=== PATIENT | female | born 1945 | race Caucasian/White ===

== ENCOUNTER → 2018-12-22 13:59 | Outpatient (CLI) | payer MEDICARE, BC, SELFPAY ==
[2015-01-31 12:30] VITALS: BMI 33.5
--- NOTE | 2018-12-22 14:09 | RAD_ITS ---
STUDY: X-RAY - PELVIS AND LEFT HIP REASON FOR EXAM: Left hip pain, no specific injury. TECHNIQUE: 2 views of the pelvis and hip. COMPARISON: None. FINDINGS: There are injection granulomas in the left buttocks. There is arthrosis of the sacroiliac joints bilaterally with joint space narrowing and subchondral eburnation. Normal bilateral superior and inferior pubic rami. Normal pubic symphysis. Normal bilateral ischial tuberosities. Normal visualized femoral head. Normal acetabulum. There is mild left superomedial hip joint space narrowing. RAD/HIP, UNI W/ Pelvis 2-3 Views IMPRESSION: Mild left hip arthrosis. Bilateral sacroiliac arthrosis. Electronically Signed: Gen Todd MD at 15:48 EDT Tel , Service support ,
--- NOTE | 2018-12-22 14:10 | RAD_ITS ---
STUDY: X-RAY - LUMBAR SPINE REASON FOR EXAM: Female, 73 years old. Lower back pain. Left hip pain and morning. TECHNIQUE: 5 view(s) of the lumbar spine were obtained. COMPARISON: None FINDINGS: Normal lumbar lordosis. There is no substantial scoliosis. Minimal anterolisthesis L3 on L4. Normal vertebral bodies. Multilevel disc space narrowing from L2-3 through L5-S1 with marginal osteophytes at multiple levels. The soft tissue structures are unremarkable. Surgical clips right upper quadrant. RAD/L/S Spine Min 4 Views IMPRESSION: Multilevel degenerative changes of the lumbar spine, no fracture identified. Consider correlation with nonemergent cross-sectional imaging. Electronically Signed: Espinoza Isaac MD at 2:49 EDT , Service support ,
== END ==
PROVIDERS: Family Provider Nurse Practitioner; PCP Nurse Practitioner; Referring Provider Nurse Practitioner; Visit Provider Nurse Practitioner
DX: M25.552 Pain in left hip (principal); M54.5 Low back pain
CPT/HCPCS: 72110; 73502

== ENCOUNTER → 2018-12-30 12:52 | Outpatient (CLI) | payer MEDICARE, BC, SELFPAY ==
--- NOTE | 2018-12-30 12:56 | MRI_ITS ---
STUDY: MRI LUMBAR SPINE WITHOUT CONTRAST REASON FOR EXAM: Female, 73 years old. Low back and left hip pain TECHNIQUE: Standardized fat and water weighted pulse sequences were obtained in the sagittal and axial planes. COMPARISON: Radiographs 12/22/2018 FINDINGS: T12-L1: Normal endplates. Normal disc height, hydration and morphology. Normal bilateral facet joints. Normal central canal and bilateral lateral recesses. Normal bilateral intervertebral neural foramina. Normal lumbar lordosis. There is no substantial scoliosis. Normal conus medullaris that terminates at the L1-2 level. L1-2: Bulging annulus without compressive sequelae. L2-3: Bulging annulus and bilateral facet hypertrophy with mild central canal and moderate bilateral foraminal stenoses. L3-4: Bulging annulus and bilateral facet hypertrophy with severe left lateral recess stenosis and mass effect on the transiting left L4 nerve root. Moderate bilateral foraminal stenoses. L4-5: Bulging annulus and bilateral facet hypertrophy with moderate left lateral recess stenosis and moderate left and mild right foraminal stenoses. L5-S1: Bulging annulus and bilateral facet hypertrophy with moderate bilateral foraminal stenoses. Normal visualized sacral ala. Normal visualized paraspinous soft tissue structures. MRI/Spine Lumbar (Routine) IMPRESSION: Multilevel degenerative disease as described. At L3-4, there are severe left lateral recess stenosis with mass effect on the transiting left L4 nerve root. Moderate bilateral foraminal stenoses at L2-3, L3-4, L4-5 and L5-S1. Electronically Signed: Nnamdi Reddy MD at 14:51 EDT Tel , Service support ,
== END ==
PROVIDERS: Family Provider Nurse Practitioner; PCP Nurse Practitioner; Referring Provider Nurse Practitioner; Visit Provider Nurse Practitioner
DX: M54.5 Low back pain (principal)
CPT/HCPCS: 72148

== ENCOUNTER → 2019-02-23 | Outpatient (CLI) | payer MEDICARE, BC, SELFPAY ==
--- NOTE | 2019-02-23 14:42 | BD_ITS ---
STUDY: DUAL ENERGY X-RAY ABSORPTIOMETRY / DXA REASON FOR EXAM: Female, 73 years old. Early menopause. Loss of height. TECHNIQUE: Bone Mineral Density (BMD) measurements of lumbar spine and bilateral hips were obtained. COMPARISON: Comparison is made with prior study dated May 17, 2010. FINDINGS: Lumbar Spine (L1-L4): g/cm2 (1.244) / T-score (0.5) / Z-score (2.3) Findings are suggestive of normal bone density with a low fracture risk. Left Femur Total: g/cm2 (0.862) / T-score (-1.2) / Z-score (0.5) Left Femoral Neck: g/cm2 (0.866) / T-score (-1.2) / Z-score (0.6) Right Femur Total: g/cm2 (0.888) / T-score (-0.9) / Z-score (0.7) Right Femoral Neck: g/cm2 (0.945) / T-score (-0.7) / Z-score (1.2) The T-Scores on the most recent prior examination were: Lumbar Spine (L1-L4): There has been improvement of bone density since the previous examination. Left Femur Total: which represents a worsening of 3.8%. Right Femur Total: which represents a worsening of 0.7%. BD/Dexa Bone Density Study IMPRESSION: The patient is considered osteopenic as outlined below according to World Reyes Organization (WHO) criteria with a low fracture risk. There has been worsening of bone density since the previous examination. Reference Information: The T-score is the number of standard deviations above or below the standard which is normal for young adults at their peak bone mineral density. The World Health Organization (WHO) interprets the T-scores as follows: Above -1 Normal bone density Between -1 and -2.5 Osteopenia Equal to / or below -2.5 Osteoporosis As a practical clinical guideline, osteopenia may be graded as follows: Mild -1 through -1.5 Moderate -1.6 through -2.0 Severe -2.1 through -2.4 The Z-score is the number of standard deviations above or below age-matched controls. A Z-score of less than -1.5 would be considered abnormal. References: 1. NIH Osteoporosis and Related Bone Diseases http://www.osteo.org 2. International Society for Clinical Densitometry http://www.iscd.org 3. National Osteoporosis Foundation http://www.nof.org Electronically Signed: Allan Joshua, at 13:34 EDT , Service support ,
== END | disposition home or self-care (01) ==
LOC: OPBD 14:37
PROVIDERS: PCP Nurse Practitioner; Referring Provider Nurse Practitioner; Visit Provider Nurse Practitioner
DX: Z78.0 Asymptomatic menopausal state (principal)
CPT/HCPCS: 77080

== ENCOUNTER 2019-04-02 08:24 | Emergency (ER) | payer MEDICARE, BC, SELFPAY ==
[2019-04-02 08:26] VITALS: BP 123/65; PULSE 90; RESP 17; TEMP 36.6; O2SAT 97; BMI 33.3
--- NOTE | 2019-04-02 08:51 | ED.DCSUM_ITS ---
History of Present Illness Chief Complaint: Other, Pain/Inj Informant: Patient Narrative: 74-year-old female is been having neck pain for roughly a week, it is on both sides, it is toward her shoulders and it hurts when she moves. She saw a chiropractor and they did some type of treatment that did not seem to help long- term and she is seeing them again after the weekend, this morning her right arm was hurting from her shoulder down the outside of it to the elbow but not beyond. She had no numbness or weakness in the arm. At this time her neck was bothering her pretty bad. The discomfort was not exertional, she had no chest discomfort, shortness of breath, sweating, palpitations, lightheadedness, or other systemic symptoms, and she has no history of heart disease. She has had disc problems in her low back chronically with sciatica symptoms and sees pain management Dr. Zarate for that. She took a Percocet this morning, her arm discomfort has been gone since, and her neck is feeling better since. She does still have pain when she moves her head in different directions. Denies any new problems in her legs or sciatica symptoms at this time, and no bowel or bladder dysfunction. - Past Medical History (1) GERD (gastroesophageal reflux disease) Status: Chronic (2) Chronic low back pain with sciatica Status: Chronic Past Medical History - Allergies and Home Meds Allergies/Adverse Reactions: Allergies Sulfa (Sulfonamide Antibiotics) Allergy (Verified 04/02/19 08:26) Toya Primary Care Physician: Aishwarya Lopez NP-C [Primary Care Provider] - Doctors: Dr. Zarate Smoking Status: Former smoker Drugs: None Review of Systems General: Denies: Chills, Fever Cardiovascular: Denies: Chest pain, Palpitations Respiratory: Denies: Dyspnea, Cough, Dyspnea on exertion Gastrointestinal: Denies: Abdominal pain, Nausea, Vomiting, Diarrhea, Melena, Hematochezia Musculoskeletal: Reports: Neck pain, Back pain, Extremity Pain. Denies: Myalgias, Arthralgias, Swelling Skin: Denies: Rash, Wounds Neurological: Denies: Headache, Weakness, Parasthesia, Numbness Physical Exam Vital Signs/Narrative: Vital Signs Temp Pulse Resp BP Pulse Ox 04/02/19 08:26 97.9 F 90 17 123/65 H 97 Inital Vital Signs reviewed: Yes General: Well nourished, Well developed, No Acute Distress - well-appearing, nad Head: Normocephalic, Atraumatic Eyes: Perrl, EOMI ENT: Moist mucous membranes, No rhinorrhea Neck: Supple - tender right paraspinal lower c-spine musculature, and pt increases the pain w/ turning head to right. pain improves w/ mild c-spine distraction performed by physician. no bony tenderness. no meningismus., No lymphadenopathy, No JVD, - - tender right paraspinal lower c-spine musculature, and pt increases the pain w/ turning head to right. pain improves w/ mild c- spine distraction performed by physician. Cardiovascular: Regular rate, Regular rhythm, No murmurs Respiratory: No distress, CTA bilaterally, Chest nontender Back: Normal Inspection, - - mild paraspinal upper lumbar tenderness bilat. no midline tenderness/step-off. Extremities: Nontender, No edema, - - no lesions RUE. Skin: Normal color, No rash, No Trauma Neurological: Alert, Oriented x3, Cranial nerves II-XII grossly intact, Normal Strength, Normal Sensation, Normal DTR - symmetric and 2+/4 BUE, Normal Gait Psychological: Normal affect, Normal Mood Diagnostic/Tx/Re-eval - Medical Decision Making Patient likely was having cervical radiculopathy discomfort related to the musculoskeletal pain in her neck, she possibly has degenerative disc disease in both her lumbar and cervical spines. I recommend she follow-up with Dr. Zarate. She was reassured that this is not likely cardiac in etiology given all of her symptoms and history this morning. Supportive care advised and following up and she is comfortable with that plan, as well as return to the ER for any worsening or new symptoms. ED Disposition - Plan for ED Patient: Disposition: Home or Assisted Living Diagnosis: Musculoskeletal disorder and symptoms referable to neck Instructions: RADICULOPATHY, Cervical, NECK PAIN, No Trauma Referrals: Yosvany Zarate [NON-STAFF] - 3-5 Days if not improving
== END 2019-04-02 09:56 | disposition home or self-care (01) ==
LOC: ED 09:05
PROVIDERS: Emergency Provider Emergency Medicine; Family Provider Nurse Practitioner; PCP Nurse Practitioner
DX: M54.12 Radiculopathy, cervical region (principal); Z87.891 Personal history of nicotine dependence; Z88.2 Allergy status to sulfonamides; K21.9 Gastro-esophageal reflux disease without esophagitis; M54.40 Lumbago with sciatica, unspecified side
CPT/HCPCS: 99283

== ENCOUNTER → 2019-04-05 15:35 | Outpatient (CLI) | payer MEDICARE, BC, SELFPAY ==
[2019-04-02 08:26] VITALS: BMI 33.3
--- NOTE | 2019-04-05 15:40 | RAD_ITS ---
STUDY: X-RAY - CERVICAL SPINE REASON FOR EXAM: Female, 74 years old. There is a fenestrated injury yesterday TECHNIQUE: 5 view(s) of the cervical spine were obtained. COMPARISON: None FINDINGS: Normal anterior atlantoaxial articulation. Normal odontoid process. Mild straightening of the C-spine curve. Grade 1 degenerative anterolisthesis of C4 on C5. Mild degenerative retrolisthesis of C5 on C6. Mild degenerative anterolisthesis of C6 on C7 and C7 on T1. Moderately pronounced C5-C6 disc space height narrowing. Mild disc space height narrowing at C4-C5 and C6-C7 disc space levels. Normal remaining cervical disc space heights. Normal visualized intervertebral neural foramina. The soft tissue structures are unremarkable. RAD/Cerv Spine 4 or 5 Views IMPRESSION: 1. No acute fracture or acute osseous abnormality of the cervical spine. 2. Grade 1 degenerative anterolisthesis of C4 on C5 but no suspicious stenosis of the bilateral intervertebral neural foramina. 3. Mild degenerative retrolisthesis of C5 on C6 with moderately pronounced disc space height narrowing but no stenosis of the bilateral intervertebral neural foramina. 4. Mild degenerative anterolisthesis of C6 on C7 and C7 on T1 but no suspicious stenosis of the bilateral intervertebral neural foramina. Electronically Signed: Rickey Luis MD at 15:37 EDT , Service support ,
== END ==
PROVIDERS: Family Provider Nurse Practitioner; PCP Nurse Practitioner; Referring Provider Anesthesiology Pain Medicine; Visit Provider Anesthesiology Pain Medicine
DX: M54.12 Radiculopathy, cervical region (principal)
CPT/HCPCS: 72050

== ENCOUNTER 2019-11-08 11:30 | Outpatient (RCR) | payer MEDICARE, BC, SELFPAY ==
--- NOTE | 2019-10-11 16:43 | HP.PTEVAL ---
Patient's Visit Information ROSELINE SHERIFF is a 74 year old F referred to Physical Therapy by TRACE BURNETT with a diagnosis of Right Knee OA. Date of Evaluation: 10/11/19 Physical Therapist: Drea Pa DPT - Visit Plan Frequency: 2x /Week Duration: 4 Weeks Plan: Prehab for TKR 12/29/2019 - Subjective Findings: Patient reports that she is planning to have a TKR on the right- December 29, 2019. Bone on bone and they want her to do therapy prior to surgery. Lives in a single story home in [place], [place]- 3 stairs in and some little steps in from the front door. Has had surgery before on the left TKR and has all the AD's she needs. Dr. Goetz in [place] is performing surgeries. Lots of creaking and crunching. Worst: 06/17 Agg: getting up from a chair- pain goes away once she is up and moving- Pain is located in the knee itself no radiating pain- does got to Dr. Zarate for injections in her spine for pain management. Sleeps in her lift chair- so it goes flat. PMHx: 1993 broken leg, 2009 Left TKR, Meds: Montelukast sod, Pantoprazole, Meloxicam, Amitriptyline, Synthroid, Oxycodone. - Objective Posture: FH, RS, increased kyphosis. Gait: slight deviation- decreased stance on the right LE. SLS: weight shift but unable to SLS. HR/TR: able with UE A. Palpatoin: crepetis- along medial and lateral joint line. ROM: 0-115 degrees. Strength: Ankle: 5/5, Knee: 4/5, Hip: 4/5 Core: fair. Flex: HS: moderate, Gastroc: mild - Goals Goal 1:: Patient will be I with HEP and progression Goal Time Frame: 4-6 Weeks Goal 2:: Patient will asc/desc 8 stairs recip with 1 HR Goal Time Frame: 4-6 Weeks Goal 3:: Patient will demo 5/5 strength in LE Goal Time Frame: 4-6 Weeks Goal 4:: Patient will get out of a chair without UE A Goal Time Frame: 4-6 Weeks - Rehabilitation Potential Physical Therapy Diagnosis: Patient presents for prehab for the right TKR- she has decreased ROM, strength, flex and muscular endurance leading to increased pain with ADL's. Rehabilitation Potential: Good - Anticipated Interventions Patient/Client Instruction: Educate patient on: Benefits of Fitness Program Therapeutic Exercise to Include: Strength training, Endurance training, Balance training, Coordination, Body mechanics, Postural training, Flexibilty training, Gait and locomotor training, Passive ROM, Active ROM, Dynamic Lumbar Stabilization For the Purpose of:: To improve muscle performance and motor function TENS: Yes Cryotherapy (ice pack, ice massage): Yes Thermo therapy (hot pack): Yes Ultrasound (thermal/non thermal): Yes For the Purpose of:: To decrease pain Thank you for the opportunity to evaluate your patient. For Medicare and Medicare HMO plans, please review the plan of care and approve it. It will need to be FAXED BACK to us at [phone] for Medicare purposes. For Medicare only, by signing this I certify the plan of care. Please let me know if there are questions or concerns regarding this plan of care. Physician Signature: Date:
--- NOTE | 2019-11-08 11:48 | HP.PTDCSUM ---
HP - PT D/C Summary It has been my pleasure to treat ROSELINE SHERIFF under orders from TRACE BURNETT, for the diagnosis of Right Knee OA for a total of 9 visit(s). Discharge Date: Please see the following information for a summary of their discharge status. - Subjective Subjective: Patient reports that her knee is better and she is ready for a knee replacement. - Pain right knee Pain Intensity (Out of 10): 3 - Overall Improvement % Improvement: 100 - Objective Objective/Function: Posture: FH, RS, increased kyphosis. Gait: slight deviation- decreased stance on the right LE. SLS: 3 seconds. HR/TR: able with UE A. Palpatoin: crepetis- along medial and lateral joint line. ROM: 0-115 degrees. Strength: Ankle: 5/5, Knee: 4+/5, Hip: 4+/5 Core: fair. Flex: HS: moderate, Gastroc: mild - Goals Goal 1:: Patient will be I with HEP and progression Goal Progress: Goal Met Goal 2:: Patient will asc/desc 8 stairs recip with 1 HR Goal Progress: Progressing Goal 3:: Patient will demo 5/5 strength in LE Goal Progress: Progressing Goal 4:: Patient will get out of a chair without UE A Goal Progress: Progressing - Plan Plan: Discharge to HEP - D/C Information If there are questions or concerns regarding this patient's physical therapy, please feel free to call me at [phone]. Thank you for the referral of this patient. Sincerely, Drea Pa DPT
== END 2019-11-08 19:00 | disposition home or self-care (01) ==
LOC: PT 11:30
PROVIDERS: PCP Nurse Practitioner
DX: M17.11 Unilateral primary osteoarthritis, right knee (principal)
CPT/HCPCS: 97110; 97161; 97164

== ENCOUNTER 2020-04-27 11:30 | Outpatient (RCR) | payer MEDICARE, BC, SELFPAY ==
--- NOTE | 2020-03-28 16:00 | HP.PTEVAL_ITS ---
Patient's Visit Information ROSELINE SHERIFF is a 75 year old F referred to Physical Therapy by Dr. Kody Ervin MD with a diagnosis of Right TKR. Date of Evaluation: 03/28/20 Physical Therapist: Drea Pa DPT - Visit Plan Frequency: 2x /Week Duration: 4 Weeks Plan: Focus on LE strength and ROM- functional mobility - Subjective Right TKR March [address] Rodas- left TKR 2010. She had home health for 2 weeks- and is now ready for outpatient for 4 weeks. No AD at home but does use it outside- she leaves it places and doesn't remember to use it all the time. She has 3 stairs at home to get inside and then ranch home- steps have handrail on both sides. Agg: being it Worst: 10/10 then once she backs it to normal is a 2/10. She had a bad weekend. Sleep: is still hard and it wakes her up. Eases: pain meds, rest and ice. Best: 0/10. Describes the pain as sharp- no radiating pain. Does have mild sciatica but that is not new. Has had injections in her back before- mid September was her last one. No N/T in the foot/toes. Cleared to drive on Friday. Pmhx/Meds: see chart - Objective Posture: FH, RS- can correct but does not maintain. Gait: no AD in clinic- but does carry a straight cane- mildly antalgic- with decreased stance on right LE with decreased heel/toe pattern. HR/TR: able with UE a. Observation: incision healing well no s/s of infection. SLS: weight shift but unable to SLS without LOB. Palpation: tender in medial joint line. ROM: 0-100 degrees. Strength: Core: fair, Hip:4/5, Knee: 4+/5, Ankle: 5/5. Flex: HS: moderate, Gastroc: moderate - Goals Goal 1:: Patient will be I with HEP and progression Goal Time Frame: 4-6 Weeks Goal 2:: Patient will ambulate >300 feet with a normalized gait pattern Goal Time Frame: 4-6 Weeks Goal 3:: Patient will asc/desc 8 recip with 1 hr Goal Time Frame: 4-6 Weeks Goal 4:: Patient will demo 0-115 degrees of ROM in right knee Goal Time Frame: 4-6 Weeks - Rehabilitation Potential Physical Therapy Diagnosis: Patient presents with hypomobility- she has decreased ROM, strength, flex and muscular endurance s/p right TKR leading to abnormal gait and decreased ability to perform ADL's. Rehabilitation Potential: Fair - Anticipated Interventions Patient/Client Instruction: Educate patient on: Benefits of Fitness Program Therapeutic Exercise to Include: Strength training, Endurance training, Balance training, Coordination, Agility training, Body mechanics, Postural training, F lexibilty training, Gait and locomotor training, Neuromotor development, Passive ROM, Active ROM, Dynamic Lumbar Stabilization For the Purpose of:: To improve muscle performance and motor function TENS: Yes Cryotherapy (ice pack, ice massage): Yes Thermo therapy (hot pack): No - per protocol Ultrasound (thermal/non thermal): No - per protocol For the Purpose of:: To decrease pain Thank you for the opportunity to evaluate your patient. For Medicare and Medicare HMO plans, please review the plan of care and approve it. It will need to be FAXED BACK to us at [phone] for Medicare purposes. For Medicare only, by signing this I certify the plan of care. Please let me know if there are questions or concerns regarding this plan of care. Physician Signature: Date :
--- NOTE | 2020-04-27 12:51 | HP.PTDCSUM ---
It has been my pleasure to treat ROSELINE SMART BONE referred by Dr. Kody Ervin MD, with the diagnosis of Right TKR for a total of 7 visit(s). Discharge Date: Please see the following information for a summary of their discharge status. Subjective: Patient reports that she is stuck at 107 degrees. She feels 75% better- wants to increase her ambulation distance and do a wide staircase. She does have discomfort when she bends it to max- and it can be a little achy. R knee Pain Intensity (Out of 10): 4 % Improvement: 75 Objective/Function: Posture: FH, RS- can correct but does not maintain. Gait: no significant deviation HR/TR: able with UE a. Observation: incision healing well no s/s of infection. SLS: 10 sec. Palpation: not tender. ROM: 0-107 degrees. Strength: Core: fair, Hip:4+/5, Knee: 5/5, Ankle: 5/5. Flex: HS: moderate, Gastroc: moderate Goal 1:: Patient will be I with HEP and progression Goal Progress: Goal Met Goal 2:: Patient will ambulate >300 feet with a normalized gait pattern Goal Progress: Goal Met Goal 3:: Patient will asc/desc 8 recip with 1 hr Goal Progress: Progressing Goal 4:: Patient will demo 0-115 degrees of ROM in right knee Goal Progress: Progressing Plan: Discharge to I HEP If there are questions or concerns regarding this patient's physical therapy, please feel free to call me at [phone]. Thank you for the referral of this patient. Sincerely, Drea Pa DPT
== END 2020-04-27 13:26 | disposition home or self-care (01) ==
LOC: PT 11:30
PROVIDERS: PCP Nurse Practitioner; Referring Provider Orthopaedic Surgery; Visit Provider Orthopaedic Surgery
DX: Z96.651 Presence of right artificial knee joint (principal)
CPT/HCPCS: 97110; 97162; 97164

== ENCOUNTER → 2020-09-13 14:10 | Outpatient (CLI) | payer MEDICARE, BC, SELFPAY ==
--- NOTE | 2020-09-13 14:14 | US_ITS ---
STUDY: ULTRASOUND BREAST - LEFT REASON FOR EXAM: Female, 75 years old. Palpable lump left breast. TECHNIQUE: Axial and longitudinal images of the LEFT breast were performed with a high resolution ultrasound transducer. # OF IMAGES: 10 COMPARISON: Comparison is made with prior mammogram done earlier today. FINDINGS: LEFT Breast: The palpable abnormality corresponds to 1.8 cm x 2.1 cm x 1.1 cm heterogeneous irregular nodule with vascularity at the 1 0o''clock position of the breast at 3 cm from the nipple. US/Breast Limited Unilateral IMPRESSION: The pathologic amount to correspond to 1.8 cm x 2.1 cm x 1.1 cm heterogeneous irregular nodule with increased vascularity. A biopsy is recommended. ASSESSMENT CATEGORY: BIRADS Category 5: Highly Suggestive of Malignancy - Appropriate Action Should Be Taken. A letter regarding these results will be sent to the patient by the facility within 30 days. Electronically Signed: Allan Joshua, at 16:05 EST , Service support ,
--- NOTE | 2020-09-13 14:14 | BI_ITS ---
MAMMOGRAPHY - BILATERAL DIAGNOSTIC REASON FOR EXAM: Female, 75 years old. Palpable lump at the 11 o''clock position of the left breast. PERTINENT HISTORY: Non-contributory. Remote right stereotactic breast biopsy. TECHNIQUE: Digital bilateral breast kassie (3D mammographic acquisition) in the CC and MLO projections. 2-D mediolateral oblique (MLO) and craniocaudad (CC) views of both breasts were obtained. CAD: Full Field Digital Mammography with Computer Added Detection was performed. COMPARISON: Comparison is made with prior examination of 03/17/2015 and 02/11/2013. FINDINGS: Breast Composition: The breasts are heterogeneously dense, which may obscure small masses. The palpable abnormality corresponds to a 1.8 cm x 1.8 cm irregular nodule in the retroareolar region of the left breast. Correlation with ultrasound is recommended. No other significant abnormalities are identified. BI/DIAG MAMM W/CAD, BILAT IMPRESSION: The palpable abnormality corresponds to an irregular 1.8 cm x 1.8 cm nodule in the retroareolar region of the left breast correlation with ultrasound is recommended. ASSESSMENT CATEGORY: BIRADS Category 0: Incomplete. Need additional imaging evaluation. A letter regarding these results will be sent to the patient by the facility within 30 days. Approximately 10% of breast cancers are not detected by mammography. A normal mammogram should not delay biopsy of a clinically suspicious abnormality. Electronically Signed: Allan Joshua, at 15:23 EST , Service support ,
== END ==
PROVIDERS: PCP Nurse Practitioner; Visit Provider Nurse Practitioner
DX: N63.20 Unspecified lump in the left breast, unspecified quadrant (principal)
CPT/HCPCS: 76642; 77062; 77066; G0279

== ENCOUNTER → 2020-09-18 10:45 | Outpatient (CLI) | payer MEDICARE, BC, SELFPAY ==
--- NOTE | 2020-09-18 | IMM_PTH ---
PATIENT: ROSELINE SHERIFF LOC: [facility] U#:[id number] AGE/SX: 80/F ROOM: RE09/18/[address]: Dr. Megan Concepcion MD : 1945 BED: DIS: SPEC #: [id number] RECD: 09/19/20 12:40 STATUS: YRN REQ #: [id number] DUYEN: 09/18/20 00:[address]: Megan Cnocepcion DEPT: IMMUNOHISTOCHEMISTRY RECD BY: Uyen Oneil ENTERED: 09/19/20 12:42 SP TYPE: IMMUNO OTHR DR: Aishwarya Lopez, ORTHOPEDIC SPECIALIST-C Tissues: Left breast, NOS Procedures: CALPONIN-1 (add) CK5-6 (add) CK8 (add) GREGORIO-2 (add) E-CAD (add) HER2 DEONDRE (add) KI-67 (add) P53 (add) MA (add) P40 (add) ER (initial) PHYSICIAN & [address] [address] SPECIMEN INFORMATION: Tissue Source: Left breast, 10 o'clock, 3 cm from nipple Clinical Info: Abnormal mammogram, left breast lump Specimen Number: [id number] CPT code: 63287, 88600 x7, 68845 x3 METHODOLOGY: Deparaffinized sections of prefer/formalin-fixed tissue or PAP/DQ stained slides are incubated with monoclonal/polyclonal antibodies/oligonucleotide probes. Localization is made via biotin free immunoperoxidase method. Appropriate controls are performed and reacted as expected. Results on target cell population are indicated in the following table: RESULTS: ANTIBODY / CLONE RESULT P53 (DO-7) positive, <1% Ki-67 (30-9) positive, 10% CK8 (73uviuZ93) positive CK5-6 (D5 & 1684) negative Calponin-1 (DU305J) negative P40 (BC28) negative E-Cad (ECH-6) positive GREGORIO-2 (SP21) positive MORPHOMETRIC ANALYSIS ER (clone 6F11) >95%, strong intensity MA (clone 16/1E2) >95%, strong intensity Her-2Neu (clone CB11) 0-1+ The prognostic test for HER2 is performed on formalin-fixed paraffin embedded tissue. A 3+ (positive) staining pattern is defined as intense, homogeneous, complete, circumferential membranous staining in >10% of contiguous tumor cells. A similar weak (2+) staining pattern is interpreted as equivocal. JUWAN follow-up testing is recommended for all equivocal cases. Positivity/negativity for ER/MA is reported if > or < 1% of the tumor cells are immuno- reactive, respectively. The ASCO/CAP criteria is used for scoring. Reference: Journal of Clinical Oncology, 2013; 31:6147-6852 & 2010; 16:2708-0449. Duration of fixation: 9.5 Hrs; Sample Adequate: Yes. These assays have not been validated on decalcified tissues. Results should be interpreted with caution given the likelihood of false negativity on decalcified specimens. These tests were developed and their performance characteristics determined by [facility]. They may not have been cleared or approved by the U.S. Food and Drug Administration. The FDA has determined that such clearance or approval is not necessary. The above immunohistochemical/dualISH markers are ordered and reviewed by the Pathologist. INTERPRETATION: Left breast, ultrasound-guided core biopsy: Invasive ductal carcinoma, nuclear grade 1-2. Positive for estrogen receptors (favorable prognostic indicator). Positive for progesterone receptors (favorable prognostic indicator). Negative for overexpression of UOR3vvb. AM:shivam 09/20/2020 Case has been reviewed in consultation with Dr. Palma who concurs with the above diagnosis. IDC:SJ
--- NOTE | 2020-09-18 | BRBX_PTH ---
PATIENT: ROSELINE SHERIFF LOC: [facility] U#:[id number] AGE/SX: 80/F ROOM: RE09/18/[address]: Dr. Megan Concepcion MD : 1945 BED: DIS: SPEC #: [id number] RECD: 09/18/20 12:09 STATUS: YRN EVELYN #: [id number] DUYEN: 09/18/20 00:[address]: Megan Concepcion DEPT: SURGICAL PATHOLOGY RECD BY: Tj Reyes ENTERED: 09/18/20 12:09 SP TYPE: BREAST BX OTHR DR: Aishwarya Lopze MECHANICAL ENGINEERING TECHNOLOGISTChacorta Tissues: Left breast, NOS Procedures: Surgery Specimen Level IV HEADER OPERATION: Ultrasound-guided left breast biopsy PRE-OP DIAGNOSIS: Abnormal mammogram, left breast lump TISSUE SUBMITTED: Left breast biopsy 10 o'clock, 3 cm from nipple ISCHEMIC TIME: 1 minute FIXATION TIME: 9.5 hours MICROSCOPIC DIAGNOSIS Left breast, ultrasound-guided core biopsy: Invasive ductal carcinoma with the following characteristics: Maximal length - 8 millimeters Nuclear grade - 1/2 See comment. AM:shivam 09/19/2020 COMMENT ER/NC/Ktx6bdy studies are being performed on sections of tumor and the results from this study will be reported separately ([id number]). Case has been reviewed in consultation with Dr. Palma who concurs with the above diagnosis. IDC:GOKUL MICROSCOPIC DESCRIPTION Slides are reviewed. GROSS DESCRIPTION Received in fixative is one container labeled with the patient name and designated left breast. The specimen consists of multiple elongated fragments of cristina-yellow fibroadipose tissue that in aggregate measure 2 x 0.3 x 0.1 cm. The entire specimen is submitted in one cassette. / GOKUL:shivam 09/18/20 TC:0 CPT: 67344
[2020-09-18 09:20] VITALS: BMI 33.9
== END ==
PROVIDERS: PCP Nurse Practitioner; Referring Provider Surgery; Visit Provider Surgery
DX: R92.8 Other abnormal and inconclusive findings on diagnostic imaging of breast (principal)
CPT/HCPCS: 88305; 88341; 88342

== ENCOUNTER 2020-10-10 07:42 | Day surgery (SDC) | payer MEDICARE, BC, SELFPAY ==
[2020-09-18 09:20] VITALS: BMI 33.9
[2020-09-28 13:31] VITALS: BMI 34.7
--- NOTE | 2020-10-10 | IMM_PTH ---
PATIENT: ROSELINE SHERIFF [place] [facility] [place][id number] AGE/SX: 75/F ROOM: RE10/10/[address]: Dr. Megan Concepcion MD : 1945 BED: DIS: 10/10/2020 SPEC #: [id number] RECD: 10/16/20 12:33 STATUS: YRN REQ #: [id number] DUYEN: 10/10/20 00:[address]: Megan Concepcion DEPT: IMMUNOHISTOCHEMISTRY RECD BY: Uyen Oneil ENTERED: 10/16/20 12:35 SP TYPE: IMMUNO OTHR DR: Aishwarya Lopez, CLAY MACHINE OPERATOR-C Tissues: A - Axillary lymph node, NOS Procedures: Pankeratin (add) CK7 (initial) PHYSICIAN & INSTITUTION [place] [address] SPECIMEN INFORMATION: Tissue Source: A - Left sentinel lymph node Clinical Info: Left breast invasive ductal carcinoma Specimen Number: [id number] CPT code: 62989, 78927 METHODOLOGY: Deparaffinized sections of prefer/formalin-fixed tissue or PAP/DQ stained slides are incubated with monoclonal/polyclonal antibodies/oligonucleotide probes. Localization is made via biotin free immunoperoxidase method. Appropriate controls are performed and reacted as expected. Results on target cell population are indicated in the following table: RESULTS: ANTIBODY / CLONE RESULT Block A CK7 (OV-TL12/30) negative AE1-3 (AE1/AE3/PCK26) negative These tests were developed and their performance characteristics determined by [facility]. They may not have been cleared or approved by the U.S. Food and Drug Administration. The FDA has determined that such clearance or approval is not necessary. The above immunohistochemical/dualISH markers are ordered and reviewed by the Pathologist. INTERPRETATION: A. Left sentinel lymph node, biopsy: Negative for carcinoma. AM:shivam 10/17/2020
--- NOTE | 2020-10-10 | AXNB_PTH ---
PATIENT: ROSELINE SHERIFF LOC: [facility] [place] U#:[id number] AGE/SX: 75/F ROOM: RE10/10/[address]: Dr. Megan Concepcion MD : 1945 BED: DIS: 10/10/2020 SPEC #: [id number] RECD: 10/10/20 11:23 STATUS: YRN EVELYN #: [id number] DUYEN: 10/10/20 00:[address]: Megan Concepcion DEPT: SURGICAL PATHOLOGY RECD BY: Uyen Oneil ENTERED: 10/10/20 11:49 SP TYPE: AX NODE BX OTHR DR: Aishwarya Lopez, CARGO SERVICE AGENT-C Tissues: A - Axillary lymph node, NOS B - Left breast, NOS Procedures: Frozen Section (charge) Surgery Specimen Level V HEADER OPERATION: Left breast needle localization, lumpectomy with sentinel node PRE-OP DIAGNOSIS: Left breast invasive ductal carcinoma TISSUE SUBMITTED: A - [place] lymph node, FS at 1120, B - Left breast lumpectomy, single long - lateral, double short - superior FROZEN SECTION DIAGNOSIS A. Left axillary lymph node, biopsy: One out of one lymph node, negative for carcinoma. AM: 10/10/2020 MICROSCOPIC DIAGNOSIS A. Left axillary sentinel lymph node, biopsy: One out of one lymph node, negative for carcinoma. See comment. B. Left breast, simple mastectomy/lumpectomy: Invasive ductal carcinoma. See cancer checklist below. AM: 10/16/2020 COMMENT A. Immunohistochemistry ([id number]) supports the above diagnosis. B. INVASIVE BREAST CANCER SUMMARY: Specimen: Excision with wire guidance Specimen: Type: Partial breast/simple mastectomy Size: 8 x 5.5 x 2.5 cm Laterality: left breast Invasive Tumor: Size: 2 x 1.5 x 1.5 cm Focality: Single focus of invasive carcinoma. Histologic type: Invasive ductal carcinoma. Histologic grade (Nury grade): Glandular/tubular differentiation score: 1 Nuclear pleomorphism score: 2 Mitotic count score: 2 Overall grade: 2 (score of 5) Lymphvascular invasion: Not identified Ductal Carcinoma In Situ: Not present Lobular Carcinoma In Situ: Not present Tumor extension: Skin: Free of carcinoma Nipple: Free of carcinoma Skeletal muscle: No skeletal muscle present. Margins Involved by Invasive Carcinoma: Distance from closest margin: 10 mm from posterior margin Margins Involved by In Situ Carcinoma: Not applicable Lymph Nodes: Number of sentinel lymph nodes examined: 1 Total number of lymph nodes examined: 1 No evidence of macrometastases, micrometastases or isolated tumor cells See specimens A Microcalcifications: Present in non-neoplastic tissue. Treatment Effect: Unknown Additional Pathologic Findings: Changes of previous biopsy. Ancillary Studies: Previously performed on same tumor ([id number] / [id number]) ER: >95%, strong intensity AR: >95%, strong intensity Nvk0vxy: 0-1+ (negative) Clinical History: Mass of left breast PATHOLOGIC STAGE: T1c N0(sn) Mx The above summary is in compliance with College of [place] Pathology (CAP) Cancer Protocols Checklist and [place] Joint Committee on Cancer (AJCC), Staging Manual, 8th Ed. Case has been reviewed in consultation with Dr. Palma who concurs with the above diagnosis. IDC:SJ MICROSCOPIC DESCRIPTION Slides are reviewed. GROSS DESCRIPTION A - Received fresh for frozen section consultation labeled with the patient's name is a specimen designated left sentinel lymph node. The specimen consists of an ovoid fragment of cristina-blue soft tissue measuring 1.1 x 1 x 0.5 cm. The specimen is bisected and totally submitted in one block for frozen section consultation. B - Received fresh for OR consultation labeled with the patient's name is a specimen designated left breast lumpectomy. The specimen consists of a simple mastectomy specimen measuring 8 x 5.5 x 2.8 cm and weighing 60.8 gm. An ellipse of unremarkable skin containing centrally located nipple and areola is present. The skin fragment measures 7 x 4 cm. The specimen is oriented and contains a wire in its lateral portion. The specimen is differentially inked as follows: posterior - black, superior - yellow, inferior - green, medial - red and lateral - orange. Serial sections reveal an irregular cristina-white lesion measuring 2 x 1.5 x 1.5 cm that is located 1 cm from its closest (posterior) margin of excision. The proximity of the lesion to the closest margin is conveyed to the surgeon intraoperatively. Graphic Illustrator sections are submitted in 12 cassettes as follows: 1 - nipple and areola, 2 & 3 - perpendicular inked margins, 4-8 - tumor, 9 - site safety representative sections of breast parenchyma adjacent to tumor, 10-12 - site safety representative sections of breast parenchyma away from tumor. Note, the specimen is submitted after additional overnight fixation. / AM:shivam 10/11/20 TC:0 CPT: 91809 x2, 83249, 06279 ADDENDUM ADDENDUM ADDENDUM ADDENDUM ADDENDUM ADDENDUM ADDENDUM ADDENDUM 11/08/2020 10:09 ADDENDUM 11/08/2020 10:09 ADDENDUM 11/08/2020 10:09 ADDENDUM 11/08/2020 10:09 ADDENDUM 11/08/2020 10:09 An order for Oncotype testing was received from Dr. Zabala. This necessitated case review, block and slide selection by pathologist at [facility]. Breast Cancer Recurrence Score = 5 Results of the complete Oncotype testing ([facility] report) are viewable in EMR under: Reports - Pathology - Lab Pathology Report, Scanned.
--- NOTE | 2020-10-10 07:30 | NM_ITS ---
PROCEDURE: NUCLEAR MEDICINE Injection Herlong Node - LEFT breast(s). REASON FOR EXAM: Female, 75 years old. Left breast cancer. TECHNIQUE: Herlong node localization using radionuclide methods of the LEFT breast(s) was performed following subcutaneous administration of 1.1 mCi of of sulfur colloid Tc-99m. FINDINGS: 1.1 mCi of communication electronic technician sulfur colloid was injected subcutaneously at the biopsy site. NM/Lymph Node Injection Only IMPRESSION: 1.1 mCi of technetium labeled sulfur colloid was injected subcutaneously in 4 equal aliquots at the biopsy site. Electronically Signed: Allan Joshua MD at 14:45 EST , Service support ,
[2020-10-10 08:04] VITALS: BP 133/54; PULSE 86; RESP 14; TEMP 36.3; O2SAT 99; BMI 33.0
[2020-10-10] MEDS: Lactated Ringers 1,000 ML 100 ML IV ×2 (08:30→12:32)
--- NOTE | 2020-10-10 10:00 | PCM.HP.STD ---
History of Present Illness Date of Admission: 10/10/20 The patient is a 75 year old F Presents due to left invasive ductal carcinoma(ER/OR positive, HER-2/tricia negative). Planning to undergo a left lumpectomy, sentinel lymph node biopsy with nuclear tracer and blue dye. When discussing the procedure with patient she did not want to have an axillary lymph node dissection. Thus even if greater than 2 nodes are positive we will not pursue axillary lymph node dissection today and will discuss with patient to If she would want to and do a complete axillary lymph node dissection depending on results. Patient is currently on Premarin and has been encouraged to stop. Patient states her quality of life is an issue when she has been off of it. Currently she is agreeable to try to wean down and see if she continues to have the same previous issues affected her quality of life. Past Medical History Past Medical History (Chronic Problems): Chronic Problems (Last Reviewed 09/28/20 @ 13:30 by Betty Levy RN) GERD (gastroesophageal reflux disease) (Chronic) Chronic low back pain with sciatica (Chronic) Medical History: Medical History (Last Reviewed 09/28/20 @ 13:30 by Betty Levy RN) GERD (gastroesophageal reflux disease) (Chronic) K21.9 Chronic low back pain with sciatica (Chronic) M54.40, G89.29 Breast cancer, left C50.912 Breast lump N63.0 Allergies Sulfa (Sulfonamide Antibiotics) Allergy (Verified 10/10/20 08:03) Hives Home Medications: Ambulatory Orders Medication Instructions Recorded Calcium Carbonate/Vitamin D3 1 ea PO DAILY 01/27/15 [Calcium 600 + Vit D 800 Tab] Cholecalciferol (VIT D3) [Vitamin 2,000 unit PO DAILY 01/27/15 D] Lactobacillus Acidophilus 1 tab PO DAILY 01/27/15 [Acidophilus] Montelukast [Singulair] 10 mg PO DAILY 01/27/15 amitriptyline 50 mg tablet 50 mg PO DAILY 09/18/20 ferrous sulfate 325 mg (65 mg 325 mg PO DAILY 09/18/20 iron) tablet levothyroxine 25 mcg tablet 25 mcg PO DAILY 09/18/20 meloxicam 15 mg tablet 15 mg PO DAILY 09/18/20 pantoprazole 40 mg tablet,delayed 40 mg PO BID 09/18/20 release Cyanocobalamin (Vitamin B-12) 5,000 mcg PO DAILY 09/28/20 [Vitamin B12] Estrogen,Con/M-Progest Acet 1 tab PO DAILY 09/28/20 [Prempro 0.625-2.5 MG Tablet] Surgical History: Surgical History (Last Updated 09/28/20 @ 13:31 by Betty Levy RN) History of cholecystectomy Z90.49 History of kidney surgery Z98.890 History of left breast biopsy Onset Date: ~09/18/20 Z98.890 History of tonsillectomy Z90.89 History of total left knee replacement Z96.652 History of total right knee replacement Z96.651 history ORIF Right ankle Smoking Status: Never smoker VTE Information - Inpt Only VTE Present on Admission: Yes VTE Mechan Device Prophylaxis: SCD's - Physical Exam Vitals/I&O's: Vital Signs Temp Pulse Resp BP Pulse Ox 97.4 F L 86 14 133/54 H 99 10/10/20 08:04 10/10/20 08:04 10/10/20 08:04 10/10/20 08:04 10/10/20 08:04 Oxygen Delivery Method Room Air Weight: 195 lb 12.328 oz Body Mass Index (BMI) 33.0 General: Alert, Oriented x3, Cooperative, No apparent distress HEENT: Atraumatic Lungs: Normal air movement Cardiovascular: Regular rate Abdomen: Soft, Non Tender, Non-Distended Extremities: No clubbing, No cyanosis, No edema Skin: - - Inspection: Breast symmetric bilaterally, at 10:00 on the left breast near the areolar slight discoloration yellowish in color. Left breast: Left breast mass at 10:00 near the areolar border about 4 x 5 cm on exam, nontender, slight yellow discoloration of the overlying skin. Right breast: No masses Microbiology Past 72 Hours 10/09/20 12:25 Interface Orders SARS-CoV-2 Antigen (Rapid) - Final Current Medications Cefazolin Sodium 2 gm/ Sodium (Chloride) 110 mls @ 150 mls/hr IV PREOP ONE Stop: 10/10/20 11:43 Assessment/Plan 75-year-old female with left breast invasive ductal carcinoma, ER/OR positive, HER-2/tricia negative clinically T2, N0, MX I have given the patient options for initial surgical treatment. Options are the following: lumpectomy followed by radiation therapy vs. mastectomy vs. mastectomy followed by immediate reconstruction. I have described the procedures to the patient. I have described the advantages and disadvantages of the options, but I have told the patient that among the options, the survival rate for breast cancer is the same. I have told the patient that with all the surgeries that a sentinel lymph node biopsy is required. I have described the procedure of sentinel lymph node biopsy to the patient. I have told the patient that if the biopsy is positive for metastatic disease, then a full axillary lymph node dissection is required. I have told the patient that adjuvant chemotherapy will be required should the lymph nodes reveal metastatic disease. Also, a full lymph node dissection will increase the risk for lymphedema, especially if there are 4 or more lymph nodes positive for metastatic disease and radiation to the axilla is also required. I have told the patient the risks of surgery, including but not limited to: infection, bleeding, scar tissue, seroma and persistent seroma, lymph leak, injury to any blood vessels, injury to any nerves (particularly the long thoracic, the thoracodorsal, and the second intercostal brachial and the resultant sequelae), lymphedema, cosmetic deformity, dysesthesias, wound infections, further surgery (especially if margins are not clear), complications of anesthesia, etc. the patient understands. I have answered all the patient?s questions at this point to her satisfaction and she has no further questions. Patient decided to undergo a left lumpectomy with sentinel lymph node biopsy with blue dye and nuclear tracer. Patient does not want complete axillary lymph node dissection even if tumor nodes are positive at the time of this initial surgery. Will discuss with patient later following surgery if this were to be the case. Patient has also been on Premarin which we have encouraged patient to stop as this would be like bleeding the tumor as it is ER/OR positive. However patient states that not being on Premarin greatly affects her quality of life. She is agreeable currently to try weaning to see if she has the same issues she had previously. Likely patient will not plan to go on endocrine therapy following surgery. Megan Concepcion M.D. Pager: [phone] [facility] [address] [place] [address] [address] [place] [address] Office: [phone] Procedure Criteria Procedure Type: Elective COVID Risk Discussion: The surgeon/proceduralist and patient have discussed in detail the risk of exposure to and/or potential harm posed by the COVID-19 virus with having a surgery/procedure at this time versus the risk of delaying the surgery/procedure. It is not possible to know either the risk of delaying the surgery or procedure or chance of getting an infection with perfect accuracy, but a joint decision was made between the patient and the surgeon/proceduralist to proceed at this time with the scheduled surgery/procedure as indicated on the consent form.
[2020-10-10] MEDS: Cefazolin 2 GM in 0.9% Normal Saline 100 ML IV (10:38)
[2020-10-10] MEDS: 0.9% Normal Saline (Pres. free 10 ML Vial (10:50)
[2020-10-10] MEDS: Isosulfan Blue 1% 5 ML Vial (10:50)
--- NOTE | 2020-10-10 11:43 | PCM.OPRPT ---
Report of Operation Date of Procedure: 10/10/20 Pre-Operative Diagnosis: left invasive ductal breast cancer Post-Operative Diagnosis: same Surgery/Procedure Performed:: Left lumpectomy?ultrasound-guided needle localization, sentinel lymph node biopsy with radiotracer and blue dye manager graphic: Aaron Perez Type of Anesthesia:: General/Supplemental Anesthesiologist: Rafiq Tirado Special Medications: ancef 2 gram IV x1 Specimen's removed: 1. Left axillary sentinel lymph node?negative on frozen, 2. Left lumpectomy Estimated Blood Loss (mL): 10 cc Fluids Replaced: 1000 cc Description of Procedure: In radiology the breast tissue was injected with TC-9 9 sulfur colloid. >90 minutes later the patient was taken to the operating room and general anesthesia was induced. Localization studies were reviewed. 5 cc of Lymphazurin 1% blue dye was injected in the 4 quadrants periareolar along with 10 cc of normal saline. This was massaged gently for 5 minutes. The left breast and axilla were prepped and draped in usual sterile fashion. A timeout was completed verifying correct patient, procedure, site, positioning, special equipment prior to beginning procedure. Handheld gamma probe was used to identify the location of the hottest spot in the axilla. Prior to the incision, the counts were 6. The incision was made in the hot node was identified. Blue lymphatics were identified and this was followed to blue lymph node. The probe was placed in contact with the node in the 10 count was 6. The bed of the node measured range between 0 and 4 counts: However this was almost directly on her ribs was still was registering so likely this was from other breast tissue not axilla. No additional blue or hot nodes were detected. Frozen was negative for 1 lymph node. Ultrasound was used to for wire localization with kopans wire. An ellipse incision was planned around the nipple areolar complex in order to include the areolar as well as the area of the mass which was close to the skin. Flaps were raised in the location of the wire confirmed. The wire was delivered into the wound. 2 silk [id number] stay suture was placed around the wire and used for traction. Dissection was then taken down circumferentially, taking care to include the entire localization needle and wide margin of grossly normal tissue. The specimen and entire localizing wire were removed. The specimen was oriented and sent to radiology with the localization studies. Confirmation was received that the entire target lesion had been resected. The wound was irrigated. Hemostasis was checked. The breast and axillary wounds were closed with interrupted sutures of 3-0 Vicryl and subcuticular sutures of 4-0 Monocryl with Dermabond. No attempt was made to close the space. A dressing of fluff gauze and supportive bra placed. The patient tolerated procedure well was taken to the postanesthesia care in stable condition. - Complications none
--- NOTE | 2020-10-10 11:44 | BI_ITS ---
SURGICAL BREAST SPECIMEN RADIOGRAPH CLINICAL: Document presence of tissue clip marker in biopsy specimen. FINDINGS: Specimen shows presence of tissue clip marker. Electronically Signed: Allan Joshua MD at 12:11 EST , Service support , BI/Breast Biopsy Specimen
--- NOTE | 2020-10-10 11:58 | PCM.DC.GS ---
Discharge Diet: Light diet - advance as tolerated Discharge Activity: May not drive while taking narcotic pain medications. May shower in (days): 1 Lifting Restrictions: No lifting greater than 10 pounds with the left side x2 weeks Call your doctor if your incision/area has: Continuous Slow Oozing, Sudden Increased Bleeding, Increased Pain/ Swelling, Increased Redness, Foul Smelling Discharge, Swelling at the incision site Call your doctor if you observe: Fever of 101 or Higher Additional Instructions: Okay to take ibuprofen 400-600 mg PO q6hr PRN along with the Percocet. Avoid Tylenol since there is already Tylenol in the Percocet--carefully monitor the amount of Tylenol in a 24-hour period should not exceed 3000 to 4000 mg. Take all pain meds with food. Percocet can cause constipation recommend taking daily stool softener (i.e. Colace/docusate) while taking the pain meds. Recommend starting some MiraLAX days if no bowel movement. If still no bowel movement following day recommend taking magnesium citrate half the bottle and waiting 4-6 hours if still no results take the other half the bottle. Allergies/Adverse Reactions: Allergies Sulfa (Sulfonamide Antibiotics) Allergy (Verified 10/10/20 08:03) Hives Medications to take at Discharge Calcium Carbonate/Vitamin D3 [Calcium 600 + Vit D 800 Tab] 1 ea PO DAILY 01/27/15 Cholecalciferol (VIT D3) [Vitamin D] 2,000 unit PO DAILY 01/27/15 Lactobacillus Acidophilus [Acidophilus] 1 tab PO DAILY 01/27/15 Montelukast [Singulair] 10 mg PO DAILY 01/27/15 amitriptyline 50 mg tablet 50 mg PO DAILY 09/18/20 ferrous sulfate 325 mg (65 mg iron) tablet 325 mg PO DAILY 09/18/20 levothyroxine 25 mcg tablet 25 mcg PO DAILY 09/18/20 meloxicam 15 mg tablet 15 mg PO DAILY 09/18/20 pantoprazole 40 mg tablet,delayed release 40 mg PO BID 09/18/20 Cyanocobalamin (Vitamin B-12) [Vitamin B12] 5,000 mcg PO DAILY 09/28/20 Estrogen,Con/M-Progest Acet [Prempro 0.625-2.5 MG Tablet] 1 tab PO DAILY 09/28/20 Oxycodone HCl/Acetaminophen [Percocet 5/325] 1 tablet PO Q6H PRN PRN 3 Days #15 tablet 10/10/20 Primary Care Physician: Aishwarya Lopez ASSET AVAILABILITY LEADER, ASSET AVAILABILITY LEADER-C [Primary Care Provider] - Test Results: Test results from this visit will be discussed in further detail at your follow-up appointment, if applicable. Please Follow Up With: Megan Concepcion MD - Your 5 PM and on the weekends call [phone] with any concerns When: Call the office for a follow-up appointment in 2 weeks [phone] Proposed Discharge Date: 10/10/20
[2020-10-10] MEDS: Bupiv/Epi 0.25% 30 ML Vial (12:00)
[2020-10-10 12:22] VITALS: BP 115/60; BP 133/54; PULSE 90; RESP 14; TEMP 35.8; O2SAT 94
[2020-10-10 12:30] VITALS: BP 117/50; BP 133/54; PULSE 88; RESP 14; O2SAT 90
[2020-10-10 12:45] VITALS: BP 111/53; BP 133/54; PULSE 86; RESP 14; O2SAT 95
[2020-10-10 12:53] VITALS: BP 119/58; BP 133/54; PULSE 86; RESP 14; TEMP 35.9; O2SAT 96
[2020-10-10 13:46] VITALS: BP 128/47; BP 133/54; PULSE 93; RESP 18; TEMP 36.1; O2SAT 100
== END 2020-10-10 14:04 | disposition home or self-care (01) ==
LOC: SDC 07:43 → AC 07:43
PROVIDERS: PCP Nurse Practitioner; Referring Provider Surgery; Visit Provider Surgery
PROC: 0HBV0ZZ Excision of Bilateral Breast, Open Approach (ICD-10-PCS; CPT 19302; principal; 2020-10-10 10:45)
DX: C50.912 Malignant neoplasm of unspecified site of left female breast (principal); Z17.0 Estrogen receptor positive status [ER+]; C77.9 Secondary and unspecified malignant neoplasm of lymph node, unspecified; K21.9 Gastro-esophageal reflux disease without esophagitis; Z79.1 Long term (current) use of non-steroidal anti-inflammatories (NSAID); Z85.3 Personal history of malignant neoplasm of breast; Z88.2 Allergy status to sulfonamides; Z96.653 Presence of artificial knee joint, bilateral; G89.29 Other chronic pain; M54.40 Lumbago with sciatica, unspecified side
CPT/HCPCS: 01610; 19301; 38525; 38792; 76098; 87426; 88305; 88307; 88331; 88341; 88342; A9541; C9803; J7120; J2405; J3490; Q9968

== ENCOUNTER → 2020-11-16 08:42 | Outpatient (CLI) | payer MEDICARE, BC, SELFPAY ==
[2020-09-28 13:31] VITALS: BMI 34.7
[2020-11-10 12:56] VITALS: BMI 32.3
[2020-11-16] VITALS (10 sets, daily range): BP systolic 102–145; BP diastolic 57–88; PULSE 79–97; RESP 12–18; TEMP 36.8; O2SAT 94–100; BMI 34.0
--- NOTE | 2020-11-16 | IMM_PTH ---
PATIENT: ROSELINE SHERIFF LOC: CT U#:[id number] AGE/SX: 80/F ROOM: RE11/16/[address]: Dr. Dennis Hubbard DO : 1945 BED: DIS: SPEC #: [id number] RECD: 11/16/20 12:22 STATUS: YRN REQ #: [id number] DUYEN: 11/16/20 00:[address]: Dennis Hubbard DEPT: IMMUNOHISTOCHEMISTRY RECD BY: Uyen Oneil ENTERED: 11/16/20 12:24 SP TYPE: IMMUNO OTHR DR: Aishwarya Lopez, FARMWORKER GRAIN-C Tissues: Lung, NOS Procedures: RCC (add) NAPSIN A (add) CK20 (add) CK5-6 (add) CK7 (add) CK8 (add) E-CAD (add) HEP PAR (add) HER2 DEONDRE (add) MAMM (add) OH (add) TTF1 (add) Pankeratin (add) GATA3 (add) P40 (add) ER (initial) PHYSICIAN & INSTITUTION [address] [address] SPECIMEN INFORMATION: Tissue Source: Left lung mass Clinical Info: Left lung mass Specimen Number: [id number] CPT code: 76632, 12492 x15 METHODOLOGY: Deparaffinized sections of prefer/formalin-fixed tissue or PAP/DQ stained slides are incubated with monoclonal/polyclonal antibodies/oligonucleotide probes. Localization is made via biotin free immunoperoxidase method. Appropriate controls are performed and reacted as expected. Results on target cell population are indicated in the following table: RESULTS: ANTIBODY / CLONE RESULT ER (6F11) negative OH (1E2) negative Her-2neu (CB11) negative E-Cad (ECH-6) positive Mammaglobin (31A5) negative GATA3 (L50-823) positive, weak AE1-3 (AE1/AE3/PCK26) positive CK7 (OV-TL12/30) positive, focal and weak CK8 (40rijwD26) positive CK20 (KS20.8) positive, focal TTF-1 (8G7G3/1) negative Napsin A (Rabbit Polyclonal) negative HepPar (OCh1E5) negative RCC (PN-15) negative CK5-6 (D5 & 1684) positive P40 (BC28) positive These tests were developed and their performance characteristics determined by [facility]. They may not have been cleared or approved by the U.S. Food and Drug Administration. The FDA has determined that such clearance or approval is not necessary. The above immunohistochemical/dualISH markers are ordered and reviewed by the Pathologist. INTERPRETATION: Left lung mass, CT-guided core biopsy: Non-small cell carcinoma, favor squamous cell carcinoma. SJ:shivam 11/17/2020
--- NOTE | 2020-11-16 08:45 | CT_ITS ---
PROCEDURE: CT-GUIDED CORE BIOPSY OF LEFT LUNG UPPER LOBE LUNG MASS Individualized dose optimization techniques were used for this CT. INDICATION: Female, 75 years old. Left lung upper lobe mass CT guidance CONSENT: The risks, benefits and alternatives to the procedure were explained to the patient, and the patient agreed to the procedure and signed the consent. SEDATION: Intermittent the intravenous and demonstration of Versed and fentanyl by nursing staff under continuous cardiopulmonary monitoring. Sedation less than approximately 30 minutes STERILE BARRIER TECHNIQUE: The following sterile barrier precautions were used during the procedure: hand hygiene; use of 2% chlorhexidine aseptic; use of a cap, mask, sterile gown, sterile gloves, sterile full body drape, and a large sterile sheet. PROCEDURE/TECHNIQUE: The risks, benefits, and alternatives to the procedure were explained to patient, and the patient agreed to the procedure and signed a consent form for the procedure. A timeout was performed to confirm the patient''s identity, the type of procedure, to be performed and the site of entry. Patient was positioned supine on the CT scan table. Under CT guidance using sterile technique and after infiltration of the skin and subcutaneous soft tissues with 40 mL of lidocaine 1% an 18-gauge core biopsy was introduced in the left lung upper lobe mass previously described.Multiple core samples were obtained and were placed with in formalin solution and sent to the lab for evaluation. Touch prep slides were examined by the pathologist at the procedure. FINDINGS: Successful CT-guided core biopsy of lung mass in the posterior segment of the left lung upper lobe. CT/Biopsy/Inj or Needle Placement IMPRESSION: Successful CT-guided core biopsy of lung mass in the posterior segment of the left lung upper lobe. Electronically Signed: Eusebio Marcus MD at 13:33 EST Tel , Service support ,
[2020-11-16 09:13] LABS: Prothrombin Time (Protime)PT. 12.1 SECONDS (11.7-14.9)
[2020-11-16 09:14] LABS: Partial Thromboplast Time 26.7 Seconds (24.1-36.2)
[2020-11-16] MEDS: Midazolam 2 MG/2 ML Syringe IV (11:14)
[2020-11-16] MEDS: fentaNYL 100 MCG/2 ML Ampul IV (11:14)
--- NOTE | 2020-11-16 11:30 | ASPIGT_PTH ---
PATIENT: ROSELINE SHERIFF LOC: CT U#:[id number] AGE/SX: 80/F ROOM: RE11/16/[address]: Dr. Dennis Hubbard DO : 1945 BED: DIS: SPEC #: [id number] RECD: 11/16/20 11:47 STATUS: YRN REHaley #: [id number] DUYEN: 11/16/20 11:[address]: Dennis Hubbard DEPT: SURGICAL PATHOLOGY RECD BY: Eva Barrera ENTERED: 11/16/20 11:48 SP TYPE: ASP RAD OTHR DR: Aishwarya Lopez, CORD TIRE BUILDER-Ha Tissues: Lung, NOS Procedures: FNA Specimen Adequacy Special Stain Group II Surgery Specimen Level IV Imprint (control) HEADER OPERATION: CT-guided left lung biopsy PRE-OP DIAGNOSIS: Left lung mass TISSUE SUBMITTED: Left lung mass 18-gauge core x4 MICROSCOPIC DIAGNOSIS Left lung mass, CT-guided core biopsy: Non-small cell carcinoma, favor squamous cell carcinoma. See comment. SJ:shivam 11/17/2020 COMMENT The specimen is evaluated at the time of biopsy by Dr. Palma. Immediate Evaluation = Positive for malignant cells derived from non-small cell carcinoma. Immunohistochemistry ([id number]) supports the above diagnosis. Molecular studies on the tumor can be performed, if clinically indicated. Please notify the laboratory, if they are needed. Please make reference to previous specimen ([id number]) left breast, simple mastectomy/lumpectomy with diagnosis of invasive ductal carcinoma. Case has been reviewed in consultation with Dr. Zapata who concurs with the above diagnosis. IDC:AM MICROSCOPIC DESCRIPTION Slides are reviewed. GROSS DESCRIPTION Received in fixative is one container labeled with the patient's name and designated left lung. The specimen consists of multiple elongated fragments of light cristina soft tissue that in aggregate measure 1.5 x 0.3 x <0.1 cm. The specimen is totally submitted in one cassette. Three touch imprints are prepared at the time of core biopsy. / AM:shivam 11/16/20 TC:0 CPT: 70338, 34036
--- NOTE | 2020-11-16 12:43 | RAD_ITS ---
STUDY: X-RAY CHEST REASON FOR EXAM: Female, 75 years old. post biopsy -- immediately post lung biopsy TECHNIQUE: Single AP portable view of the chest. COMPARISON: None. FINDINGS: There is a left lung lower lobe nodule. There is left pneumothorax estimated at 20%. Normal size heart. Normal mediastinum and maurice. Normal visualized pulmonary arteries. Normal visualized aortic arch and descending thoracic aorta. Normal visualized thoracic spine. Normal visualized ribs, clavicles, and shoulders. There is no demonstrated abnormality of the visualized soft tissue structures of the upper abdomen. RAD/Chest Insp/Exp 2 View IMPRESSION: Left pneumothorax measures 20%. The patient was sent to ER. Electronically Signed: Eusebio Marcus MD at 13:26 EST Tel , Service support ,
== END ==
PROVIDERS: PCP Nurse Practitioner; Referring Provider Student in an Organized Health Care Education/Training Program; Visit Provider Student in an Organized Health Care Education/Training Program
DX: R91.8 Other nonspecific abnormal finding of lung field (principal)
CPT/HCPCS: 36415; 71046; 77012; 85610; 85730; 88172; 88305; 88313; 88341; 88342; 99155; 99156; J7040; A4216; C2613

== ENCOUNTER 2020-11-16 13:20 | Inpatient (IN) | payer MEDICARE, BC, SELFPAY ==
[2020-09-28 13:31] VITALS: BMI 34.7
[2020-11-16 09:17] VITALS: BMI 34.0
[2020-11-16 13:22] VITALS: BP 151/70; PULSE 91; RESP 22; TEMP 36.6; O2SAT 98; BMI 36.1
--- NOTE | 2020-11-16 14:27 | RAD_ITS ---
STUDY: X-RAY CHEST REASON FOR EXAM: Female, 75 years old. Re eval PTX TECHNIQUE: Single AP portable view of the chest. COMPARISON: 11/16/2020 at 1244 FINDINGS: Status post left axillary lymph node dissection. The lungs are clear and expanded. No change in the small left-sided pneumothorax. Normal size heart. Normal mediastinum and maurice. Normal visualized pulmonary arteries. Normal visualized aortic arch and descending thoracic aorta. Normal visualized thoracic spine. Normal visualized ribs, clavicles, and shoulders. There is no demonstrated abnormality of the visualized soft tissue structures of the upper abdomen. RAD/Chest 1 View (Portable) IMPRESSION: No change in small left pneumothorax per Electronically Signed: Quincy Cao MD at 14:48 EST Tel , Service support ,
--- NOTE | 2020-11-16 15:04 | ED.DCSUM_ITS ---
History of Present Illness Chief Complaint: General Illness Informant: Patient Narrative: Patient is a 75-year-old female with a past medical history of breast cancer who presents to the emergency department for left-sided pneumothorax post procedure. She had a lung biopsy performed today at 1130. She had a post procedure x-ray done which showed a small left-sided pneumothorax. Patient denies any symptoms. She denies any chest pain or shortness of breath. She is not on anticoagulation. She is on aspirin but has held this yesterday and today for her procedure of the lung biopsy. She is supposed to go on radiation therapy but this was held once the lung nodule was discovered. She denies any other symptoms at this time including any fever/chills or abdominal pain. Past Medical History - Allergies and Home Meds Allergies/Adverse Reactions: Allergies Sulfa (Sulfonamide Antibiotics) Allergy (Verified 11/16/20 09:15) Hives Smoking Status: Former smoker - Family History Maternal Family History: Family History (Last Reviewed 11/10/20 @ 13:00 by Steff Wheeler) Father Heart disease Family History: Reports: - - Arthritis, suspected basal cell carcinoma Paternal Family History: Family History (Last Reviewed 11/10/20 @ 13:00 by Steff Wheeler) Father Heart disease Family History: Reports: - - in his 40s from [place] Review of Systems All systems negative except as indicated General: Denies: Chills, Fever, Sweats Eyes: Denies: Visual changes - bilaterally, Diplopia ENT: Denies: Rhinorrhea, Sore throat Cardiovascular: Denies: Chest pain, Palpitations Respiratory: Denies: Dyspnea, Cough, Dyspnea on exertion Gastrointestinal: Denies: Abdominal pain, Nausea, Vomiting, Diarrhea Musculoskeletal: Denies: Back pain, Extremity Pain Skin: Denies: Rash, Wounds Neurological: Denies: Headache, Weakness, Numbness Physical Exam Vital Signs/Narrative: Vital Signs Temp Pulse Resp BP Pulse Ox 11/16/20 13:22 97.9 F 91 22 H 151/70 H 98 Inital Vital Signs reviewed: Yes General: Well nourished, Well developed, No Acute Distress Head: Normocephalic, Atraumatic Eyes: Perrl, EOMI ENT: Moist mucous membranes, No rhinorrhea Neck: Supple, Nontender Cardiovascular: Regular rate, Regular rhythm, No murmurs Respiratory: No distress, CTA bilaterally, Chest nontender, - - Very minimally diminished on the left side. Abdomen: Soft, Nontender, Nondistended, Normal bowel sounds Back: Nontender, Normal Inspection Extremities: Nontender, No edema Skin: Normal color, No rash Neurological: Alert, Oriented x3, Cranial nerves II-XII grossly intact, Normal Strength, Normal Sensation Psychological: Normal affect, Normal Mood Diagnostic/Tx/Re-eval Chest X-Ray - ED: - - Single view portable x-ray interpreted by myself. Small left-sided pneumothorax. No effusion. Agree with radiologist interpretation. Post chest tube insertion interpreted by myself as well. This did show resolution of the pneumothorax. No effusion present. Chest tube in satisfactory position. - Medical Decision Making Patient presents to the ED for iatrogenic pneumothorax after lung biopsy. Upon arrival to the emergency department she is satting 98% on room air and is in no acute distress. Talking in full sentences. She has no symptoms. I did repeat an x-ray to evaluate to see if this is expanding at all. I did place her on supplemental oxygen in the meantime. I did discuss case with the on-call general surgeon who did recommend placing a chest tube. This was performed after patient was consented for this. Patient tolerated this well without any apparent complications. Will bring into the hospital for further evaluation and management per general surgery recommendation. Patient is agreeable with this plan. She has been stable throughout ED stay. Procedures Procedure(s): Chest tube insertion. Consent obtained. Risk associated with procedure was discussed with the patient including infection, bleeding, worsening pneumothorax, and appropriate positioning. She is agreeable with this procedure. Using sterile technique with gloves, mask, gown the area was cleaned with chlorhexidine. A sterile drape was applied. Area was anesthetized with 1% lidocaine with 7 cc. Using a catheter over needle technique a 8 [place] catheter was placed. The catheter was advanced over the rib. Air was aspirated and the catheter was advanced. Patient tolerated the procedure well without any apparent complications. Catheter was secured using suture. This was hooked up to a Pleur-evac at 20 cc continuous suction. Post procedure x-ray obtained which showed adequate positioning and resolution of the pneumothorax. ED Disposition - Plan for ED Patient: Disposition: [facility] Diagnosis: Iatrogenic pneumothorax
[2020-11-16 15:18] VITALS: BP 145/71; PULSE 80; RESP 13; O2SAT 100
[2020-11-16] MEDS: Ondansetron 4 MG/2 ML Vial IV (16:13)
[2020-11-16] MEDS: Morphine 4 MG/ML Syringe IV (16:13)
--- NOTE | 2020-11-16 16:37 | RAD_ITS ---
STUDY: X-RAY CHEST REASON FOR EXAM: Female, 75 years old. PTX, post chest tube TECHNIQUE: 1 view 4:37 PM COMPARISON: Prior chest radiograph of 11/16/2020 at 2:22 PM FINDINGS: Small caliber left chest tube inserted into the left pleural space at mid chest level with no remaining substantial pneumothorax. Lung reexpanded. Stable mass density of the left upper lobe. Negative for pleural effusion. Normal size heart. Normal mediastinum and maurice. Normal visualized pulmonary arteries. There is atherosclerotic calcification of the aortic arch with tortuosity. Normal visualized thoracic spine. Normal visualized ribs, clavicles, and shoulders. There is no demonstrated abnormality of the visualized soft tissue structures of the upper abdomen. RAD/Chest 1 View (Portable) IMPRESSION: No substantial remaining pneumothorax following insertion of a small caliber left chest tube. Left lung reexpanded without pleural effusion. Stable mass of the left upper lobe. Electronically Signed: Yvonne Flowers MD at 16:56 EST , Service support ,
[2020-11-16 16:54] VITALS: BP 145/77; PULSE 76; RESP 14; TEMP 36.4; O2SAT 99
--- NOTE | 2020-11-16 16:54 | PCM.HP.STD ---
Problem List (1) Climacteric Status: Chronic Comment: on HRT in past but now had breast cancer. discussed options like Clonidine, neurontin, maybe paxil or effexor. expectant management at this time. (2) GERD (gastroesophageal reflux disease) Status: Chronic (3) Chronic low back pain with sciatica Status: Chronic History of Present Illness Date of Admission: 11/16/20 Chief Complaint: Left-sided pneumothorax. The patient is a 75 year old F who presents to the emergency room for left-sided pneumothorax following lung biopsy earlier today. Patient was recently diagnosed with clinical stage Ia grade 2 invasive ductal carcinoma of the left breast and underwent lumpectomy 10/10/2020. Patient was to undergo radiation therapy however states she was found to have left lung mass and further underwent biopsy today prior to proceeding with radiation. Chest x-ray following lung biopsy demonstrated left-sided pneumothorax. She denies current shortness of breath. Reports localized discomfort in the area of chest tube placement. Denies other symptoms or complaints. Oxygen stable on room air. Her other past medical history includes hypothyroidism, GERD. Past Medical History Past Medical History (Chronic Problems): Chronic Problems (Last Reviewed 11/10/20 @ 13:00 by Steff Wheeler) Climacteric (Chronic) on HRT in past but now had breast cancer. discussed options like Clonidine, neurontin, maybe paxil or effexor. expectant management at this time. GERD (gastroesophageal reflux disease) (Chronic) Chronic low back pain with sciatica (Chronic) Medical History: Medical History (Last Reviewed 11/10/20 @ 13:00 by Steff Wheeler) GERD (gastroesophageal reflux disease) (Chronic) K21.9 Chronic low back pain with sciatica (Chronic) M54.40, G89.29 Breast cancer, left C50.912 Breast lump N63.0 Osteopenia M85.80 Allergies Sulfa (Sulfonamide Antibiotics) Allergy (Verified 11/16/20 09:15) Hives Home Medications: Ambulatory Orders Medication Instructions Recorded Calcium Carbonate/Vitamin D3 1 ea PO DAILY 01/27/15 [Calcium 600 + Vit D 800 Tab] Cholecalciferol (VIT D3) [Vitamin 2,000 unit PO DAILY 01/27/15 D] Lactobacillus Acidophilus 1 tab PO DAILY 01/27/15 [Acidophilus] Montelukast [Singulair] 10 mg PO DAILY 01/27/15 amitriptyline 50 mg tablet 50 mg PO DAILY 09/18/20 ferrous sulfate 325 mg (65 mg 325 mg PO DAILY 09/18/20 iron) tablet levothyroxine 25 mcg tablet 25 mcg PO DAILY 09/18/20 meloxicam 15 mg tablet 15 mg PO DAILY 09/18/20 pantoprazole 40 mg tablet,delayed 80 mg PO DAILY 09/18/20 release Cyanocobalamin (Vitamin B-12) 5,000 mcg PO DAILY 09/28/20 [Vitamin B12] Surgical History: Surgical History (Last Reviewed 11/10/20 @ 13:00 by Steff Wheeler) History of cholecystectomy Z90.49 History of kidney surgery Z98.890 History of left breast biopsy Onset Date: ~09/18/20 Z98.890 History of lumpectomy of left breast Onset Date: ~10/10/20 Z98.890 History of tonsillectomy Z90.89 History of total left knee replacement Z96.652 History of total right knee replacement Z96.651 history ORIF Right ankle Surgical History: - - Bilateral knee replacement, left breast lumpectomy, cholecystectomy, tonsillectomy, ORIF right ankle, kidney surgery (patient reports both kidneys intact). 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 Lives: Alone Smoking Status: Former smoker Tobacco Use: Non-smoker Alcohol: None Drugs: None - *Family History Maternal Family History: Family History (Last Reviewed 11/10/20 @ 13:00 by Steff Wheeler) Father Heart disease History Items: - - Arthritis, suspected basal cell carcinoma Paternal Family History: Family History (Last Reviewed 11/10/20 @ 13:00 by Steff Wheeler) Father Heart disease History Items: - - in his 40s from [place] Review of Systems Constitutional: Denies: Chills, Fever, Weight Change HEENT: Denies: Head Aches, Sinus Congestion, Sinus Drainage Cardiovascular: Denies: Chest Pain, Palpitations Respiratory: Reports: - - Left chest tube insertion, associated discomfort. Denies: Cough, Shortness of breath at rest, Sputum production Gastrointestinal: Denies: Abdominal Pain, Nausea, Vomiting Genitourinary: Denies: Dysuria Musculoskeletal: Denies: Joint Pain, Joint Tenderness Skin: Denies: Rash, Wounds Neurological: Denies: Numbness, Tingling, Focal weakness Psychiatric: Denies: Anxiety, Depression, Homicidal Ideations, Suicidal Ideations Hematologic/ Lymphatic: Denies: Easy Bruising, Easy Bleeding VTE Information - Inpt Only VTE Present on Admission: No VTE Mechan Device Prophylaxis: None VTE Pharm Prophylaxis ordered?: Yes - Physical Exam Vitals/I&O's: Vital Signs Temp Pulse Resp BP Pulse Ox 97.9 F 80 13 145/71 H 100 11/16/20 13:22 11/16/20 15:18 11/16/20 15:18 11/16/20 15:18 11/16/20 15:18 Oxygen Flow Rate (L/min) 3 Oxygen Delivery Method Nasal Cannula Weight: 204 lb 5.896 oz Body Mass Index (BMI) 36.1 General: Alert, Oriented x3, Cooperative HEENT: Atraumatic, PERRLA, EOMI, Normocephalic Neck: Supple, No JVD, Negative Carotid Bruits Lungs: Clear to auscultation, Diminished Cardiovascular: Regular rate, No murmurs Abdomen: Bowel Sounds Present, Soft, Non Tender, Non-Distended Extremities: No clubbing, No cyanosis, No edema, Capillary Refill Less than 3 Seconds Skin: No rashes, No breakdown Musculoskeletal: No Tenderness to Palpation of Joints or Extremities Neurological: Cranial nerves II-XII grossly intact, Neuro grossly intact Psych/Mental Status: Normal Affect, Appropriate Assessment/Plan 1. Left-sided pneumothorax-following left lung mass biopsy. Left chest tube placed in ER to continuous suction. Repeat chest x-ray shows left lung reexpanded without pleural effusion. General surgery, Dr. Concepcion consulted. Repeat chest x-ray in a.m. Oxygen stable on room air. 2. Stage Ia grade 2 invasive ductal carcinoma of the left breast s/p lumpectomy 10/10/2020. Planned for radiation however subsequently found to have left lung mass status post biopsy 11/16/2020. Complicated by #1. Continue follow-up with radiation/oncology. Following with Dr. Hubbard, Dr. Zabala. 3. Hypothyroidism-continue Synthroid. 4. GERD-continue PPI. DVT prophylaxis-SCDs. Hold pharmacologic prophylaxis secondary to #1. CODE STATUS: Discussed in length with patient including differences between full code, DNR CCA and DNR CC. Patient elects DNR CCA no intubation. This patient was seen by KAILASH Ramirez under the supervision of Dr. Elizabeth.
[2020-11-16 17:52] VITALS: BMI 35.5
--- NOTE | 2020-11-16 18:37 | PN.SURG_ITS ---
Patient Problems: Active and Suspected Problems (Last Reviewed 11/10/20 @ 13:00 by Steff Wheeler) Iatrogenic pneumothorax (Acute) Subjective: Patient well-known to me. Admitted due to left pneumothorax status post lung biopsy by radiology. Patient had percutaneous catheter placed in the ER. Patient did have resolution of pneumothorax. - Physical Exam Vitals/I&O's: Vital Signs Temp Pulse Resp BP Pulse Ox 97.6 F L 76 14 145/77 H 99 11/16/20 16:54 11/16/20 16:54 11/16/20 16:54 11/16/20 16:54 11/16/20 16:54 Oxygen Flow Rate (L/min) 3 Oxygen Delivery Method Nasal Cannula Weight: 204 lb 5.896 oz Body Mass Index (BMI) 36.1 General: Alert, Oriented x3, Cooperative, No apparent distress HEENT: Atraumatic Lungs: Normal air movement, - - No leak chest tube to -20 suction Current Medications Sodium Chloride (0.9% Saline Lock 10 Ml Syringe) 10 - 40 ml IV UD PRN PRN Reason: SALINE FLUSH Medical Necessity - Tobacco Use Smoking Status: Former smoker Tobacco Use: Non-smoker Assessment/Plan All Active Problems (Last Reviewed 11/10/20 @ 13:00 by Steff Wheeler) Iatrogenic pneumothorax (Acute) 75-year-old female status post left lung biopsy with pneumothorax status post percutaneous chest tube 1. We will check a chest x-ray in the morning. We will plan to keep the patient clamped after chest x-ray unless see a continued pneumothorax or work to remove the chest tube if it remains stable after about 4 hours on waterseal. Discussed with patient patient is agreeable with plan. Megan Concepcion M.D. Pager: [phone] [facility] [address] [place] [address], Outpatient Pavilion, [address] [place] [address] Office: [phone] Inpatient E&M: 09717 Init Hosp L2
[2020-11-16] MEDS: oxyCODONE 5 MG Tablet PO (19:14)
[2020-11-16 20:12] VITALS: PULSE 67
[2020-11-16] MEDS: Morphine 2 MG/ML Syringe IV (20:52)
[2020-11-16] MEDS: 0.9% Saline Lock 10 ML Syringe IV (20:54)
[2020-11-16 21:30] VITALS: BP 139/60; PULSE 79; RESP 18; TEMP 36.6; O2SAT 100
[2020-11-16 23:39] VITALS: PULSE 82
[2020-11-17] VITALS (12 sets, daily range): BP systolic 115–123; BP diastolic 52–66; PULSE 67–103; RESP 16–18; TEMP 36.2–37.1; O2SAT 85–100; BMI 35.6
[2020-11-17] MEDS: Morphine 2 MG/ML Syringe IV (01:12)
[2020-11-17] MEDS: 0.9% Saline Lock 10 ML Syringe IV (01:12)
[2020-11-17] MEDS: Levothyroxine 25 MCG TABLET PO (05:28)
[2020-11-17] MEDS: Pantoprazole Sodium 40 MG Tablet 80 MG PO (05:28)
--- NOTE | 2020-11-17 06:37 | RAD_ITS ---
STUDY: X-RAY CHEST REASON FOR EXAM: Female, 75 years old. left side pneumothorax TECHNIQUE: Single AP portable view of the chest. COMPARISON: 11/16/2020 FINDINGS: Some retraction of the left-sided small bore thoracostomy tube with no pneumothorax. The lungs are clear and expanded. There is no demonstrated pleural abnormality. Normal size heart. Normal mediastinum and maurice. Normal visualized pulmonary arteries. Normal visualized aortic arch and descending thoracic aorta. Normal visualized thoracic spine. Normal visualized ribs, clavicles, and shoulders. There is no demonstrated abnormality of the visualized soft tissue structures of the upper abdomen. RAD/Chest 1 View (Portable) IMPRESSION: Some retraction of the left-sided small bore thoracostomy tube with no pneumothorax. Electronically Signed: Quincy Cao MD at 8:16 EST Tel , Service support ,
--- NOTE | 2020-11-17 06:39 | NURSING ---
called radiologist to make them aware what time can the CXR be done bacause Dr. Concepcion wanted it done soon. states ok to do 1V as long as it can be done soon. radiologist states she is the only one and she has 2 more pts. order for CXR poratble in.
[2020-11-17 07:16] LABS: Hematocrit 39.1 % (37-47); Hemoglobin 12.3 g/dL (12.0-15.0); Mean Corp Hgb Conc 31.5 g/dL (32-36); Mean Corpuscular Hgb 29.6 pg (27.0-32.0); Mean Platelet Vol. 11.8 fl (6.2-12.0); Platelet Count 196 K/mm3 (150-450); RBC Distribution Width CV 15.7 % (11.6-14.6); RBC Distribution Width SD 54.4 fl (35.1-43.9); Red Blood Count 4.16 M/mm3 (4.2-5.4); White Blood Count 5.2 K/mm3 (4.4-11.0)
[2020-11-17 07:38] LABS: Anion Gap 5 (5-15); BUN 17 mg/dL (7-18); BUN/Creat Ratio 25.3 RATIO (10-20); Calcium,Total 8.7 mg/dL (8.5-10.1); Chloride 105 mmol/L (98-107); Creatinine, Serum 0.67 mg/dL (0.55-1.02); EST Glomerular Filtration Rate 91 mL/min (>60); Est Glom Filt Rate - Afr Amer 110 mL/min (>60); Estimated Creatinine Clearance 40.21 ml/min; Glucose 80 mg/dL (74-106); Potassium 3.8 mmol/L (3.5-5.1); Sodium Level 138 mmol/L (136-145)
--- NOTE | 2020-11-17 07:42 | PN.SURG_ITS ---
Patient Problems: Active and Suspected Problems (Last Reviewed 11/10/20 @ 13:00 by Steff Wheeler) Iatrogenic pneumothorax (Acute) Subjective: Patient denies shortness of breath, repeat chest x-ray this morning showed no pneumothorax chest tube slightly further output still in the chest., No airleak - Physical Exam Vitals/I&O's: Vital Signs Temp Pulse Resp BP Pulse Ox 98.8 F 78 18 115/54 L 95 11/17/20 02:40 11/17/20 04:34 11/17/20 02:40 11/17/20 02:40 11/17/20 07:21 Oxygen Flow Rate (L/min) 2 Oxygen Delivery Method Nasal Cannula Weight: 200 lb 11.2 oz Body Mass Index (BMI) 35.5 Intake and Output for Last 24 Hours 11/15/20 11/16/20 11/17/20 23:59 23:59 23:59 Output Total 0 / 0 5 / 5 Balance 0 / 0 -5 / -5 General: Alert, Oriented x3, Cooperative, No apparent distress Lungs: Normal air movement Cardiovascular: Regular rate Abdomen: Soft, Non Tender, Non-Distended Laboratory Results 11/17/20 06:56: Sodium 138, Potassium 3.8, Chloride 105, Carbon Dioxide 28.0, Anion Gap 5, BUN 17, Creatinine 0.67, Estim Creat Clear Calc 40.21, Est GFR (MDRD) Af Amer 110, Est GFR (MDRD) Non-Af 91, BUN/Creatinine Ratio 25.3 H, Glucose 80, Calcium 8.7 11/17/20 06:56: WBC 5.2, RBC 4.16 L, Hgb 12.3, Hct 39.1, MCV 94.0, MCH 29.6, MCHC 31.5 L, RDW Std Deviation 54.4 H, RDW Coeff of Diaz 15.7 H, Plt Count 196, MPV 11.8 Current Medications Acetaminophen (Acetaminophen 325 Mg Tablet) 650 mg PO Q6H PRN PRN PRN Reason: Pain Score 1-5 Amitriptyline HCl (Amitriptyline 25 Mg Tablet) 50 mg PO DAILY [facility] Levothyroxine Sodium (Levothyroxine 25 Mcg Tablet) 25 mcg PO DAILY@0600 [facility] Last Admin: 11/17/20 05:28 Dose: 25 mcg Documented by: Montelukast Sodium (Montelukast 10 Mg Tablet) 10 mg PO DAILY [facility] Morphine Sulfate (Morphine 2 Mg/Ml Syringe) 2 mg IV Q3H PRN PRN PRN Reason: Pain Score 6-10 Last Admin: 11/17/20 01:12 Dose: 2 mg Documented by: Ondansetron HCl (Ondansetron 4 Mg/2 Ml Vial) 4 mg IV Q8H PRN PRN PRN Reason: NAUSEA/VOMITING Oxycodone HCl (Oxycodone 5 Mg Tablet) 5 mg PO Q6H PRN PRN PRN Reason: Pain Score 6-10 Last Admin: 11/16/20 19:14 Dose: 5 mg Documented by: Pantoprazole Sodium (Pantoprazole Sodium 40 Mg Tablet) 80 mg PO DAILY [facility] Last Admin: 11/17/20 05:28 Dose: 80 mg Documented by: Sodium Chloride (0.9% Saline Lock 10 Ml Syringe) 10 - 40 ml IV UD PRN PRN Reason: SALINE FLUSH Last Admin: 11/17/20 01:12 Dose: 10 ml Documented by: Medical Necessity - Tobacco Use Smoking Status: Former smoker Tobacco Use: Non-smoker Assessment/Plan All Active Problems (Last Reviewed 11/10/20 @ 13:00 by Steff Wheeler) Iatrogenic pneumothorax (Acute) 75-year-old female status post left lung biopsy with pneumothorax status post percutaneous chest tube 1. Morning x-ray did not show any pneumothorax patient is currently on waterseal keep on waterseal for 4 hours and repeat chest x-ray in radiology if that is okay we will plan to remove tube. Megan Concepcion M.D. Pager: [phone] [facility] [address] [place] [address], Outpatient [place], [address] [place] [address] Office: [phone] Inpatient E&M: [id number] [facility] Hosp L2
--- NOTE | 2020-11-17 07:54 | PCM.PN.HOSP ---
Patient Problems: Active and Suspected Problems (Last Reviewed 11/10/20 @ 13:00 by Steff Wheeler) Iatrogenic pneumothorax (Acute) Reason for Visit: Left-sided pneumothorax Subjective: Patient is a 75-year-old lady presented with shortness of breath following left lung biopsy imaging studies demonstrated left-sided pneumothorax Objective: GENERAL: cooperative HEENT: Atraumatic; EYES; Anicteric, Normal Conjunctiva NECK; supple, normal thyroid, RESPIRATORY: Diminished to auscultation my chest tube on the left CARDIOVASCULAR: Regular S1 S2, GI: soft, normoactive bowel sounds, : No Renal angle tenderness; EXTREMITIES: No edema, no clubbing, MUSCULOSKELETAL: no muscle waisting NEURO: Awake; no lateralizing signs. SKIN: No Rash PSYCH; Flat affect Vitals/I&O's: Vital Signs Temp Pulse Resp BP Pulse Ox 98.8 F 78 18 115/54 L 95 11/17/20 02:40 11/17/20 04:34 11/17/20 02:40 11/17/20 02:40 11/17/20 07:21 Oxygen Flow Rate (L/min) 2 Oxygen Delivery Method Nasal Cannula Weight: 91.036 kg Body Mass Index (BMI) 35.5 Intake and Output for Last 24 Hours 11/15/20 11/16/20 11/17/20 23:59 23:59 23:59 Output Total 0 / 0 5 / 5 Balance 0 / 0 -5 / -5 Laboratory Results 11/17/20 06:56: Sodium 138, Potassium 3.8, Chloride 105, Carbon Dioxide 28.0, Anion Gap 5, BUN 17, Creatinine 0.67, Estim Creat Clear Calc 40.21, Est GFR (MDRD) Af Amer 110, Est GFR (MDRD) Non-Af 91, BUN/Creatinine Ratio 25.3 H, Glucose 80, Calcium 8.7 11/17/20 06:56: WBC 5.2, RBC 4.16 L, Hgb 12.3, Hct 39.1, MCV 94.0, MCH 29.6, MCHC 31.5 L, RDW Std Deviation 54.4 H, RDW Coeff of Diaz 15.7 H, Plt Count 196, MPV 11.8 Current Medications Acetaminophen (Acetaminophen 325 Mg Tablet) 650 mg PO Q6H PRN PRN PRN Reason: Pain Score 1-5 Amitriptyline HCl (Amitriptyline 25 Mg Tablet) 50 mg PO DAILY [facility] Levothyroxine Sodium (Levothyroxine 25 Mcg Tablet) 25 mcg PO DAILY@0600 [facility] Last Admin: 11/17/20 05:28 Dose: 25 mcg Documented by: Montelukast Sodium (Montelukast 10 Mg Tablet) 10 mg PO DAILY [facility] Morphine Sulfate (Morphine 2 Mg/Ml Syringe) 2 mg IV Q3H PRN PRN PRN Reason: Pain Score 6-10 Last Admin: 11/17/20 01:12 Dose: 2 mg Documented by: Ondansetron HCl (Ondansetron 4 Mg/2 Ml Vial) 4 mg IV Q8H PRN PRN PRN Reason: NAUSEA/VOMITING Oxycodone HCl (Oxycodone 5 Mg Tablet) 5 mg PO Q6H PRN PRN PRN Reason: Pain Score 6-10 Last Admin: 11/16/20 19:14 Dose: 5 mg Documented by: Pantoprazole Sodium (Pantoprazole Sodium 40 Mg Tablet) 80 mg PO DAILY [facility] Last Admin: 11/17/20 05:28 Dose: 80 mg Documented by: Sodium Chloride (0.9% Saline Lock 10 Ml Syringe) 10 - 40 ml IV UD PRN PRN Reason: SALINE FLUSH Last Admin: 11/17/20 01:12 Dose: 10 ml Documented by: STROKE Vital Signs/Narrative: Vital Signs Pulse Pulse Ox 11/17/20 07:21 95 11/17/20 04:34 78 Medical Necessity - Tobacco Use Smoking Status: Former smoker Tobacco Use: Non-smoker Assessment/Plan All Active Problems (Last Reviewed 11/10/20 @ 13:00 by Steff Wheeler) Iatrogenic pneumothorax (Acute) Patient is a 75-year-old lady presented with shortness of breath following left lung biopsy imaging studies demonstrated left-sided pneumothorax 1. Left-sided pneumothorax ?Following lung biopsy patient had a chest tube placed in the emergency department admitted to regular nursing floor with consultation placed to general surgery 2. Ductal carcinoma involving the left breast ?Status post lumpectomy on 10/10/2020. Plan is for patient to undergo radiation therapy as outpatient. 3. Left lung mass Patient underwent biopsy on 11/16/2020 4. Hypothyroidism - Patient is on levothyroxine home dose continued 5. GERD On PPI 6. Obesity with BMI of 35.6 ?Weight loss advised 7. DVT prophylaxis ?SCDs Inpatient E&M: 16190 Subs Hosp L2
[2020-11-17] MEDS: Montelukast 10 MG Tablet PO (09:14)
--- NOTE | 2020-11-17 11:00 | RAD_ITS ---
STUDY: X-RAY CHEST REASON FOR EXAM: Female, 75 years old. pneumothorax evaluation -- chest tube still in, wet read Dr. Mendez TECHNIQUE: Single AP portable view of the chest. COMPARISON: None. FINDINGS: A chest tube is seen on the left side the tip is at the pleural space. The lungs are clear and expanded. There is a nodule in the left lung upper lobe. There is no demonstrated pleural abnormality. Normal size heart. Normal mediastinum and maurice. Normal visualized pulmonary arteries. Normal visualized aortic arch and descending thoracic aorta. Normal visualized thoracic spine. Normal visualized ribs, clavicles, and shoulders. There is no demonstrated abnormality of the visualized soft tissue structures of the upper abdomen. RAD/Chest PA and Lateral IMPRESSION: Resolved left pneumothorax. Electronically Signed: Eusebio Marcus MD at 12:15 EST Tel , Service support ,
--- NOTE | 2020-11-17 11:30 | CASEMGMT ---
RN CM Face to Face with patient for initial transition planning/care coordination assessment. RN CM introduced self and role at [facility]. Patient lying in bed, alert and oriented. Patient willing to participate in assessment and is able to answer all questions appropriately. Care providers, pharmacy, and demographics verified. Patient wishes to discharge home, denies need for home health at this time. Patient states she has no further needs or concerns at this time. CM to follow for discharge planning needs that may arise. PCP: Aishwarya Wells Specialists: Abran, pain; Sagrario, oncologist; Yvonne, GI; Haydee, radiology; Jamey, surgeon; Arcadio, ortho; Bill, Pneumatic Jack Operator; Crystal, ENT Preferred Pharmacy: [facility] Insurance: Rex JAY Prescription Benefit: yes Living Will/HPOA: yes, Niece Aishwarya Bruno LNOK: niece Living Arrangements: Patient lives alone in a condo with 3 steps with railing. Patient is independent at home. Transportation: self or friend/family DME/HHC: Patient states she has shower chair, raised toilet, cane, walker, and grab bars at home. Will monitor for need for home oxygen at discharge. Patient was provided a list of DME providers consistent with the patient?s preferred geographic region, medical needs, and insurance network. [facility] Patient has had [facility] in the past. Disposition Plan: Patient to discharge home with family support and follow-up plans in place. Yoko WALLER, RN, CM
--- NOTE | 2020-11-17 12:21 | PCM.PN.BLA ---
Progress Note Repeat chest x-ray after waterseal 4 hours showed no pneumothorax. Chest tube was removed at bedside. Patient tolerated procedure well. Passing gauze and OpSite placed over that tube site. Patient keep this dressing on for 3 days. Will check another chest x-ray portable single view in 2 hours if no pneumo okay for discharge. STROKE Vital Signs/Narrative: Vital Signs Pulse Ox 11/17/20 09:19 98 11/17/20 08:36 97
[2020-11-17] MEDS: Acetaminophen 325 MG Tablet 650 MG PO (12:59)
--- NOTE | 2020-11-17 14:00 | RAD_ITS ---
STUDY: X-RAY CHEST REASON FOR EXAM: Female, 75 years old. post chest tube removal -- wet read to MD TECHNIQUE: Single AP portable view of the chest. COMPARISON: 11/17/2020 FINDINGS: Status post left axillary lymph node dissection. Interval removal of the left-sided thoracostomy tube with no pneumothorax. The lungs are clear and expanded. There is no demonstrated pleural abnormality. Normal size heart. Normal mediastinum and maurice. Normal visualized pulmonary arteries. Normal visualized aortic arch and descending thoracic aorta. Normal visualized thoracic spine. Normal visualized ribs, clavicles, and shoulders. There is no demonstrated abnormality of the visualized soft tissue structures of the upper abdomen. RAD/Chest 1 View (Portable) IMPRESSION: Interval removal left-sided thoracostomy tube with no pneumothorax. Electronically Signed: Quincy Cao MD at 14:23 EST Tel , Service support ,
--- NOTE | 2020-11-17 15:34 | DCINST_ITS ---
- Discharge Diagnoses Current Active Problems: Current Active and Chronic Problems (Last Reviewed 11/10/20 @ 13:00 by Steff Wheeler) Iatrogenic pneumothorax (Acute) Climacteric (Chronic) on HRT in past but now had breast cancer. discussed options like Clonidine, neurontin, maybe paxil or effexor. expectant management at this time. GERD (gastroesophageal reflux disease) (Chronic) Chronic low back pain with sciatica (Chronic) Allergies/Adverse Reactions: Allergies Sulfa (Sulfonamide Antibiotics) Allergy (Verified 11/16/20 09:15) Hives Medications to take at Discharge Calcium Carbonate/Vitamin D3 [Calcium 600-Vit D3 800 Tablet] 1 ea PO DAILY 01/27/15 Cholecalciferol (VIT D3) [Vitamin D3] 2,000 unit PO DAILY 01/27/15 Lactobacillus Acidophilus [Acidophilus] 1 tab PO DAILY 01/27/15 Montelukast [Singulair] 10 mg PO DAILY 01/27/15 amitriptyline 50 mg tablet 50 mg PO DAILY 09/18/20 ferrous sulfate 325 mg (65 mg iron) tablet 325 mg PO DAILY 09/18/20 levothyroxine 25 mcg tablet 25 mcg PO DAILY 09/18/20 meloxicam 15 mg tablet 15 mg PO DAILY 09/18/20 pantoprazole 40 mg tablet,delayed release 80 mg PO DAILY 09/18/20 Cyanocobalamin (Vitamin B-12) [Vitamin B12] 5,000 mcg PO DAILY 09/28/20 Acetaminophen [Tylenol Tablet] 650 mg PO Q6H PRN PRN tablet 11/17/20 Primary Care Physician: Aishwarya Lopez SOCIAL WORKER CLINICAL, SOCIAL WORKER CLINICAL-C [Primary Care Provider] - Test Results: Test results from this visit will be discussed in further detail at your follow- up appointment, if applicable.
--- NOTE | 2020-11-17 15:35 | DS.PCM_ITS ---
Discharge Date and Diagnosis - Problem List Patient Problems: Active and Suspected Problems (Last Reviewed 11/10/20 @ 13:00 by Steff Wheeler) Iatrogenic pneumothorax (Acute) Date of Admission: 11/16/20 Date of Discharge: 11/17/20 - Primary Discharge Diagnosis Acute Problems: Active Problems (Last Reviewed 11/10/20 @ 13:00 by Steff Wheeler) Iatrogenic pneumothorax (Acute) - Secondary Discharge Diagnosis Chronic Problems: Chronic Problems (Last Reviewed 11/10/20 @ 13:00 by Steff Wheeler) Climacteric (Chronic) on HRT in past but now had breast cancer. discussed options like Clonidine, neurontin, maybe paxil or effexor. expectant management at this time. GERD (gastroesophageal reflux disease) (Chronic) Chronic low back pain with sciatica (Chronic) Hospital Course and Treatment Imaging Results: Clinical Impression(s) from Imaging Studies Chest X-Ray 11/16/20 14:27 IMPRESSION: No change in small left pneumothorax per Electronically Signed: Quincy Cao MD at 14:48 EST Tel , Service support , Chest X-Ray 11/16/20 16:37 IMPRESSION: No substantial remaining pneumothorax following insertion of a small caliber left chest tube. Left lung reexpanded without pleural effusion. Stable mass of the left upper lobe. Electronically Signed: Yvonne Flowers MD at 16:56 EST , Service support , Chest X-Ray 11/17/20 06:37 IMPRESSION: Some retraction of the left-sided small bore thoracostomy tube with no pneumothorax. Electronically Signed: Quincy Cao MD at 8:16 EST Tel , Service support , Chest X-Ray 11/17/20 11:00 IMPRESSION: Resolved left pneumothorax. Electronically Signed: Eusebio Marcus MD at 12:15 EST Tel , Service support , Chest X-Ray 11/17/20 14:00 IMPRESSION: Interval removal left-sided thoracostomy tube with no pneumothorax. Electronically Signed: Quincy Cao MD at 14:23 EST Tel , Service support , Summary of Care Provided: Patient is a 75-year-old lady presented with shortness of breath following left lung biopsy imaging studies demonstrated left-sided pneumothorax 1. Left-sided pneumothorax ?Following lung biopsy patient had a chest tube placed in the emergency department admitted to regular nursing floor with consultation placed to general surgery -Patient chest tube was removed repeat imaging studies did show resolution of her pneumothorax. Patient requested to be discharged home okay was given by general surgery patient subsequently discharged. Instructed to present to the ED if she developed sudden onset of chest pain or shortness of breath. Also instructed to call her primary oncologist for subsequent care. 2. Ductal carcinoma involving the left breast ?Status post lumpectomy on 10/10/2020. Plan is for patient to undergo radiation therapy as outpatient. 3. Left lung mass Patient underwent biopsy on 11/16/2020 4. Hypothyroidism - Patient is on levothyroxine home dose continued 5. GERD On PPI 6. Obesity with BMI of 35.6 ?Weight loss advised 7. DVT prophylaxis Patient Problems: Active and Suspected Problems (Last Reviewed 11/10/20 @ 13:00 by Steff Wheeler) Iatrogenic pneumothorax (Acute) - Physical Exam Vitals/I&O's: Vital Signs Temp Pulse Resp BP Pulse Ox 97.1 F L 103 H 18 123/66 H 94 11/17/20 14:35 11/17/20 15:02 11/17/20 14:35 11/17/20 14:35 11/17/20 15:10 Oxygen Flow Rate (L/min) 2 Oxygen Delivery Method Room Air Weight: 91.036 kg Body Mass Index (BMI) 35.5 Intake and Output for Last 24 Hours 11/15/20 11/16/20 11/17/20 23:59 23:59 23:59 Output Total 0 / 0 5 / 5 Balance 0 / 0 -5 / -5 General: Alert HEENT: Atraumatic Neck: Supple Lungs: Diminished Cardiovascular: Regular rate, Regular Rhythm Neurological: Neuro grossly intact Psych/Mental Status: Normal Affect Laboratory Results 11/17/20 06:56: Sodium 138, Potassium 3.8, Chloride 105, Carbon Dioxide 28.0, Anion Gap 5, BUN 17, Creatinine 0.67, Estim Creat Clear Calc 40.21, Est GFR (MDRD) Af Amer 110, Est GFR (MDRD) Non-Af 91, BUN/Creatinine Ratio 25.3 H, Glucose 80, Calcium 8.7 11/17/20 06:56: WBC 5.2, RBC 4.16 L, Hgb 12.3, Hct 39.1, MCV 94.0, MCH 29.6, MCHC 31.5 L, RDW Std Deviation 54.4 H, RDW Coeff of Diaz 15.7 H, Plt Count 196, MPV 11.8 Current Medications Acetaminophen (Acetaminophen 325 Mg Tablet) 650 mg PO Q6H PRN PRN PRN Reason: Pain Score 1-5 Last Admin: 11/17/20 12:59 Dose: 650 mg Documented by: Amitriptyline HCl (Amitriptyline 25 Mg Tablet) 50 mg PO DAILY [facility] Last Admin: 11/17/20 11:34 Dose: Not Given Documented by: Levothyroxine Sodium (Levothyroxine 25 Mcg Tablet) 25 mcg PO DAILY@0600 [facility] Last Admin: 11/17/20 05:28 Dose: 25 mcg Documented by: Montelukast Sodium (Montelukast 10 Mg Tablet) 10 mg PO DAILY [facility] Last Admin: 11/17/20 09:14 Dose: 10 mg Documented by: Morphine Sulfate (Morphine 2 Mg/Ml Syringe) 2 mg IV Q3H PRN PRN PRN Reason: Pain Score 6-10 Last Admin: 11/17/20 01:12 Dose: 2 mg Documented by: Ondansetron HCl (Ondansetron 4 Mg/2 Ml Vial) 4 mg IV Q8H PRN PRN PRN Reason: NAUSEA/VOMITING Oxycodone HCl (Oxycodone 5 Mg Tablet) 5 mg PO Q6H PRN PRN PRN Reason: Pain Score 6-10 Last Admin: 11/16/20 19:14 Dose: 5 mg Documented by: Pantoprazole Sodium (Pantoprazole Sodium 40 Mg Tablet) 80 mg PO DAILY [facility] Last Admin: 11/17/20 05:28 Dose: 80 mg Documented by: Sodium Chloride (0.9% Saline Lock 10 Ml Syringe) 10 - 40 ml IV UD PRN PRN Reason: SALINE FLUSH Last Admin: 11/17/20 01:12 Dose: 10 ml Documented by: Discharge Diet: No Restrictions Discharge Activity: Return to Normal Activity Home Medications: Medications to take at Discharge Calcium Carbonate/Vitamin D3 [Calcium 600-Vit D3 800 Tablet] 1 ea PO DAILY 01/27/15 Cholecalciferol (VIT D3) [Vitamin D3] 2,000 unit PO DAILY 01/27/15 Lactobacillus Acidophilus [Acidophilus] 1 tab PO DAILY 01/27/15 Montelukast [Singulair] 10 mg PO DAILY 01/27/15 amitriptyline 50 mg tablet 50 mg PO DAILY 09/18/20 ferrous sulfate 325 mg (65 mg iron) tablet 325 mg PO DAILY 09/18/20 levothyroxine 25 mcg tablet 25 mcg PO DAILY 09/18/20 meloxicam 15 mg tablet 15 mg PO DAILY 09/18/20 pantoprazole 40 mg tablet,delayed release 80 mg PO DAILY 09/18/20 Cyanocobalamin (Vitamin B-12) [Vitamin B12] 5,000 mcg PO DAILY 09/28/20 Acetaminophen [Tylenol Tablet] 650 mg PO Q6H PRN PRN tablet 11/17/20 Other Amb Orders: Brain W/WO Contrast [MRI] Facility: [facility], Location: [facility] PET/CT Tumor Base -Thigh Init [PET] Facility: [facility], Location: [facility] Primary Care Physician: Aishwarya Lopez INDUSTRIAL GAS SERVICE HELPER, INDUSTRIAL GAS SERVICE HELPER-C [Primary Care Provider] - Disposition: Home Minutes spent on discharge:: 35 Patient Condition:: Stable Medical Necessity - Tobacco Use Smoking Status: Former smoker Tobacco Use: Non-smoker Meaningful Use Info Meaningful Use Diagnoses (Choose all that apply): None applicable OBSV E&M: 53880 Observation care discharge
== END 2020-11-17 17:00 | disposition home or self-care (01) | DRG 201 ==
LOC: ED 14:53 → MS3 17:22
PROVIDERS: Nurse Practitioner Family; Admitting Provider Family Medicine; Emergency Provider Emergency Medicine; PCP Nurse Practitioner; Visit Provider Internal Medicine
DX: J95.811 Postprocedural pneumothorax (principal); K21.9 Gastro-esophageal reflux disease without esophagitis; G89.29 Other chronic pain; M54.40 Lumbago with sciatica, unspecified side; C50.912 Malignant neoplasm of unspecified site of left female breast; R91.8 Other nonspecific abnormal finding of lung field; E03.9 Hypothyroidism, unspecified; E66.9 Obesity, unspecified; Z87.891 Personal history of nicotine dependence; Z79.82 Long term (current) use of aspirin; Z79.890 Hormone replacement therapy; Z92.3 Personal history of irradiation; Z68.36 Body mass index [BMI] 36.0-36.9, adult; Z96.653 Presence of artificial knee joint, bilateral; Z90.49 Acquired absence of other specified parts of digestive tract; Z66 Do not resuscitate
CPT/HCPCS: 32551; 36415; 71045; 71046; 77012; 80048; 85027; 85610; 85730; 88172; 88305; 88313; 88341; 88342; 99155; 99156; 99251; 99283; J7040; A4216; C2613; G0463

== ENCOUNTER → 2020-11-27 06:59 | Outpatient (CLI) | payer MEDICARE, BC, SELFPAY ==
[2020-09-28 13:31] VITALS: BMI 34.7
[2020-11-16 17:52] VITALS: BMI 35.5
--- NOTE | 2020-11-27 07:00 | MRI_ITS ---
STUDY: MRI BRAIN WITH AND WITHOUT CONTRAST REASON FOR EXAM: Female, 75 years old. staging for lung SCC TECHNIQUE: Standardized multiplanar fat and water weighted pulse sequences were obtained. IV DOTAREM 17CC was administered for the contrast portion of the examination. COMPARISON: None. FINDINGS: There is mild cerebral atrophy with widening of the extra-axial spaces and ventricular dilatation. There are a limited number of small white matter hyperintensities, distributed throughout the deep white matter tracts of the cerebral hemispheres, consistent with mild chronic white matter ischemic changes. There is no evidence for recent intracranial ischemia or other cause of cytotoxic edema on diffusion weighted imaging (DWI). Normal T2* images of the brain without demonstrated susceptibility artifact. There is no demonstrated hemosiderin stain. Normal bilateral basal ganglia. Normal thalami. There is no extra-axial fluid accumulation. Normal flow voids within the major intracranial circulation suggesting patency by spin echo criteria. Normal venous enhancement. There is no enhancing intra-axial or extra-axial abnormality. Normal sella turcica, pituitary gland, infundibular stalk, optic chiasm and hypothalamus. Normal tectal plate and pineal gland. Normal midbrain, zaid and medulla. Normal cerebellum. Normal basal cisterns. Normal bilateral temporal bones. Normal bilateral internal auditory canals. There are bilateral ocular lens implants with otherwise normal intraorbital contents. Normal visualized paranasal sinuses. Normal calvarium and skull base. Normal visualized soft tissue structures. Normal visualized upper cervical spine. MRI/Brain W/WO Contrast IMPRESSION: Involutional changes of the brain, as described above. No MR evidence metastatic disease. Electronically Signed: Quincy Cao MD at 9:08 EDT Tel , Service support ,
== END ==
PROVIDERS: PCP Nurse Practitioner; Referring Provider Student in an Organized Health Care Education/Training Program; Visit Provider Student in an Organized Health Care Education/Training Program
DX: C34.92 Malignant neoplasm of unspecified part of left bronchus or lung (principal)
CPT/HCPCS: 70553; A9575

== ENCOUNTER 2021-01-29 10:34 | Emergency (ER) | payer MEDICARE, BC, SELFPAY ==
[2020-09-28 13:31] VITALS: BMI 34.7
[2021-01-29 10:35] VITALS: BP 139/68; PULSE 111; RESP 16; TEMP 36.2; O2SAT 97; BMI 34.0
--- NOTE | 2021-01-29 10:50 | RAD_ITS ---
STUDY: X-RAY - LUMBAR SPINE REASON FOR EXAM: Female, 75 years old. Injury/Pain TECHNIQUE: 3 view(s) of the lumbar spine were obtained. COMPARISON: Comparison is made with prior study dated 12/22/2018. FINDINGS: Normal lumbar lordosis. There is a minimal dextroscoliosis of the lumbar spine. Stable minimal anterior listhesis of L3 on L4. There is multilevel endplate spondylosis of the lumbar vertebrae. There is multi-level degenerative disc disease with multi-level disc space narrowing. Facet joint osteoarthritis. There is atherosclerotic calcification of the abdominal aorta without a demonstrated aneurysm. Prior cholecystectomy. RAD/Lumbar Spine 2 or 3 Views IMPRESSION: Degenerative changes of the spine, as detailed above. Electronically Signed: Allan Joshua MD at 11:24 EDT , Service support ,
--- NOTE | 2021-01-29 10:50 | ED.VIS.BACK ---
HPI History of Present Illness Chief Complaint: Back Informant: patient Onset/Context/Timing Onset: Yesterday Injury: fall Timing: Continuous Quality: Aching Location: Lumbar Worsened by: improves with Nothing Relieved by: Nothing Associated Symptoms Associated Symptoms: Negative for Numbness, Tingling, Radiation to Right Leg, Radiation to Left Leg, Fever, Abdominal Pain, Dysuria, Unable to Ambulate, Unable to Transfer, Urinary Retention, Urinary Incontinence, Constipation and Fecal Incontinence Narrative Narrative: Patient presents with low back pain that began after a fall last night. Patient states the pain is been constant. Patient states pain is across her lower lumbar area. Patient describes pain as aching. Patient states nothing makes it better or worse. Patient denies any radiation of the pain to her lower extremities. Patient denies any bowel or bladder changes. Patient denies any saddle anesthesia. Patient denies any abdominal pain. [facility] Medical History (Updated 01/29/21 @ 13:[address] Bob White, DO) Breast cancer, left Breast lump Chronic low back pain with sciatica GERD (gastroesophageal reflux disease) Lung cancer Osteopenia Home Medications acidophilus-pectin, citrus 1 tablet PO DAILY 01/27/15 [History Last Taken Unknown] calcium carbonate-vitamin D3 1 each PO DAILY 01/27/15 [History Last Taken Unknown] cholecalciferol (vitamin D3) 2,000 unit PO DAILY 01/27/15 [History Last Taken Unknown] montelukast 10 mg PO DAILY 01/27/15 [History Last Taken Unknown] ferrous sulfate 325 mg (65 mg iron) tablet 325 mg PO DAILY 09/18/20 [History Last Taken Unknown] levothyroxine 25 mcg tablet 25 mcg PO DAILY 09/18/20 [History Last Taken 11/16/20] pantoprazole 40 mg tablet,delayed release 80 mg PO DAILY 09/18/20 [History Last Taken 11/16/20] cyanocobalamin (vitamin B-12) 5,000 mcg PO DAILY 09/28/20 [History Last Taken Unknown] acetaminophen 650 mg PO Q6H PRN PRN tablet 11/17/20 [Rx Last Taken Unknown] oxycodone 5 mg capsule 5 mg PO BID PRN 12/19/20 [History Last Taken Unknown] Allergy/AdvReac Type Severity Reaction Status Date / Time Sulfa (Sulfonamide Allergy Hives Verified 01/29/21 10:36 Antibiotics) Family History Father Heart disease Surgical History History of cholecystectomy History of kidney surgery History of left breast biopsy (~09/18/20) History of lumpectomy of left breast (~10/10/20) History of tonsillectomy History of total left knee replacement History of total right knee replacement history ORIF Right ankle Social History housing: house current occupation: Retired- [employer] history of recent travel: No sexually active: No Smoking Status: Former smoker second hand exposure: No alcohol intake: never substance use type: does not use ROS ROS ED Constitutional Constitutional ED: Denies chills or fever(s) Eyes Eyes: Denies blurry vision or change in vision ENT ENT ED: Denies rhinorrhea or sore throat Cardiovascular Cardiovascular: Denies chest pain or palpitations Respiratory/Chest Respiratory/Chest: Denies cough or dyspnea Gastrointestinal Gastrointestinal: Denies nausea or vomiting Genitourinary Genitourinary ED: Denies dysuria or hematuria Musculoskeletal Musculoskeletal: Reports back pain; Denies neck pain Integumentary Denies abscess or rash Neurologic Neurologic: Denies headache(s) or weakness Allergic/Immunologic Allergic/Immunologic ED: Denies mouth swelling or urticaria EXAM Physical Exam Const Vital Signs: 01/29/21 10:35 Temperature 97.2 F L Temperature Source Temporal Pulse Rate 111 H Respiratory Rate 16 Blood Pressure 139/68 H Blood Pressure Mean 91 Pulse Ox 97 Oxygen Delivery Method Room Air Positive well nourished, well developed and obese General Appearance ED: well developed Nutritional Appearance: obese HEENT Reports moist mucous membranes Neck supple and no JVD Back/Spine Back/Spine Narrative: There is tenderness and mild spasm of the lower lumbar spine and paraspinal muscles bilaterally. There is no bony crepitance or step-off. Range of motion was slightly limited secondary to pain. There is no edema or ecchymosis noted. Lumbar Spine / Lower Back: straight leg raise negative bilaterally Extremity normal to inspection General Extremety ED: Negative for edema or tenderness General Extremity: Negative for edema Neuro oriented x3 and no sensory deficits noted Sensorium / Orientation: alert Motor Exam: strength 5/5 throughout Deep Tendon Reflexes: Rt Patellar (L4): 2+ and Lt Patellar (L4): 2+ Deep Tendon Reflexes Back: Rt Patellar (L4): 2+ and Lt Patellar (L4): 2+ Psych mental status grossly normal MDM MDM MDM Narrative Medical decision making narrative: X-rays of the lumbar spine were obtained. There are 3 views. On my interpretation, there are some degenerative changes noted. There is no acute fracture. Radiologist also interpreted the x-rays and degrees. Patient was advised of her findings. Patient was instructed to continue her Percocet as prescribed. Patient was instructed to follow-up with her primary care physician in 5 to 7 days. Patient understood and was agreeable with the plan. All questions were answered. Radiography X-Ray: LS SPine, Read by ED Physician, Read by Radiologist, No Fracture and DJD Diagnostic Testing: Radiology Impression Lumbar Spine X-Ray 01/29/21 10:50 IMPRESSION: Degenerative changes of the spine, as detailed above. Electronically Signed: Allan Joshua MD at 11:24 EDT , Service support , Discharge Plan Triage Chief Complaint: Back ED Provider: Bob White Dx/Rx/DC Orders Clinical Impression: Acute myofascial strain of lumbosacral region Instructions: ED Back Sprain/Strain Prescriptions: No Action ferrous sulfate [FeroSul] 325 mg (65 mg iron) tablet 325 mg PO DAILY RF: 0 pantoprazole 40 mg tablet,delayed release (DR/EC) 80 mg PO DAILY RF: 0 levothyroxine [Synthroid] 25 mcg tablet 25 mcg PO DAILY RF: 0 oxycodone 5 mg capsule 5 mg PO BID PRN (Reason: Pain) RF: 0 montelukast 10 MG tablet 10 mg PO DAILY RF: 0 acidophilus-pectin, citrus 1 TABLET tablet 1 tablet PO DAILY RF: 0 cholecalciferol (vitamin D3) 1,000 UNIT tablet 2,000 unit PO DAILY RF: 0 calcium carbonate-vitamin D3 1 EACH tablet 1 each PO DAILY RF: 0 cyanocobalamin (vitamin B-12) 5,000 MCG tablet,disintegrating 5,000 mcg PO DAILY RF: 0 acetaminophen 325 MG tablet 650 mg PO Q6H PRN PRN (Reason: Pain Score 1-5) RF: 0 Primary Care Provider: Aishwarya Lopez NP Referrals: Aishwarya Lopez APPRENTICE FUNERAL DIRECTOR, APPRENTICE FUNERAL DIRECTOR-C [Primary Care Provider] - 5-7 Days Disposition Disposition: Home, self care
[2021-01-29 13:30] VITALS: PULSE 98; RESP 17; O2SAT 97
== END 2021-01-29 13:32 | disposition home or self-care (01) ==
PROVIDERS: Emergency Provider Emergency Medicine; PCP Nurse Practitioner
DX: S39.012A Strain of muscle, fascia and tendon of lower back, initial encounter (principal); W19.XXXA Unspecified fall, initial encounter; M54.40 Lumbago with sciatica, unspecified side; K21.9 Gastro-esophageal reflux disease without esophagitis; Z85.3 Personal history of malignant neoplasm of breast; Z87.891 Personal history of nicotine dependence; G89.29 Other chronic pain; M85.80 Other specified disorders of bone density and structure, unspecified site; E66.9 Obesity, unspecified; Z90.49 Acquired absence of other specified parts of digestive tract
CPT/HCPCS: 72100; 99282

== ENCOUNTER → 2021-04-19 14:40 | Outpatient (CLI) | payer MEDICARE, BC, SELFPAY ==
[2020-09-28 13:31] VITALS: BMI 34.7
--- NOTE | 2021-04-19 14:46 | BD_ITS ---
STUDY: DUAL ENERGY X-RAY ABSORPTIOMETRY / DXA REASON FOR EXAM: Female, 76 years old. 627.8Menopausal postmenopausalBONE DENSITY REASON FOR EXAM TECHNIQUE: Bone Mineral Density (BMD) measurements of lumbar spine and bilateral hips were obtained. COMPARISON: Comparison is made with prior study dated 02/23/2019. FINDINGS: Lumbar Spine (L1-L4): g/cm2 (1.092) / T-score (0.4) / Z-score (2.9) Findings are suggestive of normal bone density with a low fracture risk. Left Femur Total: g/cm2 (0.779) / T-score (-1.3) / Z-score (0.5) Left Femoral Neck: g/cm2 (0.690) / T-score (-1.4) / Z-score (0.7) Right Femur Total: g/cm2 (0.772) / T-score (-1.4) / Z-score (0.4) Right Femoral Neck: g/cm2 (0.707) / T-score (-1.3) / Z-score (0.8) The T-Scores on the most recent prior examination were: Lumbar Spine (L1-L4): There has been worsening of bone density since the previous examination. Left Femur Total: which represents a worsening of 2.7%. Right Femur Total: which represents a worsening of 6.4%. BD/Dexa Bone Density Study IMPRESSION: The patient is considered osteopenic as outlined below according to World Reyes Organization (WHO) criteria with a low fracture risk. There has been worsening of bone density since the previous examination. Reference Information: The T-score is the number of standard deviations above or below the standard which is normal for young adults at their peak bone mineral density. The World Health Organization (WHO) interprets the T-scores as follows: Above -1 Normal bone density Between -1 and -2.5 Osteopenia Equal to / or below -2.5 Osteoporosis As a practical clinical guideline, osteopenia may be graded as follows: Mild -1 through -1.5 Moderate -1.6 through -2.0 Severe -2.1 through -2.4 The Z-score is the number of standard deviations above or below age-matched controls. A Z-score of less than -1.5 would be considered abnormal. References: 1. NIH Osteoporosis and Related Bone Diseases www osteo.org 2. International Society for Clinical Densitometry www iscd.org 3. National Osteoporosis Foundation www nof.org Electronically Signed: Allan Joshua MD at 20:19 EDT , Service support ,
== END ==
PROVIDERS: PCP Nurse Practitioner; Referring Provider Nurse Practitioner; Visit Provider Nurse Practitioner
DX: Z78.0 Asymptomatic menopausal state (principal); E55.9 Vitamin D deficiency, unspecified
CPT/HCPCS: 77080

== ENCOUNTER 2021-04-19 15:16 | Emergency (ER) | payer MEDICARE, BC, SELFPAY ==
[2020-09-28 13:31] VITALS: BMI 34.7
[2021-04-19 15:17] VITALS: BP 136/54; PULSE 79; RESP 16; TEMP 36.8; O2SAT 99; BMI 31.6
--- NOTE | 2021-04-19 15:33 | EDS_ITS ---
HPI HPI - Fall History of Present Illness Chief Complaint: Fall Detail of Chief Complaint: Fall with injury to right shoulder and right knee Narrative Narrative: Patient presents to the emergency department after sustaining a fall outside of the hospital. Patient states that she missed the step and fell injuring her right shoulder and right knee. She did not strike her head. No loss of consciousness. There was a rapid response called to aid the patient. Once she was helped up she was able to ambulate. Patient states that her right knee had been replaced prior. Patient was at the hospital here getting a bone density scan. Patient not on blood thinners. [facility] Medical History (Updated 04/19/21 @ 16:[address] Mariann Alves, DO) Breast cancer, left Breast lump Chronic low back pain with sciatica GERD (gastroesophageal reflux disease) Lung cancer Osteopenia Home Medications acidophilus-pectin, citrus 1 tablet PO DAILY 01/27/15 [History Last Taken Unknown] calcium carbonate-vitamin D3 1 each PO DAILY 01/27/15 [History Last Taken Unknown] cholecalciferol (vitamin D3) 2,000 unit PO DAILY 01/27/15 [History Last Taken Unknown] montelukast 10 mg PO DAILY 01/27/15 [History Last Taken Unknown] ferrous sulfate 325 mg (65 mg iron) tablet 325 mg PO DAILY 09/18/20 [History Last Taken Unknown] levothyroxine 25 mcg tablet 25 mcg PO DAILY 09/18/20 [History Last Taken 11/16/20] pantoprazole 40 mg tablet,delayed release 80 mg PO DAILY 09/18/20 [History Last Taken 11/16/20] cyanocobalamin (vitamin B-12) 5,000 mcg PO DAILY 09/28/20 [History Last Taken Unknown] acetaminophen 650 mg PO Q6H PRN PRN tablet 11/17/20 [Rx Last Taken Unknown] oxycodone 5 mg capsule 5 mg PO BID PRN 12/19/20 [History Last Taken Unknown] aspirin 81 mg tablet,delayed release 81 mg PO DAILY 03/15/21 [History Last Taken Unknown] trazodone 50 mg tablet 50 mg PO QHS PRN 03/15/21 [History Last Taken Unknown] anastrozole 1 mg PO DAILY 04/19/21 [History Last Taken Unknown] venlafaxine 37.5 mg PO DAILY 04/19/21 [History Last Taken Unknown] Allergy/AdvReac Type Severity Reaction Status Date / Time Sulfa (Sulfonamide Allergy Hives Verified 04/19/21 15:17 Antibiotics) Family History Father Heart disease Surgical History History of cholecystectomy History of kidney surgery History of left breast biopsy (~09/18/20) History of lumpectomy of left breast (~10/10/20) History of tonsillectomy History of total left knee replacement History of total right knee replacement history ORIF Right ankle S/P lobectomy of lung Social History housing: house current occupation: Retired- [employer] history of recent travel: No sexually active: No Smoking Status: Former smoker second hand exposure: No alcohol intake: never substance use type: does not use ROS ROS ED Constitutional Constitutional ED: Reports systems reviewed and no addt'l complaints, except as documented; Denies body ache(s), change in weight or chills Eyes Eyes: Denies acute decrease in peripheral vision, change in vision, double vision or loss of vision ENT ENT ED: Reports none; Denies ear pain, lip swelling, loss taste/smell, neck pain, otalgia or sore throat Cardiovascular Cardiovascular: Reports none; Denies abdominal pain, chest pain with activity, leg edema, lightheadedness, palpitations, rapid heart rate or syncope Respiratory/Chest Respiratory/Chest: Reports none; Denies change in mental status, dry cough, dyspnea, hemoptysis, shortness of breath at rest or shortness of breath with exertion Gastrointestinal Gastrointestinal: Reports none; Denies abdominal pain, change in stool character, diarrhea, hematemesis, hematochezia, melena, rectal bleeding or vomiting Genitourinary Genitourinary ED: Reports none; Denies abdominal discomfort, anuria, dysuria, genital pain or polyuria Musculoskeletal Musculoskeletal: Reports none and other Details: Right shoulder and right knee pain ; Denies arthralgias, back pain, difficulty walking, extremity pain, muscle weakness or myalgias Integumentary Reports none; Denies abscess or rash Neurologic Neurologic: Reports none; Denies abnormal gait, confusion, focal weakness, frequent falls, headache(s), loss of vision, numbness, paresthesias, radicular pain, vertigo or weakness Psychiatric Psychiatric: Reports systems reviewed and no addt'l complaints, except as documented and none; Denies behavioral changes, confusion, difficulty concentrating, hallucinations, suicidal ideation, tactile hallucinations or visual hallucinations Endocrine Endocrinology: Denies none, cold intolerance, excessive sweating, fatigue or heat intolerance Hematologic/Lymphatic Hematologic/Lymphatic: Reports none; Denies anemia, easy bleeding or easy bruising Allergic/Immunologic Allergic/Immunologic ED: Denies as per HPI, none, lip swelling, mouth swelling, throat swelling, tongue swelling or hives EXAM Physical Exam Const Vital Signs: 04/19/21 15:17 04/19/21 15:26 Temperature 98.3 F Temperature Source Oral Pulse Rate 79 Respiratory Rate 16 Respiratory Effort Normal Non-Labored Respiratory Depth Normal Respiratory Pattern Normal Blood Pressure 136/54 H Blood Pressure Mean 81 Pulse Ox 99 Oxygen Delivery Method Room Air Positive well nourished and well developed General Appearance ED: well developed and NAD HEENT Reports TM's clear and moist mucous membranes normocephalic and atraumatic; Negative for trauma or tenderness Tympanic Membrane ED: Yes TM's clear Eyes PERRL and EOMs intact bilaterally General Eye ED: Negative for pale conjunctiva or scleral icterus Neck no lymphadenopathy, supple and no JVD General: Negative for tenderness Chest Wall inspection of chest normal and palpation of chest normal Chest: Negative for tenderness Resp normal respiratory effort and clear to auscultation bilaterally Effort and Inspection: Negative for respiratory distress or pain with movement Auscultation: Negative for rhonchi, wheezes or diminished lung sounds Cardio regular rate, regular rhythm, S1 normal heart sound, S2 normal heart sound and no murmurs Peripheral Pulses: pulses 2+ throughout GI normal to inspection, nondistended, normoactive bowel sounds, soft to palpation, non-tender, non-distended and no masses Back/Spine no CVA tenderness and no thoracic nor lumbar tenderness Extremity normal to inspection Extremity Narrative: Patient has some soft tissue swelling and some ecchymosis and bruising to the posterior aspect of the right shoulder. There is no sulcus sign or obvious deformity noted. Neurovascular intact distally. Evaluation of the right knee reveals some soft tissue swelling and erythema and superficial skin of region. No obvious deformity. Good range of motion flexion extension of the knee. Neurovascular intact distally. General Extremety ED: Negative for edema General Extremity: Negative for edema Neuro oriented x3, CN's II-XII intact bilaterally, no sensory deficits noted and gait normal Sensorium / Orientation: awake, alert, oriented to person, oriented to place and oriented to time Motor Exam: strength 5/5 throughout and strength abnormal Psych mental status grossly normal Skin no rashes or lesions noted and no wounds MDM MDM MDM Narrative Medical decision making narrative: Results discussed with patient. Patient will be placed in a sling. She will be referred to orthopedics for follow-up. She did not anything for pain in the department. Patient states she will take Tylenol when she gets home. Radiography Diagnostic Testing: Radiology Impression Knee X-Ray 04/19/21 15:46 IMPRESSION: Stable appearance to knee prosthesis. Electronically Signed: Edouard Qureshi MD at 16:12 EDT , Service support , Shoulder X-Ray 04/19/21 15:46 IMPRESSION: Degenerative changes. No acute fracture or dislocation Findings consistent with rotator cuff tendon pathology. MRI would be useful for further confirmation if indicated Electronically Signed: Edouard Qureshi MD at 16:11 EDT , Service support , ADDENDUM: 04/19/21 1633 4 view x-rays of right shoulder obtained interpreted by myself as fracture of the distal clavicle. Radiology initially did not note any fractures on their interpretation and so I had them relook at the images and secondarily they did make an addendum that showed they to believe there was a fracture of the distal clavicle. 4 view x-rays of the right knee also obtained showed no fractures or dislocations on my interpretation and radiology was in agreement. Discharge Plan Triage Chief Complaint: Fall ED Provider: Mariann Alves Dx/Rx/DC Orders Clinical Impression: Fall, Clavicle fracture, Contusion of knee Instructions: Bone Contusion, ED Fracture, Clavicle Prescriptions: No Action ferrous sulfate [FeroSul] 325 mg (65 mg iron) tablet 325 mg PO DAILY RF: 0 pantoprazole 40 mg tablet,delayed release (DR/EC) 80 mg PO DAILY RF: 0 levothyroxine [Synthroid] 25 mcg tablet 25 mcg PO DAILY RF: 0 oxycodone 5 mg capsule 5 mg PO BID PRN (Reason: Pain) RF: 0 aspirin [Adult Aspirin Regimen] 81 mg tablet,delayed release (DR/EC) 81 mg PO DAILY RF: 0 trazodone 50 mg tablet 50 mg PO QHS PRN (Reason: Sleep) RF: 0 montelukast 10 MG tablet 10 mg PO DAILY RF: 0 acidophilus-pectin, citrus 1 TABLET tablet 1 tablet PO DAILY RF: 0 cholecalciferol (vitamin D3) 1,000 UNIT tablet 2,000 unit PO DAILY RF: 0 calcium carbonate-vitamin D3 1 EACH tablet 1 each PO DAILY RF: 0 cyanocobalamin (vitamin B-12) 5,000 MCG tablet,disintegrating 5,000 mcg PO DAILY RF: 0 acetaminophen 325 MG tablet 650 mg PO Q6H PRN PRN (Reason: Pain Score 1-5) RF: 0 anastrozole 1 mg tablet 1 mg PO DAILY RF: 0 venlafaxine 37.5 mg capsule,extended release 24hr 37.5 mg PO DAILY RF: 0 Primary Care Provider: Aishwarya Lopez NP Referrals: Adebayo Chen MD [STAFF PHYSICIAN] - 3-5 Days Aishwarya Lopez NP, VALUER-C [Primary Care Provider] - Disposition Disposition: Home, Self Care
--- NOTE | 2021-04-19 15:46 | RAD_ITS ---
STUDY: X-RAY - RIGHT KNEE REASON FOR EXAM: Female, 76 years old. fall TECHNIQUE: 4 view(s) of the knee. COMPARISON: None. FINDINGS: Knee prosthesis is noted in anatomic alignment and position.. No evidence for acute fracture or dislocation. RAD/Knee 4 or More Views IMPRESSION: Stable appearance to knee prosthesis. Electronically Signed: Edouard Qureshi MD at 16:12 EDT , Service support ,
--- NOTE | 2021-04-19 15:46 | RAD_ITS ---
STUDY: X-RAY - RIGHT SHOULDER REASON FOR EXAM: Female, 76 years old. fall TECHNIQUE: 4 view(s) of the shoulder. COMPARISON: None. FINDINGS: Narrowed glenohumeral articulation. Normal acromioclavicular joint. Normal acromion. Narrowed subacromial space consistent with rotator cuff tear. Normal humeral head and visualized proximal humerus. The soft tissue structures are unremarkable. Normal visualized pulmonary apex. RAD/Shoulder min 2 Views IMPRESSION: Degenerative changes. No acute fracture or dislocation Findings consistent with rotator cuff tendon pathology. MRI would be useful for further confirmation if indicated Electronically Signed: Edouard Qureshi MD at 16:11 EDT , Service support ,
== END 2021-04-19 16:57 | disposition home or self-care (01) ==
PROVIDERS: Emergency Provider Emergency Medicine; PCP Nurse Practitioner
DX: S42.009A Fracture of unspecified part of unspecified clavicle, initial encounter for closed fracture (principal); S80.00XA Contusion of unspecified knee, initial encounter; W19.XXXA Unspecified fall, initial encounter; Y93.9 Activity, unspecified; Y92.238 Other place in hospital as the place of occurrence of the external cause; Y99.9 Unspecified external cause status; G89.29 Other chronic pain; K21.9 Gastro-esophageal reflux disease without esophagitis; Z78.0 Asymptomatic menopausal state; M54.40 Lumbago with sciatica, unspecified side; M85.80 Other specified disorders of bone density and structure, unspecified site; Z79.82 Long term (current) use of aspirin; Z87.891 Personal history of nicotine dependence; Z79.899 Other long term (current) drug therapy; Z96.653 Presence of artificial knee joint, bilateral; E55.9 Vitamin D deficiency, unspecified
CPT/HCPCS: 73030; 73564; 77080; 99283

== ENCOUNTER → 2021-05-17 13:06 | Outpatient (CLI) | payer MEDICARE, BC, SELFPAY ==
[2020-09-28 13:31] VITALS: BMI 34.7
--- NOTE | 2021-05-17 13:09 | CT_ITS ---
STUDY: CT ABDOMEN AND PELVIS WITH CONTRAST REASON FOR EXAM: Female, 76 years old. ABD PAIN,ACUTE,NONLOCALIZED RADIATION DOSAGE (If Supplied By Facility): CTDIvol = ( 11.34 ) mGy, DLP = ( 999.59 ) mGycm TECHNIQUE: Transaxial images were obtained from the dome of the diaphragm to the symphysis pubis without oral contrast. IV 100mL Isovue-300 was administered. Sagittal and coronal images were reconstructed. Individualized dose optimization techniques were used for this CT. COMPARISON: None. FINDINGS: Minimal bibasilar dependent atelectasis. Small left-sided pleural effusion, which appears to be at least partially loculated. Small to moderate-sized hiatal hernia. Status post cholecystectomy with associated mild biliary dilatation. No focal hepatic lesion on this single phase study. Unremarkable spleen, pancreas, adrenals, and left kidney. Moderate right-sided hydronephrosis, which may be due to UPJ stenosis. Normal appendix. Bowel loops nonobstructed. Distal colonic diverticulosis. No acute diverticulitis. No adenopathy. No free air or free fluid. Vascular calcification with no abdominal aortic aneurysm. Sections through the pelvis demonstrate no adnexal mass. Urinary bladder grossly unremarkable. Multilevel thoracolumbar spondylosis with minimal S-shaped scoliosis. Mild osteoarthritis of the bilateral hip joints. CT/Abdomen/Pelvis WITH Contrast IMPRESSION: Small left-sided pleural effusion, which appears to be loculated. Empyema cannot be excluded. 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 Distal colonic diverticulosis. No acute diverticulitis. Other chronic findings as above. Electronically Signed: Jadon Roper MD at 19:16 EDT Tel , Service support ,
[2021-05-17 13:36] LABS: CREATININE FINGERSTICK 0.8 mg/dL (0.55-1.02); EGFR FINGERSTICK > 60.0000 mL/min (>60)
== END ==
PROVIDERS: PCP Nurse Practitioner; Referring Provider Nurse Practitioner; Visit Provider Nurse Practitioner
DX: R10.9 Unspecified abdominal pain (principal)
CPT/HCPCS: 74177; Q9967

== ENCOUNTER → 2021-06-13 10:17 | Outpatient (CLI) | payer MEDICARE, BC, SELFPAY ==
[2020-09-28 13:31] VITALS: BMI 34.7
[2021-06-13 11:53] LABS: Erythrocyte Sedimentation Rate 14 mm/hr (0-30)
[2021-06-13 12:11] LABS: CRP 7.16 mg/L (0.0-3.0)
== END ==
PROVIDERS: PCP Nurse Practitioner; Referring Provider Internal Medicine Pulmonary Disease; Visit Provider Internal Medicine Pulmonary Disease
DX: J90 Pleural effusion, not elsewhere classified (principal)
CPT/HCPCS: 36415; 85652; 86140

== ENCOUNTER 2021-06-13 18:14 | Inpatient (IN) | payer MEDICARE, BC, SELFPAY ==
[2020-09-28 13:31] VITALS: BMI 34.7
[2021-06-13 18:14] VITALS: BP 136/71; PULSE 100; RESP 16; TEMP 36; O2SAT 99; BMI 30.1
[2021-06-13 19:56] LABS: Bacteria 0 SEEN /hpf (None Seen); Mucous, Urine 0 SEEN /hpf (<or=2+); Red Blood Cells-Urine 0 SEEN /hpf (0-5); Squamous Epithelial Cells - UA 0 SEEN /hpf (5-10); White Blood Cells 0 SEEN /hpf (0-5)
[2021-06-13 19:57] LABS: Absolute Lymphocyte Count 1.96 X10^3/uL (0.83-4.51); Absolute Neutrophil Count 2.8 X10^3/uL (2.0-7.7); Basophil# 0.04 X10^3/uL; Basophil% 0.7 % (0-1); Eosinophils% 3.3 % (0-5); Hematocrit 40.4 % (37-47); Hemoglobin 12.9 g/dL (12.0-15.0); Lymphocyte # 1.96 X10^3/ul (0.83-4.51); Lymphocyte % 32.3 % (19-41); Mean Corp Hgb Conc 31.9 g/dL (32-36); Mean Corpuscular Hgb 29.9 pg (27.0-32.0); Mean Corpuscular Volume 93.5 fL (81-99); Mean Platelet Vol. 11.5 fl (6.2-12.0); Monocyte# 1.08 X10^3/uL; Monocyte% 17.8 % (0-10); NRBC Flagged by Analyzer 0 % (0-5); Neutrophil # 2.76 X10^3/uL (2.7-7.7); Neutrophil % 45.4 % (47-70); Platelet Count 250 K/mm3 (150-450); RBC Distribution Width CV 16.1 % (11.6-14.6); RBC Distribution Width SD 55.8 fl (35.1-43.9); Red Blood Count 4.32 M/mm3 (4.2-5.4); White Blood Count 6.1 K/mm3 (4.4-11.0)
[2021-06-13 19:58] LABS: Color, Urine Yellow (Yellow); Glucose, Dipstick Normal (Normal); Ketone-Dipstick 15 mg/dl (Negative); Leukocyte Esterase-Dipstick Negative /ul (Negative); Nitrite-Dipstick Negative (Negative); Occult Blood-Urine Negative /ul (Negative); Protein-Dipstick Negative (Negative); Urine Bilirubin Dipstick Negative (Negative); Urine Clarity Clear (Clear); Urine Urobilinogen Normal (Normal)
--- NOTE | 2021-06-13 19:59 | CT_ITS ---
We are attempting to reach an attending provider to discuss findings. An addendum with communication details will be sent when the communication is complete. INDICATION: abd pain EXAMINATION: CT ABDOMEN AND PELVIS WITH CONTRAST - CT Abdomen And Pelvis W/ Contrast Injection TECHNIQUE: Helically acquired images were obtained of the abdomen and pelvis following IV contrast. A radiation dose optimization technique was used for this scan. IV Contrast dosage and agent: 100 mL of [id number]-[id number]. Oral contrast: None. COMPARISON: CT abdomen and pelvis 05/17/2021 FINDINGS: No significant interval change in asymmetric elevation left hemidiaphragm and small pleural effusion with some mild overlying atelectasis. There is some early fibrotic changes seen in the lung bases. Visualized base of the heart is normal size. Gallbladder surgically absent. The common bile duct is prominent measuring roughly 9 mm in diameter. This can be within normal limits. There does appear to be some mild intrahepatic biliary ductal dilation also. The subtle finding is not appreciably changed compared to prior exam. There is a sliding hiatal hernia. Abnormal morphology right kidney, especially the lower pole rather is cortical thinning. There is a prominent extrarenal pelvis, unchanged compared to the prior exam. Left kidney is normal in appearance. Adrenal glands spleen and pancreas are within normal limits. No intra-abdominal lymphadenopathy. Abdominal aorta is normal diameter are scattered intimal calcifications noted. There are several prominent small bowel loops containing fluid and some air-fluid levels consistent with early obstruction. Focal transition point visible in the mid abdomen, coronal image 36 of 104. This finding is new compared to the prior exam. There is trace free fluid in the pelvis. There are some diverticuli in the sigmoid colon. No diverticulitis. Most of the colon is collapsed. Anterior abdominal wall is intact. No inguinal lymphadenopathy. There are severe degenerative disc and endplate changes lumbar spine. Multilevel central canal stenosis is suggested, worsened by facet arthropathy. There are degenerative changes of the sacroiliac joints and minimal degenerative changes of the left, greater than right hips. No fracture. No lytic or blastic bone lesion. CT/Abdomen/Pelvis W IV Cont ONLY IMPRESSION: Small bowel obstruction with multiple delineated transition point mid abdomen with mostly collapsed more distal small bowel. Diverticulosis without diverticulitis. Unchanged left upper lobe small pleural effusion and atelectasis with early fibrotic changes suggested. Abnormal right kidney morphology may represent postsurgical or postinfectious etiology. Diverticulosis without diverticulitis. Significant degenerative changes spine and sacroiliac joints. Electronically Signed: José Miguel Ordaz DO at 21:30 EDT Tel , Service support ,
[2021-06-13 20:03] LABS: Anion Gap 7 (5-15); BUN 13 mg/dL (7-18); BUN/Creat Ratio 17.2 RATIO (10-20); Calcium,Total 10.2 mg/dL (8.5-10.1); Chloride 104 mmol/L (98-107); Creatinine, Serum 0.75 mg/dL (0.55-1.02); EST Glomerular Filtration Rate 79 mL/min (>60); Est Glom Filt Rate - Afr Amer 96 mL/min (>60); Estimated Creatinine Clearance 37.85 ml/min; Glucose 102 mg/dL (74-106); Potassium 4.3 mmol/L (3.5-5.1); Sodium Level 141 mmol/L (136-145)
[2021-06-13] MEDS: Ondansetron 4 MG/2 ML Vial IV (20:10)
[2021-06-13] MEDS: 0.9% Normal Saline 1,000 ML 125 ML IV (20:10)
[2021-06-13] MEDS: Morphine 4 MG/ML Syringe IV ×2 (20:10→22:01)
[2021-06-13 20:44] LABS: AST(SGOT) 31 U/L (15-37); Alanine Aminotransfer ALT/SGPT 28 U/L (13-56); Albumin, Serum 3.3 g/dL (3.2-5.0); Alkaline Phosphatase 87 U/L (45-117); Bilirubin, Direct 0.22 mg/dL (0.00-0.30); Globulin 4.4 g/dL (2.2-4.2); Lipase 63 U/L (73-393); Protein, Total 7.7 g/dL (6.4-8.2)
[2021-06-13 21:00] VITALS: RESP 16
--- NOTE | 2021-06-13 22:06 | PCM.HP.STD ---
HPI - General HPI Narrative ROSELINE SHERIFF, is a 76 F who presents with abdominal pain. The patient reports she has been having abdominal pain ever since her left lung lobectomy back in February. She says that she believes there is some nerve injury causing abdominal pain. She says the pain has been worse over the last few days. She reports having a bowel movement this morning. She is not having any nausea or vomiting. [facility] Medical History (Updated 06/13/21 @ 22:[address] Vikash Jimenez MD) Breast cancer, left Breast lump Chronic low back pain with sciatica GERD (gastroesophageal reflux disease) Lung cancer Osteopenia Home Medications calcium carbonate-vitamin D3 1 each PO DAILY 01/27/15 [History Last Taken Unknown] cholecalciferol (vitamin D3) 2,000 unit PO DAILY 01/27/15 [History Last Taken Unknown] montelukast 10 mg PO DAILY 01/27/15 [History Last Taken Unknown] ferrous sulfate 325 mg (65 mg iron) tablet 325 mg PO DAILY 09/18/20 [History Last Taken Unknown] levothyroxine 25 mcg tablet 25 mcg PO DAILY 09/18/20 [History Last Taken 11/16/20] pantoprazole 40 mg tablet,delayed release 80 mg PO DAILY 09/18/20 [History Last Taken 11/16/20] cyanocobalamin (vitamin B-12) 5,000 mcg PO DAILY 09/28/20 [History Last Taken Unknown] acetaminophen 650 mg PO Q6H PRN PRN tablet 11/17/20 [Rx Last Taken Unknown] trazodone 50 mg tablet 50 mg PO QHS PRN 03/15/21 [History Last Taken Unknown] Bifidobacterium infantis [Align] 4 mg PO DAILY 06/13/21 [History Last Taken Unknown] Allergy/AdvReac Type Severity Reaction Status Date / Time Sulfa (Sulfonamide Allergy Hives Verified 06/13/21 18:18 Antibiotics) Family History Father Heart disease Surgical History History of cholecystectomy History of kidney surgery History of left breast biopsy (~09/18/20) History of lumpectomy of left breast (~10/10/20) History of tonsillectomy History of total left knee replacement History of total right knee replacement history ORIF Right ankle S/P lobectomy of lung Social History housing: house current occupation: Retired- [employer] history of recent travel: No sexually active: No Smoking Status: Former smoker second hand exposure: No alcohol intake: never substance use type: does not use ROS Constitutional Constitutional: Reports anorexia; Denies chills, fatigue or fever(s) Eyes Eyes: Denies blurry vision ENT HEENT: Denies abnormal hearing Cardiovascular Cardiovascular: Denies chest pain Respiratory/Chest Respiratory/Chest: Denies cough or dyspnea Gastrointestinal Gastrointestinal: Reports abdominal pain; Denies constipation, diarrhea, dysphagia, hematemesis, nausea, rectal bleeding or vomiting Genitourinary Genitourinary: Denies change in urinary stream Integumentary Integumentary: Denies jaundice Neurologic Neurologic: Denies abnormal gait Psychiatric Psychiatric: Denies anxiety Endocrine Endocrinology: Denies flushing Vital Signs Vital Signs Vital Signs: 06/13/21 18:14 06/13/21 21:00 Temperature 96.8 F L Temperature Source Temporal Pulse Rate 100 Respiratory Rate 16 16 Blood Pressure 136/71 H Blood Pressure Mean 92 Pulse Ox 99 Oxygen Delivery Method Room Air Weight Weight: 164 lb 12.8 oz Body Mass Index (BMI) 30.1 Physical Exam Const oriented x3 and no apparent distress Resp normal respiratory effort Cardio regular rate and regular rhythm GI soft to palpation GI Narrative: Abdomen is soft and nondistended with some tenderness throughout the abdomen but worse at the periumbilical area. No guarding or rebound. Palpation: tender Results Lab / Micro Data Result Diagrams: 06/13/21 19:15 06/13/21 19:15 Labs: Laboratory Results - last 24 hr 06/13/21 19:15: WBC 6.1, RBC 4.32, Hgb 12.9, Hct 40.4, MCV 93.5, MCH 29.9, MCHC 31.9 L, RDW Std Deviation 55.8 H, RDW Coeff of Diaz 16.1 H, Plt Count 250, MPV 11.5, Immature Gran % (Auto) 0.500, Neut % (Auto) 45.4 L, Lymph % (Auto) 32.3, [place] % (Auto) 17.8 H, Eos % (Auto) 3.3, Baso % (Auto) 0.7, Absolute Neuts (auto) 2.8, Absolute Lymphs (auto) 1.96, Nucleated RBC % 0 06/13/21 19:15: Sodium 141, Potassium 4.3, Chloride 104, Carbon Dioxide 30.0, Anion Gap 7, BUN 13, Creatinine 0.75, Estim Creat Clear Calc 37.85, Est GFR (MDRD) Af Amer 96, Est GFR (MDRD) Non-Af 79, BUN/Creatinine Ratio 17.2, Glucose 102, Calcium 10.2 H 06/13/21 19:15: Total Bilirubin 0.80, Direct Bilirubin 0.22, AST 31, ALT 28, Alkaline Phosphatase 87, Total Protein 7.7, Albumin 3.3, Globulin 4.4 H, Lipase 63 L 06/13/21 19:50: Urine Color Yellow, Urine Clarity Clear, Urine pH 7.0, Ur Specific [place] 1.010, Urine Protein Negative, Urine Glucose (UA) Normal, Urine Ketones 15 H, Urine Occult Blood Negative, Urine Nitrite Negative, Urine Bilirubin Negative, Urine Urobilinogen Normal, Ur Leukocyte Esterase Negative, Urine RBC 0 SEEN, Urine WBC 0 SEEN, Ur Squamous Epith Cells 0 SEEN, Urine Bacteria 0 SEEN, Urine Mucus 0 SEEN Radiology Impression Abdomen/Pelvis CT 06/13/21 19:59 IMPRESSION: Small bowel obstruction with multiple delineated transition point mid abdomen with mostly collapsed more distal small bowel. Diverticulosis without diverticulitis. Unchanged left upper lobe small pleural effusion and atelectasis with early fibrotic changes suggested. Abnormal right kidney morphology may represent postsurgical or postinfectious etiology. Diverticulosis without diverticulitis. Significant degenerative changes spine and sacroiliac joints. Electronically Signed: José Miguel Ordaz DO at 21:30 EDT Tel , Service support , ADDENDUM: 06/13/212200 IMPRESSION: Small bowel obstruction with multiple delineated transition point mid abdomen with mostly collapsed more distal small bowel. Diverticulosis without diverticulitis. Unchanged left upper lobe small pleural effusion and atelectasis with early fibrotic changes suggested. Abnormal right kidney morphology may represent postsurgical or postinfectious etiology. Diverticulosis without diverticulitis. Significant degenerative changes spine and sacroiliac joints. N.B. : The above Results were Read Back by José Miguel Ordaz DO to Kristine Louis RN, and understanding confirmed on 06/13/2021 21:54:48 (ET). Electronically Signed: José Miguel Ordaz DO at 21:30 EDT Tel , Service support , Assessment & Plan Assessment/Plan (1) SBO (small bowel obstruction): PLAN: The patient reports abdominal pain and she had a CT scan which showed some mildly dilated loops of small bowel. The patient reports she had a bowel movement this morning. She says that she has chronic abdominal pain ever since her surgery in February. Patient reports no nausea or vomiting. I will admit the patient and start her on IV fluids and order a small bowel follow-through for the morning. Recheck labs in the a.m. Vikash Jimenez MD Pager: [facility] [address] [place] [address], [address] [place] [address] Office:
[2021-06-13 22:15] VITALS: BP 101/87; PULSE 99; RESP 18; O2SAT 100
--- NOTE | 2021-06-13 22:16 | EDS_ITS ---
HPI History of Present Illness Chief Complaint: Abd Pain Informant: patient Narrative Narrative: Reports generalized abdominal pain throughout the day. No nausea or vomiting. No fevers. No urinary symptoms. Reports last bowel movement this morning, decreased flatus since then. Surgical history nurse reported she had 1972 plans for right kidney removal due to being a football size however states when surgery was performed it was the third of size it was left alone. She states this past February, had a left upper lobectomy due to cancer. There is no treatments after resection. She states since that time she thinks the nerve was stretched so she had radicular pain into her left side of her abdomen. This has recently subsided 2 weeks ago. She started on gabapentin by her surgeon team down in [place]. However today pain is generalized in her abdomen that is different. Later discussion from work-up and findings on CT scan she did admit to having cholecystectomy also in the past. Prior similar symptoms: No PFSH PFSH Medical History (Updated 06/13/21 @ 23:33 by Keerthi Carter) Anemia Breast cancer, left Breast lump Cancer Chronic low back pain with sciatica Chronic pain Former smoker GERD (gastroesophageal reflux disease) Hypothyroidism Kidney disease Lung cancer Osteopenia Pancreatitis Home Medications calcium carbonate-vitamin D3 2 tab PO DAILY 01/27/15 [History Last Taken 06/13/21 09:00] cholecalciferol (vitamin D3) 2,000 unit PO DAILY 01/27/15 [History Last Taken 06/12/21 21:00] montelukast 10 mg PO DAILY 01/27/15 [History Last Taken 06/13/21 13:00] levothyroxine 25 mcg tablet 25 mcg PO DAILY 09/18/20 [History Last Taken 06/13/21 05:30] pantoprazole 40 mg tablet,delayed release 80 mg PO DAILY 09/18/20 [History Last Taken 06/13/21 07:30] cyanocobalamin (vitamin B-12) 5,000 mcg PO DAILY 09/28/20 [History Last Taken 06/13/21 13:00] acetaminophen 650 mg PO Q6H PRN PRN tablet 11/17/20 [Rx Last Taken 06/12/21 09:00] trazodone 50 mg tablet 50 mg PO QHS PRN 03/15/21 [History Last Taken 06/12/21 23:00] Bifidobacterium infantis [Align] 4 mg PO DAILY 10/06/21 [History Last Taken 16:00] gabapentin 200 mg PO TID 06/13/21 [History Last Taken 06/13/21 16:00] magnesium 400 mg PO DAILY 06/13/21 [History Last Taken 06/13/21 14:00] sucralfate 1 g PO ACHS 06/13/21 [History Last Taken 06/13/21 16:00] Allergy/AdvReac Type Severity Reaction Status Date / Time Sulfa (Sulfonamide Allergy Hives Verified 06/13/21 18:18 Antibiotics) Family History Father Heart disease Surgical History History of cholecystectomy History of kidney surgery History of left breast biopsy (~09/18/20) History of lumpectomy of left breast (~10/10/20) History of tonsillectomy History of total left knee replacement History of total right knee replacement history ORIF Right ankle S/P lobectomy of lung Social History housing: house current occupation: Retired- [employer] history of recent travel: No sexually active: No Smoking Status: Former smoker second hand exposure: No alcohol intake: never substance use type: does not use ROS ROS ED Constitutional Constitutional ED: Denies chills, fever(s) or sweats Eyes Eyes: Denies change in vision ENT ENT ED: Denies dysphagia or sore throat Cardiovascular Cardiovascular: Denies chest pain, leg edema, palpitations or racing heartbeat Respiratory/Chest Respiratory/Chest: Denies cough, dyspnea or dyspnea on exertion Gastrointestinal Gastrointestinal: Reports abdominal pain; Denies diarrhea, nausea or vomiting Genitourinary Genitourinary ED: Denies dysuria, hematuria or urinary frequency Musculoskeletal Musculoskeletal: Denies back pain, extremity pain or neck pain Integumentary Denies rash or wounds Neurologic Neurologic: Denies headache(s), paresthesias or weakness EXAM Physical Exam Const Vital Signs: 06/13/21 18:14 06/13/21 21:00 Temperature 96.8 F L Temperature Source Temporal Pulse Rate 100 Respiratory Rate 16 16 Blood Pressure 136/71 H Blood Pressure Mean 92 Pulse Ox 99 Oxygen Delivery Method Room Air Positive well nourished and well developed General Appearance ED: well developed and NAD HEENT Reports moist mucous membranes normocephalic and atraumatic Eyes PERRL, EOMs intact bilaterally and conjunctivae normal General Eye ED: Yes normal appearance of both eyes Neck no lymphadenopathy and supple General: Negative for tenderness Chest Wall Chest: Negative for tenderness Resp normal respiratory effort and normal air movement Effort and Inspection: symmetric chest movement; Negative for respiratory distress Cardio regular rate, regular rhythm and no murmurs Peripheral Pulses: pulses 2+ throughout GI non-tender Inspection: Negative for abdominal distention Auscultation: hypoactive bowel sounds Palpation: Negative for guarding or rebound tenderness present Back/Spine no CVA tenderness and no thoracic nor lumbar tenderness Extremity normal to inspection General Extremety ED: Negative for edema or tenderness General Extremity: Negative for edema Neuro oriented x3 and no sensory deficits noted Sensorium / Orientation: awake and alert Skin no rashes or lesions noted and no wounds MDM MDM MDM Narrative Medical decision making narrative: Patient nondistended, no focal pain on exam. Soft abdomen. Reporting increasing pain, she was given Zofran morphine and fluids. With her cancer history and pain, work-up initiated with IV contrast scan. Abdominal labs are all normal. CT scan notes concerns for bowel obstruction per radiology. Noted cholecystectomy in the past. This is when patient reported that history. She has not had a bowel obstruction in the past. She is had hypoactive bowel sounds. Her symptoms were improving however returned after CT scan examination. Additional morphine was given. With her surgical history and increasing pain, concerned she is slowly developing clinical signs of obstruction. I spoke with on-call surgeon Dr. Jimenez who evaluated the patient in the ED. He will admit to his service for management. Covid testing obtained and pending. Lab Data Attestation: I reviewed the patient's lab results. Labs: Laboratory Results - last 24 hr 06/13/21 06/13/21 06/13/21 19:15 19:15 19:15 WBC 6.1 RBC 4.32 Hgb 12.9 Hct 40.4 MCV 93.5 MCH 29.9 MCHC 31.9 L RDW Std Deviation 55.8 H RDW Coeff of Diaz 16.1 H Plt Count 250 MPV 11.5 Immature Gran % (Auto) 0.500 Neut % (Auto) 45.4 L Lymph % (Auto) 32.3 [place] % (Auto) 17.8 H Eos % (Auto) 3.3 Baso % (Auto) 0.7 Absolute Neuts (auto) 2.8 Absolute Lymphs (auto) 1.96 Nucleated RBC % 0 Sodium 141 Potassium 4.3 Chloride 104 Carbon Dioxide 30.0 Anion Gap 7 BUN 13 Creatinine 0.75 Estim Creat Clear Calc 37.85 Est GFR (MDRD) Af Amer 96 Est GFR (MDRD) Non-Af 79 BUN/Creatinine Ratio 17.2 Glucose 102 Calcium 10.2 H Total Bilirubin 0.80 Direct Bilirubin 0.22 AST 31 ALT 28 Alkaline Phosphatase 87 Total Protein 7.7 Albumin 3.3 Globulin 4.4 H Lipase 63 L Urine Color Urine Clarity Urine pH Ur Specific [place] Urine Protein Urine Glucose (UA) Urine Ketones Urine Occult Blood Urine Nitrite Urine Bilirubin Urine Urobilinogen Ur Leukocyte Esterase Urine RBC Urine WBC Ur Squamous Epith Cells Urine Bacteria Urine Mucus 06/13/21 19:50 WBC RBC Hgb Hct MCV MCH MCHC RDW Std Deviation RDW Coeff of Diaz Plt Count MPV Immature Gran % (Auto) Neut % (Auto) Lymph % (Auto) [place] % (Auto) Eos % (Auto) Baso % (Auto) Absolute Neuts (auto) Absolute Lymphs (auto) Nucleated RBC % Sodium Potassium Chloride Carbon Dioxide Anion Gap BUN Creatinine Estim Creat Clear Calc Est GFR (MDRD) Af Amer Est GFR (MDRD) Non-Af BUN/Creatinine Ratio Glucose Calcium Total Bilirubin Direct Bilirubin AST ALT Alkaline Phosphatase Total Protein Albumin Globulin Lipase Urine Color Yellow Urine Clarity Clear Urine pH 7.0 Ur Specific [place] 1.010 Urine Protein Negative Urine Glucose (UA) Normal Urine Ketones 15 H Urine Occult Blood Negative Urine Nitrite Negative Urine Bilirubin Negative Urine Urobilinogen Normal Ur Leukocyte Esterase Negative Urine RBC 0 SEEN Urine WBC 0 SEEN Ur Squamous Epith Cells 0 SEEN Urine Bacteria 0 SEEN Urine Mucus 0 SEEN Radiography Diagnostic Testing: Clinical Impression(s) from Imaging Studies Abdomen/Pelvis CT 06/13/21 19:59 IMPRESSION: Small bowel obstruction with multiple delineated transition point mid abdomen with mostly collapsed more distal small bowel. Diverticulosis without diverticulitis. Unchanged left upper lobe small pleural effusion and atelectasis with early fibrotic changes suggested. Abnormal right kidney morphology may represent postsurgical or postinfectious etiology. Diverticulosis without diverticulitis. Significant degenerative changes spine and sacroiliac joints. Electronically Signed: José Miguel Ordaz DO at 21:30 EDT Tel , Service support , ADDENDUM: 06/13/212200 IMPRESSION: Small bowel obstruction with multiple delineated transition point mid abdomen with mostly collapsed more distal small bowel. Diverticulosis without diverticulitis. Unchanged left upper lobe small pleural effusion and atelectasis with early fibrotic changes suggested. Abnormal right kidney morphology may represent postsurgical or postinfectious etiology. Diverticulosis without diverticulitis. Significant degenerative changes spine and sacroiliac joints. N.B. : The above Results were Read Back by José Miguel Ordaz DO to Kristine Louis RN, and understanding confirmed on 06/13/2021 21:54:48 (ET). Electronically Signed: José Miguel Ordaz DO at 21:30 EDT Tel , Service support , Discharge Plan Dx/Rx/DC Orders Clinical Impression: SBO (small bowel obstruction), Abdominal pain Disposition Disposition: Acute Care Hospital [facility] Discharge Date/Time: 06/13/21 22:43
[2021-06-13 22:20] VITALS: BP 101/87; PULSE 99; RESP 18; TEMP 36.7; O2SAT 100
[2021-06-13 23:03] VITALS: BMI 30.3
[2021-06-13] MEDS: 0.9% Saline Lock 10 ML Syringe IV (23:55)
[2021-06-13] MEDS: 0.9% Normal Saline 1,000 ML 100 ML IV (23:55)
[2021-06-14] VITALS (11 sets, daily range): BP systolic 98–144; BP diastolic 41–75; PULSE 78–101; RESP 16–18; TEMP 36.5–36.9; O2SAT 94–100
[2021-06-14] MEDS: Morphine 2 MG/ML Syringe IV ×3 (00:40→20:23)
[2021-06-14] MEDS: Levothyroxine 25 MCG TABLET PO (05:19)
[2021-06-14 06:13] LABS: Absolute Lymphocyte Count 1.71 X10^3/uL (0.83-4.51); Absolute Neutrophil Count 2.1 X10^3/uL (2.0-7.7); Basophil# 0.03 X10^3/uL; Basophil% 0.6 % (0-1); Eosinophil# 0.26 X10^3/uL; Eosinophils% 5.2 % (0-5); Hematocrit 35.1 % (37-47); Hemoglobin 11.4 g/dL (12.0-15.0); Lymphocyte # 1.71 X10^3/ul (0.83-4.51); Lymphocyte % 34.3 % (19-41); Mean Corp Hgb Conc 32.5 g/dL (32-36); Mean Corpuscular Hgb 30.2 pg (27.0-32.0); Mean Corpuscular Volume 92.9 fL (81-99); Mean Platelet Vol. 10.9 fl (6.2-12.0); Monocyte# 0.87 X10^3/uL; Monocyte% 17.5 % (0-10); NRBC Flagged by Analyzer 0 % (0-5); Neutrophil # 2.07 X10^3/uL (2.7-7.7); Neutrophil % 41.6 % (47-70); Platelet Count 215 K/mm3 (150-450); RBC Distribution Width CV 16.3 % (11.6-14.6); RBC Distribution Width SD 55.9 fl (35.1-43.9); Red Blood Count 3.78 M/mm3 (4.2-5.4)
[2021-06-14 06:52] LABS: Anion Gap 5 (5-15); BUN 10 mg/dL (7-18); BUN/Creat Ratio 16.3 RATIO (10-20); Calcium,Total 8.5 mg/dL (8.5-10.1); Chloride 108 mmol/L (98-107); Creatinine, Serum 0.62 mg/dL (0.55-1.02); EST Glomerular Filtration Rate 100 mL/min (>60); Est Glom Filt Rate - Afr Amer 121 mL/min (>60); Estimated Creatinine Clearance 37.85 ml/min; Glucose 87 mg/dL (74-106); Potassium 3.5 mmol/L (3.5-5.1); Sodium Level 140 mmol/L (136-145)
--- NOTE | 2021-06-14 07:47 | PCM.PN.SRG ---
Subjective Subjective The patient reports no abdominal pain this morning. No nausea or vomiting. Objective Data Objective Data Vital Signs: Vital Signs Temp Pulse Resp BP Pulse Ox 98.2 F 82 16 98/50 L 94 06/14/21 05:17 06/14/21 05:17 06/14/21 05:17 06/14/21 05:17 06/14/21 05:17 Oxygen Delivery Method Room Air Weight: 166 lb 0.129 oz Body Mass Index (BMI) 30.3 Intake & Output: Intake and Output for Last 24 Hours 06/12/21 06/13/21 06/14/21 23:59 23:59 23:59 Intake Total 1000 / 1000 Balance 1000 / 1000 Lab / Micro Data Result Diagrams: 06/14/21 05:54 06/14/21 05:54 Labs: Laboratory Results - last 24 hr 06/13/21 19:15: WBC 6.1, RBC 4.32, Hgb 12.9, Hct 40.4, MCV 93.5, MCH 29.9, MCHC 31.9 L, RDW Std Deviation 55.8 H, RDW Coeff of Diaz 16.1 H, Plt Count 250, MPV 11.5, Immature Gran % (Auto) 0.500, Neut % (Auto) 45.4 L, Lymph % (Auto) 32.3, [place] % (Auto) 17.8 H, Eos % (Auto) 3.3, Baso % (Auto) 0.7, Absolute Neuts (auto) 2.8, Absolute Lymphs (auto) 1.96, Nucleated RBC % 0 06/13/21 19:15: Sodium 141, Potassium 4.3, Chloride 104, Carbon Dioxide 30.0, Anion Gap 7, BUN 13, Creatinine 0.75, Estim Creat Clear Calc 37.85, Est GFR (MDRD) Af Amer 96, Est GFR (MDRD) Non-Af 79, BUN/Creatinine Ratio 17.2, Glucose 102, Calcium 10.2 H 06/13/21 19:15: Total Bilirubin 0.80, Direct Bilirubin 0.22, AST 31, ALT 28, Alkaline Phosphatase 87, Total Protein 7.7, Albumin 3.3, Globulin 4.4 H, Lipase 63 L 06/13/21 19:50: Urine Color Yellow, Urine Clarity Clear, Urine pH 7.0, Ur Specific [place] 1.010, Urine Protein Negative, Urine Glucose (UA) Normal, Urine Ketones 15 H, Urine Occult Blood Negative, Urine Nitrite Negative, Urine Bilirubin Negative, Urine Urobilinogen Normal, Ur Leukocyte Esterase Negative, Urine RBC 0 SEEN, Urine WBC 0 SEEN, Ur Squamous Epith Cells 0 SEEN, Urine Bacteria 0 SEEN, Urine Mucus 0 SEEN 06/14/21 05:54: WBC 5.0, RBC 3.78 L, Hgb 11.4 L, Hct 35.1 L, MCV 92.9, MCH 30.2, MCHC 32.5, RDW Std Deviation 55.9 H, RDW Coeff of Diaz 16.3 H, Plt Count 215, MPV 10.9, Immature Gran % (Auto) 0.800, Neut % (Auto) 41.6 L, Lymph % (Auto) 34.3, [place] % (Auto) 17.5 H, Eos % (Auto) 5.2 H, Baso % (Auto) 0.6, Absolute Neuts (auto) 2.1, Absolute Lymphs (auto) 1.71, Nucleated RBC % 0 06/14/21 05:54: Sodium 140, Potassium 3.5, Chloride 108 H, Carbon Dioxide 27.0, Anion Gap 5, BUN 10, Creatinine 0.62, Estim Creat Clear Calc 37.85, Est GFR (MDRD) Af Amer 121, Est GFR (MDRD) Non-Af 100, BUN/Creatinine Ratio 16.3, Glucose 87, Calcium 8.5 Micro: Microbiology 06/13/21 22:10 Nasal Secretion SARS-CoV-2 Antigen (Rapid) - Final Radiography Diagnostic Testing: Radiology Impression Abdomen/Pelvis CT 06/13/21 19:59 IMPRESSION: Small bowel obstruction with multiple delineated transition point mid abdomen with mostly collapsed more distal small bowel. Diverticulosis without diverticulitis. Unchanged left upper lobe small pleural effusion and atelectasis with early fibrotic changes suggested. Abnormal right kidney morphology may represent postsurgical or postinfectious etiology. Diverticulosis without diverticulitis. Significant degenerative changes spine and sacroiliac joints. Electronically Signed: José Miguel Ordaz DO at 21:30 EDT Tel , Service support , ADDENDUM: 06/13/211 IMPRESSION: Small bowel obstruction with multiple delineated transition point mid abdomen with mostly collapsed more distal small bowel. Diverticulosis without diverticulitis. Unchanged left upper lobe small pleural effusion and atelectasis with early fibrotic changes suggested. Abnormal right kidney morphology may represent postsurgical or postinfectious etiology. Diverticulosis without diverticulitis. Significant degenerative changes spine and sacroiliac joints. N.B. : The above Results were Read Back by José Miguel Ordaz DO to Kristine Louis RN, and understanding confirmed on 06/13/2021 21:54:48 (ET). Electronically Signed: José Miguel Ordaz DO at 21:30 EDT Tel , Service support , Physical Exam Const oriented x3 and no apparent distress Resp normal respiratory effort Cardio regular rate and regular rhythm GI soft to palpation and non-tender Assessment & Plan Assessment/Plan (1) SBO (small bowel obstruction): PLAN: The patient had a possible small bowel obstruction. Her CT showed some mildly dilated loops of small bowel. I am ordering a small bowel follow-through today. Vikash Jimenez MD Pager: [facility] [address] [place] [address], [address] [place] [address] Office:
[2021-06-14] MEDS: 0.9% Normal Saline 1,000 ML 100 ML IV (08:52)
--- NOTE | 2021-06-14 09:26 | NURSING ---
iv sl and pt to radiology for small bowel follow thru
--- NOTE | 2021-06-14 11:28 | NURSING ---
pt remains off unit
[2021-06-14] MEDS: Pantoprazole Sodium 40 MG Tablet 80 MG PO (13:34)
[2021-06-14] MEDS: Ondansetron 4 MG/2 ML Vial IV ×2 (13:35→18:20)
[2021-06-14] MEDS: Montelukast 10 MG Tablet PO (13:35)
--- NOTE | 2021-06-14 14:58 | CHAPLAIN ---
Type of Pastoral Visit _x__ Initial Visit ___ Follow-up Visit ___ On-call Visit ___ General Patient Visit ___ Spiritual Assessment ___ Family Conference ___ Bereavement ___ Rapid Response ___ Code Blue ___ Other (describe below) Pastoral Care Referral From _x__ Patient ___ Family ___ Nurse ___ Physician ___ Veterinarian Laboratory Animal Care ___ Rental Clerk [employer] Equipment ___ Other (describe below) Sacrament/Intervention _x__ Active listening ___ Anointing ___ Rastafari ___ Bereavement ___ Communion ___ Meghana exploration ___ _x__ Life review ___ Prayer ___ Reconciliation ___ Sacrament of Sick _x__ Supportive presence ___ Wedding ___ Other (describe below) Pastoral Comments
--- NOTE | 2021-06-14 16:12 | EKGRS_ITS ---
Test Reason : CP Blood Pressure : / mmHG Vent. Rate : 098 BPM Atrial Rate : 098 BPM P-R Int : 190 ms QRS Dur : 090 ms QT Int : 350 ms P-R-T Axes : 082 029 084 degrees QTc Int : 446 ms Sinus rhythm with Premature atrial complexes Otherwise normal ECG When compared with ECG of 12-AUG-2003 15:26, Premature atrial complexes are now Present Nonspecific T wave abnormality now evident in Lateral leads Confirmed by FLOR DURAN, TAWANA ([id number]), video effects editor YONI SALMON ([id number]) on 06/19/2021 10:08:45 AM Referred By: Confirmed By:TAWANA RAY MD
[2021-06-14] MEDS: Morphine 4 MG/ML Syringe IV ×2 (16:20→18:19)
--- NOTE | 2021-06-14 16:25 | NURSING ---
pt c/o chest alternating w/abdominal pressure-o2 placed at 2l via n/c, bp 94/73 upon return to bed (see recheck)-pt skin warm and dry, pale-pt just had large diarrhea stool on commode-
--- NOTE | 2021-06-14 16:28 | NURSING ---
12 lead ekg completed-charge nurse kenji lopez w/ dr gonzalez
--- NOTE | 2021-06-14 16:43 | CASEMGMT ---
RN CM in to pt room to explain LAWS form. Pt verbalized understanding but declines to sign form at this time. Pt denied need for copy of form. Filed original in chart.
--- NOTE | 2021-06-14 17:02 | NURSING ---
DR KAISER CALLED BACK WITH ORDERS. LAB AND XRAY NOTIFIED
--- NOTE | 2021-06-14 17:06 | RAD_ITS ---
INDICATION: rt chest pain EXAMINATION/TECHNIQUE: X-RAY - XR Chest 1 View COMPARISON: CT abdomen and pelvis from 06/13/2021 as well as 06/14/2021 small bowel follow-through. Also compared with chest x-ray 11/17/2020 FINDINGS: LINES/DEVICES: None. LUNGS: Left-sided pleural effusion with overlying atelectasis again exemplified. Lungs otherwise clear. MEDIASTINUM AND CARDIOVASCULAR STRUCTURES: Normal size and contour of the cardiomediastinal silhouette. No evidence of pulmonary vascular congestion. BONES AND SOFT TISSUES: There is a sliding hiatal hernia visible. Surgical clips right upper quadrant from cholecystectomy. Some oral contrast is seen in the splenic flexure of the colon. RAD/Chest 1 View (Portable) IMPRESSION: 1. Left-sided pleural effusion and overlying atelectasis. 2. Right lung is clear. 3. Oral contrast seen in the splenic flexure. Electronically Signed: José Miguel Ordaz DO at 22:24 EDT Tel , Service support ,
[2021-06-14] MEDS: Calcium Carbonate 500 MG Tablet 1000 MG PO (17:17)
--- NOTE | 2021-06-14 17:42 | NURSING ---
lab has been called to draw stat labs ordered @ 1954, they are sending someone to send
[2021-06-14 18:06] LABS: Absolute Lymphocyte Count 0.97 X10^3/uL (0.83-4.51); Absolute Neutrophil Count 7.4 X10^3/uL (2.0-7.7); Basophil# 0.04 X10^3/uL; Basophil% 0.4 % (0-1); Eosinophil# 0.07 X10^3/uL; Eosinophils% 0.7 % (0-5); Hematocrit 41.3 % (37-47); Hemoglobin 13.3 g/dL (12.0-15.0); Lymphocyte # 0.97 X10^3/ul (0.83-4.51); Lymphocyte % 10.4 % (19-41); Mean Corp Hgb Conc 32.2 g/dL (32-36); Mean Corpuscular Hgb 30.2 pg (27.0-32.0); Mean Corpuscular Volume 93.9 fL (81-99); Mean Platelet Vol. 11.2 fl (6.2-12.0); Monocyte# 0.83 X10^3/uL; Monocyte% 8.9 % (0-10); NRBC Flagged by Analyzer 0 % (0-5); Neutrophil # 7.37 X10^3/uL (2.7-7.7); Platelet Count 236 K/mm3 (150-450); RBC Distribution Width CV 16.3 % (11.6-14.6); RBC Distribution Width SD 56.5 fl (35.1-43.9); White Blood Count 9.3 K/mm3 (4.4-11.0)
[2021-06-14 18:18] LABS: ALB/GLOB Ratio 0.8 RATIO (0.9-2.4); AST(SGOT) 41 U/L (15-37); Alanine Aminotransfer ALT/SGPT 32 U/L (13-56); Alkaline Phosphatase 119 U/L (45-117); Anion Gap 8 (5-15); BUN 11 mg/dL (7-18); BUN/Creat Ratio 16.6 RATIO (10-20); Calcium,Total 9.2 mg/dL (8.5-10.1); Chloride 110 mmol/L (98-107); Creatinine, Serum 0.66 mg/dL (0.55-1.02); EST Glomerular Filtration Rate 92 mL/min (>60); Est Glom Filt Rate - Afr Amer 111 mL/min (>60); Estimated Creatinine Clearance 37.85 ml/min; Glucose 101 mg/dL (74-106); Potassium 3.7 mmol/L (3.5-5.1); Sodium Level 145 mmol/L (136-145); Troponin-I HS 16 pg/mL (3.0-54.0)
[2021-06-14 18:28] LABS: Lipase 57 U/L (73-393)
--- NOTE | 2021-06-14 18:38 | PN.HOSP_ITS ---
Documented by User: Maria Fernanda Go NP, ERP ANALYST-C 06/14/21 18:49 Subjective Subjective Patient seen and examined. Reports right upper quadrant pain which is now spreading to her right chest area. She also describes nausea and vomiting. Patient states she has had these similar symptoms intermittently since February 14, 2021. She states following her left upper lobectomy due to cancer, she has had nerve damage and has had the symptoms intermittently. Objective Data Objective Data Vital Signs: Vital Signs Temp Pulse Resp BP Pulse Ox 98.0 F 81 18 143/73 H 100 06/14/21 18:12 06/14/21 18:12 06/14/21 18:12 06/14/21 18:12 06/14/21 18:12 Oxygen Flow Rate (L/min) 2 Oxygen Delivery Method Nasal Cannula Weight: 166 lb 0.129 oz Body Mass Index (BMI) 30.3 Intake & Output: Intake and Output for Last 24 Hours 06/12/21 06/13/21 06/14/21 23:59 23:59 23:59 Intake Total 1000 / 1000 1758.33 / 1758.33 Balance 1000 / 1000 1758.33 / 1758.33 Lab / Micro Data Result Diagrams: 06/14/21 17:44 06/14/21 17:44 Labs: Laboratory Results - last 24 hr 06/13/21 19:15: WBC 6.1, RBC 4.32, Hgb 12.9, Hct 40.4, MCV 93.5, MCH 29.9, MCHC 31.9 L, RDW Std Deviation 55.8 H, RDW Coeff of Diaz 16.1 H, Plt Count 250, MPV 11.5, Immature Gran % (Auto) 0.500, Neut % (Auto) 45.4 L, Lymph % (Auto) 32.3, [place] % (Auto) 17.8 H, Eos % (Auto) 3.3, Baso % (Auto) 0.7, Absolute Neuts (auto) 2.8, Absolute Lymphs (auto) 1.96, Nucleated RBC % 0 06/13/21 19:15: Sodium 141, Potassium 4.3, Chloride 104, Carbon Dioxide 30.0, Anion Gap 7, BUN 13, Creatinine 0.75, Estim Creat Clear Calc 37.85, Est GFR (MDRD) Af Amer 96, Est GFR (MDRD) Non-Af 79, BUN/Creatinine Ratio 17.2, Glucose 102, Calcium 10.2 H 06/13/21 19:15: Total Bilirubin 0.80, Direct Bilirubin 0.22, AST 31, ALT 28, Alkaline Phosphatase 87, Total Protein 7.7, Albumin 3.3, Globulin 4.4 H, Lipase 63 L 06/13/21 19:50: Urine Color Yellow, Urine Clarity Clear, Urine pH 7.0, Ur Specific [place] 1.010, Urine Protein Negative, Urine Glucose (UA) Normal, Urine Ketones 15 H, Urine Occult Blood Negative, Urine Nitrite Negative, Urine Bilirubin Negative, Urine Urobilinogen Normal, Ur Leukocyte Esterase Negative, Urine RBC 0 SEEN, Urine WBC 0 SEEN, Ur Squamous Epith Cells 0 SEEN, Urine Bacteria 0 SEEN, Urine Mucus 0 SEEN 06/14/21 05:54: WBC 5.0, RBC 3.78 L, Hgb 11.4 L, Hct 35.1 L, MCV 92.9, MCH 30.2, MCHC 32.5, RDW Std Deviation 55.9 H, RDW Coeff of Diaz 16.3 H, Plt Count 215, MPV 10.9, Immature Gran % (Auto) 0.800, Neut % (Auto) 41.6 L, Lymph % (Auto) 34.3, [place] % (Auto) 17.5 H, Eos % (Auto) 5.2 H, Baso % (Auto) 0.6, Absolute Neuts (auto) 2.1, Absolute Lymphs (auto) 1.71, Nucleated RBC % 0 06/14/21 05:54: Sodium 140, Potassium 3.5, Chloride 108 H, Carbon Dioxide 27.0, Anion Gap 5, BUN 10, Creatinine 0.62, Estim Creat Clear Calc 37.85, Est GFR (MDRD) Af Amer 121, Est GFR (MDRD) Non-Af 100, BUN/Creatinine Ratio 16.3, Glucose 87, Calcium 8.5 06/14/21 17:44: Sodium 145, Potassium 3.7, Chloride 110 H, Carbon Dioxide 27.0, Anion Gap 8, BUN 11, Creatinine 0.66, Estim Creat Clear Calc 37.85, Est GFR (MDRD) Af Amer 111, Est GFR (MDRD) Non-Af 92, BUN/Creatinine Ratio 16.6, Glucose 101, Calcium 9.2, Total Bilirubin 1.00, AST 41 H, ALT 32, Alkaline Phosphatase 119 H, Troponin I High Sens 16, Total Protein 7.0, Albumin 3.0 L, Globulin 4.0, Albumin/Globulin Ratio 0.8 L 06/14/21 17:44: WBC 9.3, RBC 4.40, Hgb 13.3, Hct 41.3, MCV 93.9, MCH 30.2, MCHC 32.2, RDW Std Deviation 56.5 H, RDW Coeff of Diaz 16.3 H, Plt Count 236, MPV 11.2, Immature Gran % (Auto) 0.600, Neut % (Auto) 79.0 H, Lymph % (Auto) 10.4 L, [place] % (Auto) 8.9, Eos % (Auto) 0.7, Baso % (Auto) 0.4, Absolute Neuts (auto) 7.4, Absolute Lymphs (auto) 0.97, Nucleated RBC % 0 06/14/21 17:44: Lipase 57 L Micro: Microbiology 06/13/21 22:10 Nasal Secretion SARS-CoV-2 Antigen (Rapid) - Final Radiography Diagnostic Testing: Radiology Impression Abdomen/Pelvis CT 06/13/21 19:59 IMPRESSION: Small bowel obstruction with multiple delineated transition point mid abdomen with mostly collapsed more distal small bowel. Diverticulosis without diverticulitis. Unchanged left upper lobe small pleural effusion and atelectasis with early fibrotic changes suggested. Abnormal right kidney morphology may represent postsurgical or postinfectious etiology. Diverticulosis without diverticulitis. Significant degenerative changes spine and sacroiliac joints. Electronically Signed: José Miguel Ordaz DO at 21:30 EDT Tel , Service support , ADDENDUM: 06/13/211 IMPRESSION: Small bowel obstruction with multiple delineated transition point mid abdomen with mostly collapsed more distal small bowel. Diverticulosis without diverticulitis. Unchanged left upper lobe small pleural effusion and atelectasis with early fibrotic changes suggested. Abnormal right kidney morphology may represent postsurgical or postinfectious etiology. Diverticulosis without diverticulitis. Significant degenerative changes spine and sacroiliac joints. N.B. : The above Results were Read Back by José Miguel Ordaz DO to Kristine Louis RN, and understanding confirmed on 06/13/2021 21:54:48 (ET). Electronically Signed: José Miguel Ordaz DO at 21:30 EDT Tel , Service support , Small Bowel X-Ray 06/14/21 22:10 IMPRESSION: Prominent small bowel loops with no evidence of small bowel obstruction is seen. Electronically Signed: Bahman Mcdonald MD at 15:05 EDT Tel , Service support , Physical Exam Const alert, oriented x3 and no apparent distress Orientation / Consciousness: awake, oriented to person, oriented to place and oriented to time HEENT normocephalic and moist oral mucous membranes Eyes PERRL, EOMs intact bilaterally and conjunctivae normal Neck no lymphadenopathy Resp normal respiratory effort and clear to auscultation bilaterally Cardio regular rate, regular rhythm and no murmurs Peripheral Pulses: pulses 2+ throughout GI normal to inspection, nondistended, normoactive bowel sounds and non-tender Palpation: tender other (Bilateral upper quadrant) Extremity normal to inspection Skin no rashes or lesions noted Lesions: no lesions Rashes: no rashes Trauma: no lacerations or abrasions Neuro CN's II-XII intact bilaterally, no focal motor deficits, no sensory deficits noted and deep tendon reflexes 2+ bilaterally Psych mental status grossly normal and affect normal Assessment & Plan Assessment/Plan (1) Abdominal pain: PLAN: 1. Abdominal pain, [id number] surgery admitting, initially suspected possible small bowel obstruction. CT demonstrated mildly dilated loops of small bowel. Patient further underwent small bowel follow-through which showed no evidence of small bowel obstruction. Lipase normal. On PPI at baseline. Due to report of pain moving to right chest, chest x-ray, enzymes series and EKG ordered. Initial troponin negative. EKG without ST-T changes. Chest x-ray pending. 2. 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 3. Hypothyroidism-continue Synthroid regimen. 4. GERD-on PPI/Carafate. 5. Chronic back pain-on gabapentin. DVT prophylaxis- SCDs This patient was seen by KAILASH Ramirez under the supervision of Dr. Elizabeth. Documented by User: Dr. Kaia Elizabeth MD 06/14/21 18:50 Objective Data Lab / Micro Data Result Diagrams: 06/14/21 17:44 06/14/21 17:44
--- NOTE | 2021-06-14 19:37 | PCM.PN.BLA ---
Progress Note I was called the afternoon as the patient was starting to have right-sided chest pain and started to have vomiting. I am unsure as the etiology of this. We ordered an EKG as well as troponins which were normal. She had a chest x-ray which was normal. She had earlier in the day had a small bowel follow-through which showed contrast entering the colon with no sign of obstruction. Patient had a CBC, BMP, magnesium, troponin, all of which were normal. Patient's abdomen is mildly tender. The patient is already had her gallbladder removed and all of her LFTs were normal. I am unsure as to the etiology of her pain and I did consult the hospitalist for their assistance. Vikash Jimenez MD Pager: [facility] [address] [place] [address] [address] [place] [phone] Office:
[2021-06-14] MEDS: proCHLORPERazine 10 MG/2 ML Vial 5 MG IV (20:19)
--- NOTE | 2021-06-14 20:48 | PCS.PANDOC ---
PANDEMIC DOCUMENTATION INITIATED: Date: 04/23/2021 Time: 190
--- NOTE | 2021-06-14 22:10 | RAD_ITS ---
INDICATION: possible sbo, may be done morning 06/14 EXAMINATION/TECHNIQUE: Gastrograffin oral contrast was administered orally to the patient. Total Fluoroscopic Time: 0:01 AND number of Fluoroscopic Images: 11 COMPARISON: 06/13/2021. FINDINGS: Unremarkable opacification of the stomach, mild prominence of the small bowel loops is visualized but no evidence of marked distention is seen, no evidence of endoluminal masses is visualized, opacification of the large bowel is visualized at 160 minutes, no evidence of complete obstruction is seen. RAD/Small Bowel Series Only IMPRESSION: Prominent small bowel loops with no evidence of small bowel obstruction is seen. Electronically Signed: Bahman Mcdonald MD at 15:05 EDT Tel , Service support ,
[2021-06-15 00:06] VITALS: BP 103/55; PULSE 96; RESP 18; TEMP 36.4; O2SAT 100
[2021-06-15] MEDS: Morphine 2 MG/ML Syringe IV (00:10)
[2021-06-15 01:44] LABS: Troponin-I HS 23 pg/mL (3.0-54.0)
[2021-06-15 03:07] VITALS: BP 140/63; PULSE 86; RESP 18; TEMP 36.6; O2SAT 100
[2021-06-15] MEDS: Levothyroxine 25 MCG TABLET PO (03:11)
[2021-06-15 03:40] LABS: Troponin-I HS 23 pg/mL (3.0-54.0)
[2021-06-15 07:01] LABS: Absolute Neutrophil Count 10.6 X10^3/uL (2.0-7.7); Basophil# 0.03 X10^3/uL; Basophil% 0.2 % (0-1); Eosinophil# 0.08 X10^3/uL; Eosinophils% 0.6 % (0-5); Hematocrit 39.3 % (37-47); Hemoglobin 12.6 g/dL (12.0-15.0); Lymphocyte % 9.2 % (19-41); Mean Corp Hgb Conc 32.1 g/dL (32-36); Mean Corpuscular Hgb 30.3 pg (27.0-32.0); Mean Corpuscular Volume 94.5 fL (81-99); Mean Platelet Vol. 11.4 fl (6.2-12.0); Monocyte# 1.12 X10^3/uL; Monocyte% 8.6 % (0-10); NRBC Flagged by Analyzer 0 % (0-5); Neutrophil # 10.55 X10^3/uL (2.7-7.7); Neutrophil % 80.9 % (47-70); Platelet Count 245 K/mm3 (150-450); RBC Distribution Width CV 16.3 % (11.6-14.6); RBC Distribution Width SD 56.2 fl (35.1-43.9); Red Blood Count 4.16 M/mm3 (4.2-5.4)
[2021-06-15 07:07] VITALS: BP 101/47; PULSE 80; RESP 18; TEMP 36.4; O2SAT 91
[2021-06-15] MEDS: Sucralfate 1 GM Tablet PO ×4 (07:19→21:07)
[2021-06-15 07:26] LABS: Troponin-I HS 22 pg/mL (3.0-54.0)
[2021-06-15 07:38] LABS: ALB/GLOB Ratio 0.7 RATIO (0.9-2.4); AST(SGOT) 43 U/L (15-37); Alanine Aminotransfer ALT/SGPT 34 U/L (13-56); Albumin, Serum 2.5 g/dL (3.2-5.0); Alkaline Phosphatase 120 U/L (45-117); Anion Gap 10 (5-15); BUN 14 mg/dL (7-18); Calcium,Total 9.3 mg/dL (8.5-10.1); Chloride 110 mmol/L (98-107); Creatinine, Serum 0.58 mg/dL (0.55-1.02); EST Glomerular Filtration Rate 107 mL/min (>60); Est Glom Filt Rate - Afr Amer 129 mL/min (>60); Estimated Creatinine Clearance 37.85 ml/min; Globulin 3.8 g/dL (2.2-4.2); Glucose 104 mg/dL (74-106); Lipase 29 U/L (73-393); Potassium 3.5 mmol/L (3.5-5.1); Protein, Total 6.3 g/dL (6.4-8.2); Sodium Level 145 mmol/L (136-145)
[2021-06-15] MEDS: Pantoprazole Sodium 40 MG Tablet 80 MG PO (08:14)
--- NOTE | 2021-06-15 08:14 | PCM.PN.SRG ---
Subjective Subjective Patient had another episode of vomiting late in the evening yesterday but no vomiting since. She reports no pain in her abdomen or chest this morning. Objective Data Objective Data Vital Signs: Vital Signs Temp Pulse Resp BP Pulse Ox 97.6 F L 80 18 101/47 L 91 06/15/21 07:07 06/15/21 07:07 06/15/21 07:07 06/15/21 07:07 06/15/21 07:07 Oxygen Flow Rate (L/min) 2 Oxygen Delivery Method Room Air Weight: 166 lb 0.129 oz Body Mass Index (BMI) 30.3 Intake & Output: Intake and Output for Last 24 Hours 06/13/21 06/14/21 06/15/21 23:59 23:59 23:59 Intake Total 1000 / 1000 1788.33 / 1788.33 50 / 50 Output Total 900 / 900 Balance 1000 / 1000 888.33 / 888.33 50 / 50 Lab / Micro Data Result Diagrams: 06/15/21 06:39 06/15/21 06:39 Labs: Laboratory Results - last 24 hr 06/14/21 17:44: Sodium 145, Potassium 3.7, Chloride 110 H, Carbon Dioxide 27.0, Anion Gap 8, BUN 11, Creatinine 0.66, Estim Creat Clear Calc 37.85, Est GFR (MDRD) Af Amer 111, Est GFR (MDRD) Non-Af 92, BUN/Creatinine Ratio 16.6, Glucose 101, Calcium 9.2, Total Bilirubin 1.00, AST 41 H, ALT 32, Alkaline Phosphatase 119 H, Troponin I High Sens 16, Total Protein 7.0, Albumin 3.0 L, Globulin 4.0, Albumin/Globulin Ratio 0.8 L 06/14/21 17:44: WBC 9.3, RBC 4.40, Hgb 13.3, Hct 41.3, MCV 93.9, MCH 30.2, MCHC 32.2, RDW Std Deviation 56.5 H, RDW Coeff of Diaz 16.3 H, Plt Count 236, MPV 11.2, Immature Gran % (Auto) 0.600, Neut % (Auto) 79.0 H, Lymph % (Auto) 10.4 L, [place] % (Auto) 8.9, Eos % (Auto) 0.7, Baso % (Auto) 0.4, Absolute Neuts (auto) 7.4, Absolute Lymphs (auto) 0.97, Nucleated RBC % 0 06/14/21 17:44: Lipase 57 L 06/14/21 17:44: Magnesium 2.0 06/15/21 01:05: Troponin I High Sens 23 06/15/21 03:05: Troponin I High Sens 23 06/15/21 06:39: Troponin I High Sens 22 06/15/21 06:39: WBC 13.0 H, RBC 4.16 L, Hgb 12.6, Hct 39.3, MCV 94.5, MCH 30.3, MCHC 32.1, RDW Std Deviation 56.2 H, RDW Coeff of Diaz 16.3 H, Plt Count 245, MPV 11.4, Immature Gran % (Auto) 0.500, Neut % (Auto) 80.9 H, Lymph % (Auto) 9.2 L, [place] % (Auto) 8.6, Eos % (Auto) 0.6, Baso % (Auto) 0.2, Absolute Neuts (auto) 10.6 H, Absolute Lymphs (auto) 1.20, Nucleated RBC % 0 06/15/21 06:39: Sodium 145, Potassium 3.5, Chloride 110 H, Carbon Dioxide 25.0, Anion Gap 10, BUN 14, Creatinine 0.58, Estim Creat Clear Calc 37.85, Est GFR (MDRD) Af Amer 129, Est GFR (MDRD) Non-Af 107, BUN/Creatinine Ratio 24.0 H, Glucose 104, Calcium 9.3, Total Bilirubin 1.20 H, AST 43 H, ALT 34, Alkaline Phosphatase 120 H, Total Protein 6.3 L, Albumin 2.5 L, Globulin 3.8, Albumin/Globulin Ratio 0.7 L, Lipase 29 L Micro: Microbiology 06/13/21 22:10 Nasal Secretion SARS-CoV-2 Antigen (Rapid) - Final Radiography Diagnostic Testing: Radiology Impression Chest X-Ray 06/14/21 17:06 IMPRESSION: 1. Left-sided pleural effusion and overlying atelectasis. 2. Right lung is clear. 3. Oral contrast seen in the splenic flexure. Electronically Signed: José Miguel Ordaz DO at 22:24 EDT Tel , Service support , Small Bowel X-Ray 06/14/21 22:10 IMPRESSION: Prominent small bowel loops with no evidence of small bowel obstruction is seen. Electronically Signed: Bahman Mcdonald MD at 15:05 EDT Tel , Service support , Physical Exam Const oriented x3 and no apparent distress Resp normal respiratory effort GI soft to palpation and non-tender Assessment & Plan Assessment/Plan (1) Abdominal pain: QUALIFIERS: Abdominal location: right upper quadrant Qualified Code(s): R10.11 - Right upper quadrant pain PLAN: The patient had a lot of chest pain abdominal pain with vomiting yesterday but today she reports no abdominal pain and says she is passing flatus. She is also having diarrhea from the contrast from the small bowel follow-through yesterday. White count did increase somewhat but this may be due to the vomiting. Patient is not having any pain or nausea this morning so I will try clear liquids once more. Patient may be having gastroenteritis but I am unsure as this does not appear to be an obstructive pattern. Small bowel follow-through made through the colon and she had no distended small bowel on x-ray. Pain is in the right chest and right upper quadrant and her gallbladder is already been removed. Chest x-ray is normal. Vikash Jimenez MD Pager: [facility] [address] [place] [address], [address] [place] [address] Office:
[2021-06-15 09:39] VITALS: BP 104/77; PULSE 93; RESP 18; TEMP 36.7; O2SAT 92
[2021-06-15] MEDS: Menthol/Lanolin/Calamine/Znox 113 GM Tube 1 APPLIC TOPICAL ×2 (09:45→20:14)
[2021-06-15] MEDS: Montelukast 10 MG Tablet PO (09:46)
--- NOTE | 2021-06-15 12:04 | PN.HOSP_ITS ---
Documented by User: Maria Fernanda Go ACCOUNTS RECEIVABLE ASSOCIATE, ACCOUNTS RECEIVABLE ASSOCIATE-C 06/15/21 12:09 Subjective Subjective Patient seen and examined. Denies further abdominal pain/chest pain. Denies nausea, vomiting. Denies shortness of breath. Reports loose stools. Discussed chest x-ray which showed left-sided pleural effusion. Patient reports this is chronic in nature and she was told by [facility] that this would be normal for her following left upper lobectomy. Objective Data Objective Data Vital Signs: Vital Signs Temp Pulse Resp BP Pulse Ox 98.1 F 93 18 104/77 92 06/15/21 09:39 06/15/21 09:39 06/15/21 09:39 06/15/21 09:39 06/15/21 09:39 Oxygen Flow Rate (L/min) 2 Oxygen Delivery Method Room Air Weight: 166 lb 0.129 oz Body Mass Index (BMI) 30.3 Intake & Output: Intake and Output for Last 24 Hours 06/13/21 06/14/21 06/15/21 23:59 23:59 23:59 Intake Total 1000 / 1000 1788.33 / 1788.33 290 / 290 Output Total 900 / 900 300 / 300 Balance 1000 / 1000 888.33 / 888.33 -10 10 Lab / Micro Data Result Diagrams: 06/15/21 06:39 06/15/21 06:39 Labs: Laboratory Results - last 24 hr 06/14/21 17:44: Sodium 145, Potassium 3.7, Chloride 110 H, Carbon Dioxide 27.0, Anion Gap 8, BUN 11, Creatinine 0.66, Estim Creat Clear Calc 37.85, Est GFR (MDRD) Af Amer 111, Est GFR (MDRD) Non-Af 92, BUN/Creatinine Ratio 16.6, Glucose 101, Calcium 9.2, Total Bilirubin 1.00, AST 41 H, ALT 32, Alkaline Phosphatase 119 H, Troponin I High Sens 16, Total Protein 7.0, Albumin 3.0 L, Globulin 4.0, Albumin/Globulin Ratio 0.8 L 06/14/21 17:44: WBC 9.3, RBC 4.40, Hgb 13.3, Hct 41.3, MCV 93.9, MCH 30.2, MCHC 32.2, RDW Std Deviation 56.5 H, RDW Coeff of Diaz 16.3 H, Plt Count 236, MPV 11.2, Immature Gran % (Auto) 0.600, Neut % (Auto) 79.0 H, Lymph % (Auto) 10.4 L, Brooke % (Auto) 8.9, Eos % (Auto) 0.7, Baso % (Auto) 0.4, Absolute Neuts (auto) 7.4, Absolute Lymphs (auto) 0.97, Nucleated RBC % 0 06/14/21 17:44: Lipase 57 L 06/14/21 17:44: Magnesium 2.0 06/15/21 01:05: Troponin I High Sens 23 06/15/21 03:05: Troponin I High Sens 23 06/15/21 06:39: Troponin I High Sens 22 06/15/21 06:39: WBC 13.0 H, RBC 4.16 L, Hgb 12.6, Hct 39.3, MCV 94.5, MCH 30.3, MCHC 32.1, RDW Std Deviation 56.2 H, RDW Coeff of Diaz 16.3 H, Plt Count 245, MPV 11.4, Immature Gran % (Auto) 0.500, Neut % (Auto) 80.9 H, Lymph % (Auto) 9.2 L, Brooke % (Auto) 8.6, Eos % (Auto) 0.6, Baso % (Auto) 0.2, Absolute Neuts (auto) 10.6 H, Absolute Lymphs (auto) 1.20, Nucleated RBC % 0 06/15/21 06:39: Sodium 145, Potassium 3.5, Chloride 110 H, Carbon Dioxide 25.0, Anion Gap 10, BUN 14, Creatinine 0.58, Estim Creat Clear Calc 37.85, Est GFR (MDRD) Af Amer 129, Est GFR (MDRD) Non-Af 107, BUN/Creatinine Ratio 24.0 H, Glucose 104, Calcium 9.3, Total Bilirubin 1.20 H, AST 43 H, ALT 34, Alkaline Phosphatase 120 H, Total Protein 6.3 L, Albumin 2.5 L, Globulin 3.8, Albumin/Globulin Ratio 0.7 L, Lipase 29 L Micro: Microbiology 06/13/21 22:10 Nasal Secretion SARS-CoV-2 Antigen (Rapid) - Final Radiography Diagnostic Testing: Radiology Impression Chest X-Ray 06/14/21 17:06 IMPRESSION: 1. Left-sided pleural effusion and overlying atelectasis. 2. Right lung is clear. 3. Oral contrast seen in the splenic flexure. Electronically Signed: José Miguel Ordaz DO at 22:24 EDT Tel , Service support , Small Bowel X-Ray 06/14/21 22:10 IMPRESSION: Prominent small bowel loops with no evidence of small bowel obstruction is seen. Electronically Signed: Bahman Mcdonald MD at 15:05 EDT Tel , Service support , Physical Exam Const alert, oriented x3 and no apparent distress Orientation / Consciousness: awake, oriented to person, oriented to place and oriented to time HEENT normocephalic and moist oral mucous membranes Eyes PERRL, EOMs intact bilaterally and conjunctivae normal Neck no lymphadenopathy Resp clear to auscultation bilaterally Auscultation: diminished lung sounds Cardio regular rate, regular rhythm and no murmurs Peripheral Pulses: pulses 2+ throughout GI normal to inspection, nondistended, normoactive bowel sounds, non-tender and non-distended Extremity normal to inspection Skin no rashes or lesions noted Lesions: no lesions Rashes: no rashes Trauma: no lacerations or abrasions Neuro CN's II-XII intact bilaterally, no focal motor deficits, no sensory deficits noted and deep tendon reflexes 2+ bilaterally Psych mental status grossly normal and affect normal Assessment & Plan Assessment/Plan (1) Abdominal pain: QUALIFIERS: Abdominal location: right upper quadrant Qualified Code(s): R10.11 - Right upper quadrant pain PLAN: 1. Abdominal pain, right-sided/atypical chest pain-General surgery admitting, initially suspected possible small bowel obstruction. CT demonstrat ed mildly dilated loops of small bowel. Patient further underwent small bowel follow-through which showed no evidence of small bowel obstruction. Lipase normal. On PPI at baseline. Due to report of pain moving to right chest, chest x-ray, enzymes series and EKG ordered. Troponin negative. EKG without ST-T changes. Chest x-ray demonstrates left-sided pleural effusion which patient reports is chronic following left upper lobectomy. Symptoms have currently resolved. Patient states the same symptoms have been intermittent since February 2021. From a medical standpoint, patient is stable for discharge home with further outpatient evaluation regarding intermittent right-sided abdominal pain. Advance diet per surgery recommendations. 2. 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 3. Hypothyroidism-continue Synthroid regimen. 4. GERD-on PPI/Carafate. 5. Chronic back pain-on gabapentin. DVT prophylaxis- SCDs This patient was seen by KAILASH Ramirez under the supervision of Dr. Alcantar. Documented by User: Dr. Anaya Alcantar MD 06/15/21 15:45 Objective Data Lab / Micro Data Result Diagrams: 06/15/21 06:39 06/15/21 06:39 Charges/Coding Addendum Addendum: Patient seen by Maria Fernanda LINDER under my supervision Patient is a 76-year-old female with currently being managed for small bowel obstruction. Hospital service was consulted on account of concerns for chest pain. She has no complaints this morning and pain is resolved. She tells me the pain is due to a lobectomy that she had some years ago and pain has been chronic. Review of symptoms otherwise negative. She has remained hemodynamically stable. [facility] [id number] [place] [address] Progress Note - Xydmnnyehwi35/08/21 1204MR#: [id number]:ROSELINE SHERIFF #:[id number]: [id number]: Maria Fernanda Go NP ACCOUNTS RECEIVABLE ASSOCIATE-CPCP:KAILASH Carrillo Status:ADM INOLocation: [id number] Subjective Subjective Patient seen and examined. Denies further abdominal pain/chest pain. Denies nausea, vomiting. Denies shortness of breath. Reports loose stools. Discussed chest x-ray which showed left-sided pleural effusion. Patient reports this is chronic in nature and she was told by [facility] that this would be normal for her following left upper lobectomy. Objective Data Objective Data Vital Signs: Vital Signs Temp Pulse Resp BP Pulse Ox 98.1 F 93 18 104/77 92 06/15/21 09:39 06/15/21 09:39 06/15/21 09:39 06/15/21 09:39 06/15/21 09:39 Oxygen Flow Rate (L/min) 2 Oxygen Delivery Method Room Air Weight: 166 lb 0.129 oz Body Mass Index (BMI) 30.3 Intake & Output:Intake and Output for Last 24 Hours 06/13/21 06/14/21 06/15/21 23:59 23:59 23:59 Intake Total 1000 / 1000 1788.33 / 1788.33 290 / 290 Output Total 900 / 900 300 / 300 Balance 1000 / 1000 888.33 / 888.33 -10 10 Lab / Micro Data Result Diagrams: 06/15/21 06:39 document embedded image 06/15/21 06:39 document embedded image Labs:Laboratory Results - last 24 hr 06/14/21 17:44: Sodium 145, Potassium 3.7, Chloride 110 H, Carbon Dioxide 27.0, Anion Gap 8, BUN 11, Creatinine 0.66, Estim Creat Clear Calc 37.85, Est GFR (MDRD) Af Amer 111, Est GFR (MDRD) Non-Af 92, BUN/Creatinine Ratio 16.6, Glucose 101, Calcium 9.2, Total Bilirubin 1.00, AST 41 H, ALT 32, Alkaline Phosphatase 119 H, Troponin I High Sens 16, Total Protein 7.0, Albumin 3.0 L, Globulin 4.0, Albumin/Globulin Ratio 0.8 L 06/14/21 17:44: WBC 9.3, RBC 4.40, Hgb 13.3, Hct 41.3, MCV 93.9, MCH 30.2, MCHC 32.2, RDW Std Deviation 56.5 H, RDW Coeff of Diaz 16.3 H, Plt Count 236, MPV 11.2, Immature Gran % (Auto) 0.600, Neut % (Auto) 79.0 H, Lymph % (Auto) 10.4 L, Brooke % (Auto) 8.9, Eos % (Auto) 0.7, Baso % (Auto) 0.4, Absolute Neuts (auto) 7.4, Absolute Lymphs (auto) 0.97, Nucleated RBC % 0 06/14/21 17:44: Lipase 57 L 06/14/21 17:44: Magnesium 2.0 06/15/21 01:05: Troponin I High Sens 23 06/15/21 03:05: Troponin I High Sens 23 06/15/21 06:39: Troponin I High Sens 22 06/15/21 06:39: WBC 13.0 H, RBC 4.16 L, Hgb 12.6, Hct 39.3, MCV 94.5, MCH 30.3, MCHC 32.1, RDW Std Deviation 56.2 H, RDW Coeff of Diaz 16.3 H, Plt Count 245, MPV 11.4, Immature Gran % (Auto) 0.500, Neut % (Auto) 80.9 H, Lymph % (Auto) 9.2 L, Brooke % (Auto) 8.6, Eos % (Auto) 0.6, Baso % (Auto) 0.2, Absolute Neuts (auto) 10.6 H, Absolute Lymphs (auto) 1.20, Nucleated RBC % 0 06/15/21 06:39: Sodium 145, Potassium 3.5, Chloride 110 H, Carbon Dioxide 25.0, Anion Gap 10, BUN 14, Creatinine 0.58, Estim Creat Clear Calc 37.85, Est GFR (MDRD) Af Amer 129, Est GFR (MDRD) Non-Af 107, BUN/Creatinine Ratio 24.0 H, Glucose 104, Calcium 9.3, Total Bilirubin 1.20 H, AST 43 H, ALT 34, Alkaline Phosphatase 120 H, Total Protein 6.3 L, Albumin 2.5 L, Globulin 3.8, Albumin/Globulin Ratio 0.7 L, Lipase 29 L Micro:Microbiology 06/13/21 22:10 Nasal Secretion SARS-CoV-2 Antigen (Rapid) - Final Radiography Diagnostic Testing:Radiology Impression Chest X-Ray 06/14/21 17:06 IMPRESSION: 1. Left-sided pleural effusion and overlying atelectasis. 2. Right lung is clear. 3. Oral contrast seen in the splenic flexure. Electronically Signed: José Miguel Ordaz, at 22:24 EDT Tel , Service support , Small Bowel X-Ray 06/14/21 22:10 IMPRESSION: Prominent small bowel loops with no evidence of small bowel obstruction is seen. Electronically Signed: Bahman Mcdonald MD at 15:05 EDT Tel , Service support , Physical Exam Const alert, oriented x3 and no apparent distress Orientation / Consciousness: awake, oriented to person, oriented to place and oriented to time HEENT normocephalic and moist oral mucous membranes Eyes PERRL, EOMs intact bilaterally and conjunctivae normal Neck no lymphadenopathy Resp clear to auscultation bilaterally Auscultation: diminished lung sounds Cardio regular rate, regular rhythm and no murmurs Peripheral Pulses: pulses 2+ throughout GI normal to inspection, nondistended, normoactive bowel sounds, non-tender and non-distended Extremity normal to inspection Skin no rashes or lesions noted Lesions: no lesions Rashes: no rashes Trauma: no lacerations or abrasions Neuro CN's II-XII intact bilaterally, no focal motor deficits, no sensory deficits noted and deep tendon reflexes 2+ bilaterally Psych mental status grossly normal and affect normal Patient is currently being managed for possible small bowel obstruction with CT of the abdomen showing mildly dilated loops of small bowel. Small bowel follow- through however showed no evidence of small bowel obstruction. General surgery managing. Right-sided chest pain is resolved. Troponins x3 were negative and EKG showed no acute ST changes. Chest x-ray did show a chronic left-sided pleural effusion which has been present since her left upper lobectomy. She has had the symptoms since February 2021. We will hold off on any further work-up of the right-sided chest pain unless it seems to be chronic and is related to her previous lobectomy. Rest as per KAILASH Ramirez's notes which I reviewed and endorsed. Visit Charges Inpatient E&M: 18181 Subs Hosp L2
[2021-06-15] MEDS: 0.9% Normal Saline 1,000 ML 40 ML IV (12:47)
--- NOTE | 2021-06-15 13:13 | CASEMGMT ---
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 SW reviewed chart, no copies found. SW in to speak with pt. SW introduced self and role at [facility]. Pt is alert and orientated. SW asked pt about advanced directives. Pt confirms she has completed both HCPOA and LW. SW informed pt that no copies of documents are on file at [facility]. SW asked pt to bring in copies next time. Pt states understanding. Yoko Sanabria WALLPAPER PRINTER HELPER, YEAST SUPERVISOR
[2021-06-15 13:39] VITALS: BP 95/37; PULSE 90; RESP 18; TEMP 37; O2SAT 97
[2021-06-15] MEDS: Gabapentin 100 MG Capsule 200 MG PO ×2 (13:44→21:07)
[2021-06-15] MEDS: Morphine 4 MG/ML Syringe IV (17:51)
[2021-06-15] MEDS: 0.9% Saline Lock 10 ML Syringe IV (17:52)
[2021-06-15 20:13] VITALS: BP 100/35; PULSE 89; RESP 18; TEMP 36.8; O2SAT 94
[2021-06-15] MEDS: Acetaminophen 325 MG Tablet 650 MG PO (20:14)
[2021-06-15] MEDS: traZODone 50 MG Tablet PO (22:07)
[2021-06-16 04:07] VITALS: BP 93/45; PULSE 86; RESP 18; TEMP 36.8; O2SAT 96
[2021-06-16] MEDS: Pantoprazole Sodium 40 MG Tablet 80 MG PO (05:42)
[2021-06-16] MEDS: Gabapentin 100 MG Capsule 200 MG PO ×3 (05:43→20:54)
[2021-06-16] MEDS: Levothyroxine 25 MCG TABLET PO (05:43)
[2021-06-16] MEDS: Sucralfate 1 GM Tablet PO ×2 (05:43→10:17)
--- NOTE | 2021-06-16 05:55 | RAD_ITS ---
EXAM: XR Abdomen, 1 View CLINICAL INDICATION: 76 years old, Female; partial sbo TECHNIQUE: Frontal supine view of the abdomen/pelvis. This report was created using [employer] report generation technology. COMPARISON: Abdominal x-ray obtained 06/14/2021. FINDINGS: Lower thorax: No acute pathology. Gastrointestinal tract: Gaseous distention of small bowel loops in left abdomen. This is concerning for a partial mechanical small bowel obstruction versus adynamic ileus. Contrast is seen to the level of the rectum. Organs: Cholecystectomy. No organomegaly. No abnormal calcifications. Bones/joints: Degenerative changes lumbar spine. Degenerative changes and scoliosis lumbar spine. Soft tissues: No acute pathology. RAD/Abdomen Single View IMPRESSION: Gaseous distention of small bowel loops in left abdomen. This is concerning for a partial mechanical small bowel obstruction versus adynamic ileus. Contrast is seen to the level of the rectum. ASSESSMENT: ABNORMAL report - There are abnormal findings in this report which may be related or unrelated to the reason for the exam. Electronically Signed: Jorge Rivera MD at 6:10 EDT Tel , Service support ,
[2021-06-16 07:54] VITALS: BP 107/77; PULSE 93; RESP 16; TEMP 36.5; O2SAT 97
[2021-06-16 08:03] LABS: Absolute Lymphocyte Count 1.58 X10^3/uL (0.83-4.51); Absolute Neutrophil Count 3.3 X10^3/uL (2.0-7.7); Basophil# 0.02 X10^3/uL; Basophil% 0.3 % (0-1); Eosinophil# 0.21 X10^3/uL; Eosinophils% 3.5 % (0-5); Hematocrit 33.2 % (37-47); Hemoglobin 10.6 g/dL (12.0-15.0); Lymphocyte # 1.58 X10^3/ul (0.83-4.51); Lymphocyte % 26.6 % (19-41); Mean Corp Hgb Conc 31.9 g/dL (32-36); Mean Corpuscular Hgb 30.1 pg (27.0-32.0); Mean Corpuscular Volume 94.3 fL (81-99); Mean Platelet Vol. 11.6 fl (6.2-12.0); Monocyte# 0.79 X10^3/uL; Monocyte% 13.3 % (0-10); NRBC Flagged by Analyzer 0 % (0-5); Neutrophil # 3.33 X10^3/uL (2.7-7.7); Platelet Count 194 K/mm3 (150-450); RBC Distribution Width CV 15.9 % (11.6-14.6); RBC Distribution Width SD 55.2 fl (35.1-43.9); Red Blood Count 3.52 M/mm3 (4.2-5.4)
[2021-06-16 08:19] LABS: ALB/GLOB Ratio 0.7 RATIO (0.9-2.4); AST(SGOT) 24 U/L (15-37); Alanine Aminotransfer ALT/SGPT 25 U/L (13-56); Albumin, Serum 2.3 g/dL (3.2-5.0); Alkaline Phosphatase 87 U/L (45-117); Anion Gap 10 (5-15); BUN 12 mg/dL (7-18); BUN/Creat Ratio 24.1 RATIO (10-20); Calcium,Total 8.6 mg/dL (8.5-10.1); Chloride 105 mmol/L (98-107); EST Glomerular Filtration Rate 128 mL/min (>60); Est Glom Filt Rate - Afr Amer 155 mL/min (>60); Estimated Creatinine Clearance 37.85 ml/min; Globulin 3.2 g/dL (2.2-4.2); Glucose 73 mg/dL (74-106); Potassium 2.9 mmol/L (3.5-5.1); Protein, Total 5.5 g/dL (6.4-8.2); Sodium Level 141 mmol/L (136-145)
--- NOTE | 2021-06-16 09:01 | PN.SURG_ITS ---
Subjective Subjective Patient seen and examined during AM rounds. She reports that she still feels poorly with respect to her stomach. She had a loose bowel movement this morning and describes a migratory crampy pain after eating. With respect to eating, she states that she has had minimal intake of clear liquids. She felt her face getting puffy with the chicken broth and has a general distaste for the vegetable broth that was sent as a substitute. She confirms that she walked twice and sat in a chair once yesterday. Objective Data Objective Data Vital Signs: Vital Signs Temp Pulse Resp BP Pulse Ox 97.7 F L 93 16 107/77 97 06/16/21 07:54 06/16/21 07:54 06/16/21 07:54 06/16/21 07:54 06/16/21 07:54 Oxygen Flow Rate (L/min) 2 Oxygen Delivery Method Room Air Weight: 166 lb 0.129 oz Body Mass Index (BMI) 30.3 Intake & Output: Intake and Output for Last 24 Hours 06/14/21 06/15/21 06/16/21 23:59 23:59 23:59 Intake Total 1788.33 / 1788.33 1521.33 / 1521.33 Output Total 900 / 900 730 / 730 150 / 150 Balance 888.33 / 888.33 791.33 / 791.33 -150 / -150 Lab / Micro Data Result Diagrams: 06/16/21 06:59 06/16/21 06:59 Labs: Laboratory Results - last 24 hr 06/16/21 06:59: WBC 6.0, RBC 3.52 L, Hgb 10.6 L, Hct 33.2 L, MCV 94.3, MCH 30.1, MCHC 31.9 L, RDW Std Deviation 55.2 H, RDW Coeff of Diaz 15.9 H, Plt Count 194, MPV 11.6, Immature Gran % (Auto) 0.300, Neut % (Auto) 56.0, Lymph % (Auto) 26.6, [place] % (Auto) 13.3 H, Eos % (Auto) 3.5, Baso % (Auto) 0.3, Absolute Neuts (auto) 3.3, Absolute Lymphs (auto) 1.58, Nucleated RBC % 0 06/16/21 06:59: Sodium 141, Potassium 2.9 L, Chloride 105, Carbon Dioxide 26.0, Anion Gap 10, BUN 12, Creatinine 0.50 L, Estim Creat Clear Calc 37.85, Est GFR (MDRD) Af Amer 155, Est GFR (MDRD) Non-Af 128, BUN/Creatinine Ratio 24.1 H, Glucose 73 L, Calcium 8.6, Total Bilirubin 1.80 H, AST 24, ALT 25, Alkaline Phosphatase 87, Total Protein 5.5 L, Albumin 2.3 L, Globulin 3.2, Albumin/Globulin Ratio 0.7 L Micro: Microbiology 06/13/21 22:10 Nasal Secretion SARS-CoV-2 Antigen (Rapid) - Final Radiography Diagnostic Testing: Radiology Impression KUB X-Ray 06/16/21 05:55 IMPRESSION: Gaseous distention of small bowel loops in left abdomen. This is concerning for a partial mechanical small bowel obstruction versus adynamic ileus. Contrast is seen to the level of the rectum. ASSESSMENT: ABNORMAL report - There are abnormal findings in this report which may be related or unrelated to the reason for the exam. Electronically Signed: Jorge Rivera MD at 6:10 EDT Tel , Service support , Physical Exam Const oriented x3 and no apparent distress Resp normal respiratory effort GI soft to palpation Inspection: Negative for abdominal distention Palpation: tender other (Patient describes tenderness across all 4 abdominal quadrants but worse on left) Assessment & Plan Assessment/Plan (1) SBO (small bowel obstruction): PLAN: Patient appears to have resolved her small bowel obstruction with regular loose bowel movements. However, she is still having troubles tolerating a diet. Her most recent reports indicate that she is in general distaste for the broth and given the fact that we have not operated on her bowel, I am inclined to advance her to a full liquid diet to see if she tolerates this any better. I believe her loose stools are still related to the contrast load she received as part of her small bowel series. Neuro: As needed morphine, scheduled Neurontin Pulm/CV: No acute issues FEN/GI: Hypokalemia requiring correction at 2.9. KCl has been ordered empirically. Mag and Phos now pending. Advance to full liquid diet without carbonation. Patient encouraged to mobilize today. As needed Compazine Heme/ID: Patient's hemoglobin down trended today without clear evidence of bleeding. We will continue to monitor. Patient's white count has returned to normal. Endo: No acute issues Proph: Patient encouraged to mobilize frequently today Dispo: Continue inpatient care until patient able to tolerate diet reliably (2) Abdominal pain: QUALIFIERS: Abdominal location: right upper quadrant Qualified Code(s): R10.11 - Right upper quadrant pain PLAN: Patient's pain was previously located in the right side of the abdomen extending into the right lower chest. Today she states this tenderness is worse on the left. Given the migratory nature of this pain, I am suspicious more for gas pains than for more anatomical causes. Additionally, her reports of abdominal pain, nausea, and vomiting are noted to be worse in the mornings. This sounds at least suspicious for possible H pylori. I have recommended to her that that we try to get her recuperated from this acute episode and plan for an outpatient EGD with antral biopsies if her symptoms persist. Charges/Coding Visit Charges Inpatient E&M: 59585 Subs Hosp L2
[2021-06-16 10:07] LABS: Magnesium 1.4 mg/dL (1.6-2.6); Phosphorus 2.1 mg/dL (2.5-4.9)
[2021-06-16] MEDS: Potassium Chloride 10mEq/100mL 10 MEQ/100 ML IV.SOLN. 100 MEQ IV BOLUS ×3 (10:17→12:36)
[2021-06-16] MEDS: Montelukast 10 MG Tablet PO (10:17)
[2021-06-16] MEDS: Potassium Chloride Oral Tablet 20 MEQ 60 MEQ PO (10:17)
[2021-06-16] MEDS: Menthol/Lanolin/Calamine/Znox 113 GM Tube 1 APPLIC TOPICAL ×2 (10:17→20:53)
[2021-06-16] MEDS: 0.9% Saline Lock 10 ML Syringe IV ×4 (11:23→17:26)
[2021-06-16] MEDS: Morphine 4 MG/ML Syringe IV ×3 (11:26→15:35)
--- NOTE | 2021-06-16 12:37 | PCM.PN.HOSP ---
Documented by User: Maria Fernanda Go NP, [employer]PER[employer] ENGINEER-C 06/16/21 12:40 Subjective Subjective Patient seen and examined. Reports abdominal cramping and states she had bone broth last night and felt unwell after. Denies significant abdominal pain. Reports mild nausea, no emesis. Objective Data Objective Data Vital Signs: Vital Signs Temp Pulse Resp BP Pulse Ox 97.7 F L 93 16 107/77 97 06/16/21 07:54 06/16/21 07:54 06/16/21 07:54 06/16/21 07:54 06/16/21 07:54 Oxygen Flow Rate (L/min) 2 Oxygen Delivery Method Room Air Weight: 166 lb 0.129 oz Body Mass Index (BMI) 30.3 Intake & Output: Intake and Output for Last 24 Hours 06/14/21 06/15/21 06/16/21 23:59 23:59 23:59 Intake Total 1788.33 / 1788.33 1521.33 / 1521.33 700 / 700 Output Total 900 / 900 730 / 730 525 / 525 Balance 888.33 / 888.33 791.33 / 791.33 175 / 175 Lab / Micro Data Result Diagrams: 06/16/21 06:59 06/16/21 06:59 Labs: Laboratory Results - last 24 hr 06/16/21 06:59: WBC 6.0, RBC 3.52 L, Hgb 10.6 L, Hct 33.2 L, MCV 94.3, MCH 30.1, MCHC 31.9 L, RDW Std Deviation 55.2 H, RDW Coeff of Diaz 15.9 H, Plt Count 194, MPV 11.6, Immature Gran % (Auto) 0.300, Neut % (Auto) 56.0, Lymph % (Auto) 26.6, Sanders % (Auto) 13.3 H, Eos % (Auto) 3.5, Baso % (Auto) 0.3, Absolute Neuts (auto) 3.3, Absolute Lymphs (auto) 1.58, Nucleated RBC % 0 06/16/21 06:59: Sodium 141, Potassium 2.9 L, Chloride 105, Carbon Dioxide 26.0, Anion Gap 10, BUN 12, Creatinine 0.50 L, Estim Creat Clear Calc 37.85, Est GFR (MDRD) Af Amer 155, Est GFR (MDRD) Non-Af 128, BUN/Creatinine Ratio 24.1 H, Glucose 73 L, Calcium 8.6, Total Bilirubin 1.80 H, AST 24, ALT 25, Alkaline Phosphatase 87, Total Protein 5.5 L, Albumin 2.3 L, Globulin 3.2, Albumin/Globulin Ratio 0.7 L 06/16/21 06:59: Phosphorus 2.1 L, Magnesium 1.4 L Micro: Microbiology 06/13/21 22:10 Nasal Secretion SARS-CoV-2 Antigen (Rapid) - Final Radiography Diagnostic Testing: Radiology Impression KUB X-Ray 06/16/21 05:55 IMPRESSION: Gaseous distention of small bowel loops in left abdomen. This is concerning for a partial mechanical small bowel obstruction versus adynamic ileus. Contrast is seen to the level of the rectum. ASSESSMENT: ABNORMAL report - There are abnormal findings in this report which may be related or unrelated to the reason for the exam. Electronically Signed: Jorge Rivera MD at 6:10 EDT Tel , Service support , Physical Exam Const alert, oriented x3 and no apparent distress Orientation / Consciousness: awake, oriented to person, oriented to place and oriented to time HEENT normocephalic and moist oral mucous membranes Eyes PERRL, EOMs intact bilaterally and conjunctivae normal Neck no lymphadenopathy Resp normal respiratory effort and clear to auscultation bilaterally Cardio regular rate, regular rhythm and no murmurs Peripheral Pulses: pulses 2+ throughout GI normal to inspection, nondistended, normoactive bowel sounds, non-tender and non-distended Extremity normal to inspection Skin no rashes or lesions noted Lesions: no lesions Rashes: no rashes Trauma: no lacerations or abrasions Neuro CN's II-XII intact bilaterally, no focal motor deficits, no sensory deficits noted and deep tendon reflexes 2+ bilaterally Psych mental status grossly normal and affect normal Assessment & Plan Assessment/Plan (1) Abdominal pain: QUALIFIERS: Abdominal location: right upper quadrant Qualified Code(s): R10.11 - Right upper quadrant pain PLAN: 1. Abdominal pain, right-sided/atypical chest pain-General surgery admitting, initially suspected possible small bowel obstruction. CT demonstrated mildly dilated loops of small bowel. Patient further underwent small bowel follow-through which showed no evidence of small bowel obstruction. Lipase normal. On PPI at baseline. Due to report of pain moving to right chest, chest x-ray, enzymes series and EKG ordered. Troponin negative. EKG without ST-T changes. Chest x-ray demonstrates left-sided pleural effusion which patient reports is chronic following left upper lobectomy. Patient states the same symptoms have been intermittent since February 2021. From a medical standpoint, patient is stable for discharge home with further outpatient evaluation regarding intermittent right-sided abdominal pain. Advance diet per surgery recommendations. Possible outpatient EGD if symptoms are persistent. 2. 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 3. Hypothyroidism-continue Synthroid regimen. 4. GERD-on PPI/Carafate. 5. Chronic back pain-on gabapentin. DVT prophylaxis- SCDs This patient was seen by KAILASH Ramirez under the supervision of Dr. Alcantar. Documented by User: Dr. Anaya Alcantar MD 06/16/21 13:00 Objective Data Lab / Micro Data Result Diagrams: 06/16/21 06:59 06/16/21 06:59 Charges/Coding Addendum Addendum: Patient seen by Maria Fernanda LINDER under my supervision Patient seen and examined. She still complained of some mild abdominal pain. She had some episodes of diarrhea. Review of systems is otherwise negative. O/E: Physical Exam Const alert, oriented x3 and no apparent distress Orientation / Consciousness: awake, oriented to person, oriented to place and oriented to time HEENT normocephalic and moist oral mucous membranes Eyes PERRL, EOMs intact bilaterally and conjunctivae normal Neck no lymphadenopathy Resp clear to auscultation bilaterally Auscultation: diminished lung sounds Cardio regular rate, regular rhythm and no murmurs Peripheral Pulses: pulses 2+ throughout GI normal to inspection, nondistended, normoactive bowel sounds, non-tender and non-distended Extremity normal to inspection Skin no rashes or lesions noted Lesions: no lesions Rashes: no rashes Trauma: no lacerations or abrasions Neuro CN's II-XII intact bilaterally, no focal motor deficits, no sensory deficits noted and deep tendon reflexes 2+ bilaterally Psych mental status grossly normal and affect normal Patient is currently being managed for possible small bowel obstruction with CT of the abdomen showing mildly dilated loops of small bowel. Small bowel follow-through however showed no evidence of small bowel obstruction. General surgery on board. Pain is better. Troponins x 3 were negative and EKG showed no acute ST changes. Patient is stable from hospitalist standpoint. Rest as per primary team. Rest as per Maria Fernanda Go NP-C which I have reviewed and endorsed. Visit Charges Inpatient E&M: 40226 Subs Hosp L2
[2021-06-16 13:17] VITALS: BP 114/46; PULSE 70; RESP 16; TEMP 37.1; O2SAT 96
[2021-06-16] MEDS: Magnesium Sulfate 4gm/100mL 4 GM/100 ML IV.SOLN. IV (14:12)
[2021-06-16] MEDS: Ondansetron 4 MG/2 ML Vial IV (14:19)
--- NOTE | 2021-06-16 14:45 | CASEMGMT ---
RN [employer] SUPERINTENDENT CM to room to meet with patient for initial transition planning/care coordination assessment. JULIA MONTE introduced self and role at [facility]. Pt voices understanding and consents to assessment at this time. Pt sitting up in chair in room in no distress at this time. Pt is A/O at this time and answers all questions appropriately. Care providers, pharmacy, and demographics verified/updated at this time. PCP: Aishwarya Lopez NP Specialists: Dr Hernandez--pulm, Dr Saldana-thoracic surgeon in [place], Dr Russell-GI, Dr Zabala-onc, Dr Khan-podiatry, Dr Zarate-pain mgmt, Dr Concepcion-surg, Dr Khan-podiatry Preferred Pharmacy: [facility] Insurance: Rex JAY Prescription Benefit: Yes Living Will/HPOA: Has both LW and HPOA, who is her niece, Aishwarya Bruno LNOK: Niece/POA, Aishwarya Bruno. NieceDestinee Living Arrangements: Lives alone in one-story home w/2-3 steps to enter. Independent w/ADL's and IADL's. Will have someone assist w/groceries at times. Transportation: Pt states drives self and states no transportation concerns at this time. DME: medical alert button. Has other DME available but does not use. Ambulates independently. HHC/SNF: No hx SNF. Had [facility]HC in past after knee surgery. Pt wishes to return home and states has no concerns with going home at time of discharge. Declines need for HHC. PLAN: Home w/discharge plans in place. Charo WALLER RN, CM
[2021-06-16 17:09] VITALS: BP 99/65; PULSE 98; RESP 16; TEMP 36.3; O2SAT 97
--- NOTE | 2021-06-16 17:10 | RAD_ITS ---
STUDY: X-RAY - ABDOMEN/PELVIS REASON FOR EXAM: Female, 76 years old. persistent ab pain w eating TECHNIQUE: Single AP view of the abdomen / pelvis. COMPARISON: 06/16/2021 FINDINGS: Normal visualized lung bases. Gaseous dilation of small bowel in the left abdomen increased since prior study. Some passage of bowel contrast extends to the colon. There is no demonstrated free abdominal air. The visualized liver, spleen and kidneys are grossly normal in size and morphology. Cholecystectomy clips present. Normal soft tissue structures. Bilateral sacroiliac joint arthrosis/sacroiliitis. Degenerative changes of the lumbar spine. RAD/Abdomen Single View (Portable) IMPRESSION: 1. Unfavorable change. Worsening likely partial small bowel obstruction. Electronically Signed: Dawit Higgins MD ([place]) at 17:36 EDT , Service support ,
[2021-06-16] MEDS: Morphine 2 MG/ML Syringe IV ×2 (17:25→20:53)
[2021-06-16] MEDS: Acetaminophen 325 MG Tablet 650 MG PO (17:26)
[2021-06-16] MEDS: 0.9% Normal Saline 1,000 ML 40 ML IV (17:27)
[2021-06-16 20:00] VITALS: BP 94/41; PULSE 88; RESP 18; TEMP 36.9; O2SAT 96
[2021-06-17 03:46] VITALS: BP 117/59; PULSE 71; RESP 16; TEMP 36.4; O2SAT 99
[2021-06-17] MEDS: Acetaminophen 325 MG Tablet 650 MG PO ×2 (04:00→12:10)
[2021-06-17 06:01] LABS: Absolute Lymphocyte Count 1.23 X10^3/uL (0.83-4.51); Absolute Neutrophil Count 3.2 X10^3/uL (2.0-7.7); Basophil# 0.02 X10^3/uL; Basophil% 0.4 % (0-1); Eosinophil# 0.15 X10^3/uL; Eosinophils% 2.8 % (0-5); Hematocrit 35.1 % (37-47); Hemoglobin 11.6 g/dL (12.0-15.0); Lymphocyte # 1.23 X10^3/ul (0.83-4.51); Lymphocyte % 23.2 % (19-41); Mean Corpuscular Hgb 30.8 pg (27.0-32.0); Mean Corpuscular Volume 93.1 fL (81-99); Mean Platelet Vol. 11.3 fl (6.2-12.0); Monocyte# 0.71 X10^3/uL; Monocyte% 13.4 % (0-10); NRBC Flagged by Analyzer 0 % (0-5); Neutrophil # 3.18 X10^3/uL (2.7-7.7); Neutrophil % 59.8 % (47-70); Platelet Count 242 K/mm3 (150-450); RBC Distribution Width CV 15.9 % (11.6-14.6); RBC Distribution Width SD 54.3 fl (35.1-43.9); Red Blood Count 3.77 M/mm3 (4.2-5.4); White Blood Count 5.3 K/mm3 (4.4-11.0)
[2021-06-17] MEDS: Gabapentin 100 MG Capsule 200 MG PO ×2 (06:15→14:50)
[2021-06-17] MEDS: Levothyroxine 25 MCG TABLET PO (06:15)
[2021-06-17 06:29] LABS: ALB/GLOB Ratio 0.7 RATIO (0.9-2.4); AST(SGOT) 34 U/L (15-37); Alanine Aminotransfer ALT/SGPT 31 U/L (13-56); Albumin, Serum 2.4 g/dL (3.2-5.0); Alkaline Phosphatase 113 U/L (45-117); Anion Gap 10 (5-15); BUN 9 mg/dL (7-18); BUN/Creat Ratio 17.9 RATIO (10-20); Calcium,Total 8.6 mg/dL (8.5-10.1); Chloride 105 mmol/L (98-107); EST Glomerular Filtration Rate 127 mL/min (>60); Est Glom Filt Rate - Afr Amer 154 mL/min (>60); Estimated Creatinine Clearance 37.85 ml/min; Globulin 3.6 g/dL (2.2-4.2); Glucose 75 mg/dL (74-106); Magnesium 1.9 mg/dL (1.6-2.6); Potassium 3.7 mmol/L (3.5-5.1); Sodium Level 139 mmol/L (136-145)
[2021-06-17 09:45] VITALS: BP 122/53; PULSE 84; RESP 20; TEMP 36.8; O2SAT 98
[2021-06-17 10:00] VITALS: PULSE 84; O2SAT 98
[2021-06-17] MEDS: Pantoprazole Sodium 40 MG Tablet 80 MG PO (10:03)
[2021-06-17] MEDS: Montelukast 10 MG Tablet PO (10:03)
[2021-06-17] MEDS: Menthol/Lanolin/Calamine/Znox 113 GM Tube 1 APPLIC TOPICAL ×2 (10:08→21:19)
--- NOTE | 2021-06-17 10:45 | PN.HOSP_ITS ---
Documented by User: Maria Fernanda Go NP, [employer]AB LIFTING SUPERVISOR-C 06/17/21 10:51 Subjective Subjective Patient seen and examined. States she is having increased gastric burning following liquid diet. Denies previously stated right-sided abdominal pain. Denies nausea, vomiting. Reports episode of diarrhea this morning. Objective Data Objective Data Vital Signs: Vital Signs Temp Pulse Resp BP Pulse Ox 98.3 F 84 20 H 122/53 H 98 06/17/21 09:45 06/17/21 10:00 06/17/21 09:45 06/17/21 09:45 06/17/21 10:00 Oxygen Flow Rate (L/min) 2 Oxygen Delivery Method Room Air Weight: 166 lb 0.129 oz Body Mass Index (BMI) 30.3 Intake & Output: Intake and Output for Last 24 Hours 06/15/21 06/16/21 06/17/21 23:59 23:59 23:59 Intake Total 1521.33 / 1521.33 2100 / 2150 420 / 420 Output Total 730 / 730 1125 / 1225 525 / 525 Balance 791.33 / 791.33 975 / 925 -105 / -105 Lab / Micro Data Result Diagrams: 06/17/21 05:34 06/17/21 05:34 Labs: Laboratory Results - last 24 hr 06/17/21 05:34: WBC 5.3, RBC 3.77 L, Hgb 11.6 L, Hct 35.1 L, MCV 93.1, MCH 30.8, MCHC 33.0, RDW Std Deviation 54.3 H, RDW Coeff of Diaz 15.9 H, Plt Count 242, MPV 11.3, Immature Gran % (Auto) 0.400, Neut % (Auto) 59.8, Lymph % (Auto) 23.2, Isabella % (Auto) 13.4 H, Eos % (Auto) 2.8, Baso % (Auto) 0.4, Absolute Neuts (auto) 3.2, Absolute Lymphs (auto) 1.23, Nucleated RBC % 0 06/17/21 05:34: Sodium 139, Potassium 3.7, Chloride 105, Carbon Dioxide 24.0, Anion Gap 10, BUN 9, Creatinine 0.50 L, Estim Creat Clear Calc 37.85, Est GFR (MDRD) Af Amer 154, Est GFR (MDRD) Non-Af 127, BUN/Creatinine Ratio 17.9, Glucose 75, Calcium 8.6, Magnesium 1.9, Total Bilirubin 1.50 H, AST 34, ALT 31, Alkaline Phosphatase 113, Total Protein 6.0 L, Albumin 2.4 L, Globulin 3.6, Albumin/Globulin Ratio 0.7 L Micro: Microbiology 06/17/21 08:41 Stool Stool Lactoferrin - Final 06/13/21 22:10 Nasal Secretion SARS-CoV-2 Antigen (Rapid) - Final Radiography Diagnostic Testing: Radiology Impression KUB X-Ray 06/16/21 17:10 IMPRESSION: 1. Unfavorable change. Worsening likely partial small bowel obstruction. Electronically Signed: Dawit Higgins MD ([place]) at 17:36 EDT , Service support , Physical Exam Const alert, oriented x3 and no apparent distress Orientation / Consciousness: awake, oriented to person, oriented to place and oriented to time HEENT normocephalic and moist oral mucous membranes Eyes PERRL, EOMs intact bilaterally and conjunctivae normal Neck no lymphadenopathy Resp normal respiratory effort and clear to auscultation bilaterally Cardio regular rate, regular rhythm and no murmurs Peripheral Pulses: pulses 2+ throughout GI normal to inspection, nondistended, normoactive bowel sounds, non-tender and non-distended Extremity normal to inspection Skin no rashes or lesions noted Lesions: no lesions Rashes: no rashes Trauma: no lacerations or abrasions Neuro CN's II-XII intact bilaterally, no focal motor deficits, no sensory deficits noted and deep tendon reflexes 2+ bilaterally Psych mental status grossly normal and affect normal Assessment & Plan Assessment/Plan (1) Abdominal pain: QUALIFIERS: Abdominal location: right upper quadrant Qualified Code(s): R10.11 - Right upper quadrant pain PLAN: 1. Abdominal pain-General surgery following, initially suspected possible small bowel obstruction. CT demonstrated mildly dilated loops of small bowel. Patient further underwent small bowel follow-through which showed no evidence of small bowel obstruction. Lipase normal. On PPI at baseline. Patient states the same symptoms have been intermittent since February 2021. Possible EGD if symptoms are persistent. Management per surgery. 2. Atypical right-sided chest/abdominal pain-cardiac enzymes, EKG unremarkable. Chest x-ray demonstrates left-sided pleural effusion which patient reports is chronic following left upper lobectomy. 3. 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 4. Hypothyroidism-continue Synthroid regimen. 5. GERD-on PPI/Carafate. 6. Chronic back pain-on gabapentin. DVT prophylaxis- SCDs Stable from a medical standpoint, continue GI evaluation per surgery. This patient was seen by KAILASH Ramirez under the supervision of Dr. Alcantar. Documented by User: Dr. Anaya Alcantar MD 06/17/21 12:02 Objective Data Lab / Micro Data Result Diagrams: 06/17/21 05:34 06/17/21 05:34 Charges/Coding Addendum Addendum: Patient seen by Maria Fernanda LINDER under my supervision Patient seen and examined. She did complain of some epigastric pain and some diarrhea this morning. Review of systems otherwise negative. She has remained hemodynamically stable. O/E: Const alert, oriented x3 and no apparent distress Orientation / Consciousness: awake, oriented to person, oriented to place and oriented to time HEENT normocephalic and moist oral mucous membranes Eyes PERRL, EOMs intact bilaterally and conjunctivae normal Neck no lymphadenopathy Resp normal respiratory effort and clear to auscultation bilaterally Cardio regular rate, regular rhythm and no murmurs Peripheral Pulses: pulses 2+ throughout GI normal to inspection, nondistended, normoactive bowel sounds, non-tender and non-distended Extremity normal to inspection Skin no rashes or lesions noted Lesions: no lesions Rashes: no rashes Trauma: no lacerations or abrasions Neuro CN's II-XII intact bilaterally, no focal motor deficits, no sensory deficits noted and deep tendon reflexes 2+ bilaterally Psych mental status grossly normal and affect normal General surgery managing possible small bowel obstruction. Patient having diarrhea today. Her atypical right-sided chest pain has resolved and EKG and cardiac enzymes were unremarkable. Continue evaluation. General surgery. From hospitalist on points no acute medical issues to address so hospitalist will sign off at this point. Rest as per Maria Fernanda Go NP-C's note, which I have reviewed and endorsed. Visit Charges Inpatient E&M: 33981 Subs Hosp L2
[2021-06-17] MEDS: Sucralfate 1 GM Tablet PO (12:05)
[2021-06-17] MEDS: Morphine 4 MG/ML Syringe IV (13:18)
[2021-06-17] MEDS: traMADol 50 MG Tablet PO (15:36)
[2021-06-17 15:38] VITALS: BP 108/68; PULSE 90; RESP 20; TEMP 36.5; O2SAT 98
[2021-06-17 15:41] VITALS: PULSE 90
--- NOTE | 2021-06-17 15:47 | PN.SURG_ITS ---
Subjective Subjective Patient seen and examined during AM rounds. She reports continuation of her abdominal pain, but to a milder degree. She states this morning she experienced stool incontinence without much warning. She was n.p.o. overnight after experiencing some increasing abdominal pain from a diet just prior. Objective Data Objective Data Vital Signs: Vital Signs Temp Pulse Resp BP Pulse Ox 97.7 F L 90 20 H 108/68 98 06/17/21 15:38 06/17/21 15:41 06/17/21 15:38 06/17/21 15:38 06/17/21 15:38 Oxygen Flow Rate (L/min) 2 Oxygen Delivery Method Room Air Weight: 166 lb 0.129 oz Body Mass Index (BMI) 30.3 Intake & Output: Intake and Output for Last 24 Hours 06/15/21 06/16/21 06/17/21 23:59 23:59 23:59 Intake Total 1521.33 / 1521.33 2100 / 2150 660 / 660 Output Total 730 / 730 1125 / 1225 525 / 525 Balance 791.33 / 791.33 975 / 925 135 / 135 Lab / Micro Data Result Diagrams: 06/17/21 05:34 06/17/21 05:34 Labs: Laboratory Results - last 24 hr 06/17/21 05:34: WBC 5.3, RBC 3.77 L, Hgb 11.6 L, Hct 35.1 L, MCV 93.1, MCH 30.8, MCHC 33.0, RDW Std Deviation 54.3 H, RDW Coeff of Diaz 15.9 H, Plt Count 242, MPV 11.3, Immature Gran % (Auto) 0.400, Neut % (Auto) 59.8, Lymph % (Auto) 23.2, Hernando % (Auto) 13.4 H, Eos % (Auto) 2.8, Baso % (Auto) 0.4, Absolute Neuts (auto) 3.2, Absolute Lymphs (auto) 1.23, Nucleated RBC % 0 06/17/21 05:34: Sodium 139, Potassium 3.7, Chloride 105, Carbon Dioxide 24.0, Anion Gap 10, BUN 9, Creatinine 0.50 L, Estim Creat Clear Calc 37.85, Est GFR (MDRD) Af Amer 154, Est GFR (MDRD) Non-Af 127, BUN/Creatinine Ratio 17.9, Glucose 75, Calcium 8.6, Magnesium 1.9, Total Bilirubin 1.50 H, AST 34, ALT 31, Alkaline Phosphatase 113, Total Protein 6.0 L, Albumin 2.4 L, Globulin 3.6, Albumin/Globulin Ratio 0.7 L Micro: Microbiology 06/17/21 08:41 Stool Stool Lactoferrin - Final 06/17/21 08:41 Stool Enteric Bacteriology - Final 06/13/21 22:10 Nasal Secretion SARS-CoV-2 Antigen (Rapid) - Final Radiography Diagnostic Testing: Radiology Impression KUB X-Ray 06/16/21 17:10 IMPRESSION: 1. Unfavorable change. Worsening likely partial small bowel obstruction. Electronically Signed: Dawit Higgins MD ([place]) at 17:36 EDT , Service support , Physical Exam Const oriented x3 and no apparent distress Resp normal respiratory effort GI GI Narrative: Patient nondistended, soft, mildly tender across the upper abdominal quadrants Assessment & Plan Assessment/Plan (1) Abdominal pain: QUALIFIERS: Abdominal location: right upper quadrant Qualified Code(s): R10.11 - Right upper quadrant pain PLAN: Patient having bilateral upper quadrant abdominal pain and multiple loose bowel movements. She reports fecal incontinence this morning. Based on her imaging showing some dilated small bowel and ongoing bowel function, I remain suspicious for possible infectious enteritis. Stool studies were sent on patient's stool specimen. I have encouraged her to continue to try a full liquid diet and we will support her with IV fluids to supplement her oral intake. She asked why we would not empirically start antibiotic therapy, and I shared with her that there is a risk for opportunistic infection to include C. difficile if we took this approach., Additionally I do believe she has some uncontrolled reflux disease and would require repeat EGD with biopsy, but shared with her that I advocated for outpatient work-up of this issue. Plan: ?Maintain a full liquid diet; patient encouraged to continue ambulation and be out of bed to chair ?Add tramadol for pain to reduce morphine intake ?Follow-up stool studies Charges/Coding Visit Charges Inpatient E&M: 14536 Subs Hosp L2
[2021-06-17] MEDS: Ondansetron 4 MG/2 ML Vial IV (19:11)
[2021-06-17] MEDS: 0.9% Normal Saline 1,000 ML 40 ML IV (19:13)
[2021-06-17] MEDS: proCHLORPERazine 10 MG/2 ML Vial 5 MG IV (21:12)
[2021-06-17 21:20] VITALS: BP 98/72; PULSE 99; RESP 18; TEMP 36.7; O2SAT 97
[2021-06-18] VITALS (15 sets, daily range): BP systolic 106–139; BP diastolic 41–70; PULSE 72–119; RESP 16–18; TEMP 36.1–37.2; O2SAT 96–100; BMI 30.3; BMI 30.4
[2021-06-18] MEDS: Morphine 4 MG/ML Syringe IV ×3 (00:20→21:13)
[2021-06-18] MEDS: Gabapentin 100 MG Capsule 200 MG PO ×2 (06:02→21:13)
[2021-06-18] MEDS: Pantoprazole Sodium 40 MG Tablet 80 MG PO (06:02)
--- NOTE | 2021-06-18 07:57 | PN.SURG_ITS ---
Subjective Subjective Patient reports ongoing epigastric and right chest pain. She reports that she stopped taking her Carafate as it was causing pain. Patient reports she had a liquid bowel movement. Objective Data Objective Data Vital Signs: Vital Signs Temp Pulse Resp BP Pulse Ox 97.8 F 72 16 125/59 H 96 06/18/21 03:15 06/18/21 03:15 06/18/21 03:15 06/18/21 03:15 06/18/21 03:15 Oxygen Flow Rate (L/min) 2 Oxygen Delivery Method Room Air Weight: 166 lb 0.129 oz Body Mass Index (BMI) 30.3 Intake & Output: Intake and Output for Last 24 Hours 06/16/21 06/17/21 06/18/21 23:59 23:59 23:59 Intake Total 2100 / 2150 1892 / 2192 550 / 550 Output Total 1125 / 1225 825 / 825 300 / 300 Balance 975 / 925 1067 / 1367 250 / 250 Lab / Micro Data Result Diagrams: 06/17/21 05:34 06/17/21 05:34 Micro: Microbiology 06/17/21 08:41 Stool Stool Lactoferrin - Final 06/17/21 08:41 Stool Enteric Bacteriology - Final 06/13/21 22:10 Nasal Secretion SARS-CoV-2 Antigen (Rapid) - Final Physical Exam Const oriented x3 and no apparent distress Resp normal respiratory effort Cardio regular rate and regular rhythm GI soft to palpation Inspection: Negative for abdominal distention Assessment & Plan Assessment/Plan (1) Abdominal pain: QUALIFIERS: Abdominal location: right upper quadrant Qualified Code(s): R10.11 - Right upper quadrant pain PLAN: Patient is having ongoing abdominal pain. Due to diarrhea over the weekend stool studies were obtained and the patient did have positive WBC lactoferrin. All other stool studies were negative. Patient is still requiring pain medication as well. I will order a GI consult for any additional input. Vikash Jimenez MD Pager: [facility] [address] [place] [address], [address] [place] [address] Office:
--- NOTE | 2021-06-18 08:00 | CT_ITS ---
STUDY: CT ABDOMEN AND PELVIS WITHOUT CONTRAST REASON FOR EXAM: Female, 76 years old. Abdominal pain, PO contrast only. History of small bowel obstruction. History of lung cancer and breast cancer. RADIATION DOSAGE (If Supplied By Facility): CTDIvol = ( 13.44 ) mGy, DLP = ( 624.64 ) mGycm TECHNIQUE: Transaxial images were obtained from the dome of the diaphragm to the symphysis pubis without oral contrast, and without intravenous contrast. Sagittal and coronal images were reconstructed. Individualized dose optimization techniques were used for this CT. COMPARISON: Comparison is made with prior study dated 06/13/2021. FINDINGS: Small bilateral pleural effusions with bibasilar atelectasis. The visualized portions of the heart are within normal limits. Normal liver. There are surgical clips in the gallbladder fossa consistent with a prior cholecystectomy. Normal spleen. Normal pancreas. Normal bilateral adrenal glands. There is malrotation of the right kidney. Moderate degree of the right hydronephrosis.. This most likely secondary to possible stricture at the level of the ureteropelvic junction. Normal left kidney. Gastric distention with oral contrast. Small hiatal hernia. There are dilated loops of the small intestine with a non-distended colon consistent with a small bowel obstruction. There are multiple colonic diverticula consistent with diverticulosis. The appendix is visualized and appears normal. There is diffuse atherosclerotic calcification of the abdominal aorta, without a demonstrated aneurysm. Normal inferior vena cava. Normal retroperitoneum. Normal urinary bladder. Normal abdominal wall. There are diffuse degenerative changes of the visualized lumbar spine. CT/Abdomen/Pel W ORAL Cont Only IMPRESSION: Since prior study, there has been progressive distention of the small bowel loops. The remainder of the examination is unchanged. Electronically Signed: Allan Joshua MD at 12:33 EDT , Service support ,
[2021-06-18] MEDS: Montelukast 10 MG Tablet PO (10:50)
[2021-06-18] MEDS: Menthol/Lanolin/Calamine/Znox 113 GM Tube 1 APPLIC TOPICAL ×2 (10:51→21:14)
--- NOTE | 2021-06-18 13:15 | PN_ITS ---
Progress Note I performed CT scan on the patient with oral contrast which shows a partial small bowel obstruction with a transition zone in the right abdomen. I d iscussed his CT findings with her and I recommended surgery. I discussed laparoscopic exploration with the patient as well as the possibility of converting to open surgery and the possibility of having to perform open small bowel resection. Patient understands these risks as well as the included risks of bleeding, infection, injury to other organs. I had the nurses attempt NG placement but she was not able to tolerate this. Plan for exploration this afternoon. Vikash Jimenez MD Pager: [facility] [address] [place] [address], [address] [place] [address] Office:
[2021-06-18] MEDS: Lactated Ringers 1,000 ML 100 ML IV ×2 (14:30→16:30)
--- NOTE | 2021-06-18 16:21 | PCM.OPRPT ---
Problems Associated Problem List Diagnoses (1) SBO (small bowel obstruction): Report of Operation Date of Procedure: 06/18/21 Pre-Operative Diagnosis: Small bowel obstruction Post-Operative Diagnosis: Small bowel obstruction and internal hernia Surgery/Procedure Performed:: Exploratory laparoscopy with repair of small bowel enterotomy Description of Procedure: Patient was brought back to the operating room and general anesthesia was induced. The abdomen was prepped and draped in usual sterile fashion. A small midline incision was made superior to the umbilicus and deepened the fascia which was elevated and incised. A 12 mm port was placed into the abdomen and the balloon was inflated. Next the abdomen was insufflated to 15 mmHg. Under direct visualization a left lower quadrant and suprapubic 5 mm port were placed. The terminal ileum was identified and the small bowel was run back until an internal hernia was identified created by the omentum adhering to another loop of bowel. The small bowel was reduced from this internal hernia and the adhesions were lysed. Next the small bowel was run more proximally and was very dilated. At the proximal small bowel a small enterotomy was created due to tension on the bowel. This area was grasped and then the midline incision was elongated by 2 cm and wound protector was placed. The segment of bowel was delivered through the incision. A stay suture was placed on either side of the enterotomy and it was closed in 2 layers with a running 3-0 chromic suture and then interrupted 3-0 silk sutures. The enterotomy appeared small and the tissue was healthy and approximated well. Next the bowel was returned to the abdomen the abdomen was irrigated and suctioned dry. The omentum was placed over the bowel. The fascia was closed with a running #1 Nurolon suture and the subcutaneous tissue was irrigated and suctioned dry. The incisions were injected with local anesthetic and closed with interrupted 4-0 Monocryl sutures. Dressings were then applied and the patient was awoken and taken to PACU in stable condition. Patient tolerated procedure well. Admit VTE Documentation VTE Mechan Device Prophylaxis: SCD's
[2021-06-18] MEDS: Bupivacaine Mpf 0.5% 30 ML VIAL (16:29)
[2021-06-19 02:31] VITALS: BP 104/48; PULSE 98; RESP 16; TEMP 36.8; O2SAT 93
[2021-06-19 02:49] VITALS: BMI 30.4
[2021-06-19] MEDS: Gabapentin 100 MG Capsule 200 MG PO ×3 (05:39→21:53)
[2021-06-19] MEDS: Sucralfate 1 GM Tablet PO (05:39)
[2021-06-19] MEDS: 0.9% Normal Saline 1,000 ML 40 ML IV (05:41)
[2021-06-19 06:01] VITALS: BMI 30.4
--- NOTE | 2021-06-19 07:38 | PCM.PN.SRG ---
Subjective Subjective Patient seems to be doing well after surgery yesterday. She reports the pain she was having yesterday before surgery is gone. No nausea or vomiting overnight. Still not passing any flatus. Objective Data Objective Data Vital Signs: Vital Signs Temp Pulse Resp BP Pulse Ox 98.2 F 98 16 104/48 L 93 06/19/21 02:31 06/19/21 02:31 06/19/21 02:31 06/19/21 02:31 06/19/21 02:31 Oxygen Flow Rate (L/min) 2 Oxygen Delivery Method Room Air Weight: 166 lb 0.129 oz Body Mass Index (BMI) 30.3 Intake & Output: Intake and Output for Last 24 Hours 06/17/21 06/18/21 06/19/21 23:59 23:59 23:59 Intake Total 1892 / 2192 2739.66 / 2739.66 298.67 / 298.67 Output Total 825 / 825 300 / 600 300 / 300 Balance 1067 / 1367 2439.66 / 2139.66 -1.33 / -1.33 Lab / Micro Data Result Diagrams: 06/17/21 05:34 06/17/21 05:34 Micro: Microbiology 06/17/21 08:41 Stool Stool Lactoferrin - Final 06/17/21 08:41 Stool Enteric Bacteriology - Final 06/13/21 22:10 Nasal Secretion SARS-CoV-2 Antigen (Rapid) - Final Radiography Diagnostic Testing: Radiology Impression Abdomen CT 06/18/21 08:00 IMPRESSION: Since prior study, there has been progressive distention of the small bowel loops. The remainder of the examination is unchanged. Electronically Signed: Allan Joshua MD at 12:33 EDT , Service support , Physical Exam Const oriented x3 and no apparent distress Resp normal respiratory effort GI soft to palpation Inspection: Negative for abdominal distention Assessment & Plan Assessment/Plan (1) SBO (small bowel obstruction): PLAN: Patient has small bowel stricture due to internal hernia. Patient is doing well after surgery. She has no nausea vomiting and abdominal pain is much improved. Once she starts passing flatus I will start her on a clear liquid diet and advance as tolerated. Once she tolerates diet she will be discharged home. Vikash Jimenez MD Pager: [facility] [address] [place] [address], [address] [place] [address] Office:
[2021-06-19 08:07] VITALS: BP 104/41; PULSE 94; RESP 16; TEMP 36.9; O2SAT 93
[2021-06-19] MEDS: Menthol/Lanolin/Calamine/Znox 113 GM Tube 1 APPLIC TOPICAL ×2 (10:00→21:52)
--- NOTE | 2021-06-19 10:12 | CASEMGMT ---
JULIA MONTE Assessment: Face to Face with pt for initial transition planning/care coordination assessment. JULIA MONTE introduced self and role at [facility], pt voices understanding and consents to assessment. Pt is A/O x4 and answers all questions appropriately at this time. Pt sitting up in chair in no distress. Care providers, pharmacy, and demographics verified/updated. Admitting Dx: SBO PCP: Aishwarya Lopez NP Specialists:Lana ortho; jesus Gusman who performed lobectomy; Jamey gen surgeon; Yvonne, gastro; Sagrario, onc; Crystal, ENT; Bill, pod; Haydee rad onc Preferred Pharmacy: [facility] Insurance: [employer] Prescription Benefit: yes LW/HPOA: Pt states she has a LW/DPOA and her DPOA is her niece Aishwarya Bruno. She is aware that it is not on file at [facility] and she may bring in at any time to be scanned into the chart. LNOK: Aishwarya Bruno, niece; Destinee Luna, niece; Carl Luna, nephew Living Arrangements: Pt lives alone in a single story condo with 3 steps to enter from garage. Pt reports being I in ADL's and denies concerns at home. Transportation: Pt drives self and denies concerns with transportation. DME/HHC/SNF: Pt has a walker, transport w/c, grab bars in the bathroom and handles on sides of toilets. Pt has had [facility] in the past as well as [facility]. Pt denies hx of SNF stays. Pt states no concerns with going home at time of dc. Pt up ambulating the halls without difficulty. Pt states no further concerns/needs. CM to follow. Advised pt to ask CM if any further question/concerns/needs arise, voices understanding. Pt Goal: Home Plan: Home
[2021-06-19] MEDS: Acetaminophen 325 MG Tablet 650 MG PO (10:48)
[2021-06-19] MEDS: Pantoprazole Sodium 40 MG Tablet 80 MG PO (10:50)
[2021-06-19] MEDS: Montelukast 10 MG Tablet PO (10:50)
[2021-06-19 14:03] VITALS: BP 126/50; PULSE 102; RESP 16; TEMP 36.6; O2SAT 95
[2021-06-19 20:04] VITALS: BP 100/48; PULSE 87; RESP 16; TEMP 37.2; O2SAT 97
[2021-06-19] MEDS: traMADol 50 MG Tablet PO (21:53)
[2021-06-20 02:25] VITALS: BP 113/49; PULSE 95; RESP 16; TEMP 36.5; O2SAT 95
[2021-06-20] MEDS: Pantoprazole Sodium 40 MG Tablet 80 MG PO (05:43)
[2021-06-20] MEDS: Gabapentin 100 MG Capsule 200 MG PO ×3 (05:44→19:53)
[2021-06-20] MEDS: Levothyroxine 25 MCG TABLET PO (05:44)
--- NOTE | 2021-06-20 07:05 | PCM.PN.SRG ---
Subjective Subjective Patient passing flatus and had a bowel movement overnight. No nausea or vomiting. Abdominal pain is minimal. Objective Data Objective Data Vital Signs: Vital Signs Temp Pulse Resp BP Pulse Ox 97.7 F L 95 16 113/49 L 95 06/20/21 02:25 06/20/21 02:25 06/20/21 02:25 06/20/21 02:25 06/20/21 02:25 Oxygen Flow Rate (L/min) 2 Oxygen Delivery Method Room Air Weight: 171 lb 1.259 oz Body Mass Index (BMI) 30.3 Intake & Output: Intake and Output for Last 24 Hours 06/18/21 06/19/21 06/20/21 23:59 23:59 23:59 Intake Total 2739.66 / 2739.66 298.67 / 298.67 150 / 150 Output Total 300 / 600 300 / 300 200 / 200 Balance 2439.66 / 2139.66 -1.33 / -1.33 -50 / -50 Lab / Micro Data Result Diagrams: 06/17/21 05:34 06/17/21 05:34 Micro: Microbiology 06/17/21 08:41 Stool Stool Lactoferrin - Final 06/17/21 08:41 Stool Enteric Bacteriology - Final 06/13/21 22:10 Nasal Secretion SARS-CoV-2 Antigen (Rapid) - Final Physical Exam Const oriented x3 and no apparent distress GI soft to palpation and non-tender Assessment & Plan Assessment/Plan (1) SBO (small bowel obstruction): PLAN: Patient began passing flatus and was started on a clear liquid diet. Advance to a regular diet if she tolerates that she may be discharged home. Vikash Jimenez MD Pager: [facility] [address] [place] [address], [address] [place] [address] Office:
--- NOTE | 2021-06-20 07:07 | DS.PCM_ITS ---
Providers Date of Admission: 06/18/21 Primary Care Physician: KAILASH Carrillo Consultations 06/14/21 18:05 Consult: Hospitalist Routine Consulting Provider: Kaia Elizabeth Reason for Consult: MEDICAL MANAGEMENT EMERGENT Consult: Yes MD Notified: Yes Date Notified: 06/14/21 Time Notified: 18:05 Method of Notification: Verbal Reason For Visit: SMALL BOWEL OBSTRUCTION Diagnosis Discharge Diagnosis (1) SBO (small bowel obstruction): Status: Acute Code(s): K56.609 - Unspecified intestinal obstruction, unspecified as to partial versus complete obstruction Medications at Discharge Home Medications calcium carbonate-vitamin D3 2 tab PO DAILY 01/27/15 cholecalciferol (vitamin D3) 2,000 unit PO DAILY 01/27/15 montelukast 10 mg PO DAILY 01/27/15 levothyroxine 25 mcg tablet 25 mcg PO DAILY 09/18/20 pantoprazole 40 mg tablet,delayed release 80 mg PO DAILY 09/18/20 cyanocobalamin (vitamin B-12) 5,000 mcg PO DAILY 09/28/20 acetaminophen 650 mg PO Q6H PRN PRN tablet 11/17/20 trazodone 50 mg tablet 50 mg PO QHS PRN 03/15/21 Align 4 mg PO DAILY 06/13/21 gabapentin 200 mg PO TID 06/13/21 magnesium 400 mg PO DAILY 06/13/21 sucralfate 1 g PO ACHS 06/13/21 Hospital Course Summary of Care Provided Hospital Course: Patient is admitted with a possible bowel obstruction. The following day she had a small bowel follow-through which showed contrast entering the colon. She still continued to have pain and was continued to be observed. After she did not progress a repeat CT was performed which showed possible bowel obstruction. She was taken for surgery and an internal hernia was identified and the adhesions were lysed. She did have an enterotomy which was repaired as well. The following day she was not having any bowel function but her pain was improved. The day after that she started on clear liquids and started having bowel function. She was advanced to regular diet and discharged home once tolerating. Weight / BMI Weight Weight: 171 lb 1.259 oz Body Mass Index (BMI) 30.3 ABG / Lab / Microbiology Data Result Diagrams: 06/17/21 05:34 06/17/21 05:34 Microbiology: Microbiology 06/17/21 08:41 Stool Stool Lactoferrin - Final 06/17/21 08:41 Stool Enteric Bacteriology - Final 06/13/21 22:10 Nasal Secretion SARS-CoV-2 Antigen (Rapid) - Final D/C Instructions Discharge Diet: Light diet - advance as tolerated Discharge Activity: Return to Normal Activity and May Shower Weight Bearing Status: Weight bearing as tolerated Call your doctor if your incision/area has: Continuous Slow Oozing, Sudden Increased Bleeding, Increased Pain/ Swelling, Increased Redness, Foul Smelling Discharge and Swelling at the incision site Call your doctor if you observe: Fever of 101 or Higher Change Dressing in: 2 days Cleanse incision/area with: Soap & Water Please Follow Up With: Vikash Jimenez MD When: Please call to schedule 2 week follow up appointment. [phone] Meaningful Use Info Meaningful Use Diagnoses (Choose all that apply): None applicable Discharge Plan Admission Admit Date/Time: 06/18/21 15:38 Attending Provider: Galina Duncan Primary Care Provider: Aishwarya Lopez NP Consulting Providers: Kaia Elizabeth Discharge Orders/Prescriptions Prescriptions: Continued pantoprazole 40 mg tablet,delayed release (DR/EC) 80 mg PO DAILY RF: 0 levothyroxine [Synthroid] 25 mcg tablet 25 mcg PO DAILY RF: 0 trazodone 50 mg tablet 50 mg PO QHS PRN (Reason: Sleep) RF: 0 montelukast 10 MG tablet 10 mg PO DAILY RF: 0 cholecalciferol (vitamin D3) 1,000 UNIT tablet 2,000 unit PO DAILY RF: 0 calcium carbonate-vitamin D3 1 EACH tablet 2 tab PO DAILY RF: 0 cyanocobalamin (vitamin B-12) 5,000 MCG tablet,disintegrating 5,000 mcg PO DAILY RF: 0 acetaminophen 325 MG tablet 650 mg PO Q6H PRN PRN (Reason: Pain Score 1-5) RF: 0 Align 4 mg Capsule 4 mg PO DAILY RF: 0 magnesium 200 mg Tablet 400 mg PO DAILY RF: 0 gabapentin 100 mg Tablet 200 mg PO TID RF: 0 sucralfate 1 gram Tablet 1 g PO ACHS RF: 0 Referrals / Follow Up: Aishwarya Lopez NP, C[employer]TER [employer] TECHNICIAN-C [Primary Care Provider] -
[2021-06-20 08:30] VITALS: BP 109/70; PULSE 87; RESP 16; TEMP 36.9; O2SAT 97
[2021-06-20] MEDS: Menthol/Lanolin/Calamine/Znox 113 GM Tube 1 APPLIC TOPICAL ×2 (09:07→19:56)
[2021-06-20] MEDS: Montelukast 10 MG Tablet PO (09:08)
[2021-06-20] MEDS: traMADol 50 MG Tablet PO ×2 (09:10→16:12)
--- NOTE | 2021-06-20 11:34 | NURSING ---
pt ate scrambled eggs and ate a few bites of toast-denies any increased pain,n/v s/p eating
[2021-06-20 13:00] VITALS: BP 100/56; PULSE 79; RESP 18; TEMP 36.8; O2SAT 96
[2021-06-20] MEDS: Acetaminophen 325 MG Tablet 650 MG PO (13:27)
--- NOTE | 2021-06-20 16:29 | CASEMGMT ---
JULIA MONTE NOTE: Lorene DUMONT, states pt is having concerning being discharged today. JULIA MONTE to room to talk w/pt at this time. Pt states she has no concerns w/discharging home alone. She states she feels she will be safe and able to take care of herself. She stays her concern is the episode of diarrhea she had earlier today, stating, I had a big blow-out where it went through my depends and all over the floor and I haven't eaten anything since. She states for breakfast she ate: 2 scrambled eggs, 2-3 swallows of ensure, and a very small piece of toast and then mashed potatoes for lunch. She states the blow out was after eating the mashed potatoes. She has had 2 very small loose stools (dime-size) after that. Pt states she would like to eat some pudding this evening to see if she is able to tolerate it. Pt has a friend, Shonna Baker, that is willing to stay w/her tonight to help her, if she does discharge home. Lorene aware of the above and to talk w/Dr Jimenez. Pudding has been ordered. Charo WALLER RN, CM
[2021-06-20 17:06] VITALS: BP 104/61; PULSE 81; RESP 18; TEMP 36.7; O2SAT 97
[2021-06-20 19:46] VITALS: BP 119/104; PULSE 76; RESP 18; TEMP 36.8; O2SAT 96
[2021-06-20] MEDS: Morphine 2 MG/ML Syringe IV (19:55)
[2021-06-20] MEDS: 0.9% Saline Lock 10 ML Syringe IV (19:56)
[2021-06-20] MEDS: traZODone 50 MG Tablet PO (22:01)
[2021-06-20 22:04] VITALS: BP 126/77; PULSE 66; RESP 18; TEMP 37; O2SAT 94
[2021-06-21] MEDS: Sucralfate 1 GM Tablet PO ×2 (01:20→11:06)
[2021-06-21 05:19] VITALS: BP 114/54; PULSE 89; RESP 18; TEMP 36.7; O2SAT 94
[2021-06-21] MEDS: Pantoprazole Sodium 40 MG Tablet 80 MG PO (05:22)
[2021-06-21] MEDS: Gabapentin 100 MG Capsule 200 MG PO ×2 (05:22→13:22)
[2021-06-21] MEDS: Levothyroxine 25 MCG TABLET PO (05:22)
--- NOTE | 2021-06-21 07:32 | PN.SURG_ITS ---
Subjective Subjective Patient is having a lot of liquid bowel movement. She tolerated some regular diet with no nausea or vomiting. Objective Data Objective Data Vital Signs: Vital Signs Temp Pulse Resp BP Pulse Ox 98.1 F 89 18 114/54 L 94 06/21/21 05:19 06/21/21 05:19 06/21/21 05:19 06/21/21 05:19 06/21/21 05:19 Oxygen Flow Rate (L/min) 2 Oxygen Delivery Method Room Air Weight: 171 lb 1.259 oz Body Mass Index (BMI) 30.3 Intake & Output: Intake and Output for Last 24 Hours 06/19/21 06/20/21 06/21/21 23:59 23:59 23:59 Intake Total 298.67 / 298.67 150 / 150 Output Total 300 / 300 350 / 350 100 / 100 Balance -1.33 / -1.33 -200 / -200 -100 / -100 Lab / Micro Data Result Diagrams: 06/17/21 05:34 06/17/21 05:34 Micro: Microbiology 06/17/21 08:41 Stool Stool Lactoferrin - Final 06/17/21 08:41 Stool Enteric Bacteriology - Final 06/13/21 22:10 Nasal Secretion SARS-CoV-2 Antigen (Rapid) - Final Physical Exam GI soft to palpation and non-tender Assessment & Plan Assessment/Plan (1) SBO (small bowel obstruction): PLAN: Patient is tolerating some regular food I advised her to increase her diet as that will solidify her stools. Her stools becoming more formed. No nausea or vomiting. Plan for discharge today. Vikash Jimenez MD Pager: [facility] [address] [place] [address], [address] [place] [address] Office:
[2021-06-21 07:57] VITALS: BP 118/56; PULSE 94; RESP 16; TEMP 36.7; O2SAT 96
[2021-06-21] MEDS: Montelukast 10 MG Tablet PO (07:59)
[2021-06-21] MEDS: Menthol/Lanolin/Calamine/Znox 113 GM Tube 1 APPLIC TOPICAL (08:00)
[2021-06-21 13:15] VITALS: BP 113/54; PULSE 95; RESP 18; O2SAT 95
--- NOTE | 2021-06-22 14:39 | CASEMGMT ---
JULIA MONTE Discharge Follow Up Phone Call: MAYRA: 13 Strata: 3 Call Date: 06/22/21 Discharge Date: 06/21/21 Time of Call:1439 Duration:3 min Admitting Dx:GEETHAO JULIA MONTE completed follow up phone call after recent hospitalization. Pt states she is doing so so. She states her diarrhea has slowed down some but still has it. She has some pain yet in her abdomen. She states she had some tramadol left over from a prior surgery so she took it. It was successful in relieving her pain so she called , who then ordered her some. Pt has an appt with Dr. Jimenez on Jul 02 at 1pm. She has not yet made an appt with Aishwarya Jessica but will do so. Pt denies further questions regarding her dc instructions or medications.
== END 2021-06-21 15:00 | disposition home or self-care (01) | DRG 330 ==
LOC: ED 22:21 → MS3 22:37
PROVIDERS: Family Medicine; Surgery; Admitting Provider Surgery; Emergency Provider Emergency Medicine; PCP Nurse Practitioner; Visit Provider Internal Medicine
PROC: 0DQ80ZZ Repair Small Intestine, Open Approach (ICD-10-PCS; CPT 44202; principal; 2021-06-18 15:00)
DX: K46.0 Unspecified abdominal hernia with obstruction, without gangrene (principal); K56.600 Partial intestinal obstruction, unspecified as to cause; E03.9 Hypothyroidism, unspecified; G89.29 Other chronic pain; M54.9 Dorsalgia, unspecified; K57.90 Diverticulosis of intestine, part unspecified, without perforation or abscess without bleeding; K21.9 Gastro-esophageal reflux disease without esophagitis; Z87.891 Personal history of nicotine dependence; Z85.3 Personal history of malignant neoplasm of breast
CPT/HCPCS: 36415; 71045; 74018; 74176; 74177; 74250; 80048; 80053; 80076; 81001; 83630; 83690; 83735; 84100; 84484; 85025; 85652; 86140; 87426; 87506; 93005; 99284; J7030; J7120; Q9967; A4216; J2405

== ENCOUNTER 2021-07-01 03:09 | Emergency (ER) | payer MEDICARE, BC, SELFPAY ==
[2020-09-28 13:31] VITALS: BMI 34.7
[2021-07-01 03:09] VITALS: BP 135/71; PULSE 98; RESP 16; TEMP 37; O2SAT 96
[2021-07-01 03:10] VITALS: BP 135/71; PULSE 98; RESP 18; TEMP 37; O2SAT 96; BMI 29.2
--- NOTE | 2021-07-01 03:46 | EX.ED.DYSGE1 ---
HPI History of Present Illness Chief Complaint: Wound Check Informant: patient Narrative Narrative: Patient here with family for evaluation wound now draining pus this evening. She is 13 days postop exploratory laparoscopy with small bowel enterotomy secondary to small bowel obstruction. Performed by Dr. Jimenez. States she had large bump third of the tennis ball size developed since surgery. She followed up with her surgeon 2 days ago, reported there was a hematoma and to monitor it. This evening in the restroom when she was in the shower started draining pus. Continued to drain now flattened down. She denies any fevers. Denies any significant pain in the region. Patient has allergies to sulfa. No other complaints. [facility] Medical History Anemia Breast cancer, left Breast lump Cancer Chronic low back pain with sciatica Chronic pain Dyspnea Former smoker GERD (gastroesophageal reflux disease) Hiatal hernia History of stress test Hypothyroidism Kidney disease Lung cancer Osteopenia Pancreatitis Thyroiditis Home Medications calcium carbonate-vitamin D3 2 tab PO DAILY 01/27/15 [History Last Taken 06/13/21 09:00] cholecalciferol (vitamin D3) 2,000 unit PO DAILY 01/27/15 [History Last Taken 06/12/21 21:00] montelukast 10 mg PO DAILY 01/27/15 [History Last Taken 06/13/21 13:00] levothyroxine 25 mcg tablet 25 mcg PO DAILY 09/18/20 [History Last Taken 06/13/21 05:30] pantoprazole 40 mg tablet,delayed release 80 mg PO DAILY 09/18/20 [History Last Taken 06/13/21 07:30] cyanocobalamin (vitamin B-12) 5,000 mcg PO DAILY 09/28/20 [History Last Taken 06/13/21 13:00] acetaminophen 650 mg PO Q6H PRN PRN tablet 11/17/20 [Rx Last Taken 06/12/21 09:00] trazodone 50 mg tablet 50 mg PO QHS PRN 03/15/21 [History Last Taken 06/12/21 23:00] Align 4 mg PO DAILY 06/13/21 [History Last Taken 06/12/21 16:00] gabapentin 200 mg PO TID 06/13/21 [History Last Taken 06/13/21 16:00] magnesium 400 mg PO DAILY 06/13/21 [History Last Taken 06/13/21 14:00] sucralfate 1 g PO ACHS 06/13/21 [History Last Taken 06/13/21 16:00] tramadol 50 mg tablet 50 mg PO Q6H PRN #20 tab 06/22/21 [Rx Last Taken Unknown] cephalexin 500 mg PO Q6 #40 cap 07/01/21 [Rx Last Taken Unknown] doxycycline monohydrate 100 mg PO BID #20 cap 07/01/21 [Rx Last Taken Unknown] Allergy/AdvReac Type Severity Reaction Status Date / Time Sulfa (Sulfonamide Allergy Hives Verified 06/29/21 09:53 Antibiotics) Family History Father Heart disease Surgical History History of cholecystectomy History of kidney surgery History of left breast biopsy (~09/18/20) History of lumpectomy of left breast (~10/10/20) History of tonsillectomy History of total left knee replacement History of total right knee replacement history ORIF Right ankle S/P lobectomy of lung Social History housing: house current occupation: Retired- [employer] history of recent travel: No sexually active: No Smoking Status: Former smoker second hand exposure: No alcohol intake: never substance use type: does not use ROS ROS ED Constitutional Constitutional ED: Denies chills, fever(s) or sweats Eyes Eyes: Denies change in vision ENT ENT ED: Denies dysphagia or sore throat Cardiovascular Cardiovascular: Denies chest pain, leg edema, palpitations or racing heartbeat Respiratory/Chest Respiratory/Chest: Denies cough, dyspnea or dyspnea on exertion Gastrointestinal Gastrointestinal: Denies abdominal pain, diarrhea, nausea or vomiting Genitourinary Genitourinary ED: Denies dysuria, hematuria or urinary frequency Musculoskeletal Musculoskeletal: Denies back pain, extremity pain or neck pain Integumentary Reports abscess; Denies rash or wounds Neurologic Neurologic: Denies headache(s), paresthesias or weakness EXAM Physical Exam Const Vital Signs: 07/01/21 03:09 07/01/21 03:10 07/01/21 04:06 Temperature 98.6 F 98.6 F Temperature Source Temporal Temporal Pulse Rate 98 98 78 Respiratory Rate 16 18 16 Blood Pressure 135/71 H 135/71 H Blood Pressure Mean 92 92 Pulse Ox 96 96 97 Oxygen Delivery Method Room Air Room Air Positive well nourished and well developed General Appearance ED: well developed and NAD HEENT Reports moist mucous membranes normocephalic and atraumatic Eyes PERRL, EOMs intact bilaterally and conjunctivae normal General Eye ED: Yes normal appearance of both eyes Neck no lymphadenopathy and supple General: Negative for tenderness Chest Wall Chest: Negative for tenderness Resp normal respiratory effort and normal air movement Effort and Inspection: symmetric chest movement; Negative for respiratory distress Cardio regular rate, regular rhythm and no murmurs Peripheral Pulses: pulses 2+ throughout GI GI Narrative: Midline epigastric vertical incision mild erythema around the ends, currently flattened, with gentle pressure noted exudative drainage. Palpation: Negative for guarding or rebound tenderness present Back/Spine no CVA tenderness and no thoracic nor lumbar tenderness Extremity normal to inspection General Extremety ED: Negative for edema or tenderness General Extremity: Negative for edema Neuro oriented x3 and no sensory deficits noted Sensorium / Orientation: awake and alert Skin no rashes or lesions noted and no wounds MDM MDM MDM Narrative Medical decision making narrative: Patient exam notes active draining abscess. Is currently flattened down. Wound cultures were obtained after skin prep with Betadine. Continued to express exudative malodorous drainage. Patient started on Keflex and doxycycline for coverage pending culture results. Do not feel this time image studies are necessary as the abscess is actively draining. She has no fevers. She will follow-up with her surgeon. Return precautions. All questions were answered. Discharge Plan Triage Chief Complaint: Wound Check ED Provider: Johnny Hemphill Dx/Rx/DC Orders Clinical Impression: Post-operative wound abscess Instructions: ED Abscess Antibiotic Treatment Only, ED Wound Infection after surgery Prescriptions: New doxycycline monohydrate 100 MG capsule 100 mg PO BID Qty: 20 RF: 0 cephalexin [cephalexin] 500 MG capsule 500 mg PO Q6 Qty: 40 RF: 0 No Action pantoprazole 40 mg tablet,delayed release (DR/EC) 80 mg PO DAILY RF: 0 levothyroxine [Synthroid] 25 mcg tablet 25 mcg PO DAILY RF: 0 trazodone 50 mg tablet 50 mg PO QHS PRN (Reason: Sleep) RF: 0 montelukast 10 MG tablet 10 mg PO DAILY RF: 0 cholecalciferol (vitamin D3) 1,000 UNIT tablet 2,000 unit PO DAILY RF: 0 calcium carbonate-vitamin D3 1 EACH tablet 2 tab PO DAILY RF: 0 cyanocobalamin (vitamin B-12) 5,000 MCG tablet,disintegrating 5,000 mcg PO DAILY RF: 0 acetaminophen 325 MG tablet 650 mg PO Q6H PRN PRN (Reason: Pain Score 1-5) RF: 0 Align 4 mg Capsule 4 mg PO DAILY RF: 0 magnesium 200 mg Tablet 400 mg PO DAILY RF: 0 gabapentin 100 mg Tablet 200 mg PO TID RF: 0 sucralfate 1 gram Tablet 1 g PO ACHS RF: 0 tramadol 50 mg tablet 50 mg PO Q6H PRN (Reason: pain) Qty: 20 RF: 0 Primary Care Provider: Aishwarya Lopez NP Referrals: Vikash Jimenez MD [STAFF PHYSICIAN] - 1 Day Aishwarya Lopez NP, FOREST ENGINEER-C [Primary Care Provider] - Activity Restrictions/Additional Instructions: Spontaneous drainage, wound cultures obtained and sent. Take antibiotic as prescribed. Follow-up with Dr. Jimenez. Return if any worsening symptoms or fevers develop. Disposition Disposition: Home, Self Care Discharge Date/Time: 07/01/21 04:06
[2021-07-01] MEDS: Doxycycline 100 MG CAPSULE PO (03:50)
[2021-07-01] MEDS: Cephalexin 250 MG Capsule 500 MG PO (03:50)
[2021-07-01 04:06] VITALS: PULSE 78; RESP 16; O2SAT 97
== END 2021-07-01 04:06 | disposition home or self-care (01) ==
LOC: ED 04:00
PROVIDERS: Emergency Provider Emergency Medicine; PCP Nurse Practitioner
DX: T81.49XA Infection following a procedure, other surgical site, initial encounter (principal)
CPT/HCPCS: 87070; 87205

== ENCOUNTER 2021-07-01 19:25 | Emergency (ER) | payer MEDICARE, BC, SELFPAY ==
[2020-09-28 13:31] VITALS: BMI 34.7
[2021-07-01 19:25] VITALS: BP 97/82; PULSE 106; RESP 20; TEMP 36.6; O2SAT 99; BMI 28.9
--- NOTE | 2021-07-01 20:03 | CT_ITS ---
HISTORY: Draining wound status post surgery 06/18/21, history cholecystectomy, lung cancer and breast cancer EXAMINATION: CT Abdomen And Pelvis W/ Contrast Injection TECHNIQUE: Helically acquired images were obtained of the abdomen and pelvis following IV contrast. A radiation dose optimization technique was used for this scan. IV Contrast dosage and agent: 100mL [id number]-300 Oral contrast: None. COMPARISON: 06/18/21 FINDINGS: LOWER CHEST: Trace residual bilateral pleural effusions with adjacent atelectasis and/or fibrosis. No cardiomegaly or pericardial effusion. Small hiatal hernia. LIVER: Homogeneous. No focal mass. GALLBLADDER AND BILIARY TREE: Cholecystectomy. No intra- or extrahepatic biliary ductal dilation. PANCREAS: No focal cystic or solid mass. SPLEEN: Normal size without focal cystic or solid mass. ADRENAL GLANDS: No nodules. KIDNEYS AND URETERS: Stable malrotation right kidney with mild right hydronephrosis, no hydroureter. Left kidney unremarkable. PERITONEUM: No ascites or free air. BOWEL: No evidence of acute appendicitis. Diffuse increase in small bowel fluid contents with mild wall thickening. Small bowel distention significantly less than prior study. Colonic diverticulosis without focal inflammatory bowel wall changes. LYMPH NODES: No enlarged mesenteric or retroperitoneal lymph nodes. VESSELS: Aorta is non-dilated. URINARY BLADDER: Unremarkable. REPRODUCTIVE ORGANS: No pelvic masses. ABDOMINAL WALL: Fluid collection in the mid ventral abdominal wall incision with small gas bubbles. Collection measures 2.5 x 3 cm in greatest cross-sectional area and extends 4.8 cm craniocaudal. BONES: No acute or aggressive abnormality. CT/Abdomen/Pelvis W IV Cont ONLY IMPRESSION: Postoperative fluid collection in the midline ventral abdominal wall incision. Small gas bubbles within the collection suggests probable infected collection. Nonspecific small bowel changes, likely enteritis in the appropriate clinical setting. Trace bibasilar pleural effusions. Individualized dose optimization techniques were used for this CT. at 2207 Reported and signed by: Espinoza Mccormick MD Electronically Signed: Espinoza Mccormick MD at 22:06 EDT Tel , Service support ,
--- NOTE | 2021-07-01 20:04 | EDS_ITS ---
HPI History of Present Illness Chief Complaint: Wound Detail of Chief Complaint: Postop wound infection Informant: patient Narrative Narrative: Patient presents to the emergency department with complaint of a wound after having surgery on June 18. Patient states that 2 days ago started having drainage from the upper abdomen. Patient states that on June 18 she had surgery for a bowel obstruction. Patient was seen in the emergency department last night for drainage and had the wound cultured and was started on antibiotics and no imaging was performed. Patient was seen by her surgeon 2 days ago who thought that she had a hematoma over that area. Patient states that she is not been feeling well all day today and has had more pain. The drainage is now becoming more bloody. Patient has not had a fever but states that her temperature went up to 98 and that is abnormally high for her. Prior similar symptoms: No PFSH PFSH Medical History Anemia Breast cancer, left Breast lump Cancer Chronic low back pain with sciatica Chronic pain Dyspnea Former smoker GERD (gastroesophageal reflux disease) Hiatal hernia History of stress test Hypothyroidism Kidney disease Lung cancer Osteopenia Pancreatitis Thyroiditis Home Medications calcium carbonate-vitamin D3 2 tab PO DAILY 01/27/15 [History Last Taken 06/13/21 09:00] cholecalciferol (vitamin D3) 2,000 unit PO DAILY 01/27/15 [History Last Taken 06/12/21 21:00] montelukast 10 mg PO DAILY 01/27/15 [History Last Taken 06/13/21 13:00] levothyroxine 25 mcg tablet 25 mcg PO DAILY 09/18/20 [History Last Taken 06/13/21 05:30] pantoprazole 40 mg tablet,delayed release 80 mg PO DAILY 09/18/20 [History Last Taken 06/13/21 07:30] cyanocobalamin (vitamin B-12) 5,000 mcg PO DAILY 09/28/20 [History Last Taken 06/13/21 13:00] acetaminophen 650 mg PO Q6H PRN PRN tablet 11/17/20 [Rx Last Taken 06/12/21 09:00] trazodone 50 mg tablet 50 mg PO QHS PRN 03/15/21 [History Last Taken 06/12/21 23:00] Align 4 mg PO DAILY 06/13/21 [History Last Taken 06/12/21 16:00] gabapentin 200 mg PO TID 06/13/21 [History Last Taken 06/13/21 16:00] sucralfate 1 g PO ACHS 06/13/21 [History Last Taken 06/13/21 16:00] tramadol 50 mg tablet 50 mg PO Q6H PRN #20 tab 06/22/21 [Rx Last Taken Unknown] cephalexin 500 mg PO Q6 #40 cap 07/01/21 [Rx Last Taken Unknown] doxycycline monohydrate 100 mg PO BID #20 cap 07/01/21 [Rx Last Taken Unknown] oxycodone-acetaminophen 1 tab PO Q6H PRN PRN 3 Days #12 tablet 07/01/21 [Rx Last Taken Unknown] potassium chloride 20 meq PO DAILY #450 ml 07/01/21 [Rx Last Taken Unknown] Allergy/AdvReac Type Severity Reaction Status Date / Time Sulfa (Sulfonamide Allergy Hives Verified 07/01/21 19:27 Antibiotics) Family History Father Heart disease Surgical History History of cholecystectomy History of kidney surgery History of left breast biopsy (~09/18/20) History of lumpectomy of left breast (~10/10/20) History of tonsillectomy History of total left knee replacement History of total right knee replacement history ORIF Right ankle S/P lobectomy of lung Social History housing: house current occupation: Retired- [employer] history of recent travel: No sexually active: No Smoking Status: Former smoker second hand exposure: No alcohol intake: never substance use type: does not use ROS ROS ED Constitutional Constitutional ED: Reports systems reviewed and no addt'l complaints, except as documented; Denies body ache(s), change in weight or chills Eyes Eyes: Denies acute decrease in peripheral vision, change in vision, double vision or loss of vision ENT ENT ED: Reports none; Denies ear pain, lip swelling, loss taste/smell, neck pain, otalgia or sore throat Cardiovascular Cardiovascular: Reports none; Denies abdominal pain, chest pain with activity, leg edema, lightheadedness, palpitations, rapid heart rate or syncope Respiratory/Chest Respiratory/Chest: Reports none; Denies change in mental status, dry cough, dyspnea, hemoptysis, shortness of breath at rest or shortness of breath with exertion Gastrointestinal Gastrointestinal: Reports none and abdominal pain; Denies change in stool character, diarrhea, hematemesis, hematochezia, melena, rectal bleeding or vomiting Genitourinary Genitourinary ED: Reports none; Denies abdominal discomfort, anuria, dysuria, genital pain or polyuria Musculoskeletal Musculoskeletal: Reports none; Denies arthralgias, back pain, difficulty walking, extremity pain, muscle weakness or myalgias Integumentary Reports none, abscess and other Details: Postop wound drainage ; Denies rash Neurologic Neurologic: Reports none; Denies abnormal gait, confusion, focal weakness, frequent falls, headache(s), loss of vision, numbness, paresthesias, radicular pain, vertigo or weakness Psychiatric Psychiatric: Reports systems reviewed and no addt'l complaints, except as documented and none; Denies behavioral changes, confusion, difficulty concentrating, hallucinations, suicidal ideation, tactile hallucinations or visual hallucinations Endocrine Endocrinology: Denies none, cold intolerance, excessive sweating, fatigue or heat intolerance Hematologic/Lymphatic Hematologic/Lymphatic: Reports none; Denies anemia, easy bleeding or easy bruising Allergic/Immunologic Allergic/Immunologic ED: Denies as per HPI, none, lip swelling, mouth swelling, throat swelling, tongue swelling or hives EXAM Physical Exam Const Vital Signs: 07/01/21 19:25 07/01/21 21:25 Temperature 97.8 F Temperature Source Temporal Pulse Rate 106 H 92 Respiratory Rate 20 H 22 H Blood Pressure 97/82 H 129/54 H Blood Pressure Mean 87 79 Pulse Ox 99 99 Oxygen Delivery Method Room Air Room Air Positive well nourished and well developed General Appearance ED: well developed and NAD HEENT Reports TM's clear and moist mucous membranes normocephalic and atraumatic; Negative for trauma or tenderness Tympanic Membrane ED: Yes TM's clear Eyes PERRL and EOMs intact bilaterally General Eye ED: Negative for pale conjunctiva or scleral icterus Neck no lymphadenopathy, supple and no JVD General: Negative for tenderness Chest Wall inspection of chest normal and palpation of chest normal Chest: Negative for tenderness Resp normal respiratory effort and clear to auscultation bilaterally Effort and Inspection: Negative for respiratory distress or pain with movement Auscultation: Negative for rhonchi, wheezes or diminished lung sounds Cardio regular rate, regular rhythm, S1 normal heart sound, S2 normal heart sound and no murmurs Peripheral Pulses: pulses 2+ throughout GI normal to inspection, nondistended, normoactive bowel sounds, soft to palpation, non-distended and no masses GI Narrative: Patient has a small wound measuring about 2 cm in length to the right upper abdomen that is draining some serous and purulent debris with palpation it is quite tender. There is no rebound, rigidity, or peritoneal signs. Back/Spine no CVA tenderness and no thoracic nor lumbar tenderness Extremity normal to inspection General Extremety ED: Negative for edema General Extremity: Negative for edema Neuro oriented x3, CN's II-XII intact bilaterally, no sensory deficits noted and gait normal Sensorium / Orientation: awake, alert, oriented to person, oriented to place and oriented to time Motor Exam: strength 5/5 throughout and strength abnormal Psych mental status grossly normal Skin no rashes or lesions noted and no wounds MDM MDM MDM Narrative Medical decision making narrative: IV line established on arrival. Patient was medicated with morphine and Zofran. Patient was noted to be hypokalemic and received 40 mEq of potassium chloride IV. CT scan of the abdomen pelvis showed a localized postop fluid collection midline ventral abdominal wall incision suspicious for small abscess. I suspect patient likely had a hematoma that became infected and is now draining. The abdomen is not cellulitic patient does not appear ill or toxic or septic. I discussed case with general surgeon on- call Dr. Matt Joshua who asked the patient call her surgeon's office tomorrow for follow-up. Patient will be advised to continue with the doxycycline and cephalexin that she was prescribed yesterday. Patient also will be given a prescription for potassium chloride and advised to follow-up with her primary care physician to have repeat potassium level checked within next 3 to 5 days. Lab Data Attestation: I reviewed the patient's lab results. Labs: Laboratory Results - last 24 hr 07/01/21 07/01/21 07/01/21 20:15 20:15 20:15 WBC 8.3 RBC 3.96 L Hgb 11.8 L Hct 36.0 L MCV 90.9 MCH 29.8 MCHC 32.8 RDW Std Deviation 50.2 H RDW Coeff of Diaz 15.2 H Plt Count 392 MPV 10.9 Immature Gran % (Auto) 2.000 H Neut % (Auto) 56.7 Lymph % (Auto) 24.4 [place] % (Auto) 15.3 H Eos % (Auto) 0.5 Baso % (Auto) 1.1 H Absolute Neuts (auto) 4.7 Absolute Lymphs (auto) 2.03 Nucleated RBC % 0 Sodium 140 Potassium 2.7 L* Chloride 101 Carbon Dioxide 30.0 Anion Gap 9 BUN 9 Creatinine 0.54 L Estim Creat Clear Calc 37.85 Est GFR (MDRD) Af Amer 140 Est GFR (MDRD) Non-Af 116 BUN/Creatinine Ratio 16.5 Glucose 95 Lactic Acid 1.1 Calcium 9.4 Radiography Diagnostic Testing: Clinical Impression(s) from Imaging Studies Abdomen/Pelvis CT 07/01/21 20:03 IMPRESSION: Postoperative fluid collection in the midline ventral abdominal wall incision. Small gas bubbles within the collection suggests probable infected collection. Nonspecific small bowel changes, likely enteritis in the appropriate clinical setting. Trace bibasilar pleural effusions. Individualized dose optimization techniques were used for this CT. at 2207 Reported and signed by: Espinoza Mccormick MD Electronically Signed: Espinoza Mccormick MD at 22:06 EDT Tel , Service support , Discharge Plan Triage Chief Complaint: Wound ED Provider: Mariann Alves Dx/Rx/DC Orders Clinical Impression: Post-operative wound abscess, Acute hypokalemia Instructions: ED Abscess Antibiotic Treatment Only, ED Hypokalemia Prescriptions: New oxycodone-acetaminophen [oxycodone-acetaminophen] 1 TABLET tablet 1 tab PO Q6H PRN PRN (Reason: Pain) 3 Days Qty: 12 RF: 0 potassium chloride 20 mEq/15 mL liquid 20 meq PO DAILY Qty: 450 RF: 0 No Action pantoprazole 40 mg tablet,delayed release (DR/EC) 80 mg PO DAILY RF: 0 levothyroxine [Synthroid] 25 mcg tablet 25 mcg PO DAILY RF: 0 trazodone 50 mg tablet 50 mg PO QHS PRN (Reason: Sleep) RF: 0 montelukast 10 MG tablet 10 mg PO DAILY RF: 0 cholecalciferol (vitamin D3) 1,000 UNIT tablet 2,000 unit PO DAILY RF: 0 calcium carbonate-vitamin D3 1 EACH tablet 2 tab PO DAILY RF: 0 cyanocobalamin (vitamin B-12) 5,000 MCG tablet,disintegrating 5,000 mcg PO DAILY RF: 0 acetaminophen 325 MG tablet 650 mg PO Q6H PRN PRN (Reason: Pain Score 1-5) RF: 0 Align 4 mg Capsule 4 mg PO DAILY RF: 0 gabapentin 100 mg Tablet 200 mg PO TID RF: 0 sucralfate 1 gram Tablet 1 g PO ACHS RF: 0 doxycycline monohydrate 100 MG capsule 100 mg PO BID Qty: 20 RF: 0 cephalexin [cephalexin] 500 MG capsule 500 mg PO Q6 Qty: 40 RF: 0 tramadol 50 mg tablet 50 mg PO Q6H PRN (Reason: pain) Qty: 20 RF: 0 Primary Care Provider: Aishwarya Lopez NP Referrals: Vikash Jimenez MD [STAFF PHYSICIAN] - 1-2 Days if not improving Aishwarya Lopez NP, [employer] [Primary Care Provider] - 3-5 Days (Follow-up in 3 to 5 days to have repeat potassium level checked.) Disposition Disposition: Home, Self Care
[2021-07-01 20:54] LABS: Absolute Lymphocyte Count 2.03 X10^3/uL (0.83-4.51); Absolute Neutrophil Count 4.7 X10^3/uL (2.0-7.7); Basophil# 0.09 X10^3/uL; Basophil% 1.1 % (0-1); Eosinophil# 0.04 X10^3/uL; Eosinophils% 0.5 % (0-5); Hemoglobin 11.8 g/dL (12.0-15.0); Lymphocyte # 2.03 X10^3/ul (0.83-4.51); Lymphocyte % 24.4 % (19-41); Mean Corp Hgb Conc 32.8 g/dL (32-36); Mean Corpuscular Hgb 29.8 pg (27.0-32.0); Mean Corpuscular Volume 90.9 fL (81-99); Mean Platelet Vol. 10.9 fl (6.2-12.0); Monocyte# 1.27 X10^3/uL; Monocyte% 15.3 % (0-10); NRBC Flagged by Analyzer 0 % (0-5); Neutrophil # 4.71 X10^3/uL (2.7-7.7); Neutrophil % 56.7 % (47-70); Platelet Count 392 K/mm3 (150-450); RBC Distribution Width CV 15.2 % (11.6-14.6); RBC Distribution Width SD 50.2 fl (35.1-43.9); Red Blood Count 3.96 M/mm3 (4.2-5.4); White Blood Count 8.3 K/mm3 (4.4-11.0)
[2021-07-01 21:18] LABS: Anion Gap 9 (5-15); BUN 9 mg/dL (7-18); BUN/Creat Ratio 16.5 RATIO (10-20); Calcium,Total 9.4 mg/dL (8.5-10.1); Chloride 101 mmol/L (98-107); Creatinine, Serum 0.54 mg/dL (0.55-1.02); EST Glomerular Filtration Rate 116 mL/min (>60); Est Glom Filt Rate - Afr Amer 140 mL/min (>60); Estimated Creatinine Clearance 37.85 ml/min; Glucose 95 mg/dL (74-106); Potassium 2.7 mmol/L (3.5-5.1); Sodium Level 140 mmol/L (136-145)
[2021-07-01 21:19] LABS: Lactic Acid 1.1 mmol/L (0.4-1.9)
[2021-07-01 21:25] VITALS: BP 129/54; PULSE 92; RESP 22; O2SAT 99
[2021-07-01] MEDS: Potassium Chloride 10mEq/100mL 10 MEQ/100 ML IV.SOLN. 100 MEQ IV BOLUS ×2 (21:57→23:07)
[2021-07-01] MEDS: Ondansetron 4 MG/2 ML Vial IV (21:58)
[2021-07-01] MEDS: Morphine 4 MG/ML Syringe IV (21:58)
[2021-07-01 23:00] VITALS: BP 153/66; PULSE 86; RESP 16; O2SAT 96
[2021-07-02] MEDS: Potassium Chloride 10mEq/100mL 10 MEQ/100 ML IV.SOLN. 100 MEQ IV BOLUS (00:21)
[2021-07-02 00:33] VITALS: BP 119/50; PULSE 88; RESP 23; O2SAT 98
[2021-07-02] MEDS: Morphine 2 MG/ML Syringe IV (01:37)
== END 2021-07-02 01:40 | disposition home or self-care (01) ==
PROVIDERS: Emergency Provider Emergency Medicine; PCP Nurse Practitioner
DX: T81.41XA Infection following a procedure, superficial incisional surgical site, initial encounter (principal); E87.6 Hypokalemia; E03.9 Hypothyroidism, unspecified; K21.9 Gastro-esophageal reflux disease without esophagitis; Z87.891 Personal history of nicotine dependence; Z79.899 Other long term (current) drug therapy
CPT/HCPCS: 74177; 80048; 83605; 85025; 87070; 87077; 87186; 87205; 96365; 96366; 96375; 96376; 99283; J7050; Q9967; A4216; J2405

== ENCOUNTER → 2021-07-05 15:19 | Outpatient (CLI) | payer MEDICARE, BC, SELFPAY ==
[2021-07-02 10:22] VITALS: BMI 34.7
== END ==
PROVIDERS: PCP Nurse Practitioner; Referring Provider Surgery; Visit Provider Surgery
DX: R10.9 Unspecified abdominal pain (principal); T81.49XA Infection following a procedure, other surgical site, initial encounter
CPT/HCPCS: 87070; 87075; 87077; 87186; 87205

== ENCOUNTER → 2021-07-27 12:33 | Outpatient (CLI) | payer MEDICARE, BC, SELFPAY ==
[2021-07-02 10:22] VITALS: BMI 34.7
== END ==
PROVIDERS: PCP Nurse Practitioner; Visit Provider Surgery
DX: R10.9 Unspecified abdominal pain (principal); T81.49XA Infection following a procedure, other surgical site, initial encounter
CPT/HCPCS: 87070; 87075; 87205

== ENCOUNTER → 2021-08-27 12:36 | Outpatient (CLI) | payer MEDICARE, BC, SELFPAY ==
[2020-09-28 13:31] VITALS: BMI 34.7
[2021-07-02 10:22] VITALS: BMI 34.7
--- NOTE | 2021-08-27 12:46 | CT_ITS ---
STUDY: CT CHEST WITHOUT CONTRAST REASON FOR EXAM: Female, 76 years old. NSCLC SURVEILLANCE. The patient is status post left upper lobectomy. The patient has a history of breast cancer with left lumpectomy. RADIATION DOSAGE (If Supplied By Facility): CTDIvol = ( 8.03 ) mGy, DLP = ( 259.30 ) mGycm TECHNIQUE: Transaxial imaging was performed without the administration of intravenous contrast material. Individualized dose optimization techniques were used for this CT. COMPARISON: None. FINDINGS: The patient is status post left upper lobectomy with loss of volume in the left hemithorax. Increased interstitial markings at both lung bases worse on the left lung base suggestive of scarring. Tiny left pleural effusion. There are calcifications of the coronary arteries. Normal mediastinum. Normal hilar regions. Normal unenhanced pulmonary arteries. There is atherosclerotic calcification of the aortic arch with tortuosity and elongation of the aortic arch and descending thoracic aorta. There are multi-level degenerative changes of the thoracic spine. There is no demonstrated abnormality of the visualized upper abdomen. CT/Chest without Contrast IMPRESSION: Status post left upper lobectomy. Findings suggestive of scarring more prominent at the lung bases and on the left side. Electronically Signed: Allan Joshua MD at 13:21 EST , Service support ,
== END ==
PROVIDERS: PCP Nurse Practitioner
DX: Z08 Encounter for follow-up examination after completed treatment for malignant neoplasm (principal); Z90.2 Acquired absence of lung [part of]; Z85.3 Personal history of malignant neoplasm of breast
CPT/HCPCS: 71250

== ENCOUNTER → 2021-12-10 12:58 | Outpatient (CLI) | payer MEDICARE, BC, SELFPAY ==
[2021-07-02 10:22] VITALS: BMI 34.7
--- NOTE | 2021-12-10 13:03 | CT_ITS ---
STUDY: CT CHEST WITHOUT CONTRAST REASON FOR EXAM: Female, 76 years old. CARCINOMA LEFT LUNG RADIATION DOSAGE (If Supplied By Facility): CTDIvol = ( 9.59 ) mGy, DLP = ( 327.17 ) mGycm TECHNIQUE: Transaxial imaging was performed without the administration of intravenous contrast material. Individualized dose optimization techniques were used for this CT. COMPARISON: CT chest 08/27/2021 FINDINGS: Status post left upper lobectomy with volume loss and mediastinal shift to the left, similar compared to the prior. Redemonstration of extensive bilateral increased peripheral reticulations, mild bronchiectasis and architectural distortion, worst at the left lung base, overall similar compared to the prior. There is redemonstration of scattered pulmonary nodules measuring up to 6 mm in the right upper lobe (4-39), similar compared to the prior. Trace left pleural fluid, similar compared to the prior. Normal heart and pericardium. Triple. Coronary artery calcifications again seen. Small hiatal hernia again seen. Normal hilar regions. Normal unenhanced pulmonary arteries. Moderate atherosclerotic calcifications. Normal osseous structures. Status post cholecystectomy. CT/Chest without Contrast IMPRESSION: 1. Bilateral increased peripheral reticulations and architectural distortion, similar compared to the prior, consistent with chronic inflammatory changes or interstitial fibrotic changes. 2. Pulmonary nodules measuring up to 6 mm, similar compared to the prior. Continued attention on follow-up is recommended. 3. Trace left pleural fluid and prior left upper lobectomy, similar compared to the prior. Electronically Signed: Venkata Rosas MD at 5:38 EDT ,
== END ==
PROVIDERS: PCP Nurse Practitioner
DX: C34.92 Malignant neoplasm of unspecified part of left bronchus or lung (principal)
CPT/HCPCS: 71250

== ENCOUNTER 2022-02-07 08:54 | Emergency (ER) | payer MEDICARE, BC, SELFPAY ==
[2021-07-02 10:22] VITALS: BMI 34.7
[2022-02-07 08:55] VITALS: BP 129/52; PULSE 105; RESP 16; TEMP 36.2; O2SAT 6; BMI 26.9
--- NOTE | 2022-02-07 09:11 | EX.ED.DYSGE1 ---
HPI History of Present Illness Chief Complaint: Abd Pain Informant: patient Narrative Narrative: .Patient presents with concern for small bowel obstruction. She states that she had a normal day yesterday but about 9 PM she started to get abdominal bloating and some discomfort in the lower abdomen. No nausea vomiting. She thought she might be constipated so she tried a Dulcolax. This did cause a bowel movement about 1 AM which was a good bowel movement but her symptoms did not improve. She has passed some gas. She has some cramping and overall discomfort in the central lower portion of her abdomen. No fevers or chills. No urinary symptoms. She has history of cholecystectomy years ago. Back in June she had small bowel obstruction had surgery and then she had wound infection afterwards. [facility] Medical History Anemia Breast cancer, left Breast lump Cancer Chronic low back pain with sciatica Chronic pain Dyspnea Former smoker GERD (gastroesophageal reflux disease) Hiatal hernia History of stress test Hypothyroidism Kidney disease Lung cancer Osteopenia Pancreatitis Postoperative wound infection Small bowel obstruction Thyroiditis Home Medications cholecalciferol (vitamin D3) 2,000 unit PO DAILY 01/27/15 [History Last Taken 02/06/22] montelukast 10 mg PO DAILY 01/27/15 [History Last Taken 02/06/22] levothyroxine 25 mcg tablet 25 mcg PO DAILY 09/18/20 [History Last Taken 02/07/22] pantoprazole 40 mg tablet,delayed release 80 mg PO DAILY 09/18/20 [History Last Taken 02/06/22] cyanocobalamin (vitamin B-12) 5,000 mcg PO DAILY 09/28/20 [History Last Taken 02/06/22] levomefolate 7.5 mg-algal oil 90.314 mg capsule 1 cap PO DAILY 10/17/21 [History Last Taken 02/06/22] acetaminophen 650 mg PO Q6H PRN 02/07/22 [History Last Taken 02/07/22] calcium citrate [Citracal] 400 mg PO BID 02/07/22 [History Last Taken 02/06/22] escitalopram oxalate 5 mg PO DAILY 02/07/22 [History Last Taken 02/06/22] mv-mn-B.coag-B.subtilis-inulin [Culturelle Probiotic-Multivit] 1 tab PO DAILY 02/07/22 [History Last Taken 02/06/22] Allergy/AdvReac Type Severity Reaction Status Date / Time Sulfa (Sulfonamide Allergy Hives Verified 02/07/22 08:56 Antibiotics) Family History Father Heart disease Surgical History History of cholecystectomy History of kidney surgery History of laparoscopy History of left breast biopsy (~09/18/20) History of lumpectomy of left breast (~10/10/20) History of tonsillectomy History of total left knee replacement History of total right knee replacement history ORIF Right ankle S/P lobectomy of lung Social History housing: house current occupation: Retired- [employer] history of recent travel: No sexually active: No Smoking Status: Former smoker second hand exposure: No alcohol intake: never substance use type: does not use ROS ROS ED Constitutional Constitutional ED: Denies chills or fever(s) ENT ENT ED: Denies rhinorrhea Cardiovascular Cardiovascular: Denies chest pain or palpitations Respiratory/Chest Respiratory/Chest: Denies cough or dyspnea Gastrointestinal Gastrointestinal: Reports abdominal pain; Denies diarrhea, nausea or vomiting Genitourinary Genitourinary ED: Denies dysuria or hematuria Musculoskeletal Musculoskeletal: Denies back pain Integumentary Denies rash Neurologic Neurologic: Denies headache(s) Endocrine Endocrinology: Denies polydipsia or polyuria Allergic/Immunologic Allergic/Immunologic ED: Denies mouth swelling or urticaria EXAM Physical Exam Const Vital Signs: 02/07/22 08:55 02/07/22 12:41 Temperature 97.2 F L 97.2 F L Temperature Source Temporal Temporal Pulse Rate 105 H 72 Respiratory Rate 16 Blood Pressure 129/52 H 121/56 H Blood Pressure Mean 77 77 Pulse Ox 6 95 Oxygen Delivery Method Room Air Room Air Positive well nourished and well developed General Appearance ED: well developed and NAD HEENT Reports moist mucous membranes Eyes General Eye ED: Negative for pale conjunctiva or scleral icterus Neck no JVD Chest Wall inspection of chest normal Resp normal respiratory effort Cardio regular rate and regular rhythm GI non-distended and no masses GI Narrative: Patient does have just slightly increased bowel sounds but they do not appear to be tinkling. She also has a very faint bruit heard near the umbilicus. This very well and is likely chronic. Her history and symptoms and exam do not match AAA. She has very mild tenderness below the umbilicus but no rebound or guarding. Well-healed incision. Palpation: soft Back/Spine no CVA tenderness Extremity normal to inspection General Extremety ED: Negative for tenderness Neuro oriented x3 Sensorium / Orientation: alert Psych mental status grossly normal Skin no rashes or lesions noted MDM MDM MDM Narrative Medical decision making narrative: Patient's blood work shows normal white count and hemoglobin. Electrolytes are overall unremarkable. BUN is minimally elevated and she was given IV fluids. Liver function test are normal other than a bilirubin minimally up at 1.4. Urine showed no sign of infection. CT scan showed distended small bowel loops that could be consistent with early small bowel obstruction. No indication of transition point. I discussed options with the patient. She does not want to see the surgeon she saw before because she had a wound infection. I did discuss case with our hospitalist. They were understandably not wanting to admit the patient without surgical backup in case that was needed. I talked about some options with the patient. I did try to contact another surgeon but we do not have another surgeon on-call. I did discuss the case with 1 but that surgeon is not available over the weekend. For this reason we will transfer her out. Patient wanted to go to [facility]. I was able to talk to their surgeon, Dr. Hoyos. He was okay following along with the patient. However, he stated that if she needed surgery over the weekend he would not be available and she would need to be transferred down to [facility]. I then discussed the case with the hospitalist, Dr. Carl Choudhary. I explained the issue about coverage over the weekend. He was comfortable with that. They will admit the patient there. If she does need surgery over the weekend they would have to arrange transfer. But he is willing to accept the patient. I have the [place] transfer center recreation clerk because they have to assign the bed. Lab Data Attestation: I reviewed the patient's lab results. Labs: Laboratory Results - last 24 hr 02/07/22 02/07/22 02/07/22 09:35 09:35 09:35 WBC 8.1 RBC 3.81 L Hgb 12.1 Hct 36.8 L MCV 96.6 MCH 31.8 MCHC 32.9 RDW Std Deviation 57.4 H RDW Coeff of Diaz 16.3 H Plt Count 261 MPV 10.8 Immature Gran % (Auto) 0.600 Neut % (Auto) 62.0 Lymph % (Auto) 26.6 [place] % (Auto) 9.6 Eos % (Auto) 0.7 Baso % (Auto) 0.5 Absolute Neuts (auto) 5.0 Absolute Lymphs (auto) 2.16 Nucleated RBC % 0 Sodium 137 Potassium 3.8 Chloride 102 Carbon Dioxide 30.0 Anion Gap 5 BUN 23 H Creatinine 0.72 Estim Creat Clear Calc 37.85 Est GFR (MDRD) Af Amer 101 Est GFR (MDRD) Non-Af 83 BUN/Creatinine Ratio 31.9 H Glucose 107 H Calcium 9.4 Total Bilirubin 1.40 H AST 18 ALT 21 Alkaline Phosphatase 74 Total Protein 7.4 Albumin 3.5 Globulin 3.9 Albumin/Globulin Ratio 0.9 Urine Color Yellow Urine Clarity Clear Urine pH 7.0 Ur Specific [place] 1.010 Urine Protein 15 H Urine Glucose (UA) Normal Urine Ketones Negative Urine Occult Blood Negative Urine Nitrite Negative Urine Bilirubin Negative Urine Urobilinogen Normal Ur Leukocyte Esterase Negative Urine RBC 0 SEEN Urine WBC 0 SEEN Ur Squamous Epith Cells 0 SEEN Urine Bacteria 0 SEEN Urine Mucus 0 SEEN Radiography Diagnostic Testing: Clinical Impression(s) from Imaging Studies Abdomen/Pelvis CT 02/07/22 10:20 IMPRESSION: Mildly distended fluid-filled small bowel loops in the mid abdomen extending into the right lower quadrant. Stable mild degree of right hydronephrosis with mild dilatation of the right kidney. Status post cholecystectomy. Intrahepatic biliary ductal dilatation. Electronically Signed: Allan Joshua MD at 10:45 EDT , Discharge Plan Triage Chief Complaint: Abd Pain ED Provider: Santiago Ely Dx/Rx/DC Orders Clinical Impression: Small bowel obstruction Prescriptions: No Action pantoprazole 40 mg tablet,delayed release (DR/EC) 80 mg PO DAILY RF: 0 levothyroxine [Synthroid] 25 mcg tablet 25 mcg PO DAILY RF: 0 levomefolate-algal oil [[place] (algal oil)] 7.5-90.314 mg capsule 1 cap PO DAILY RF: 0 montelukast 10 MG tablet 10 mg PO DAILY RF: 0 cholecalciferol (vitamin D3) 1,000 UNIT tablet 2,000 unit PO DAILY RF: 0 cyanocobalamin (vitamin B-12) 5,000 MCG tablet,disintegrating 5,000 mcg PO DAILY RF: 0 Culturelle Probiotic-Multivit 1 billion cell- 1 gram Tablet,Chewable 1 tab PO DAILY RF: 0 acetaminophen 650 mg Tablet 650 mg PO Q6H PRN (Reason: Pain) RF: 0 escitalopram oxalate 5 mg tablet 5 mg PO DAILY RF: 0 calcium citrate [Citracal] 200 mg (950 mg) Tablet 400 mg PO BID RF: 0 Primary Care Provider: Care Physician,No Primary Referrals: Care Physician,No Primary [Primary Care Provider] - Disposition Disposition: Acute Care Hospital Discharge Location: [facility] Discharge Date/Time: 02/07/22 16:46
[2022-02-07 09:45] LABS: Bacteria 0 SEEN /hpf (None Seen); Mucous, Urine 0 SEEN /hpf (<or=2+); Red Blood Cells-Urine 0 SEEN /hpf (0-5); Squamous Epithelial Cells - UA 0 SEEN /hpf (5-10); White Blood Cells 0 SEEN /hpf (0-5)
[2022-02-07 09:46] LABS: Absolute Lymphocyte Count 2.16 X10^3/uL (0.83-4.51); Basophil# 0.04 X10^3/uL; Basophil% 0.5 % (0-1); Eosinophil# 0.06 X10^3/uL; Eosinophils% 0.7 % (0-5); Hematocrit 36.8 % (37-47); Hemoglobin 12.1 g/dL (12.0-15.0); Lymphocyte # 2.16 X10^3/ul (0.83-4.51); Lymphocyte % 26.6 % (19-41); Mean Corp Hgb Conc 32.9 g/dL (32-36); Mean Corpuscular Hgb 31.8 pg (27.0-32.0); Mean Corpuscular Volume 96.6 fL (81-99); Mean Platelet Vol. 10.8 fl (6.2-12.0); Monocyte# 0.78 X10^3/uL; Monocyte% 9.6 % (0-10); NRBC Flagged by Analyzer 0 % (0-5); Neutrophil # 5.02 X10^3/uL (2.7-7.7); Platelet Count 261 K/mm3 (150-450); RBC Distribution Width CV 16.3 % (11.6-14.6); RBC Distribution Width SD 57.4 fl (35.1-43.9); Red Blood Count 3.81 M/mm3 (4.2-5.4); White Blood Count 8.1 K/mm3 (4.4-11.0)
[2022-02-07 09:49] LABS: Color, Urine Yellow (Yellow); Glucose, Dipstick Normal (Normal); Ketone-Dipstick Negative (Negative); Leukocyte Esterase-Dipstick Negative /ul (Negative); Nitrite-Dipstick Negative (Negative); Occult Blood-Urine Negative /ul (Negative); Protein-Dipstick 15 mg/dl (Negative); Urine Bilirubin Dipstick Negative (Negative); Urine Clarity Clear (Clear); Urine Urobilinogen Normal (Normal)
[2022-02-07 10:07] LABS: ALB/GLOB Ratio 0.9 RATIO (0.9-2.4); AST(SGOT) 18 U/L (15-37); Alanine Aminotransfer ALT/SGPT 21 U/L (13-56); Albumin, Serum 3.5 g/dL (3.2-5.0); Alkaline Phosphatase 74 U/L (45-117); Anion Gap 5 (5-15); BUN 23 mg/dL (7-18); BUN/Creat Ratio 31.9 RATIO (10-20); Calcium,Total 9.4 mg/dL (8.5-10.1); Chloride 102 mmol/L (98-107); Creatinine, Serum 0.72 mg/dL (0.55-1.02); EST Glomerular Filtration Rate 83 mL/min (>60); Est Glom Filt Rate - Afr Amer 101 mL/min (>60); Estimated Creatinine Clearance 37.85 ml/min; Globulin 3.9 g/dL (2.2-4.2); Glucose 107 mg/dL (74-106); Potassium 3.8 mmol/L (3.5-5.1); Protein, Total 7.4 g/dL (6.4-8.2); Sodium Level 137 mmol/L (136-145)
--- NOTE | 2022-02-07 10:20 | CT_ITS ---
STUDY: CT ABDOMEN AND PELVIS WITH CONTRAST REASON FOR EXAM: Female, 76 years old. Diffuse abdominal pain. RADIATION DOSAGE (If Supplied By Facility): CTDIvol = ( 12.77 ) mGy, DLP = ( 767.81 ) mGycm TECHNIQUE: Transaxial images were obtained from the dome of the diaphragm to the symphysis pubis without oral contrast. IV 100mL Isovue-300 was administered. Sagittal and coronal images were reconstructed. Individualized dose optimization techniques were used for this CT. COMPARISON: Comparison is made with prior study dated 07/01/2021. FINDINGS: Stable increase in the markings at the lung bases suggestive of scarring. Stable mild pleural-parenchymal changes at the left lung base. Coronary artery calcification. Central intrahepatic biliary ductal dilatation. There are surgical clips in the gallbladder fossa consistent with a prior cholecystectomy. Normal spleen. Normal pancreas. Normal bilateral adrenal glands. Stable moderate degree of right hydronephrosis most likely secondary to stenosis at the right ureteral pelvic junction. Stable malrotation of the right kidney. Normal left kidney. There is a small hiatal hernia. Mildly dilated fluid distended small bowel loop in the lower abdomen. Moderate amount of fecal material is seen in the colon. Sigmoid diverticulosis. The appendix is visualized and appears normal. There is diffuse atherosclerotic calcification of the abdominal aorta, without a demonstrated aneurysm. Normal inferior vena cava. Normal retroperitoneum. Normal urinary bladder. Normal abdominal wall. There are diffuse degenerative changes of the visualized lumbar spine. Dextroscoliosis. CT/Abdomen/Pelvis W IV Cont ONLY IMPRESSION: Mildly distended fluid-filled small bowel loops in the mid abdomen extending into the right lower quadrant. Stable mild degree of right hydronephrosis with mild dilatation of the right kidney. Status post cholecystectomy. Intrahepatic biliary ductal dilatation. Electronically Signed: Allan Joshua MD at 10:45 EDT ,
--- NOTE | 2022-02-07 12:27 | PCM.HP.STD ---
HPI - General HPI Narrative ROSELINE SHERIFF, is a 76 F with an extensive PMH as outlined who presents via e ED with a complaint of abdominal pain and discomfort. She had no associated nausea or vomiting, and was concerned about constiption, so she treid a stool softener. She did have a bowel movement but her symptoms persisted. She had had previous small bowel obstruction requiring surgery back in June 2021. She is passing gas. [facility] Medical History Anemia Breast cancer, left Breast lump Cancer Chronic low back pain with sciatica Chronic pain Dyspnea Former smoker GERD (gastroesophageal reflux disease) Hiatal hernia History of stress test Hypothyroidism Kidney disease Lung cancer Osteopenia Pancreatitis Postoperative wound infection Small bowel obstruction Thyroiditis Home Medications calcium carbonate-vitamin D3 2 tab PO DAILY 01/27/15 [History Last Taken 06/13/21 09:00] cholecalciferol (vitamin D3) 2,000 unit PO DAILY 01/27/15 [History Last Taken 06/12/21 21:00] montelukast 10 mg PO DAILY 01/27/15 [History Last Taken 06/13/21 13:00] levothyroxine 25 mcg tablet 25 mcg PO DAILY 09/18/20 [History Last Taken 06/13/21 05:30] pantoprazole 40 mg tablet,delayed release 80 mg PO DAILY 09/18/20 [History Last Taken 06/13/21 07:30] cyanocobalamin (vitamin B-12) 5,000 mcg PO DAILY 09/28/20 [History Last Taken 06/13/21 13:00] acetaminophen 650 mg PO Q6H PRN PRN tablet 11/17/20 [Rx Last Taken 06/12/21 09:00] Align 4 mg PO DAILY 06/13/21 [History Last Taken 06/12/21 16:00] gabapentin 200 mg PO TID 06/13/21 [History Last Taken 06/13/21 16:00] dihydroxyaluminum sodium carb 334 mg chewable tablet mg PO 10/17/21 [History Last Taken Unknown] escitalopram oxalate 10 mg tablet 10 mg PO DAILY 10/17/21 [History Last Taken Unknown] levomefolate 7.5 mg-algal oil 90.314 mg capsule 1 cap PO DAILY 10/17/21 [History Last Taken Unknown] Allergy/AdvReac Type Severity Reaction Status Date / Time Sulfa (Sulfonamide Allergy Hives Verified 02/07/22 08:56 Antibiotics) Family History Father Heart disease Surgical History History of cholecystectomy History of kidney surgery History of laparoscopy History of left breast biopsy (~09/18/20) History of lumpectomy of left breast (~10/10/20) History of tonsillectomy History of total left knee replacement History of total right knee replacement history ORIF Right ankle S/P lobectomy of lung Social History housing: house current occupation: Retired- [employer] history of recent travel: No sexually active: No Smoking Status: Former smoker second hand exposure: No alcohol intake: never substance use type: does not use Vital Signs Vital Signs Vital Signs: 02/07/22 08:55 Temperature 97.2 F L Temperature Source Temporal Pulse Rate 105 H Respiratory Rate 16 Blood Pressure 129/52 H Blood Pressure Mean 77 Pulse Ox 6 Oxygen Delivery Method Room Air Weight Weight: 147 lb 9.6 oz Body Mass Index (BMI) 26.9 Results Lab / Micro Data Result Diagrams: 02/07/22 09:35 02/07/22 09:35 Labs: Laboratory Results - last 24 hr 02/07/22 09:35: WBC 8.1, RBC 3.81 L, Hgb 12.1, Hct 36.8 L, MCV 96.6, MCH 31.8, MCHC 32.9, RDW Std Deviation 57.4 H, RDW Coeff of Diaz 16.3 H, Plt Count 261, MPV 10.8, Immature Gran % (Auto) 0.600, Neut % (Auto) 62.0, Lymph % (Auto) 26.6, [place] % (Auto) 9.6, Eos % (Auto) 0.7, Baso % (Auto) 0.5, Absolute Neuts (auto) 5.0, Absolute Lymphs (auto) 2.16, Nucleated RBC % 0 02/07/22 09:35: Sodium 137, Potassium 3.8, Chloride 102, Carbon Dioxide 30.0, Anion Gap 5, BUN 23 H, Creatinine 0.72, Estim Creat Clear Calc 37.85, Est GFR (MDRD) Af Amer 101, Est GFR (MDRD) Non-Af 83, BUN/Creatinine Ratio 31.9 H, Glucose 107 H, Calcium 9.4, Total Bilirubin 1.40 H, AST 18, ALT 21, Alkaline Phosphatase 74, Total Protein 7.4, Albumin 3.5, Globulin 3.9, Albumin/Globulin Ratio 0.9 02/07/22 09:35: Urine Color Yellow, Urine Clarity Clear, Urine pH 7.0, Ur Specific [place] 1.010, Urine Protein 15 H, Urine Glucose (UA) Normal, Urine Ketones Negative, Urine Occult Blood Negative, Urine Nitrite Negative, Urine Bilirubin Negative, Urine Urobilinogen Normal, Ur Leukocyte Esterase Negative, Urine RBC 0 SEEN, Urine WBC 0 SEEN, Ur Squamous Epith Cells 0 SEEN, Urine Bacteria 0 SEEN, Urine Mucus 0 SEEN Radiology Impression Abdomen/Pelvis CT 02/07/22 10:20 IMPRESSION: Mildly distended fluid-filled small bowel loops in the mid abdomen extending into the right lower quadrant. Stable mild degree of right hydronephrosis with mild dilatation of the right kidney. Status post cholecystectomy. Intrahepatic biliary ductal dilatation. Electronically Signed: Allan Joshua MD at 10:45 EDT ,
[2022-02-07 12:41] VITALS: BP 121/56; PULSE 72; TEMP 36.2; O2SAT 95
[2022-02-07] MEDS: Morphine 2 MG/ML Syringe IV (14:45)
--- NOTE | 2022-02-07 15:08 | NURSING ---
[facility] ROOM 236 NURSE TO NURSE [phone]
--- NOTE | 2022-02-07 15:19 | ED.RN ---
Report called to Thu DUMONT
--- NOTE | 2022-02-07 15:20 | NURSING ---
CALLED [facility], ETA IS 90 MIN
== END 2022-02-07 16:46 | disposition short-term general hospital (02) ==
PROVIDERS: Emergency Provider Emergency Medicine; Visit Provider Emergency Medicine
DX: K56.609 Unspecified intestinal obstruction, unspecified as to partial versus complete obstruction (principal); E03.9 Hypothyroidism, unspecified; K21.9 Gastro-esophageal reflux disease without esophagitis; Z79.899 Other long term (current) drug therapy; Z87.891 Personal history of nicotine dependence
CPT/HCPCS: 74177; 80053; 81001; 85025; 96361; 96374; 99282; Q9967; A4216

== ENCOUNTER → 2022-03-13 | Outpatient (CLI) | payer MEDICARE, BC, SELFPAY ==
[2021-07-02 10:22] VITALS: BMI 34.7
--- NOTE | 2022-03-13 12:32 | BI_ITS ---
MAMMOGRAPHY - BILATERAL SCREENING REASON FOR EXAM: Female, 76 years old. Routine annual screening examination. PERTINENT HISTORY: Personal history of breast cancer. Prior left lumpectomy. TECHNIQUE: Digital bilateral breast reny (3D mammographic acquisition) in the CC and MLO projections. 2-D mediolateral oblique (MLO) and craniocaudad (CC) views of both breasts were obtained. CAD: Full Field Digital Mammography with Computer Added Detection was performed. COMPARISON: Comparison is made with prior study dated 09/13/2020 and 03/17/2015. FINDINGS: Breast Composition: The breasts are heterogeneously dense, which may obscure small masses. The previously seen irregular nodular density in the medial retroareolar region of the left breast as been resected. No other significant abnormalities are identified. BI/SCRN MAMM (CAD)W/RENY BILAT IMPRESSION: Status post lumpectomy with a resection of the nodular density in the slightly inferior medial retroareolar region of the left breast. No acute abnormality is seen. Yearly follow-up mammogram recommended. (A) ASSESSMENT CATEGORY: BIRADS Category 2: Benign. A letter regarding these results will be sent to the patient by the facility within 30 days. Approximately 10% of breast cancers are not detected by mammography. A normal mammogram should not delay biopsy of a clinically suspicious abnormality. [id number] Electronically Signed: Allan Joshua MD at 13:47 EDT ,
== END | disposition home or self-care (01) ==
LOC: OPBI 12:31
PROVIDERS: PCP Internal Medicine; Referring Provider Internal Medicine; Visit Provider Internal Medicine
DX: Z12.31 Encounter for screening mammogram for malignant neoplasm of breast (principal); Z80.3 Family history of malignant neoplasm of breast; Z85.3 Personal history of malignant neoplasm of breast
CPT/HCPCS: 77063; 77067

== ENCOUNTER → 2022-04-12 | Outpatient (CLI) | payer MEDICARE, BC, SELFPAY ==
[2021-07-02 10:22] VITALS: BMI 34.7
--- NOTE | 2022-04-12 12:43 | RAD_ITS ---
INDICATION: PAIN EXAMINATION/TECHNIQUE: X-RAY - XR Abdomen 1 View COMPARISON: None FINDINGS: Surgical clips visualized in the right upper quadrant. BOWEL GAS PATTERN: Non-obstructive. No bowel or stomach distention. FREE AIR: Not assessed on a single supine view. ORGANOMEGALY: Not seen. CALCIFICATIONS: No abnormal calcifications observed. LOWER CHEST: No acute pathology. BONES AND SOFT TISSUES: Degenerative bone changes visualized, degenerative changes of the lumbar spine seen with levoscoliosis of the thoracolumbar spine. Osteophyte formation seen most prominent in the bowel for 5 level. Increased density consistent with degenerative changes in the sacroiliac joints bilaterally. RAD/Abdomen Single View IMPRESSION: No evidence of acute abdominal pathology is seen. Non-obstructive bowel gas pattern. Electronically Signed: Bahman Mcdonald MD at 13:24 EDT ,
[2022-04-12 15:05] LABS: Erythrocyte Sedimentation Rate 14 mm/hr (0-30)
[2022-04-12 15:10] LABS: Absolute Lymphocyte Count 2.68 X10^3/uL (0.83-4.51); Absolute Neutrophil Count 2.7 X10^3/uL (2.0-7.7); Basophil# 0.06 X10^3/uL; Basophil% 0.9 % (0-1); Eosinophil# 0.11 X10^3/uL; Eosinophils% 1.7 % (0-5); Hematocrit 33.2 % (37-47); Hemoglobin 10.8 g/dL (12.0-15.0); Lymphocyte # 2.68 X10^3/ul (0.83-4.51); Lymphocyte % 41.9 % (19-41); Mean Corp Hgb Conc 32.5 g/dL (32-36); Mean Corpuscular Hgb 31.4 pg (27.0-32.0); Mean Corpuscular Volume 96.5 fL (81-99); Mean Platelet Vol. 11.1 fl (6.2-12.0); Monocyte% 12.5 % (0-10); NRBC Flagged by Analyzer 0 % (0-5); Neutrophil # 2.69 X10^3/uL (2.7-7.7); Neutrophil % 42.2 % (47-70); Platelet Count 330 K/mm3 (150-450); Red Blood Count 3.44 M/mm3 (4.2-5.4); White Blood Count 6.4 K/mm3 (4.4-11.0)
[2022-04-12 15:38] LABS: ALB/GLOB Ratio 0.9 RATIO (0.9-2.4); AST(SGOT) 13 U/L (15-37); Alanine Aminotransfer ALT/SGPT 17 U/L (13-56); Albumin, Serum 2.9 g/dL (3.2-5.0); Alkaline Phosphatase 53 U/L (45-117); Anion Gap 4 (5-15); BUN 13 mg/dL (7-18); BUN/Creat Ratio 19.7 RATIO (10-20); Bilirubin, Direct 0.27 mg/dL (0.00-0.30); CRP < 2.90 mg/L (0.0-3.0); Calcium,Total 8.7 mg/dL (8.5-10.1); Chloride 106 mmol/L (98-107); Creatinine, Serum 0.66 mg/dL (0.55-1.02); EST Glomerular Filtration Rate 92 mL/min (>60); Est Glom Filt Rate - Afr Amer 112 mL/min (>60); Globulin 3.4 g/dL (2.2-4.2); Glucose 115 mg/dL (74-106); LDH 193 U/L (84-246); Potassium 3.8 mmol/L (3.5-5.1); Protein, Total 6.3 g/dL (6.4-8.2); Sodium Level 140 mmol/L (136-145)
[2022-04-15 15:08] LABS: Anti-Centromere B Ab <0.2 AI (0.0-0.9); Anti-Chromatin <0.2 AI (0.0-0.9); Anti-Jo <0.2 AI (0.0-0.9); Anti-Scleroderma-70 AB <0.2 AI (0.0-0.9); RNP Ab <0.2 AI (0.0-0.9); SJOGREN'S Anti-SS-A test < 0.2 AI (0.0-0.9); SJOGREN'S Anti-SS-B test 0.2 AI (0.0-0.9); Smith Ab <0.2 AI (0.0-0.9)
[2022-04-15 16:09] LABS: Cytoplasmic Ab (C-ANCA) <1:20 titer (Neg:<1:20)
[2022-04-15 16:55] LABS: Anti-dsDNA Ab <1 IU/mL (0-9)
[2022-04-15 16:56] LABS: Perinuclear Ab (P-ANCA) <1:20 titer (Neg:<1:20)
== END | disposition home or self-care (01) ==
LOC: MTLAB 12:43
PROVIDERS: PCP Internal Medicine; Referring Provider Nurse Practitioner Adult Health; Visit Provider Nurse Practitioner Adult Health
DX: K59.00 Constipation, unspecified (principal); Z87.19 Personal history of other diseases of the digestive system; R68.81 Early satiety
CPT/HCPCS: 36415; 74018; 80053; 82248; 83615; 85025; 85652; 86140; 86225; 86235; 86256

== ENCOUNTER → 2022-04-23 | Outpatient (CLI) | payer MEDICARE, BC, SELFPAY ==
[2021-07-02 10:22] VITALS: BMI 34.7
--- NOTE | 2022-04-23 09:59 | NM_ITS ---
CLINICAL: 77-year-old female with history of early satiety. SEMI-SOLID PHASE 99m Tc SULFUR COLLOID GASTRIC EMPTYING STUDY COMPARISON: None available FINDINGS: The patient was administered 1.1 mCi of 99m Tc sulfur colloid mixed with oatmeal and consumed per os. Image acquisitions in the anterior -posterior projections were obtained for 60 minutes. There is prompt visualization of the stomach. There is no gastroesophageal reflux identified. First order kinetics are maintained throughout the duration of the acquisitions. The T ? linear fit was calculated to be 69.22 minutes, (Normal: 12-56 minutes). NM/Gastric Emptying Study IMPRESSION: 1. ABNORMAL 99m Tc sulfur colloid semi-solid phase (oatmeal) gastric emptying imaging examination. A. There is delayed semi-solid phase gastric emptying compared to normal controls with maintained first order kinetics throughout all components of the examination. (Oj et al, J Nucl Med Tech 38: 186, 2010). Electronically Signed: Quincy Martin, at 16:47 EDT ,
== END | disposition home or self-care (01) ==
LOC: NM 09:55
PROVIDERS: PCP Internal Medicine; Referring Provider Nurse Practitioner Adult Health; Visit Provider Nurse Practitioner Adult Health
DX: R68.81 Early satiety (principal); Z87.19 Personal history of other diseases of the digestive system; K59.00 Constipation, unspecified
CPT/HCPCS: 78264; A9541

== ENCOUNTER → 2022-05-20 | Outpatient (CLI) | payer MEDICARE, BC, SELFPAY ==
[2021-07-02 10:22] VITALS: BMI 34.7
--- NOTE | 2022-05-20 15:28 | MRI_ITS ---
Exam: MR MRCP W/O Contrast Comparison: CT February 07, 2022. History: GAVE, hx pancreatitis FINDINGS: Moderate degenerative lumbar spine changes. Moderate stool in much of the colon. The common duct is roughly 8 mm at its midportion, tapering to 5 mm distally and about 2 mm to the ampulla. The common duct measured 1.1 cm near the shruthi and 1 cm at its midportion on prior CT. Pancreatic duct is roughly 2.7 mm in the head of the pancreas, smaller in the body of the pancreas. Moderate right renal pelvis dilatation, similar to prior CT February 07, 2022. Cholecystectomy. Trace right pleural effusion. No peripancreatic fluid. Patent portal vein and branches. MRI/MRCP Abdomen without Contrast IMPRESSION: Findings appears similar to prior CT in February. Cholecystectomy. Prominent chronic-appearing central intrahepatic and extrahepatic bile ducts, no filling defect. No significant pancreatic duct dilatation. Right renal pelvis dilatation appears chronic. Trace pleural effusion. Electronically Signed: Annamaria Courtney MD at 7:45 EDT ,
== END | disposition home or self-care (01) ==
LOC: MRI 15:26
PROVIDERS: PCP Internal Medicine; Visit Provider Nurse Practitioner Adult Health
DX: K31.819 Angiodysplasia of stomach and duodenum without bleeding (principal)
CPT/HCPCS: 74181

== ENCOUNTER → 2022-05-21 | Outpatient (CLI) | payer MEDICARE, BC, SELFPAY ==
[2021-07-02 10:22] VITALS: BMI 34.7
[2022-05-21 15:28] LABS: Absolute Lymphocyte Count 2.68 X10^3/uL (0.83-4.51); Basophil# 0.05 X10^3/uL; Basophil% 0.6 % (0-1); Eosinophils% 1.3 % (0-5); Hematocrit 34.3 % (37-47); Hemoglobin 10.8 g/dL (12.0-15.0); Lymphocyte # 2.68 X10^3/ul (0.83-4.51); Lymphocyte % 34.7 % (19-41); Mean Corp Hgb Conc 31.5 g/dL (32-36); Mean Corpuscular Hgb 29.4 pg (27.0-32.0); Mean Corpuscular Volume 93.5 fL (81-99); Mean Platelet Vol. 11.2 fl (6.2-12.0); Monocyte# 0.85 X10^3/uL; NRBC Flagged by Analyzer 0 % (0-5); Neutrophil % 51.8 % (47-70); Platelet Count 303 K/mm3 (150-450); RBC Distribution Width CV 16.9 % (11.6-14.6); Red Blood Count 3.67 M/mm3 (4.2-5.4); White Blood Count 7.7 K/mm3 (4.4-11.0)
[2022-05-21 15:29] LABS: International Normalized Ratio 1.2; Prothrombin Time (Protime)PT. 14.5 SECONDS (11.7-14.9)
[2022-05-21 15:41] LABS: Erythrocyte Sedimentation Rate 29 mm/hr (0-30)
[2022-05-21 15:50] LABS: Hemoglobin A1c 5.3 % (3.8-5.6)
[2022-05-21 18:33] LABS: Ammonia < 10.0 umol/L (11-32)
[2022-05-21 18:54] LABS: ALB/GLOB Ratio 0.8 RATIO (0.9-2.4); AST(SGOT) 15 U/L (15-37); Alanine Aminotransfer ALT/SGPT 17 U/L (13-56); Albumin, Serum 3.2 g/dL (3.2-5.0); Alkaline Phosphatase 60 U/L (45-117); Anion Gap 6 (5-15); BUN 24 mg/dL (7-18); BUN/Creat Ratio 29.5 RATIO (10-20); CRP < 2.90 mg/L (0.0-3.0); Calcium,Total 9.2 mg/dL (8.5-10.1); Chloride 103 mmol/L (98-107); Creatinine, Serum 0.81 mg/dL (0.55-1.02); EST Glomerular Filtration Rate 72 mL/min (>60); Est Glom Filt Rate - Afr Amer 88 mL/min (>60); Ferritin 13 ng/mL (8-252); Glucose 88 mg/dL (74-106); LDH 219 U/L (84-246); Potassium 4.1 mmol/L (3.5-5.1); Protein, Total 7.2 g/dL (6.4-8.2); Sodium Level 138 mmol/L (136-145)
[2022-05-21 19:02] LABS: HIV - WCH Non-Reactive (Nonreactive)
[2022-05-23 14:08] LABS: Anti-Centromere B Ab <0.2 AI (0.0-0.9); Anti-Chromatin <0.2 AI (0.0-0.9); Anti-Jo <0.2 AI (0.0-0.9); Anti-Scleroderma-70 AB <0.2 AI (0.0-0.9); RNP Ab <0.2 AI (0.0-0.9); SJOGREN'S Anti-SS-A test < 0.2 AI (0.0-0.9); SJOGREN'S Anti-SS-B test 0.2 AI (0.0-0.9); Smith Ab <0.2 AI (0.0-0.9)
[2022-05-23 16:07] LABS: Anti-Mitochondrial AB <20.0 Units (0.0-20.0); Anti-dsDNA Ab <1 IU/mL (0-9)
[2022-05-25 00:07] LABS: Angiotensin Convert Enzyme 34 U/L (14-82); Ceruloplasmin 26.8 mg/dL (19.0-39.0); Cytoplasmic Ab (C-ANCA) <1:20 titer (Neg:<1:20); HEPATITIS B SURFACE AG Negative (Negative); Hep C Antibodies <0.1 s/co ratio (0.0-0.9); Hepatitis A IgM Antibody Negative (Negative); Hepatitis B Core AB IgM Negative (Negative)
[2022-05-25 07:40] LABS: AFP, Tumor Marker 3.9 ng/mL (0.0-9.2); Anti-Smooth Muscle ABS 10 Units (0-19); Copper, Serum or Plasma 125 ug/dL (80-158); Haptoglobin 198 mg/dL (42-346); Perinuclear Ab (P-ANCA) <1:20 titer (Neg:<1:20)
== END | disposition home or self-care (01) ==
LOC: MTLAB 13:45
PROVIDERS: PCP Internal Medicine; Referring Provider Nurse Practitioner Adult Health; Visit Provider Nurse Practitioner Adult Health
DX: K31.819 Angiodysplasia of stomach and duodenum without bleeding (principal)
CPT/HCPCS: 36415; 80053; 80074; 82105; 82140; 82164; 82390; 82525; 82728; 83010; 83036; 83516; 83615; 85025; 85610; 85652; 86140; 86225; 86235; 86256; 86703

== ENCOUNTER → 2022-05-23 | Outpatient (CLI) | payer MEDICARE, BC, SELFPAY ==
[2021-07-02 10:22] VITALS: BMI 34.7
== END | disposition home or self-care (01) ==
LOC: PSN 11:26
PROVIDERS: PCP Internal Medicine; Visit Provider Internal Medicine
DX: I48.91 Unspecified atrial fibrillation (principal)
CPT/HCPCS: 93225; 93226

== ENCOUNTER 2022-05-28 13:02 | Day surgery (SDC) | payer MEDICARE, BC, SELFPAY ==
[2021-07-02 10:22] VITALS: BMI 34.7
[2022-05-28] VITALS (7 sets, daily range): BP systolic 76–123; BP diastolic 41–76; PULSE 75–81; RESP 16–18; TEMP 36.2–36.5; O2SAT 95–100; BMI 26.1
[2022-05-28] MEDS: Lactated Ringers 1,000 ML 15 ML IV (13:20)
--- NOTE | 2022-05-28 13:37 | HP.PCM_ITS ---
History and Physical Date of Admission: 05/28/22 ROSELINE SHERIFF, is a 77 F who presents to the office today for recurrent small bowel obstructions. She reports abdominal issues began in February 2020 immediately after surgery for lung cancer (left lung lobectomy). She had severe LLQ abd pain following surgery, it was thought to be nerve pain. She has had early satiety and chronic constipation since then. She was hospitalized for small bowel obstruction in 06/2021, had exploratory laparoscopy with repair of small bowel enterotomy, small bowel was reduced from an internal hernia (created by the omentum adhering to another loop of bowel) and adhesions were lysed. She had a post op wound infection. She was hospitalized in February 2022 and March 2022 at [facility] for small bowel obstructions.? During her most recent hospitalization she developed atrial fibrillation, she is now on Eliquis and metoprolol for that. She requires nightly magnesium 650 mg in order to have normal BM every morning. Denies straining. No melena or hematochezia. Denies diarrhea. Denies abd pain at this time. Early satiety. No nausea or vomiting. On pantoprazole, controls heartburn. Last colonoscopy about 4-5 yrs ago in [place]. Last EGD was longer ago than that. Hx of pancreatitis once while in [place], might have had it twice, that was yrs ago. Comorbidities include: Breast cancer status post left lumpectomy, lung cancer status post left lobectomy, hypothyroidism, anxiety, depression, pain, former smoker, GERD, hiatal hernia, kidney disease, osteopenia, pancreatitis, atrial fibrillation PSH: Cholecystectomy, kidney surgery, left breast lumpectomy, tonsillectomy, bilateral knee replacement, right ankle surgery, left lung lobectomy 02/07/22 CT/Abdomen/Pelvis W IV Cont ONLY IMPRESSION: Mildly distended fluid-filled small bowel loops in the mid abdomen extending into the right lower quadrant. Stable mild degree of right hydronephrosis with mild dilatation of the right kidney. Status post cholecystectomy.? Intrahepatic biliary ductal dilatation. [place] [facility] [place]: Positive for back pain Exam Const General: cooperative, healthy appearing and comfortable Nutritional Appearance: average body habitus Orientation: alert, awake and oriented x3 HENMT Head: normal to inspection Eyes General: appearance normal, both eyes and all related structures Resp Effort & Inspection: normal respiratory effort GI Inspection: normal to inspection Palpation: soft, no hepatosplenomegaly, no masses and nontender Quality Reporting Tobacco Screening (CMS 138) Smoking Status: Former smoker Assessment and Plan Assessment and Plan (1) Hx of small bowel obstruction: ?Status:?Acute (2) Early satiety: ?Status:?Acute (3) Constipation: ?Status:?Acute ?Plan: 77 yr old female with recurrent small bowel obstructions. She seems to have developed slow GI motility immediately following lung surgery in 2019. She has early satiety, chronic constipation. Consider Juan David. Will get gastric emptying study to evaluate for gastroparesis. She will be scheduled for upper and lower endoscopy, Case discussed with Dr Gregg. We will plan a capsule endoscopy but with patency capsule first to ensure the real capsule can pass. Labs today. f/u approx 6 wks, we'll notify her of results in the meantime. ? ? ? Orders: Orders Bilirubin, Direct Today K59.00 - Constipation, unspecified, R68.81 - Early satiety, Z87.19 - Personal history of other diseases of the digestive system ? Comprehensive Metabolic Profil Today K59.00 - Constipation, unspecified, R68.81 - Early satiety, Z87.19 - Personal history of other diseases of the digestive system ? CRP Today K59.00 - Constipation, unspecified, R68.81 - Early satiety, Z87.19 - Personal history of other diseases of the digestive system ? LDH Today K59.00 - Constipation, unspecified, R68.81 - Early satiety, Z87.19 - Personal history of other diseases of the digestive system ? CBC W/Diff, Automated Today J95.811 - Postprocedural pneumothorax, K59.00 - Cons tipation, unspecified, R68.81 - Early satiety, Z87.19 - Personal history of other diseases of the digestive system ? Erythrocyte Sed Rate Today K59.00 - Constipation, unspecified, R68.81 - Early satiety, Z87.19 - Personal history of other diseases of the digestive system ? GHASSAN Comprehensive Panel Today K59.00 - Constipation, unspecified, R68.81 - Early satiety, Z87.19 - Personal history of other diseases of the digestive system ? Gastric Emptying Study Today K59.00 - Constipation, unspecified, R68.81 - Early satiety, Z87.19 - Personal history of other diseases of the digestive system ? ANCA Today K59.00 - Constipation, unspecified, R68.81 - Early satiety, Z87.19 - Personal history of other diseases of the digestive system ? Abdomen Single View Today K59.00 - Constipation, unspecified ? I have re-examined the patient. There are no clinical changes since date of exam.
--- NOTE | 2022-05-28 14:15 | COLBX_PTH ---
PATIENT: ROSELINE SHERIFF LOC: EN U#:[id number] AGE/SX: 77/F ROOM: RE05/28/[address]: Dr. Melecio Gregg DO : 1945 BED: DIS: 05/28/2022 SPEC #: [id number] RECD: 05/28/22 15:18 STATUS: YRN REHaley #: [id number] DUYEN: 05/28/22 14:[address]: Melecio Gregg DEPT: SURGICAL PATHOLOGY RECD BY: María Elena Leigh ENTERED: 05/29/22 10:51 SP TYPE: COLON BX OTHR DR: Dr. Kisha Morton DO Tissues: A - Gastric mucous membrane B - Gastric mucous membrane C - Esophagus, NOS D - Ileum, NOS Procedures: Special Stain Group II Surgery Specimen Level IV Alcian Blue/PAS (control) HEADER OPERATION: Colonoscopy, EGD ([facility] [place]) with biopsies PRE-OP DIAGNOSIS: History of small bowel obstruction, early satiety, constipation TISSUE SUBMITTED: A - Pylorus biopsy, B - Antrum biopsy for H. pylori and path, C - Distal esophagus biopsy, D - Terminal ileum biopsy MICROSCOPIC DIAGNOSIS A. Pylorus, biopsy: Mild gastritis. See microscopic description. B. Antrum, biopsy: Mild gastritis. See microscopic description and comment. C. 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 Chronic inflammation. Indefinite for low grade dysplasia. See comment. D. Terminal ileum, biopsy: Fragments of small intestinal mucosa, no pathologic diagnosis. SJ:shivam 05/30/2022 COMMENT B. The results of immunohistochemistry for Helicobacter pylori will be reported separately ([id number]). C. Alcian blue/PAS stain with matched control is used in the evaluation of the specimen. Immunohistochemistry ([id number]) for P53 and Ki-67 will be performed and results will be reported separately. Case has been reviewed in consultation with Dr. Zapata who concurs with the above diagnosis. IDC:AM MICROSCOPIC DESCRIPTION Slides are reviewed. A & B. The specimen shows fragments of gastric mucosa with chronic inflammatory cell infiltrates in the lamina propria consisting of lymphocytes and plasma cells, consistent with mild chronic gastritis. GROSS DESCRIPTION A - Received in fixative is one container labeled with the patient's name and designated pylorus biopsy. The specimen consists of two irregular fragments of light cristina soft tissue that in aggregate measure 0.8 x 0.3 x 0.1 cm. The specimen is totally submitted in one cassette. B - Received in fixative is one container labeled with the patient's name and designated antrum biopsy. The specimen consists of two irregular fragments of light cristina soft tissue that in aggregate measure 0.6 x 0.3 x 0.1 cm. The specimen is totally submitted in one cassette. C - Received in fixative is one container labeled with the patient's name and designated distal esophagus biopsy. The specimen consists of two irregular fragments of light cristina soft tissue that in aggregate measure 0.6 x 0.3 x 0.1 cm. The specimen is totally submitted in one cassette. D - Received in fixative is one container labeled with the patient's name and designated terminal ileum biopsy. The specimen consists of multiple irregular fragments of light cristina soft tissue that in aggregate measure 0.8 x 0.6 x 0.1 cm. The specimen is totally submitted in one cassette. / SJ:shivam 05/29/2022 TC:5 CPT: 21441 x4, 98099
--- NOTE | 2022-05-28 14:15 | IMM_PTH ---
PATIENT: ROSELINE SHERIFF LOC: EN U#:[id number] AGE/SX: 77/F ROOM: RE05/28/[address]: Dr. Melecio Gregg DO : 1945 BED: DIS: 05/28/2022 SPEC #: [id number] RECD: 05/29/22 10:08 STATUS: YRN REQ #: [id number] DUYEN: 05/28/22 14:[address]: Melecio Gregg DEPT: IMMUNOHISTOCHEMISTRY RECD BY: Uyen Oneil ENTERED: 05/29/22 10:09 SP TYPE: IMMUNO OTHR DR: Dr. Kisha Morton DO Tissues: B - Stomach, NOS C - Esophagus, NOS Procedures: H Pylori (initial) P53 (initial) KI-67 (add) PHYSICIAN & INSTITUTION [place] [address] SPECIMEN INFORMATION: Tissue Source: B ? Antrum biopsy, C ? Distal esophagus biopsy Clinical Info: History of small bowel resection, early satiety, constipation Specimen Number: [id number] B & C CPT code: 90087 x2, 38076 METHODOLOGY: Deparaffinized sections of prefer/formalin-fixed tissue or PAP/DQ stained slides are incubated with monoclonal/polyclonal antibodies/oligonucleotide probes. Localization is made via biotin free immunoperoxidase method. Appropriate controls are performed and reacted as expected. Results on target cell population are indicated in the following table: RESULTS: ANTIBODY / CLONE RESULT Block B H Pylori (polyclonal) negative Block C P53 (DO-7) equivocal Ki-67 (30-9) positive, very low These tests were developed and their performance characteristics determined by [facility]. They may not have been cleared or approved by the U.S. Food and Drug Administration. The FDA has determined that such clearance or approval is not necessary. The above immunohistochemical/dualISH markers are ordered and reviewed by the Pathologist. INTERPRETATION: B. Antrum, biopsy: Negative for Helicobacter pylori organisms. C. Distal esophagus, biopsy: Indefinite for low grade dysplasia. SJ:shivam 05/31/2022 Case has been reviewed in consultation with Dr. Zapata who concurs with the above diagnosis. IDC:LUPE
--- NOTE | 2022-05-28 15:10 | OP.CCLET_ITS ---
05/28/2022 Kisha Morton Re : Upper GI endoscopy procedure for Kathryn Morton This procedure was performed on Saturday, May 28, 2022. My impressions and recommendations are as follows: Impressions : - LA Grade A reflux esophagitis. Biopsied. - Mucosal changes suspicious for gastritis. Biopsied. - Gastric stenosis was found at the pylorus. Dilated. - No gross lesions in the first portion of the duodenum. Recommendations : - Discharge patient to home. - Resume previous diet. - Continue present medications. - Await pathology results. My findings are described in the full procedure note, which is enclosed. If I can be of further assistance, please feel free to contact me at . Sincerely, Melecio Gregg, 05/28/2022 3:10:21 PM This report has been signed electronically.
--- NOTE | 2022-05-28 15:10 | OP.EGD_ITS ---
Patient Name: Kathryn Morataya Procedure Date: 05/28/2022 2:11 PM Date of : 1945 Age: 77 Procedure: Upper GI endoscopy Indications: Epigastric abdominal pain Providers: Melecio Gregg DO Referring MD: Kisha Morton Medicines: Monitored Anesthesia Care Patient Profile: This is a 77 year old female. Refer to note in patient chart for documentation of history and physical. Patient has symptoms. Complications: No immediate complications. Procedure: Pre-Anesthesia Assessment: - Prior to the procedure, a History and Physical was performed, and patient medications and allergies were reviewed. The patient is competent. The risks and benefits of the procedure and the sedation options and risks were discussed with the patient. All questions were answered and informed consent was obtained. Patient identification and proposed procedure were verified by the physician in the pre-procedure area. Mental Status Examination: alert and oriented. Airway Examination: normal oropharyngeal airway and neck mobility. Respiratory Examination: clear to auscultation. CV Examination: normal. Prophylactic Antibiotics: The patient does not require prophylactic antibiotics. Prior Anticoagulants: The patient has taken no previous anticoagulant or antiplatelet agents. ASA Grade Assessment: II - A patient with mild systemic disease. After reviewing the risks and benefits, the patient was deemed in satisfactory condition to undergo the procedure. The anesthesia plan was to use monitored anesthesia care (MAC). Immediately prior to administration of medications, the patient was re-assessed for adequacy to receive sedatives. The heart rate, respiratory rate, oxygen saturations, blood pressure, adequacy of pulmonary ventilation, and response to care were monitored throughout the procedure. The physical status of the patient was re-assessed after the procedure. After obtaining informed consent, the endoscope was passed under direct vision. Throughout the procedure, the patient's blood pressure, pulse, and oxygen saturations were monitored continuously. The pediatric colonoscope was introduced through the mouth, and advanced to the second part of duodenum. The upper GI endoscopy was accomplished without difficulty. The patient tolerated the procedure well. Scope In: 2:22:11 PM Scope Out: 2:31:14 PM Total Procedure Duration Time 0 hours 9 minutes 3 seconds Findings: LA Grade A (one or more mucosal breaks less than 5 mm, not extending between tops of 2 mucosal folds) esophagitis with no bleeding was found 36 to 37 cm from the incisors. Biopsies were taken with a cold forceps for histology. Verification of patient identification for the specimen was done. Estimated blood loss was minimal. Localized mild inflammation characterized by erythema was found at the pylorus. Biopsies were taken with a cold forceps for histology. Verification of patient identification for the specimen was done. Estimated blood loss was minimal. A benign-appearing, intrinsic moderate stenosis was found at the pylorus. This was traversed. A guidewire was placed and the scope was withdrawn. Dilation was performed with a Savary dilator with no resistance at 36 Fr. The dilation site was examined following endoscope reinsertion and showed moderate improvement in luminal narrowing. Estimated blood loss was minimal. No gross lesions were noted in the first portion of the duodenum. A medium-sized hiatal hernia was present. Impression: - LA Grade A reflux esophagitis. Biopsied. - Mucosal changes suspicious for gastritis. Biopsied. - Gastric stenosis was found at the pylorus. Dilated. - No gross lesions in the first portion of the duodenum. Recommendation: - Discharge patient to home. - Resume previous diet. - Continue present medications. - Await pathology results. Procedure Code(s): --- Professional --- 94843, Esophagogastroduodenoscopy, flexible, transoral; with dilation of gastric/duodenal stricture(s) (eg, balloon, bougie) 56535, 59, Esophagogastroduodenoscopy, flexible, transoral; with biopsy, single or multiple CPT copyright 2017 [employer]. All rights reserved. The codes documented in this report are preliminary and upon drum maker review may be revised to meet current compliance requirements. Melecio Gregg DO 05/28/2022 3:10:21 PM This report has been signed electronically. Number of Addenda: 0 Note Initiated On: 05/28/2022 2:11 PM
--- NOTE | 2022-05-28 15:15 | OP.CCLET_ITS ---
05/28/2022 Kisha Morton Re : Colonoscopy procedure for Kathryn Morton This procedure was performed on Saturday, May 28, 2022. My impressions and recommendations are as follows: Impressions : - Diverticulosis in the sigmoid colon and in the descending colon. - Stricture in the sigmoid colon. - Redundant colon. - Congested mucosa in the terminal ileum. Biopsied. -Rate 1-2 rectal prolapse Recommendations : - Discharge patient to home. - Resume previous diet. - Continue present medications. - Await pathology results. - Repeat colonoscopy in 5 years for surveillance based on pathology results. My findings are described in the full procedure note, which is enclosed. If I can be of further assistance, please feel free to contact me at . Sincerely, Melecio Gregg, 05/28/2022 3:14:21 PM This report has been signed electronically.
--- NOTE | 2022-05-28 15:15 | OP.COLON_ITS ---
Patient Name: Kathryn Morataya Procedure Date: 05/28/2022 2:31 PM Date of : 1945 Age: 77 Procedure: Colonoscopy Indications: Abdominal pain in the left lower quadrant, Abdominal pain in the right lower quadrant Providers: Melecio Gregg DO Referring MD: Kisha Morton Medicines: Monitored Anesthesia Care Patient Profile: This is a 77 year old female. Refer to note in patient chart for documentation of history and physical. Patient has symptoms. Last Colonoscopy: within the past 3 years. Complications: No immediate complications. Procedure: Pre-Anesthesia Assessment: - Prior to the procedure, a History and Physical was performed, and patient medications and allergies were reviewed. The patient is competent. The risks and benefits of the procedure and the sedation options and risks were discussed with the patient. All questions were answered and informed consent was obtained. Patient identification and proposed procedure were verified by the physician in the pre-procedure area. Mental Status Examination: alert and oriented. Airway Examination: normal oropharyngeal airway and neck mobility. Respiratory Examination: clear to auscultation. CV Examination: normal. Prophylactic Antibiotics: The patient does not require prophylactic antibiotics. Prior Anticoagulants: The patient has taken no previous anticoagulant or antiplatelet agents. ASA Grade Assessment: II - A patient with mild systemic disease. After reviewing the risks and benefits, the patient was deemed in satisfactory condition to undergo the procedure. The anesthesia plan was to use monitored anesthesia care (MAC). Immediately prior to administration of medications, the patient was re-assessed for adequacy to receive sedatives. The heart rate, respiratory rate, oxygen saturations, blood pressure, adequacy of pulmonary ventilation, and response to care were monitored throughout the procedure. The physical status of the patient was re-assessed after the procedure. After I obtained informed consent, the scope was passed under direct vision. Throughout the procedure, the patient's blood pressure, pulse, and oxygen saturations were monitored continuously. The pediatric colonoscope was introduced through the anus and advanced to the terminal ileum. The ileocecal valve, appendiceal orifice, and rectum were photographed. Scope In: 2:34:15 PM Scope Withdrawal Time 0 hours 10 minutes 10 seconds Scope Out: 2:55:46 PM Total Procedure Duration Time 0 hours 21 minutes 31 seconds Findings: The perianal and digital rectal examinations were normal. Multiple small and large-mouthed diverticula were found in the sigmoid colon and descending colon. A benign-appearing, intrinsic moderate stenosis measuring 2 cm (in length) x 2 mm (inner diameter) was found in the sigmoid colon and was traversed. The recto-sigmoid colon, sigmoid colon and descending colon were grossly redundant. A patchy area of the terminal ileum was congested. Biopsies were taken with a cold forceps for histology. Verification of patient identification for the specimen was done. Estimated blood loss was minimal. Grade 1-2 rectal prolapse was seen therefore a retroflexion was not performed. Impression: - Diverticulosis in the sigmoid colon and in the descending colon. - Stricture in the sigmoid colon. - Redundant colon. - Congested mucosa in the terminal ileum. Biopsied. -Rate 1-2 rectal prolapse Recommendation: - Discharge patient to home. - Resume previous diet. - Continue present medications. - Await pathology results. - Repeat colonoscopy in 5 years for surveillance based on pathology results. Procedure Code(s): --- Professional --- 15282, Colonoscopy, flexible; with biopsy, single or multiple CPT copyright 2017 [employer] [place] [employer] [employer]. All rights reserved. The codes documented in this report are preliminary and upon civil structural engineer review may be revised to meet current compliance requirements. Melecio Gregg DO 05/28/2022 3:14:21 PM This report has been signed electronically. Number of Addenda: 0 Note Initiated On: 05/28/2022 2:31 PM
== END 2022-05-28 16:00 | disposition home or self-care (01) ==
LOC: EN 13:03 → AC 13:05
PROVIDERS: PCP Internal Medicine; Referring Provider Internal Medicine; Visit Provider Internal Medicine Gastroenterology
PROC: 0DJD8ZZ Inspection of Lower Intestinal Tract, Via Natural or Artificial Opening Endoscopic (ICD-10-PCS; CPT 45378; principal; 2022-05-28 14:10)
DX: K62.3 Rectal prolapse (principal); R10.31 Right lower quadrant pain; Q43.8 Other specified congenital malformations of intestine; K21.00 Gastro-esophageal reflux disease with esophagitis, without bleeding; R10.32 Left lower quadrant pain; Z87.891 Personal history of nicotine dependence; Z90.49 Acquired absence of other specified parts of digestive tract; K59.00 Constipation, unspecified; Z87.19 Personal history of other diseases of the digestive system; R68.81 Early satiety; K29.70 Gastritis, unspecified, without bleeding
CPT/HCPCS: 45380; 43245; 43239; 88305; 88313; 88341; 88342; J7120; J2405

== ENCOUNTER → 2022-05-31 | Outpatient (CLI) | payer MEDICARE, BC, SELFPAY ==
[2021-07-02 10:22] VITALS: BMI 34.7
--- NOTE | 2022-05-31 09:06 | US_ITS ---
STUDY: ABDOMINAL ULTRASOUND - RIGHT UPPER QUADRANT REASON FOR VISIT: Female, 77 years old . Fatty infiltration of the liver. TECHNIQUE: Ultrasound evaluation of the right upper quadrant was performed with real-time and static moreau-scale imaging. TECHNICAL QUALITY: Adequate. COMPARISON: None. FINDINGS: Liver: The liver measures 13.7 cm. There is normal echogenicity of the liver. The bile ducts are within normal limits. There is hepatic color flow. The direction of portal flow is hepatopetal. There is no demonstrated mass lesion. Gallbladder: The patient is status post cholecystectomy. Common Bile Duct (C.B.D.): The common bile duct measures 6.3 mm. Pancreas: Normal size of the head, body and tail of the pancreas. There is normal echogenicity of the pancreas. There is no demonstrated pancreatic mass or cyst. Right Kidney: Normal size of the right kidney. The right kidney measures 9.9 cm x 4.6 x 4.6 cm. Normal renal cortex. The right cortex measures 1.3 cm. There is no demonstrated renal mass or cyst. There is moderate hydronephrosis of the right kidney. US/Abdomen Limited IMPRESSION: Status post cholecystectomy. Moderate degree of the right hydronephrosis. Electronically Signed: Allan Joshua MD at 14:29 EDT ,
--- NOTE | 2022-05-31 09:06 | US_ITS ---
STUDY: ABDOMINAL ULTRASOUND - ELASTOGRAPHY REASON FOR VISIT: Female, 77 years old. Angiodysplasia of the stomach and duodenum. TECHNIQUE: Liver stiffness measurements were obtained on a [employer] RS 85 ultrasound machine using a CA 1-7 probe following the SRU guidelines. 3 measurements were obtained using a 2-D-SWE method. The IQR/M was 16% suggesting a quality data set. TECHNICAL QUALITY: Adequate. COMPARISON: Comparison is made with prior study done earlier today. FINDINGS: Liver: There is no demonstrated mass lesion. Median liver stiffness measured 8.2 kPa. US/Elastography Parenchyma/Organ IMPRESSION: Liver stiffness measures 8.2 kPa compatible with F2-F3 (Mild to moderate liver fibrosis) Metavir score. Electronically Signed: Allan Joshua MD at 14:30 EDT ,
== END | disposition home or self-care (01) ==
LOC: US 09:05
PROVIDERS: PCP Internal Medicine; Referring Provider Nurse Practitioner Adult Health; Visit Provider Nurse Practitioner Adult Health
DX: K31.819 Angiodysplasia of stomach and duodenum without bleeding (principal)
CPT/HCPCS: 76705; 76981

== ENCOUNTER → 2022-06-25 | Outpatient (CLI) | payer MEDICARE, BC, SELFPAY ==
[2021-07-02 10:22] VITALS: BMI 34.7
--- NOTE | 2022-06-25 13:21 | RAD_ITS ---
INDICATION: Increased SOB EXAMINATION/TECHNIQUE: X-RAY - XR Chest 2 Views COMPARISON: 06/14/2021. FINDINGS: Chronic interstitial lung changes, worse in the left lung. No definite acute lung findings. Tortuous and calcified thoracic aorta. The heart is not enlarged. No pleural effusion or pneumothorax. Degenerative changes of the thoracic spine. RAD/Chest PA and Lateral IMPRESSION: No acute radiographic abnormalities. Chronic interstitial lung disease. Electronically Signed: Vishnu Holland MD at 0:00 EDT ,
[2022-06-25 13:36] LABS: Absolute Lymphocyte Count 2.99 X10^3/uL (0.83-4.51); Absolute Neutrophil Count 5.1 X10^3/uL (2.0-7.7); Basophil# 0.06 X10^3/uL; Basophil% 0.6 % (0-1); Eosinophils% 2.1 % (0-5); Hematocrit 31.9 % (37-47); Lymphocyte # 2.99 X10^3/ul (0.83-4.51); Lymphocyte % 31.3 % (19-41); Mean Corp Hgb Conc 31.3 g/dL (32-36); Mean Corpuscular Hgb 28.5 pg (27.0-32.0); Mean Corpuscular Volume 90.9 fL (81-99); Mean Platelet Vol. 11.1 fl (6.2-12.0); Monocyte# 1.16 X10^3/uL; Monocyte% 12.1 % (0-10); NRBC Flagged by Analyzer 0 % (0-5); Neutrophil # 5.08 X10^3/uL (2.7-7.7); Neutrophil % 53.2 % (47-70); Platelet Count 306 K/mm3 (150-450); RBC Distribution Width CV 16.6 % (11.6-14.6); RBC Distribution Width SD 54.7 fl (35.1-43.9); Red Blood Count 3.51 M/mm3 (4.2-5.4); White Blood Count 9.6 K/mm3 (4.4-11.0)
[2022-06-25 14:11] LABS: BNP,B-Type NATRIURETIC PEPTIDE 593.4 pg/mL (0-100)
[2022-06-25 14:12] LABS: Anion Gap 4 (5-15); BUN 21 mg/dL (7-18); BUN/Creat Ratio 28.5 RATIO (10-20); Calcium,Total 9.3 mg/dL (8.5-10.1); Chloride 111 mmol/L (98-107); Creatinine, Serum 0.74 mg/dL (0.55-1.02); EST Glomerular Filtration Rate 81 mL/min (>60); Est Glom Filt Rate - Afr Amer 98 mL/min (>60); Glucose 129 mg/dL (74-106); Sodium Level 142 mmol/L (136-145)
== END | disposition home or self-care (01) ==
PROVIDERS: PCP Internal Medicine; Referring Provider Physician Assistant Medical; Visit Provider Physician Assistant Medical
DX: I48.0 Paroxysmal atrial fibrillation (principal); R60.9 Edema, unspecified; R06.09 Other forms of dyspnea
CPT/HCPCS: 36415; 71046; 80048; 83880; 85025

== ENCOUNTER → 2022-07-22 | Outpatient (CLI) | payer MEDICARE, BC, SELFPAY ==
[2021-07-02 10:22] VITALS: BMI 34.7
--- NOTE | 2022-07-22 12:54 | CT_ITS ---
INDICATION: NON-SMALL CELL CANCER OF THE LEFT LUNG -- NON-SMALL CELL CANCER OF THE LEFT LUNG EXAMINATION: CT CHEST WITHOUT CONTRAST - CT Chest W/O Contrast Injection TECHNIQUE: Helically acquired images were obtained of the chest. A radiation dose optimization technique was used for this scan. IV Contrast dosage and agent: None. COMPARISON: June 25, 2022 chest x-ray, CT chest December 10, 2021 FINDINGS: LUNGS, PLEURA AND LARGE AIRWAYS: There is peripheral fibrotic change throughout the lungs with areas of subcutaneous pleural blebs and honeycombing minimal interstitial thickening especially in the lung bases. Is a minimal focus of right lower lobe groundglass opacity. THYROID: No thyroid lesions. HEART AND PERICARDIUM: The heart is deviated towards the left. The visualized coronary calcifications. No pericardial effusion. CORONARY ARTERIES: Coronary artery calcification is seen. VESSELS: Aorta is tortuous partially calcified. MEDIASTINUM AND MOE: Postoperative change in the left hilum. There are small AP window lymph nodes. There is a precarinal focus of lymph nodes measuring 2.2 x 1.0 cm, 1.4 cm 0.7 cm. These are relatively stable when compared to prior study. There is a thick-walled appearance of the esophagus below the level the doris. There is a visualized hiatal hernia measuring 2.9 x 3.8 cm. UPPER ABDOMEN: The kidney is anteriorly rotated and appears posterior to the liver similar to prior study. BONES: There is mild degenerative change within the thoracic spine. The bones are somewhat osteopenic. CT/Chest without Contrast IMPRESSION: Volume loss left chest postoperative change left hilum findings suggest post lobectomy. There is a pattern of scarring and areas of fibrosis stable since prior study however within the right lower lobe there is a minimal focus of interval groundglass opacity that may represent atelectasis and/or small developing infiltrate. Mild cardiomegaly. Tortuous aorta. Stable mediastinal lymph nodes. Status post cholecystectomy. Hiatal hernia. Mild wall thickening of the esophagus consider esophagitis. Electronically Signed: April Tinajero MD at 4:07 EST ,
--- NOTE | 2022-07-22 12:54 | CDU_ITS ---
Reason For Study: Bilateral carotid stenosis Rt. Velocities/BP Lt. Velocities/BP Prox CCA 81.5/19.2 cm/sec. Prox CCA 98.1/16.8 cm/sec. Mid CCA 89.1/21.1 cm/sec. Mid CCA 89.4/20.1 cm/sec. Dist CCA 77.8/19.2 cm/sec. Dist CCA 85/20.1 cm/sec. Prox ICA 68.3/12.6 cm/sec. Prox ICA 75.1/21.2 cm/sec. Mid ICA 94.9/26.7 cm/sec. Mid ICA 86.1/21.2 cm/sec. Dist ICA 101.4/30 cm/sec. Dist ICA 107.2/24.9 cm/sec. Rt. ICA/CCA = 1.24. Lt. ICA/CCA = 1.20. Prox ECA 46.6/4.1 cm/sec. Prox ECA 75.1/3.6 cm/sec. Rt. Vert. 63/9.1 cm/sec. Lt. Vert. 88.8/20 cm/sec. Right Extracranial There is homogeneous, smooth atherosclerotic plaque noted in the right common carotid artery. There is heterogeneous, irregular atherosclerotic plaque noted in the right internal carotid artery. There is intimal thickening but no significant atherosclerotic plaque noted in the right external carotid artery. Antegrade flow is noted in the right vertebral artery. Left Extracranial There is homogeneous, smooth atherosclerotic plaque noted in the left common carotid artery. There is homogeneous, smooth atherosclerotic plaque noted in the left internal carotid artery. There is intimal thickening but no significant atherosclerotic plaque noted in the left external carotid artery. Antegrade flow is noted in the left vertebral artery. Procedure Carotid Duplex 30105. This is a Carotid Duplex examination using B-mode, color flow and specral Doppler. Exam performed in department. VL/Carotid Duplex Ultrasound Interpretation Summary Mild (<50%) stenosis right extracranial internal carotid. Mild (<50%) stenosis left extracranial internal carotid. Flow within the vertebral arteries is antegrade bilaterally. Ordering Physician: Kisha Morton Referring Physician: Kisha Morton D.O. Performed By: Yoko Vidales RVT
== END | disposition home or self-care (01) ==
LOC: CVS 12:54
PROVIDERS: PCP Internal Medicine; Visit Provider Internal Medicine
DX: I65.23 Occlusion and stenosis of bilateral carotid arteries (principal); C34.92 Malignant neoplasm of unspecified part of left bronchus or lung
CPT/HCPCS: 71250; 93880

== ENCOUNTER 2022-09-01 15:10 | Emergency (ER) | payer MEDICARE, BC, SELFPAY ==
[2021-07-02 10:22] VITALS: BMI 34.7
[2022-09-01 15:11] VITALS: BP 106/54; PULSE 87; RESP 18; TEMP 36.4; O2SAT 99; BMI 27.1
--- NOTE | 2022-09-01 15:31 | CT_ITS ---
STUDY: CT ABDOMEN AND PELVIS WITH CONTRAST REASON FOR EXAM: Female, 77 years old. abdominal pain RADIATION DOSAGE (If Supplied By Facility): CTDIvol = ( 13.96 ) mGy, DLP = ( 830.73 ) mGycm TECHNIQUE: Transaxial images were obtained from the dome of the diaphragm to the symphysis pubis without oral contrast. IV 100mL Isovue-370 was administered. Sagittal and coronal images were reconstructed. Individualized dose optimization techniques were used for this CT. COMPARISON: 02/07/2022 FINDINGS: The visualized lung bases are unremarkable. The visualized portions of the heart are within normal limits. Normal liver. There are surgical clips in the gallbladder fossa consistent with a prior cholecystectomy. Mild intrahepatic biliary ductal dilatation. Normal spleen. Normal pancreas. Normal bilateral adrenal glands. No change in the moderate hydronephrosis the right kidney possibly from ureteropelvic junction stenosis. Normal left kidney. There is a small hiatal hernia. Normal small intestine. Normal colon. There is non-visualization of the appendix. There is diffuse atherosclerotic calcification of the abdominal aorta, without a demonstrated aneurysm. Normal inferior vena cava. Normal retroperitoneum. Normal urinary bladder. Normal abdominal wall. Mild levoscoliosis of the thoracolumbar spine with degenerative disc disease. CT/Abdomen/Pelvis W IV Cont ONLY IMPRESSION: No acute abnormality. Electronically Signed: Quincy Cao MD at 16:26 RUST ,
--- NOTE | 2022-09-01 15:34 | ED.VIS.GI ---
HPI HPI - GI History of Present Illness Chief Complaint: Abd Pain Informant: patient Abdominal Pain/Flank Pain Onset: Today and Hours Context: Gradual Onset Timing: Continuous Quality: Aching Current Severity: Moderate Maximum Severity: Moderate Worsened by: Nothing Relieved by: Nothing Nausea/Vomiting/Emesis GI Symptom: Negative for Nausea or Vomiting Diarrhea/Melena/Hematochezia GI Symptom: Negative for Diarrhea, Melena or Hematochezia Associated Symptoms Associated Symptoms: Negative for Dysuria, Frequency, Hematuria or Urgency Narrative Narrative: 77-year-old female extensive past medical history of prior bowel obstruction, A. fib on Eliquis, breast and lung cancer and prior cholecystectomy. She also had bowel surgery for small bowel obstruction when she had a postop infection. States that today she had abdominal pain. Around 8 AM. Denies nausea or vomiting. No diarrhea. Mild constipation but did have a small bowel movement today. Normal yesterday. Denies any dysuria. No fever. She has drank 2 Ensure shakes today. Prior similar symptoms: Yes Recent Illness/Hospitalization: No PFSH PFSH Medical History Acute myofascial strain of lumbosacral region Anemia Anxiety Arthritis Back pain Breast cancer, left Breast lump Cancer Carotid stenosis Chronic low back pain with sciatica Chronic pain Clavicle fracture Climacteric Constipation Contusion of knee Depression CRISTOBAL (dyspnea on exertion) Dyspnea Early satiety Edema Former smoker GERD (gastroesophageal reflux disease) Hiatal hernia History of renal disease Hx of small bowel obstruction Hypothyroidism Iatrogenic pneumothorax Kidney disease Lung cancer New onset atrial fibrillation (03/26/22) Osteopenia Pancreatitis Paroxysmal atrial fibrillation Postoperative wound infection Seborrheic keratoses Stomach ache Thyroid disease Thyroiditis Vitamin D deficiency Wears dentures Home Medications cholecalciferol (vitamin D3) 25 mcg (1,000 unit) tablet 2,000 unit PO DAILY supplement 01/27/15 [History Last Taken 02/06/22] montelukast 10 mg tablet 10 mg PO DAILY allergies 01/27/15 [History Last Taken 02/06/22] levothyroxine 25 mcg tablet (Synthroid) 25 mcg PO DAILY hypothyroid 09/18/20 [History Last Taken 02/07/22] acetaminophen 650 mg tablet 650 mg PO Q6H PRN Pain 02/07/22 [History Last Taken 02/07/22] escitalopram oxalate 5 mg tablet 5 mg PO DAILY DEPRESSION 02/07/22 [History Last Taken 02/06/22] cyanocobalamin (vitamin B-12) 5,000 mcg disintegrating tablet 5,000 mcg PO DAILY supplement 06/07/22 [History Last Taken Unknown] gabapentin 100 mg capsule 200 mg PO QHS 06/07/22 [History Last Taken Unknown] pantoprazole 40 mg tablet,delayed release 40 mg PO BID reflux 06/07/22 [History Last Taken Unknown] calcium citrate 315 mg-vitamin D3 5 mcg (200 unit) tablet 1 tab PO BID 06/10/22 [History Last Taken Unknown] levomefolate 15 mg-algal oil 90.314 mg capsule (Deplin (algal oil)) 1 cap PO DAILY 06/10/22 [History Last Taken Unknown] furosemide 20 mg tablet 20 mg PO DAILY #90 tabs 06/25/22 [Rx Last Taken Unknown] metoprolol succinate 50 mg tablet,extended release 24 hr 25 mg PO DAILY #0 tabs 06/25/22 [Rx Last Taken Unknown] plecanatide 3 mg tablet (Trulance) 3 mg PO DAILY #30 tabs 06/25/22 [Rx Last Taken Unknown] apixaban 5 mg tablet (Eliquis) 5 mg PO BID #180 tabs 07/17/22 [Rx Last Taken Unknown] Allergy/AdvReac Type Severity Reaction Status Date / Time Sulfa (Sulfonamide Allergy Hives Verified 09/01/22 15:10 Antibiotics) triamcinolone [From Nasacort] AdvReac Unknown Other Verified 09/01/22 15:10 Family History Father , 44 Heart disease Myocardial infarction Surgical History History of cholecystectomy History of kidney surgery History of laparoscopy History of left breast biopsy (09/18/20) History of lobectomy of lung (02/14/21) History of lumpectomy of left breast (10/10/20) History of open reduction and internal fixation (ORIF) procedure History of tonsillectomy History of total left knee replacement History of total right knee replacement (03/06/20) Social History housing: house current occupation: Retired- [employer] history of recent travel: No sexually active: No Smoking Status: Former smoker second hand exposure: No alcohol intake: never substance use type: does not use ROS ROS ED ROS Narrative Left upper quadrant abdominal pain. Review of Systems ROS Unobtainable: Denies due to encephalopathy Constitutional Constitutional ED: Denies chills or fever(s) ENT ENT ED: Denies ear pain Cardiovascular Cardiovascular: Denies chest pain Respiratory/Chest Respiratory/Chest: Denies cough or dyspnea Gastrointestinal Gastrointestinal: Reports abdominal pain and constipation; Denies diarrhea, melena, nausea or vomiting Genitourinary Genitourinary ED: Denies dysuria or hematuria Musculoskeletal Musculoskeletal: Denies arthralgias Integumentary Denies abscess Neurologic Neurologic: Denies headache(s) Psychiatric Psychiatric: Denies anxiety Endocrine Endocrinology: Denies polydipsia Hematologic/Lymphatic Hematologic/Lymphatic: Denies easy bleeding Allergic/Immunologic Allergic/Immunologic ED: Denies mouth swelling or tongue swelling EXAM Physical Exam Narrative Exam Narrative: 17-year-old female no acute distress. Vital signs stable. Afebrile. Does not look septic or toxic. No distress. H EENT exam unremarkable. Moist Riis membranes. Lungs clear to auscultation. Heart regular rate about 87. No murmur appreciated. Abdomen soft. Mildly tender left upper quadrant. Nondistended. No hernia or mass. No obvious obstruction. No distention. Right upper and right lower quadrants are unremarkable. Moving all 4 extremities. Nontender no edema. Neurologically she is awake and alert with no focal motor deficits. Const Vital Signs: 09/01/22 15:11 Temperature 97.6 F L Temperature Source Temporal Pulse Rate 87 Respiratory Rate 18 Blood Pressure 106/54 L Blood Pressure Mean 71 Pulse Ox 99 Oxygen Delivery Method Room Air Positive well nourished and well developed; Negative for obese, cachectic, contractures or unkempt General Appearance ED: well developed and NAD; Negative for unkempt, cachectic, contractures or pallor Nutritional Appearance: Negative for cachectic or obese HEENT Reports moist mucous membranes normocephalic and atraumatic; Negative for trauma or tenderness Eyes PERRL and EOMs intact bilaterally General Eye ED: Negative for pale conjunctiva or scleral icterus Neck no lymphadenopathy, supple and no JVD General: Negative for tenderness Carotids: Negative for other Lymph Lymphatic: Negative for other Resp normal respiratory effort and clear to auscultation bilaterally Effort and Inspection: Negative for respiratory distress Auscultation: Negative for rales, rhonchi or wheezes Cardio regular rate, regular rhythm, S1 normal heart sound, S2 normal heart sound and no murmurs Rate: Negative for bradycardia GI non-distended and no masses; Negative for non-tender GI Narrative: Tenderness left upper quadrant. Mild. No signs of obstruction. Soft. Positive bowel sounds. Inspection: Negative for abdominal distention Auscultation: normoactive bowel sounds Palpation: soft and tender; Negative for guarding, rigid, hernia, mass, pulsatile mass or rebound tenderness present Back/Spine no CVA tenderness General Back: Negative for CVA tenderness Cervical Spine: Negative for cervical spine tenderness Thoracic Spine / Upper Back: Negative for thoracic spinal tenderness Lumbar Spine / Lower Back: Negative for lumbar spinal tenderness Extremity full ROM General Extremety ED: Negative for edema or tenderness General Extremity: Negative for edema Neuro CN's II-XII intact bilaterally and moves all extremities Sensorium / Orientation: alert, oriented to person, oriented to place and oriented to time; Negative for orientation impaired, confused, lethargic or stuporous Motor Exam: strength 5/5 throughout Psych mental status grossly normal and thought process normal Appearance: Negative for unkempt Attitude: No agitated Mood & Affect: Negative for depressed, anxious or tearful Skin no wounds General Skin Exam: Negative for jaundice or pallor Lesions: no lesions and No lesion noted Rashes: no rashes Trauma: Negative for abrasion Nails: Negative for discolored MDM MDM MDM Narrative Medical decision making narrative: 77-year-old female with left upper quadrant abdominal pain. Patient thinks she may have a bowel obstruction clinically this is definitely not a bowel obstruction. She has had a prior cholecystectomy. She has had prior surgery for a bowel obstruction and developed a postop infection. CAT scan labs to be obtained. She wants some for pain. She specifically requested Toradol. She has normal kidney function so she will be given 15 mg IV Toradol. IV fluids. CAT scan and labs. She is having no urinary symptoms. Repeat exam at 5:01 PM patient doing well. Abdomen benign. Nontender. Nondistended. Patient said the Toradol helped. She and I went over all of her test results. She will be discharged home. She was treated with a liter of fluid here. She was mildly dehydrated on her labs. Abdominal pain of uncertain etiology may be secondary to constipation. Definitely no obstruction. She is comfortable being discharged home with outpatient follow-up with her primary care physician. Lab Data Attestation: I reviewed the patient's lab results. Lab results narrative: CBC shows a white count 7.6. H&H 9.9 and 32 she has a baseline anemia between 10 and 112. Platelets 342. Electrolytes unremarkable gap performed. BUN 26 creatinine 0.9. Liver enzymes unremarkable. Glucose 139. Lipase normal at 81. CAT scan abdomen pelvis showed no acute abnormality. Labs: Laboratory Results - last 24 hr 09/01/22 09/01/22 15:20 15:20 WBC 7.6 RBC 3.80 L Hgb 9.9 L Hct 32.2 L MCV 84.7 MCH 26.1 L MCHC 30.7 L RDW Std Deviation 53.2 H RDW Coeff of Diaz 17.3 H Plt Count 342 MPV 11.1 Immature Gran % (Auto) 0.500 Neut % (Auto) 65.6 Lymph % (Auto) 23.4 [place] % (Auto) 9.1 Eos % (Auto) 0.7 Baso % (Auto) 0.7 Absolute Neuts (auto) 5.0 Absolute Lymphs (auto) 1.78 Nucleated RBC % 0 Sodium 140 Potassium 3.6 Chloride 105 Carbon Dioxide 31.0 Anion Gap 4 L BUN 26 H Creatinine 0.92 Estim Creat Clear Calc 40.50 Est GFR (MDRD) Af Amer 76 Est GFR (MDRD) Non-Af 63 BUN/Creatinine Ratio 28.3 H Glucose 139 H Calcium 9.0 Total Bilirubin 1.00 AST 15 ALT 16 Alkaline Phosphatase 60 Total Protein 7.1 Albumin 3.3 Globulin 3.8 Albumin/Globulin Ratio 0.9 Lipase 81 Radiography Diagnostic Testing: Clinical Impression(s) from Imaging Studies Abdomen/Pelvis CT 09/01/22 15:31 IMPRESSION: No acute abnormality. Electronically Signed: Quincy Cao MD at 16:26 EST , Discharge Plan Triage Chief Complaint: Abd Pain ED Provider: German Maharaj Dx/Rx/DC Orders Clinical Impression: Abdominal pain, Constipation, Chronic anemia, Acute dehydration Instructions: Abdominal Pain, Dehydration, ED Constipation (Adult) Prescriptions: No Action levothyroxine [Synthroid] 25 mcg tablet 25 mcg PO DAILY pantoprazole 40 mg tablet,delayed release (DR/EC) 40 mg PO BID gabapentin 100 mg capsule 200 mg PO QHS calcium citrate-vitamin D3 315 mg-5 mcg (200 unit) tablet 1 tab PO BID levomefolate-algal oil [Deplin (algal oil)] 15-90.314 mg capsule 1 cap PO DAILY montelukast 10 MG tablet 10 mg PO DAILY cholecalciferol (vitamin D3) 1,000 UNIT tablet 2,000 unit PO DAILY cyanocobalamin (vitamin B-12) 5,000 mcg tablet,disintegrating 5,000 mcg PO DAILY acetaminophen 650 mg Tablet 650 mg PO Q6H PRN (Reason: Pain) escitalopram oxalate 5 mg tablet 5 mg PO DAILY Label Comments: TAKE 1 TABLET BY MOUTH EVERY DAY Trulance 3 mg tablet 3 mg PO DAILY Qty: 30 0RF metoprolol succinate 50 mg tablet extended release 24 hr 25 mg PO DAILY Qty: 0 0RF furosemide 20 mg tablet 20 mg PO DAILY Qty: 90 3RF Eliquis 5 mg tablet 5 mg PO BID Qty: 180 4RF Primary Care Provider: Kisha Morton Referrals: Kisha Morton DO [Primary Care Provider] - 3-5 Days if not improving Activity Restrictions/Additional Instructions: Plenty of fluids and rest. Fiber to help with constipation. Follow-up with your primary care provider or return if worse. Disposition Disposition: Home, Self Care
[2022-09-01 15:51] LABS: Absolute Lymphocyte Count 1.78 X10^3/uL (0.83-4.51); Basophil# 0.05 X10^3/uL; Basophil% 0.7 % (0-1); Eosinophil# 0.05 X10^3/uL; Eosinophils% 0.7 % (0-5); Hematocrit 32.2 % (37-47); Hemoglobin 9.9 g/dL (12.0-15.0); Lymphocyte # 1.78 X10^3/ul (0.83-4.51); Lymphocyte % 23.4 % (19-41); Mean Corp Hgb Conc 30.7 g/dL (32-36); Mean Corpuscular Hgb 26.1 pg (27.0-32.0); Mean Corpuscular Volume 84.7 fL (81-99); Mean Platelet Vol. 11.1 fl (6.2-12.0); Monocyte# 0.69 X10^3/uL; Monocyte% 9.1 % (0-10); NRBC Flagged by Analyzer 0 % (0-5); Neutrophil # 5.01 X10^3/uL (2.7-7.7); Neutrophil % 65.6 % (47-70); Platelet Count 342 K/mm3 (150-450); RBC Distribution Width CV 17.3 % (11.6-14.6); RBC Distribution Width SD 53.2 fl (35.1-43.9); White Blood Count 7.6 K/mm3 (4.4-11.0)
[2022-09-01 16:03] LABS: ALB/GLOB Ratio 0.9 RATIO (0.9-2.4); AST(SGOT) 15 U/L (15-37); Alanine Aminotransfer ALT/SGPT 16 U/L (13-56); Albumin, Serum 3.3 g/dL (3.2-5.0); Alkaline Phosphatase 60 U/L (45-117); Anion Gap 4 (5-15); BUN 26 mg/dL (7-18); BUN/Creat Ratio 28.3 RATIO (10-20); Chloride 105 mmol/L (98-107); Creatinine, Serum 0.92 mg/dL (0.55-1.02); EST Glomerular Filtration Rate 63 mL/min (>60); Est Glom Filt Rate - Afr Amer 76 mL/min (>60); Globulin 3.8 g/dL (2.2-4.2); Glucose 139 mg/dL (74-106); Lipase 81 U/L (73-393); Potassium 3.6 mmol/L (3.5-5.1); Protein, Total 7.1 g/dL (6.4-8.2); Sodium Level 140 mmol/L (136-145)
[2022-09-01] MEDS: Ketorolac 15 MG/ML Vial IV (16:07)
[2022-09-01] MEDS: 0.9% Normal Saline 1,000 ML 1000 ML IV (16:07)
[2022-09-01 17:10] VITALS: O2SAT 97
== END 2022-09-01 17:12 | disposition home or self-care (01) ==
PROVIDERS: Emergency Provider Emergency Medicine; PCP Internal Medicine; Visit Provider Emergency Medicine
DX: E86.0 Dehydration (principal); I48.91 Unspecified atrial fibrillation; R10.9 Unspecified abdominal pain; R19.7 Diarrhea, unspecified; K59.00 Constipation, unspecified; D64.9 Anemia, unspecified; Z87.891 Personal history of nicotine dependence; Z79.01 Long term (current) use of anticoagulants; Z90.49 Acquired absence of other specified parts of digestive tract; Z85.3 Personal history of malignant neoplasm of breast
CPT/HCPCS: 99285; 74177; 80053; 83690; 85025; J7030; Q9967; A4216

== ENCOUNTER 2022-09-02 11:18 | Inpatient (IN) | payer MEDICARE, BC, SELFPAY ==
[2021-07-02 10:22] VITALS: BMI 34.7
[2022-09-02 11:22] VITALS: BP 112/44; PULSE 63; RESP 14; TEMP 36; O2SAT 97; BMI 28.2
--- NOTE | 2022-09-02 13:40 | EDS_ITS ---
HPI HPI - GI History of Present Illness Chief Complaint: Abd Pain Informant: patient Abdominal Pain/Flank Pain Onset: Yesterday Context: - (Awoke with the discomfort) Timing: Continuous Quality: Aching Location: Diffuse (More upper and the left than anywhere else) Current Severity: Moderate Maximum Severity: Moderate Worsened by: Food (And drinking fluids including water) Relieved by: - (Toradol when she was here in the ER yesterday) Nausea/Vomiting/Emesis GI Symptom: Negative for Nausea or Vomiting Diarrhea/Melena/Hematochezia GI Symptom: Negative for Diarrhea, Melena or Hematochezia Associated Symptoms Associated Symptoms: Negative for Dysuria, Frequency or Hematuria Narrative Narrative: Patient presenting for the second time in 2 days with abdominal discomfort that started yesterday when she awoke, no obvious trigger but eating seems to make it worse. She had this about a year ago when she had been referred to Dr. Gregg for it and scoped, he did some dilatation of a segment of bowel and something in or around her stomach according to the patient, and states she was good until this happened. She was given Toradol yesterday in the ER and had a negative work-up, the Toradol really helped but then she was discharged and the pain started coming back and has been progressively worsening ever since. She denies any new symptoms today. Just the same pain that is not going away. She has had a bowel obstruction in the past, and needed surgery for it but did not have any resections, and she has had no nausea or vomiting since yesterday when this started. She did have 1 normal bowel movement that did not seem to affect the discomfort very much. No urinary symptoms. No pain in her back or chest. No migration or radiation otherwise. No fevers or chills or respiratory symptoms. Anticoagulated on apixaban, no bleeding from anywhere. [facility] Medical History Acute myofascial strain of lumbosacral region Anemia Anxiety Arthritis Back pain Breast cancer, left Breast lump Cancer Carotid stenosis Chronic low back pain with sciatica Chronic pain Clavicle fracture Climacteric Constipation Contusion of knee Depression CRISTOBAL (dyspnea on exertion) Dyspnea Early satiety Edema Former smoker GERD (gastroesophageal reflux disease) Hiatal hernia History of renal disease Hx of small bowel obstruction Hypothyroidism Iatrogenic pneumothorax Kidney disease Lung cancer New onset atrial fibrillation (03/26/22) Osteopenia Pancreatitis Paroxysmal atrial fibrillation Postoperative wound infection Seborrheic keratoses Stomach ache Thyroid disease Thyroiditis Vitamin D deficiency Wears dentures Home Medications cholecalciferol (vitamin D3) 25 mcg (1,000 unit) tablet 2,000 unit PO DAILY supplement 01/27/15 [History Last Taken 02/06/22] montelukast 10 mg tablet 10 mg PO DAILY allergies 01/27/15 [History Last Taken 02/06/22] levothyroxine 25 mcg tablet (Synthroid) 25 mcg PO DAILY hypothyroid 09/18/20 [History Last Taken 02/07/22] acetaminophen 650 mg tablet 650 mg PO Q6H PRN Pain 02/07/22 [History Last Taken 02/07/22] escitalopram oxalate 5 mg tablet 5 mg PO DAILY DEPRESSION 02/07/22 [History Last Taken 02/06/22] cyanocobalamin (vitamin B-12) 5,000 mcg disintegrating tablet 5,000 mcg PO DAILY supplement 06/07/22 [History Last Taken Unknown] gabapentin 100 mg capsule 400 mg PO QHS Check with primary doctor 06/07/22 [History Last Taken Unknown] pantoprazole 40 mg tablet,delayed release 40 mg PO BID reflux 06/07/22 [History Last Taken Unknown] calcium citrate 315 mg-vitamin D3 5 mcg (200 unit) tablet 1 tab PO BID Check with primary doctor 06/10/22 [History Last Taken Unknown] apixaban 5 mg tablet (Eliquis) 5 mg PO BID Check with primary doctor 09/02/22 [History Last Taken Unknown] metoprolol succinate 50 mg tablet,extended release 24 hr 25 mg PO DAILY heart rate control 09/02/22 [History Last Taken Unknown] Allergy/AdvReac Type Severity Reaction Status Date / Time Sulfa (Sulfonamide Allergy Hives Verified 09/02/22 11:20 Antibiotics) triamcinolone [From Nasacort] AdvReac Unknown Other Verified 09/02/22 11:20 Family History Father , 44 Heart disease Myocardial infarction Surgical History History of cholecystectomy History of kidney surgery History of laparoscopy History of left breast biopsy (09/18/20) History of lobectomy of lung (02/14/21) History of lumpectomy of left breast (10/10/20) History of open reduction and internal fixation (ORIF) procedure History of tonsillectomy History of total left knee replacement History of total right knee replacement (03/06/20) Social History housing: house current occupation: Retired- [employer] history of recent travel: No sexually active: No Smoking Status: Former smoker second hand exposure: No alcohol intake: never substance use type: does not use ROS ROS ED Constitutional Constitutional ED: Denies chills or fever(s) Eyes Eyes: Denies change in vision or diplopia ENT ENT ED: Denies rhinorrhea or sore throat Cardiovascular Cardiovascular: Denies chest pain or palpitations Respiratory/Chest Respiratory/Chest: Denies cough, dyspnea or dyspnea on exertion Gastrointestinal Gastrointestinal: Reports abdominal pain; Denies diarrhea, melena, nausea or vomiting Genitourinary Genitourinary ED: Denies dysuria, hematuria or urinary frequency Musculoskeletal Musculoskeletal: Denies back pain or neck pain Integumentary Denies abscess or rash Neurologic Neurologic: Denies headache(s), paresthesias or weakness Psychiatric Psychiatric: Denies anxiety or suicidal thoughts EXAM Physical Exam Const Vital Signs: 09/02/22 11:22 Temperature 96.8 F L Temperature Source Temporal Pulse Rate 63 Respiratory Rate 14 Blood Pressure 112/44 L Blood Pressure Mean 66 Pulse Ox 97 Oxygen Delivery Method Room Air Positive well nourished and well developed General Appearance ED: well developed and NAD HEENT Reports moist mucous membranes normocephalic and atraumatic Eyes PERRL and EOMs intact bilaterally Neck full ROM and supple Resp normal respiratory effort and clear to auscultation bilaterally Cardio regular rate, regular rhythm and no murmurs GI non-distended GI Narrative: Tender to left upper quadrant without guarding or rebound tenderness, no palpable pulsatile mass, no other areas of tenderness. Benign abdomen with normal bowel sounds. Auscultation: normoactive bowel sounds Palpation: soft Back/Spine no CVA tenderness General Back: other FROM Extremity normal to inspection General Extremety ED: Negative for edema, pulses abnormal or tenderness General Extremity: Negative for edema or pulses abnormal Neuro oriented x3, CN's II-XII intact bilaterally and no sensory deficits noted Sensorium / Orientation: awake and alert Motor Exam: strength 5/5 throughout Skin no rashes or lesions noted and no wounds MDM MDM MDM Narrative Medical decision making narrative: While repeating the patient's labs, she was given GI cocktail and dicyclomine for her symptoms. This did not help her pain at all and she was requesting something more since then she was ordered morphine. Her white blood count is higher than it was yesterday but still within the normal range at 10.0. Looking back at old records, it appears the patient had surgery a little over a year ago because of small bowel obstruction caused by an internal hernia. Yesterday she had a CT with IV contrast only. It was unremarkable. Discussed with surgery Dr. Concepcion, who recommends repeating the CT w/ oral and IV contrast. Her pain is being treated. Checked out to oncoming ED physician, who reviewed CT results which showed a sma ll bowel obstruction, and patient was admitted to surgery. Lab Data Attestation: I reviewed the patient's lab results. Labs: Laboratory Results - last 24 hr 09/02/22 09/02/22 09/02/22 13:58 13:58 13:58 WBC 10.0 RBC 4.16 L Hgb 10.7 L Hct 34.8 L MCV 83.7 MCH 25.7 L MCHC 30.7 L RDW Std Deviation 53.8 H RDW Coeff of Diaz 17.6 H Plt Count 372 MPV 10.4 Immature Gran % (Auto) 0.300 Neut % (Auto) 63.1 Lymph % (Auto) 27.8 [place] % (Auto) 7.9 Eos % (Auto) 0.6 Baso % (Auto) 0.3 Absolute Neuts (auto) 6.3 Absolute Lymphs (auto) 2.79 Nucleated RBC % 0 Sodium 139 Potassium 3.6 Chloride 102 Carbon Dioxide 28.0 Anion Gap 9 BUN 22 H Creatinine 0.92 Estim Creat Clear Calc 40.50 Est GFR (MDRD) Af Amer 76 Est GFR (MDRD) Non-Af 62 BUN/Creatinine Ratio 23.8 H Glucose 100 Calcium 9.3 Total Bilirubin 1.60 H AST 16 ALT 17 Alkaline Phosphatase 65 Total Protein 7.4 Albumin 3.4 Globulin 4.0 Albumin/Globulin Ratio 0.8 L Urine Color Yellow Urine Clarity Clear Urine pH 7.0 Ur Specific [place] 1.010 Urine Protein Negative Urine Glucose (UA) Normal Urine Ketones Negative Urine Occult Blood Negative Urine Nitrite Negative Urine Bilirubin Negative Urine Urobilinogen Normal Ur Leukocyte Esterase Negative Urine RBC 0 SEEN Urine WBC 0 SEEN Ur Squamous Epith Cells 0 SEEN Urine Bacteria 0 SEEN Urine Mucus 0 SEEN Radiography Diagnostic Testing: Clinical Impression(s) from Imaging Studies Abdomen/Pelvis CT 09/02/22 15:40 IMPRESSION: Distal small bowel obstruction with transition point candidate in rightward pelvis. Associated mesenteric inflammatory stranding and small fluid is likely reactive. Electronically Signed: Phil Berry MD at 18:08 EST , Discharge Plan Dx/Rx/DC Orders Clinical Impression: Small bowel obstruction, Abdominal pain, acute, left upper quadrant Disposition Disposition: Acute Care Hospital [facility] Discharge Date/Time: 09/02/22 19:38
[2022-09-02] MEDS: Mag Hydrox/Al Hydrox/Simeth 30 ML UDC PO (13:54)
[2022-09-02] MEDS: Dicyclomine 10 MG Capsule 20 MG PO (13:54)
[2022-09-02] MEDS: 0.9% Normal Saline 1,000 ML 1000 ML IV (13:56)
[2022-09-02 14:02] LABS: Bacteria 0 SEEN /hpf (None Seen); Mucous, Urine 0 SEEN /hpf (<or=2+); Red Blood Cells-Urine 0 SEEN /hpf (0-5); Squamous Epithelial Cells - UA 0 SEEN /hpf (5-10); White Blood Cells 0 SEEN /hpf (0-5)
[2022-09-02 14:05] LABS: Absolute Lymphocyte Count 2.79 X10^3/uL (0.83-4.51); Absolute Neutrophil Count 6.3 X10^3/uL (2.0-7.7); Basophil# 0.03 X10^3/uL; Basophil% 0.3 % (0-1); Eosinophil# 0.06 X10^3/uL; Eosinophils% 0.6 % (0-5); Hematocrit 34.8 % (37-47); Hemoglobin 10.7 g/dL (12.0-15.0); Lymphocyte # 2.79 X10^3/ul (0.83-4.51); Lymphocyte % 27.8 % (19-41); Mean Corp Hgb Conc 30.7 g/dL (32-36); Mean Corpuscular Hgb 25.7 pg (27.0-32.0); Mean Corpuscular Volume 83.7 fL (81-99); Mean Platelet Vol. 10.4 fl (6.2-12.0); Monocyte# 0.79 X10^3/uL; Monocyte% 7.9 % (0-10); NRBC Flagged by Analyzer 0 % (0-5); Neutrophil # 6.34 X10^3/uL (2.7-7.7); Neutrophil % 63.1 % (47-70); Platelet Count 372 K/mm3 (150-450); RBC Distribution Width CV 17.6 % (11.6-14.6); RBC Distribution Width SD 53.8 fl (35.1-43.9); Red Blood Count 4.16 M/mm3 (4.2-5.4)
[2022-09-02 14:10] LABS: Color, Urine Yellow (Yellow); Glucose, Dipstick Normal (Normal); Ketone-Dipstick Negative (Negative); Leukocyte Esterase-Dipstick Negative /ul (Negative); Nitrite-Dipstick Negative (Negative); Occult Blood-Urine Negative /ul (Negative); Protein-Dipstick Negative (Negative); Urine Bilirubin Dipstick Negative (Negative); Urine Clarity Clear (Clear); Urine Urobilinogen Normal (Normal)
[2022-09-02 14:20] LABS: ALB/GLOB Ratio 0.8 RATIO (0.9-2.4); AST(SGOT) 16 U/L (15-37); Alanine Aminotransfer ALT/SGPT 17 U/L (13-56); Albumin, Serum 3.4 g/dL (3.2-5.0); Alkaline Phosphatase 65 U/L (45-117); Anion Gap 9 (5-15); BUN 22 mg/dL (7-18); BUN/Creat Ratio 23.8 RATIO (10-20); Calcium,Total 9.3 mg/dL (8.5-10.1); Chloride 102 mmol/L (98-107); Creatinine, Serum 0.92 mg/dL (0.55-1.02); EST Glomerular Filtration Rate 62 mL/min (>60); Est Glom Filt Rate - Afr Amer 76 mL/min (>60); Glucose 100 mg/dL (74-106); Potassium 3.6 mmol/L (3.5-5.1); Protein, Total 7.4 g/dL (6.4-8.2); Sodium Level 139 mmol/L (136-145)
--- NOTE | 2022-09-02 15:40 | CT_ITS ---
INDICATION: LUQ pain, hx internal hernia, worsening pain EXAMINATION: CT ABDOMEN AND PELVIS WITH CONTRAST - CT Abdomen And Pelvis W/ Contrast Injection TECHNIQUE: Helically acquired images were obtained of the abdomen and pelvis following IV contrast. A radiation dose optimization technique was used for this scan. IV Contrast dosage and agent: 87 cc Isovue-370 Oral contrast: Present COMPARISON: 09/01/2022 FINDINGS: LOWER CHEST: Chronic lung disease. No cardiomegaly or pericardial effusion. LIVER: Homogeneous. No focal mass. GALLBLADDER AND BILIARY TREE: Prior cholecystectomy. Diffuse intrahepatic and extrahepatic biliary dilation redemonstrated. PANCREAS: No focal cystic or solid mass. SPLEEN: Normal size without focal cystic or solid mass. ADRENAL GLANDS: No nodules. KIDNEYS AND URETERS: Right renal malrotation and hydronephrosis redemonstrated. Normal appearance of the left kidney. PERITONEUM: No ascites or free air. No other fluid collection. BOWEL: No evidence of acute appendicitis. Small hiatal hernia. Extensive small bowel enlargement with air-fluid levels and decompressed small bowel mostly in the pelvis. There is a transition point cannot in the rightward pelvis (series 2, images 79-82; series 601, image 49). Small mesenteric inflammatory stranding and fluid. LYMPH NODES: No enlarged mesenteric or retroperitoneal lymph nodes. VESSELS: Aorta is non-dilated. URINARY BLADDER: Unremarkable. REPRODUCTIVE ORGANS: No pelvic masses. ABDOMINAL WALL: No discrete abdominal or pelvic wall hernia. BONES: Lumbar spine scoliosis and degenerative change. CT/Abdomen/Pelvis WITH Contrast IMPRESSION: Distal small bowel obstruction with transition point candidate in rightward pelvis. Associated mesenteric inflammatory stranding and small fluid is likely reactive. Electronically Signed: Phil Berry MD at 18:08 EST ,
[2022-09-02] MEDS: Morphine 2 MG/ML Syringe IV ×2 (15:54→20:34)
[2022-09-02] MEDS: 0.9% Normal Saline 1,000 ML 999 ML IV (18:04)
[2022-09-02] MEDS: Morphine 4 MG/ML Syringe IV (18:09)
--- NOTE | 2022-09-02 19:06 | ED.RN ---
Pt. refused NG tube. Dr. Maharaj made aware.
[2022-09-02 19:09] VITALS: BP 129/49; PULSE 86; RESP 16; TEMP 36.7; O2SAT 94
--- NOTE | 2022-09-02 19:36 | ED.RN ---
Report called to JULIA Flores in ICU
[2022-09-02 19:49] VITALS: BMI 28.4
[2022-09-02] MEDS: Lactated Ringers 1,000 ML 125 ML IV (19:57)
[2022-09-02 20:00] VITALS: BP 114/43; PULSE 70; RESP 20; TEMP 36.3; O2SAT 98
[2022-09-02 20:01] VITALS: BP 114/43; PULSE 70; RESP 20; TEMP 36.3; O2SAT 98
[2022-09-02] MEDS: Ondansetron 4 MG/2 ML Vial IV (20:03)
--- NOTE | 2022-09-02 20:10 | NURSING ---
Pt arrived to room, oriented to surroundings and educated on MD orders, especially NGT placement to help rest her bowel and stomach. Pt stated, they tried that once in [place] and I'm not doing that again.
[2022-09-02] MEDS: Acetaminophen 325 MG Tablet 650 MG PO (20:33)
[2022-09-02] MEDS: Pantoprazole Sodium 40 MG Tablet PO (22:06)
[2022-09-02] MEDS: Gabapentin 100 MG Capsule 200 MG PO (22:06)
[2022-09-03] VITALS (8 sets, daily range): BP systolic 104–122; BP diastolic 44–60; PULSE 72–124; RESP 14–18; TEMP 36.2–36.9; O2SAT 94–98
[2022-09-03] MEDS: BENZOCAINE/MENTHOL 1 LOZENGE MUCOUS MEM (02:15)
--- NOTE | 2022-09-03 02:17 | NURSING ---
pt complaint of heart burn, refuses NG placment. cepacol lozenger given
[2022-09-03] MEDS: Lactated Ringers 1,000 ML 125 ML IV ×3 (03:40→19:44)
--- NOTE | 2022-09-03 05:55 | RAD_ITS ---
EXAM: XR ABDOMEN, 1 VIEW CLINICAL INDICATION: sbo -- portable TECHNIQUE: Frontal supine view of the abdomen/pelvis. This report was created using [employer] report generation technology. COMPARISON: CT of 09/02/2022. Abdominal radiograph of 04/16/2022. FINDINGS: GASTROINTESTINAL TRACT: Stomach is decompressed. A few gas filled small bowel loops are noted within the abdomen and pelvis, measuring up to 4.1 cm in transverse diameter. The colon is decompressed and contains a small amount of gas. ORGANS: Right-sided hydronephrosis is demonstrated with contrast filling the dilated right renal pelvis and calyces, as noted on prior CT. No contrast is seen within the right ureter. The urinary bladder is partially filled with excreted contrast. No left-sided hydronephrosis is noted. Cholecystectomy clips are present. BONES/JOINTS: Mild lumbar levoscoliosis is again noted with multilevel degenerative disc disease. RAD/Abdomen Single View (Portable) IMPRESSION: Multiple distended and gas-filled small bowel loops are again noted, consistent with a small bowel obstruction, as noted on the prior CT. Right hydronephrosis again noted. Electronically Signed: Walter Jolly MD at 7:08 EST ,
[2022-09-03] MEDS: Levothyroxine 25 MCG TABLET PO (05:58)
[2022-09-03] MEDS: Ondansetron 4 MG/2 ML Vial IV (06:01)
[2022-09-03 06:03] LABS: Absolute Lymphocyte Count 2.49 X10^3/uL (0.83-4.51); Basophil# 0.04 X10^3/uL; Basophil% 0.5 % (0-1); Eosinophil# 0.15 X10^3/uL; Eosinophils% 1.8 % (0-5); Hematocrit 30.2 % (37-47); Hemoglobin 9.4 g/dL (12.0-15.0); Lymphocyte # 2.49 X10^3/ul (0.83-4.51); Lymphocyte % 29.1 % (19-41); Mean Corp Hgb Conc 31.1 g/dL (32-36); Mean Corpuscular Volume 83.7 fL (81-99); Mean Platelet Vol. 10.4 fl (6.2-12.0); Monocyte# 0.84 X10^3/uL; Monocyte% 9.8 % (0-10); NRBC Flagged by Analyzer 0 % (0-5); Neutrophil % 58.4 % (47-70); Platelet Count 310 K/mm3 (150-450); RBC Distribution Width CV 17.3 % (11.6-14.6); RBC Distribution Width SD 53.1 fl (35.1-43.9); Red Blood Count 3.61 M/mm3 (4.2-5.4); White Blood Count 8.6 K/mm3 (4.4-11.0)
--- NOTE | 2022-09-03 06:04 | NURSING ---
pt up to bathroom, is nauseated and has pain, continues to refuse NG, states we aren't giving her meds as she takes them at home. takes Magnesuim 650 mg each night to have a bowel movement and takes protonix 2 pills in each morning to keep heart burn under control. emesis of 400 cc green brown fluid. zofran given
[2022-09-03 06:18] LABS: Anion Gap 6 (5-15); BUN 14 mg/dL (7-18); BUN/Creat Ratio 20.3 RATIO (10-20); Calcium,Total 8.9 mg/dL (8.5-10.1); Chloride 105 mmol/L (98-107); Creatinine, Serum 0.69 mg/dL (0.55-1.02); EST Glomerular Filtration Rate 88 mL/min (>60); Est Glom Filt Rate - Afr Amer 106 mL/min (>60); Estimated Creatinine Clearance 37.26 ml/min; Glucose 97 mg/dL (74-106); Potassium 3.2 mmol/L (3.5-5.1); Sodium Level 141 mmol/L (136-145)
--- NOTE | 2022-09-03 07:03 | HP.PCM_ITS ---
HPI - General General Date of Admission: 09/02/22 HPI Narrative ROSELINE SHERIFF, is a 77 F who presents to the ER due to abdominal pain/constipation. Patient was also in the ER on 09/[address] abdomen pelvis which was normal patient got Toradol is doing better and sent home. Patient states as soon as she started going home started having some more abdominal pain. Ended and up coming back to the ER on 09/02. Patient previously has a history and June 2021 of internal hernia and did have enterotomy which was repaired at the time of surgery as well as wound infection postoperatively. Patient has not had any flatus still complains of abdominal pain but has been also refusing the NG tube. Patient states she does have a deviated septum. Patient white blood count of 10 in the ER this morning is 8.6. [facility] Medical History Acute myofascial strain of lumbosacral region Anemia Anxiety Arthritis Back pain Breast cancer, left Breast lump Cancer Carotid stenosis Chronic low back pain with sciatica Chronic pain Clavicle fracture Climacteric Constipation Contusion of knee Depression CRISTOBLA (dyspnea on exertion) Dyspnea Early satiety Edema Former smoker GERD (gastroesophageal reflux disease) Hiatal hernia History of renal disease Hx of small bowel obstruction Hypothyroidism Iatrogenic pneumothorax Kidney disease Lung cancer New onset atrial fibrillation (03/26/22) Osteopenia Pancreatitis Paroxysmal atrial fibrillation Postoperative wound infection Seborrheic keratoses Stomach ache Thyroid disease Thyroiditis Vitamin D deficiency Wears dentures Home Medications cholecalciferol (vitamin D3) 25 mcg (1,000 unit) tablet 2,000 unit PO DAILY supplement 01/27/15 [History Last Taken 02/06/22] montelukast 10 mg tablet 10 mg PO DAILY allergies 01/27/15 [History Last Taken 02/06/22] levothyroxine 25 mcg tablet (Synthroid) 25 mcg PO DAILY hypothyroid 09/18/20 [History Last Taken 02/07/22] acetaminophen 650 mg tablet 650 mg PO Q6H PRN Pain 02/07/22 [History Last Taken 02/07/22] escitalopram oxalate 5 mg tablet 5 mg PO DAILY DEPRESSION 02/07/22 [History Last Taken 02/06/22] cyanocobalamin (vitamin B-12) 5,000 mcg disintegrating tablet 5,000 mcg PO DAILY supplement 06/07/22 [History Last Taken Unknown] gabapentin 100 mg capsule 400 mg PO QHS Check with primary doctor 06/07/22 [History Last Taken Unknown] pantoprazole 40 mg tablet,delayed release 40 mg PO BID reflux 06/07/22 [History Last Taken Unknown] calcium citrate 315 mg-vitamin D3 5 mcg (200 unit) tablet 1 tab PO BID Check with primary doctor 06/10/22 [History Last Taken Unknown] apixaban 5 mg tablet (Eliquis) 5 mg PO BID Check with primary doctor 09/02/22 [History Last Taken Unknown] metoprolol succinate 50 mg tablet,extended release 24 hr 25 mg PO DAILY heart rate control 09/02/22 [History Last Taken Unknown] Allergy/AdvReac Type Severity Reaction Status Date / Time Sulfa (Sulfonamide Allergy Hives Verified 09/02/22 11:20 Antibiotics) triamcinolone [From Nasacort] AdvReac Unknown Other Verified 09/02/22 11:20 Family History Father , 44 Heart disease Myocardial infarction Surgical History History of cholecystectomy History of kidney surgery History of laparoscopy History of left breast biopsy (09/18/20) History of lobectomy of lung (02/14/21) History of lumpectomy of left breast (10/10/20) History of open reduction and internal fixation (ORIF) procedure History of tonsillectomy History of total left knee replacement History of total right knee replacement (03/06/20) Social History housing: house current occupation: Retired- [employer] history of recent travel: No sexually active: No Smoking Status: Former smoker second hand exposure: No alcohol intake: never substance use type: does not use ROS Constitutional Constitutional: Denies anorexia Cardiovascular Cardiovascular: Denies chest pain Respiratory/Chest Respiratory/Chest: Denies cough Gastrointestinal Gastrointestinal: Reports abdominal pain, anorexia, constipation and nausea Genitourinary Genitourinary: Denies dysuria Musculoskeletal Musculoskeletal: Denies abnormal gait Integumentary Integumentary: Denies rash Neurologic Neurologic: Denies abnormal speech Hematologic/Lymphatic Hematologic/Lymphatic: Reports easy bleeding Vital Signs Vital Signs Vital Signs: 09/02/22 11:22 09/02/22 19:09 09/02/22 20:01 Temperature 96.8 F L 98.1 F 97.3 F L Temperature Source Temporal Temporal Temporal Pulse Rate 63 86 70 Pulse Strength Respiratory Rate 14 16 20 H Blood Pressure 112/44 L 129/49 H 114/43 L Blood Pressure Mean 66 75 66 Blood Pressure Source Monitor Blood Pressure Position Semi-Fowlers Blood Pressure Location Right Arm Pulse Ox 97 94 98 Oxygen Delivery Method Room Air Room Air Room Air 09/02/22 22:00 09/02/22 20:00 09/03/22 02:15 Temperature 97.3 F L 97.4 F L Temperature Source Temporal Temporal Pulse Rate 70 72 Pulse Strength Normal (2+) Respiratory Rate 20 H 14 Blood Pressure 114/43 L 118/44 L Blood Pressure Mean 66 68 Blood Pressure Source Blood Pressure Position Blood Pressure Location Pulse Ox 98 98 Oxygen Delivery Method Room Air Room Air 09/03/22 02:15 Temperature 97.4 F L Temperature Source Temporal Pulse Rate 72 Pulse Strength Respiratory Rate 14 Blood Pressure 118/44 L Blood Pressure Mean 68 Blood Pressure Source Monitor Blood Pressure Position Supine Blood Pressure Location Pulse Ox 98 Oxygen Delivery Method Room Air Weight Weight: 155 lb 6.814 oz Body Mass Index (BMI) 28.4 Physical Exam Const alert, oriented x3 and no apparent distress HEENT normocephalic and head/scalp atraumatic Resp normal respiratory effort Cardio regular rate GI soft to palpation GI Narrative: Mild abdominal distention Palpation: tender other (Diffuse no peritoneal signs); Negative for guarding Extremity no clubbing, cyanosis or edema Neuro CN's II-XII intact bilaterally Psych mental status grossly normal Results Lab / Micro Data Result Diagrams: 09/03/22 05:55 09/03/22 05:55 Labs: Laboratory Results - last 24 hr 09/02/22 13:58: WBC 10.0, RBC 4.16 L, Hgb 10.7 L, Hct 34.8 L, MCV 83.7, MCH 25.7 L, MCHC 30.7 L, RDW Std Deviation 53.8 H, RDW Coeff of Diaz 17.6 H, Plt Count 372, MPV 10.4, Immature Gran % (Auto) 0.300, Neut % (Auto) 63.1, Lymph % (Auto) 27.8, [place] % (Auto) 7.9, Eos % (Auto) 0.6, Baso % (Auto) 0.3, Absolute Neuts (auto) 6.3, Absolute Lymphs (auto) 2.79, Nucleated RBC % 0 09/02/22 13:58: Sodium 139, Potassium 3.6, Chloride 102, Carbon Dioxide 28.0, Anion Gap 9, BUN 22 H, Creatinine 0.92, Estim Creat Clear Calc 40.50, Est GFR (MDRD) Af Amer 76, Est GFR (MDRD) Non-Af 62, BUN/Creatinine Ratio 23.8 H, Glucose 100, Calcium 9.3, Total Bilirubin 1.60 H, AST 16, ALT 17, Alkaline Phosphatase 65, Total Protein 7.4, Albumin 3.4, Globulin 4.0, Albumin/Globulin Ratio 0.8 L 09/02/22 13:58: Urine Color Yellow, Urine Clarity Clear, Urine pH 7.0, Ur Specific [place] 1.010, Urine Protein Negative, Urine Glucose (UA) Normal, Urine Ketones Negative, Urine Occult Blood Negative, Urine Nitrite Negative, Urine Bilirubin Negative, Urine Urobilinogen Normal, Ur Leukocyte Esterase Negative, Urine RBC 0 SEEN, Urine WBC 0 SEEN, Ur Squamous Epith Cells 0 SEEN, Urine Bacteria 0 SEEN, Urine Mucus 0 SEEN 09/03/22 05:55: WBC 8.6, RBC 3.61 L, Hgb 9.4 L, Hct 30.2 L, MCV 83.7, MCH 26.0 L , MCHC 31.1 L, RDW Std Deviation 53.1 H, RDW Coeff of Diaz 17.3 H, Plt Count 310, MPV 10.4, Immature Gran % (Auto) 0.400, Neut % (Auto) 58.4, Lymph % (Auto) 29.1, [place] % (Auto) 9.8, Eos % (Auto) 1.8, Baso % (Auto) 0.5, Absolute Neuts (auto) 5.0, Absolute Lymphs (auto) 2.49, Nucleated RBC % 0 09/03/22 05:55: Sodium 141, Potassium 3.2 L, Chloride 105, Carbon Dioxide 30.0, Anion Gap 6, BUN 14, Creatinine 0.69, Estim Creat Clear Calc 37.26, Est GFR (MDRD) Af Amer 106, Est GFR (MDRD) Non-Af 88, BUN/Creatinine Ratio 20.3 H, Glucose 97, Calcium 8.9 Radiology Impression Abdomen/Pelvis CT 09/02/22 15:40 IMPRESSION: Distal small bowel obstruction with transition point candidate in rightward pelvis. Associated mesenteric inflammatory stranding and small fluid is likely reactive. Electronically Signed: Phil Berry MD at 18:08 EST , Assessment & Plan Assessment/Plan (1) Small bowel obstruction: PLAN: Plan Reviewed patient's CAT scan as well as this morning's KUB. Discussed with patient the importance of allowing them to try an NG as the possibilities are NG tube vs surgery and possible complications that could come along with surgery. Patient was agreeable to let them try the NG. Plan to attempt conservative management?patient's Eliquis has been held last night. If patient does not improve or unable to get the NG may need diagnostic laparoscopy possible laparotomy possible bowel resection. Megan Concepcion M.D. Pager: [phone] [facility] [address] [place] [address], [address] [place] [address] Office: [phone]
[2022-09-03] MEDS: Lidocaine Jelly 2% 20 ML Syringe (URO-JET) 1 APPLIC TOPICAL (08:50)
--- NOTE | 2022-09-03 09:00 | RAD_ITS ---
EXAM: XR ABDOMEN, 1 VIEW CLINICAL INDICATION: NG placement TECHNIQUE: Frontal supine view of the abdomen/pelvis. This report was created using [employer] report generation technology. COMPARISON: 09/03/2022 at 1:51 AM. FINDINGS: LOWER THORAX: No acute pathology. GASTROINTESTINAL TRACT: Faint contrast opacification of bowel in the right side and left side of the abdomen. Non-obstructive. No bowel or stomach distention. ORGANS: Contrast opacification of markedly dilated right renal pelvis is persistent. No organomegaly. No abnormal calcifications. BONES/JOINTS: Old fracture in the left lower posterior rib cage is unchanged. SOFT TISSUES: No acute pathology. TUBES, LINES AND DEVICES: NG tube tip and sidehole right inside the left gastric cavity. RAD/Abdomen Single View (Portable) IMPRESSION: Satisfactory placement of NG tube, tip and sidehole are inside the left gastric cavity. Electronically Signed: Rickey Luis MD at 9:13 EST ,
[2022-09-03] MEDS: Pantoprazole Sodium 40 MG Tablet PO ×2 (10:20→22:10)
[2022-09-03] MEDS: Escitalopram Oxalate 10 MG Tablet 5 MG PO (10:20)
[2022-09-03] MEDS: Cholecalciferol (VIT D3) 25 MCG TABLET (1,000 UNITS) 50 MCG PO (10:20)
[2022-09-03] MEDS: Furosemide 20 MG Tablet PO (10:20)
[2022-09-03] MEDS: Metoprolol(XL)Succ 25 MG Tablet PO (10:21)
--- NOTE | 2022-09-03 11:45 | CASEMGMT ---
JULIA MONTE DC Planning Assessment: Face to Face with pt at bedside. Pt alert, oriented and agreeable to participating in assessment. Pt's niece Destinee at bedside and pt provided permission to speak in front of niece. PCP: Dr. Morton Insurance: PIERRE A/B, Rex. Living Situation: Pt states she lives alone in a single story home with 3 steps to enter. Pt states she is independent with ADLs and household tasks. Does have a cleaning lady who comes every two weeks. Transportation: Pt does not drive but familiy transports as needed. DME: shower chair, hand held shower, grab bars, raised toilet seat, lift chair, cane, walker, w/c, medical alert, rollator. Pt states she does not use all of ambulatory aides but has them if needed. HHC: previous s/p knee replacements but cannot recall the name of the provider SNF: None Plan: pt plans to return home alone with the support of her family. Will continue to monitor and assist with DC planning needs as identified. Tony Haley RN CM
[2022-09-03] MEDS: Calcium Carb/Vitamin D 1 TABLET Tablet PO ×2 (13:08→18:18)
--- NOTE | 2022-09-03 15:14 | CHAPLAIN ---
Type of Pastoral Visit _x__ Initial Visit ___ Follow-up Visit ___ On-call Visit ___ General Patient Visit ___ Spiritual Assessment ___ Family Conference ___ Bereavement ___ Rapid Response ___ Code Blue ___ Other (describe below) Pastoral Care Referral From _x__ Patient ___ Family ___ Nurse ___ Physician ___ Astrobiologist ___ Childcare Attendant ___ Other (describe below) Sacrament/Intervention ___ Active listening ___ Anointing ___ Jainism ___ Bereavement ___ Communion ___ Meghana exploration ___ ___ Life review _x__ Prayer ___ Reconciliation ___ Sacrament of Sick _x__ Supportive presence ___ Wedding ___ Other (describe below) Pastoral Comments patient was being taken care of by RN at time of visit; pt asked about her support; pt states that she is in need of a prayer and that would be enough; pt rosendo is with her at this time
--- NOTE | 2022-09-03 21:28 | EKG12_ITS ---
Test Reason : ELEVATED HR Blood Pressure : / mmHG Vent. Rate : 116 BPM Atrial Rate : 256 BPM P-R Int : 000 ms QRS Dur : 102 ms QT Int : 268 ms P-R-T Axes : -86 058 210 degrees QTc Int : 372 ms Atrial flutter with variable A-V block Low voltage QRS Nonspecific ST and T wave abnormality Abnormal ECG Confirmed by SATYA DURAN, TORITO ([id number]), index editor YONI SAMLON ([id number]) on 09/05/2022 8:17:04 AM Referred By: MELVIN JACKSON Confirmed By:TORITO HERNADEZ MD
[2022-09-03] MEDS: Metoprolol Tartrate 5 MG/5 ML Vial IV (22:08)
[2022-09-04] VITALS (17 sets, daily range): BP systolic 99–147; BP diastolic 41–80; PULSE 68–102; RESP 16–18; TEMP 36.5–36.7; O2SAT 94–97
[2022-09-04] MEDS: Lactated Ringers 1,000 ML 125 ML IV ×2 (03:36→10:44)
--- NOTE | 2022-09-04 07:00 | RAD_ITS ---
INDICATION: Abdominal pain and distention EXAMINATION/TECHNIQUE: X-RAY -supine abdomen, one view COMPARISON: Yesterday FINDINGS: Stable appearance of NG tube, tip in the body of the stomach BOWEL GAS PATTERN: Non-obstructive. No bowel or stomach distention. FREE AIR: Not assessed on a single supine view. Evidence of previous cholecystectomy CALCIFICATIONS: No abnormal calcifications observed. LOWER CHEST: No acute pathology. BONES AND SOFT TISSUES: No acute pathology. Old healed left rib fractures RAD/Abdomen Single View (Portable) IMPRESSION: No acute abdominal or pelvic process. No interval change Electronically Signed: Eliezer Hinojosa MD at 8:55 EST ,
--- NOTE | 2022-09-04 07:33 | RAD_ITS ---
INDICATION: sbo -- gastrografin--KUB portable ok 1 AND 2hr EXAMINATION/TECHNIQUE: Gastrograffin oral contrast was administered orally via NG tube to the patient. AP KUB images were obtained of the 1 and 2 hour pollard. 3 total images were submitted for assessment. COMPARISON: Abdomen radiograph from 09/04/2022. CT abdomen/pelvis from 09/02/2022. FINDINGS: Support devices: An NG tube terminates in the gastric body. The stomach is nondilated. There is mild dilatation of the small bowel loops measuring up to 3.2 cm however, oral contrast opacifies the large bowel within 1 hour. No findings to suggest complete obstruction. RAD/Small Bowel Series Only IMPRESSION: Nonspecific mildly dilated small bowel loops with no definitive findings to suggest high-grade small bowel obstruction. Electronically Signed: Tyler Michelle, at 12:20 EST ,
--- NOTE | 2022-09-04 09:41 | PN.SURG_ITS ---
Subjective Subjective Patient is a 77 y/o F I am following for small bowel obstruction. Patient notes she has passed flatus and multiple loose bowel movements yesterday. She denies nausea, vomiting, fever. She denies abdominal pain. Objective Data Objective Data Vital Signs: Vital Signs Temp Pulse Resp BP Pulse Ox O2 Del Method 98 F 84 16 124/69 H 95 Room Air 09/04/22 08:16 09/04/22 08:16 09/04/22 08:16 09/04/22 08:16 09/04/22 08:16 09/04/22 08:16 Oxygen Delivery Method Room Air Weight: 155 lb 6.814 oz Body Mass Index (BMI) 28.4 Intake & Output: Intake and Output for Last 24 Hours 09/02/22 09/03/22 09/04/22 23:59 23:59 23:59 Intake Total 1999 3127.08 / 3227.08 1143.33 / 1143.33 Output Total 1400 / 1400 75 / 75 Balance 1999 1727.08 / 1827.08 1068.33 / 1068.33 Lab / Micro Data Result Diagrams: 09/03/22 05:55 09/03/22 05:55 Radiography Diagnostic Testing: Radiology Impression KUB X-Ray 09/04/22 07:00 IMPRESSION: No acute abdominal or pelvic process. No interval change Electronically Signed: Eliezer Hinojosa MD at 8:55 EST Reading Location ID and State: [address] [place] [address] , Service support , Physical Exam Const alert, oriented x3 and no apparent distress HEENT HEENT Narrative: NG tube in place GI normal to inspection, nondistended, normoactive bowel sounds Assessment & Plan Assessment/Plan (1) Small bowel obstruction: PLAN: I am following this patient in conjunction with Dr. Concepcion. Plan for small bowel follow-through today. If unremarkable, will start patient on a diet. Charges/Coding Visit Charges Inpatient E&M: 12813 Subs Hosp L1
[2022-09-04] MEDS: Cholecalciferol (VIT D3) 25 MCG TABLET (1,000 UNITS) 50 MCG PO (10:44)
[2022-09-04] MEDS: Pantoprazole Sodium 40 MG Tablet PO ×2 (10:44→21:20)
[2022-09-04] MEDS: Furosemide 20 MG Tablet PO (10:44)
[2022-09-04] MEDS: Escitalopram Oxalate 10 MG Tablet 5 MG PO (10:44)
[2022-09-04] MEDS: Calcium Carb/Vitamin D 1 TABLET Tablet PO ×2 (10:45→17:25)
[2022-09-04] MEDS: Menthol/Lanolin/Calamine/Znox 113 GM Tube 1 APPLIC TOPICAL ×2 (12:32→21:21)
[2022-09-04] MEDS: Metoprolol Tartrate 5 MG/5 ML Vial 2.5 MG IV ×3 (12:35→23:22)
[2022-09-04] MEDS: 0.9% Saline Lock 10 ML Syringe IV ×2 (18:14→23:23)
[2022-09-04] MEDS: Gabapentin 100 MG Capsule 200 MG PO (21:20)
[2022-09-05] VITALS (8 sets, daily range): BP systolic 99–134; BP diastolic 51–70; PULSE 69–76; RESP 16–18; TEMP 36.6–36.9; O2SAT 95–100
[2022-09-05] MEDS: Levothyroxine 25 MCG TABLET PO (05:08)
[2022-09-05] MEDS: Metoprolol Tartrate 5 MG/5 ML Vial 2.5 MG IV (05:08)
[2022-09-05] MEDS: 0.9% Saline Lock 10 ML Syringe IV (05:09)
[2022-09-05] MEDS: Escitalopram Oxalate 10 MG Tablet 5 MG PO (10:21)
[2022-09-05] MEDS: Cholecalciferol (VIT D3) 25 MCG TABLET (1,000 UNITS) 50 MCG PO (10:21)
[2022-09-05] MEDS: Pantoprazole Sodium 40 MG Tablet PO (10:21)
[2022-09-05] MEDS: Furosemide 20 MG Tablet PO (10:21)
[2022-09-05] MEDS: Menthol/Lanolin/Calamine/Znox 113 GM Tube 1 APPLIC TOPICAL (10:24)
--- NOTE | 2022-09-05 11:41 | PN.SURG_ITS ---
Subjective Subjective Patient tolerated full liquids. Denies abdominal pain. Is having bowel function. Objective Data Objective Data Vital Signs: Vital Signs Temp Pulse Resp BP Pulse Ox O2 Del Method 97.9 F 72 18 110/51 L 100 Room Air 09/05/22 10:16 09/05/22 10:16 09/05/22 10:16 09/05/22 10:16 09/05/22 10:16 09/05/22 10:16 Oxygen Delivery Method Room Air Weight: 155 lb 6.814 oz Body Mass Index (BMI) 28.4 Intake & Output: Intake and Output for Last 24 Hours 09/03/22 09/04/22 09/05/22 23:59 23:59 23:59 Intake Total 3127.08 / 3227.08 2919.17 / 2919.17 Output Total 1400 / 1400 75 / 75 Balance 1727.08 / 1827.08 2844.17 / 2844.17 Lab / Micro Data Result Diagrams: 09/03/22 05:55 09/03/22 05:55 Radiography Diagnostic Testing: Radiology Impression Small Bowel X-Ray 09/04/22 07:33 IMPRESSION: Nonspecific mildly dilated small bowel loops with no definitive findings to suggest high-grade small bowel obstruction. Electronically Signed: Tyler Michelle, at 12:20 EST , Physical Exam Const alert, oriented x3 and no apparent distress Resp normal respiratory effort Cardio regular rate GI soft to palpation and non-tender Inspection: Negative for abdominal distention Assessment & Plan Assessment/Plan (1) Small bowel obstruction: PLAN: Plan Patient is tolerating full liquids will advance to low residue diet. If patient tolerates will be DC'd home and restarted on her Eliquis. Patient was agreeable with plan. Megan Concepcion M.D. Pager: [phone] [facility] [address] [place] [address], [facility], [address] [place] [address] Office: [phone]
--- NOTE | 2022-09-05 11:43 | PCM.DC.SUM ---
Providers Date of Admission: 09/02/22 Primary Care Physician: Dr. Kisha Morton DO Reason For Visit: SBO Diagnosis Discharge Diagnosis (1) Small bowel obstruction: Status: Acute Code(s): K56.609 - Unspecified intestinal obstruction, unspecified as to partial versus complete obstruction Plan Patient is tolerating full liquids will advance to low residue diet. If patient tolerates will be DC'd home and restarted on her Eliquis. Patient was agreeable with plan. Megan Concepcion M.D. Pager: [phone] [facility] [address] [place] [address], [facility]patient [facility], [address] [place] [id number] Office: [phone] Medications at Discharge Home Medications cholecalciferol (vitamin D3) 25 mcg (1,000 unit) tablet 2,000 unit PO DAILY supplement 01/27/15 montelukast 10 mg tablet 10 mg PO DAILY allergies 01/27/15 levothyroxine 25 mcg tablet (Synthroid) 25 mcg PO DAILY hypothyroid 09/18/20 acetaminophen 650 mg tablet 650 mg PO Q6H PRN Pain 02/07/22 escitalopram oxalate 5 mg tablet 5 mg PO DAILY DEPRESSION 02/07/22 cyanocobalamin (vitamin B-12) 5,000 mcg disintegrating tablet 5,000 mcg PO DAILY supplement 06/07/22 gabapentin 100 mg capsule 400 mg PO QHS Check with primary doctor 06/07/22 pantoprazole 40 mg tablet,delayed release 40 mg PO BID reflux 06/07/22 calcium citrate 315 mg-vitamin D3 5 mcg (200 unit) tablet 1 tab PO BID Check with primary doctor 06/10/22 apixaban 5 mg tablet (Eliquis) 5 mg PO BID Check with primary doctor 09/02/22 metoprolol succinate 50 mg tablet,extended release 24 hr 25 mg PO DAILY heart rate control 09/02/22 Hospital Course Operations None Procedures None Summary of Care Provided Minutes Spent on Discharge: 15 Hospital Course: 77-year-old female presents due to abdominal pain CT abdomen pelvis was completed showing small bowel obstruction. Patient was treated conservatively with NG/IV fluids/n.p.o. With Eliquis being held patient did start regaining bowel function and small bowel follow-through did show contrast going through to the colon in 1 hour. Patient did have some tachycardia unsure if her beta-tiara is being absorbed that she was put on IV beta-tiara and transition back to her regular p.o. once taking p.o. Patient's NG was pulled and patient was started on clears advance to full's as tolerated. Patient was tolerating full was then advanced to a low residue diet which she was able to tolerate and be DC'd home. Patient was able to be restarted on her Eliquis on discharge. Physical Exam Const alert, oriented x3 and no apparent distress Resp normal respiratory effort Cardio regular rate GI soft to palpation, non-tender and non-distended Weight / BMI Weight Weight: 155 lb 6.814 oz Body Mass Index (BMI) 28.4 ABG / Lab / Microbiology Data Result Diagrams: 09/03/22 05:55 09/03/22 05:55 Radiography Diagnostic Testing: Radiology Impression Small Bowel X-Ray 09/04/22 07:33 IMPRESSION: Nonspecific mildly dilated small bowel loops with no definitive findings to suggest high-grade small bowel obstruction. Electronically Signed: Tyler Michelle, at 12:20 RUST , D/C Instructions Discharge Diet: - (Low fiber diet) Please Follow Up With: Megan Concepcion MD When: Call the office for follow-up in 2 weeks Meaningful Use Info Meaningful Use Diagnoses (Choose all that apply): None applicable Discharge Plan Admission Admit Date/Time: 09/02/22 18:53 Attending Provider: Megan Concepcion Primary Care Provider: Kisha Morton Discharge Orders/Prescriptions Prescriptions: Continued levothyroxine [Synthroid] 25 mcg tablet 25 mcg PO DAILY pantoprazole 40 mg tablet,delayed release (DR/EC) 40 mg PO BID gabapentin 100 mg capsule 400 mg PO QHS calcium citrate-vitamin D3 315 mg-5 mcg (200 unit) tablet 1 tab PO BID montelukast 10 MG tablet 10 mg PO DAILY cholecalciferol (vitamin D3) 1,000 UNIT tablet 2,000 unit PO DAILY cyanocobalamin (vitamin B-12) 5,000 mcg tablet,disintegrating 5,000 mcg PO DAILY acetaminophen 650 mg Tablet 650 mg PO Q6H PRN (Reason: Pain) escitalopram oxalate 5 mg tablet 5 mg PO DAILY Label Comments: TAKE 1 TABLET BY MOUTH EVERY DAY metoprolol succinate 50 mg tablet extended release 24 hr 25 mg PO DAILY Eliquis 5 mg tablet 5 mg PO BID Referrals / Follow Up: Fast,Kisha, DO [Primary Care Provider] - Disposition Disposition (needs filled in before D/C Order can be placed): Home, Self Care Charges/Coding Visit Charges Inpatient E&M: 75474 Disch Hosp
--- NOTE | 2022-09-05 13:17 | CASEMGMT ---
RN CM into pt room, pt states she feels safe to return home and denies homegoing needs. Pt does have questions regarding her diet and nurse coming into room as RN CM leaving.
[2022-09-05] MEDS: Calcium Carb/Vitamin D 1 TABLET Tablet PO (13:18)
== END 2022-09-05 16:40 | disposition home or self-care (01) | DRG 390 ==
LOC: ED 13:36 → ICU 19:08 → MS3 09-03 15:35
PROVIDERS: Admitting Provider Surgery; Emergency Provider Emergency Medicine; PCP Internal Medicine; Visit Provider Surgery
DX: K56.609 Unspecified intestinal obstruction, unspecified as to partial versus complete obstruction (principal); E03.9 Hypothyroidism, unspecified; I48.0 Paroxysmal atrial fibrillation; E86.0 Dehydration; G89.29 Other chronic pain; Z79.01 Long term (current) use of anticoagulants; M54.50 Low back pain, unspecified; Z79.899 Other long term (current) drug therapy; Z87.891 Personal history of nicotine dependence; Z85.3 Personal history of malignant neoplasm of breast; Z96.653 Presence of artificial knee joint, bilateral
CPT/HCPCS: 74018; 74177; 74250; 80048; 80053; 81001; 83690; 85025; 93005; 99251; 99285; J7030; J7120; Q9967; A4216; G0463; J2405

== ENCOUNTER → 2022-10-04 | Outpatient (CLI) | payer MEDICARE, BC, SELFPAY ==
[2021-07-02 10:22] VITALS: BMI 34.7
== END | disposition home or self-care (01) ==
LOC: PSN 11:34
PROVIDERS: PCP Internal Medicine; Referring Provider Nurse Practitioner Gerontology; Visit Provider Nurse Practitioner Gerontology
DX: I48.0 Paroxysmal atrial fibrillation (principal)
CPT/HCPCS: 93225; 93226

== ENCOUNTER 2022-10-10 10:46 | Outpatient (RCR) | payer SELFPAY ==
[2021-07-02 10:22] VITALS: BMI 34.7
== END 2022-11-05 23:59 ==
LOC: NS 10:46
PROVIDERS: PCP Internal Medicine; Visit Provider Nurse Practitioner Adult Health
DX: Z71.3 Dietary counseling and surveillance (principal); Z87.19 Personal history of other diseases of the digestive system
CPT/HCPCS: 97802

== ENCOUNTER → 2022-10-14 | Outpatient (CLI) | payer MEDICARE, BC, SELFPAY ==
[2021-07-02 10:22] VITALS: BMI 34.7
--- NOTE | 2022-10-14 12:48 | CT_ITS ---
INDICATION: LLQ pain, recurrent SBO -- enterography EXAMINATION: CT ABDOMEN AND PELVIS WITH CONTRAST - CT Abdomen And Pelvis W/ Contrast Injection TECHNIQUE: Helically acquired images were obtained of the abdomen and pelvis following IV contrast. A radiation dose optimization technique was used for this scan. IV Contrast dosage and agent: 100 cc of Isovue-300 Oral contrast: Breeza COMPARISON: July 01, 2021 September 02, 2022. FINDINGS: LOWER CHEST: Lung bases are clear. No cardiomegaly or pericardial effusion. LIVER: Homogeneous. No focal mass. GALLBLADDER AND BILIARY TREE: There are surgical clips within the gallbladder fossa consistent with prior cholecystectomy. No intra- or extrahepatic biliary ductal dilation. PANCREAS: No focal cystic or solid mass. SPLEEN: Normal size without focal cystic or solid mass. ADRENAL GLANDS: No nodules. KIDNEYS AND URETERS: There is stable right-sided pelvocaliectasis associated with an extrarenal pelvis. 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 PERITONEUM: No ascites or free air. No other fluid collection. BOWEL: There is a hiatal hernia. No evidence of acute appendicitis. No stomach or bowel distension. There are diverticula arising from the colon. No focal inflammatory change. LYMPH NODES: No enlarged mesenteric or retroperitoneal lymph nodes. VESSELS: Aorta is non-dilated. There are peripheral calcifications of the abdominal aorta. URINARY BLADDER: Unremarkable. REPRODUCTIVE ORGANS: No pelvic masses. ABDOMINAL WALL: No discrete abdominal or pelvic wall hernia. BONES: There are degenerative changes of the lumbar spine. CT/Abdomen/Pelvis WITH Contrast IMPRESSION: No acute intra-abdominal process. Colonic diverticulosis. Hiatal hernia. Atherosclerosis. Electronically Signed: Ann Pritchard MD at 14:22 EST ,
[2022-10-14 13:25] LABS: CREATININE FINGERSTICK < 0.9 mg/dL (0.55-1.02); EGFR FINGERSTICK > 60.0000 mL/min (>60)
== END | disposition home or self-care (01) ==
PROVIDERS: PCP Internal Medicine; Referring Provider Nurse Practitioner Adult Health; Visit Provider Nurse Practitioner Adult Health
DX: R10.32 Left lower quadrant pain (principal); Z87.19 Personal history of other diseases of the digestive system
CPT/HCPCS: 74177; Q9967; A4216

== ENCOUNTER → 2022-10-17 | Day surgery (SDC) | payer MEDICARE, BC, SELFPAY ==
[2021-07-02 10:22] VITALS: BMI 34.7
[2022-10-16 06:56] VITALS: BMI 26.6
[2022-10-17 10:43] LABS: Anion Gap 7 (5-15); BUN 17 mg/dL (7-18); BUN/Creat Ratio 20.5 RATIO (10-20); Calcium,Total 9.1 mg/dL (8.5-10.1); Chloride 107 mmol/L (98-107); Creatinine, Serum 0.83 mg/dL (0.55-1.02); EST Glomerular Filtration Rate 71 mL/min (>60); Est Glom Filt Rate - Afr Amer 86 mL/min (>60); Estimated Creatinine Clearance 44.89 ml/min; Glucose 101 mg/dL (74-106); Potassium 3.8 mmol/L (3.5-5.1); Sodium Level 144 mmol/L (136-145)
== END | disposition home or self-care (01) ==
LOC: CLSP 10:12
PROVIDERS: Nurse Practitioner Gerontology; PCP Internal Medicine; Visit Provider Internal Medicine Cardiovascular Disease
DX: Z53.09 Procedure and treatment not carried out because of other contraindication (principal)
CPT/HCPCS: 36415; 80048; 93005

== ENCOUNTER 2022-10-24 07:34 | Day surgery (SDC) | payer MEDICARE, BC, SELFPAY ==
[2021-07-02 10:22] VITALS: BMI 34.7
[2022-10-24] VITALS (7 sets, daily range): BP systolic 105–114; BP diastolic 44–68; PULSE 46–61; RESP 16; TEMP 36.2–36.8; O2SAT 93–98; BMI 27.4
[2022-10-24] MEDS: Lactated Ringers 1,000 ML 15 ML IV (08:11)
--- NOTE | 2022-10-24 08:30 | HP.PCM_ITS ---
History and Physical Date of Admission: 10/24/22 ROSELINE SHERIFF, is a 77 F who presents to the office today for f/u hospitalization 09/02/22-09/05/22 for small bowel obstruction treated with NG tube, IVF, and NPO. Bowels are moving well, uses miralax prn, not having difficulty with BMs, no diarrhea, no melena or hematochezia. Since her discharge, she has had several episodes of LLQ pain that radiates up to the left side of the chest; she lies down, takes tylenol, it resolves. Her abdominal issues began in February 2020 immediately after surgery for lung cancer (left lung lobectomy). She had severe LLQ abd pain following surgery, it was thought to be nerve pain. She developed early satiety and chronic constipation. She was hospitalized for small bowel obstruction in 06/2021, had exploratory laparoscopy with repair of small bowel enterotomy, small bowel was reduced from an internal hernia (created by the omentum adhering to another loop of bowel) and adhesions were lysed. She had a post op wound infection. She was hospitalized in February 2022 and March 2022 at [place] for small bowel obstructions.? ROS Const Constitutional: Positive for weight change; No fatigue ENT ENT: No difficulty swallowing Gastro GI: Positive for abdominal pain, constipation and diarrhea; No belching, bloating, change in bowel habits, change in stool character, coffee ground emesis, cramping, heartburn, difficulty swallowing, feeling full early, excessive flatus, incontinent of stools, Vomiting blood/hematemesis, Blood in stool, loose stools, Black,tarry stools, nausea/dyspepsia, pain with swallowing, vomiting or other Musc Musculoskeletal: No joint pain Skin Skin: No yellowing of the eye or itchy eyes Psych Psychiatric: No anxiety and No depression Endo Endocrine: Positive for weight change; No fatigue Aller/Imm Allergy/Immunologic: No itchy eyes Clint/Lymp Hematologic/Lymphatic: No easy bleeding or easy bruising Exam Const General: cooperative, healthy appearing and comfortable [facility] Head: normal to inspection Eyes Sclera: sclerae normal Chest Other: pulse rechecked, approx 100, irregular Resp Effort & Inspection: normal respiratory effort GI Inspection: normal to inspection Palpation: soft, no hepatosplenomegaly, no masses and nontender Psych Mood: euthymic mood Quality Reporting Tobacco Screening ([facility]) Smoking Status: Former smoker Assessment and Plan Assessment and Plan (1) Hx of small bowel obstruction: ?Status:?Acute ?Plan: 77 yr old female with recurrent SBOs; treated with NG tube and IVF and NPO in 08/2022; recurrent LLQ pain since then Case discussed with Dr Gregg Will get CT enterography to further eval small bowel She is already scheduled for EGD next month for RFA for Jacobs's with dysplasia, f/u after that Refer to sports umpire for help with low fiber diet because of recurrent SBO (2) LLQ abdominal pain: ?Status:?Acute ?Plan: see above ? ? ? Orders: Orders Abdomen/Pelvis WITH Contrast Today R10.32 - Left lower quadrant pain, Z87.19 - Personal history of other diseases of the digestive system ? Referrals Nutrition Referral ? Z87.19 - Personal history of other diseases of the digestive system ? I have examined the patient and the H&P has been reviewed. There are no clinical changes since date of exam.
--- NOTE | 2022-10-24 09:20 | OP.EGD_ITS ---
Patient Name: Kathryn Morataya Procedure Date: 10/24/2022 8:29 AM Date of : 1945 Age: 77 Procedure: Upper GI endoscopy Indications: Jacobs's low grade dysplasia Providers: Melecio Gregg DO Referring MD: Kisha Morton Medicines: Monitored Anesthesia Care Patient Profile: This is a 77 year old female. Refer to note in patient chart for documentation of history and physical. Patient has symptoms of chronic heartburn. She is status post EGD for Jacobs's biopsy within the past six months. Complications: No immediate complications. Procedure: Pre-Anesthesia Assessment: - Prior to the procedure, a History and Physical was performed, and patient medications and allergies were reviewed. The patient is competent. The risks and benefits of the procedure and the sedation options and risks were discussed with the patient. All questions were answered and informed consent was obtained. Patient identification and proposed procedure were verified by the physician in the pre-procedure area. Mental Status Examination: alert and oriented. Airway Examination: normal oropharyngeal airway and neck mobility. CV Examination: normal. Prophylactic Antibiotics: The patient does not require prophylactic antibiotics. Prior Anticoagulants: The patient has taken no previous anticoagulant or antiplatelet agents. ASA Grade Assessment: II - A patient with mild systemic disease. After reviewing the risks and benefits, the patient was deemed in satisfactory condition to undergo the procedure. The anesthesia plan was to use monitored anesthesia care (MAC). Immediately prior to administration of medications, the patient was re-assessed for adequacy to receive sedatives. The heart rate, respiratory rate, oxygen saturations, blood pressure, adequacy of pulmonary ventilation, and response to care were monitored throughout the procedure. The physical status of the patient was re-assessed after the procedure. After obtaining informed consent, the endoscope was passed under direct vision. Throughout the procedure, the patient's blood pressure, pulse, and oxygen saturations were monitored continuously. The Endoscope was introduced through the mouth, and advanced to the second part of duodenum. The upper GI endoscopy was accomplished without difficulty. The patient tolerated the procedure well. Scope In: 8:40:55 AM Scope Out: 8:55:36 AM Total Procedure Duration Time 0 hours 14 minutes 41 seconds Findings: The esophagus and gastroesophageal junction were examined with white light and narrow band imaging (NBI) from a forward view and retroflexed position. There were esophageal mucosal changes secondary to established short-segment Jacobs's disease. These changes involved the mucosa at the upper extent of the gastric folds (40 cm from the incisors) extending to the Z-line (38 cm from the incisors). Squamous islands were present at 35 cm and erosion was present at 35 cm. The maximum longitudinal extent of these esophageal mucosal changes was 4 cm in length. Focal radiofrequency ablation of Jacobs's esophagus was performed. With the endoscope in place, the position and extent of the Jacobs's mucosa and the anatomic landmarks including proximal and distal extent of Jacobs's mucosa, top of gastric folds and crural pinch were noted. Endoscopic visualization identified an ablation site including the entire visible Jacobs's segment. The Jacobs's mucosa was irrigated with saline and N-acetylcysteine (Mucomyst) 1% mixed with water. Gastric contents were suctioned. The endoscope was then removed from the patient. The Barrx-90 radiofrequency ablation catheter was attached to the tip of the endoscope. The endoscope with the attached radiofrequency ablation catheter was then passed transorally under direct vision into the esophagus and advanced to the areas of Jacobs's mucosa. The areas included circumferential areas of Jacobs's mucosa. The radiofrequency ablation catheter was placed in contact with the surface of the Jacobs's mucosa under direct visualization and energy was applied twice at 12 J/cm2. Ablation was repeated in a likewise fashion to all visible Jacobs's mucosa. The ablation zone was cleaned of coagulative debris. The ablation catheter and endoscope were then removed and the catheter was cleaned. The catheter and endoscope were reinserted into the esophagus. A second round of ablation was then performed. Energy was applied twice at 12 J/cm2 to retreat the areas of Jacobs's epithelium that had been treated with the first series of ablation. The areas of the esophagus where Jacobs's mucosa had been ablated were examined. Areas of visible Jacobs's esophagus were completely ablated. Estimated blood loss was minimal. A medium-sized hiatal hernia was present. A few 5 mm sessile polyps with no stigmata of recent bleeding were found in the gastric fundus. The cardia and gastric fundus were normal on retroflexion. No gross lesions were noted in the second portion of the duodenum. 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 Treated with radiofrequency ablation. - Medium-sized hiatal hernia. - A few gastric polyps. - No gross lesions in the second portion of the duodenum. - No specimens collected. Recommendation: - Discharge patient to home. - Full liquid diet today. - Soft diet for 7 days. - Use Protonix (pantoprazole) 40 mg PO BID for the rest of the patient's life. -Viscous lidocaine plus Maalox every 4 hours as needed - Continue present medications. - No aspirin, ibuprofen, naproxen, or other non-steroidal anti-inflammatory drugs for 7 days. Procedure Code(s): --- Professional --- 52509, Esophagogastroduodenoscopy, flexible, transoral; with ablation of tumor(s), polyp(s), or other lesion(s) (includes pre- and post-dilation and guide wire passage, when performed) CPT copyright 2017 [employer]. All rights reserved. The codes documented in this report are preliminary and upon tanning solution maker review may be revised to meet current compliance requirements. Melecio Gregg DO 10/24/2022 9:20:02 AM This report has been signed electronically. Number of Addenda: 0 Note Initiated On: 10/24/2022 8:29 AM
--- NOTE | 2022-10-24 09:20 | OP.CCLET_ITS ---
10/24/2022 Kisha Morton Re : Upper GI endoscopy procedure for Kathryn Morton This procedure was performed on October. 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 Treated with radiofrequency ablation. - Medium-sized hiatal hernia. - A few gastric polyps. - No gross lesions in the second portion of the duodenum. - No specimens collected. Recommendations : - Discharge patient to home. - Full liquid diet today. - Soft diet for 7 days. - Use Protonix (pantoprazole) 40 mg PO BID for the rest of the patient's life. -Viscous lidocaine plus Maalox every 4 hours as needed - Continue present medications. - No aspirin, ibuprofen, naproxen, or other non-steroidal anti-inflammatory drugs for 7 days. My findings are described in the full procedure note, which is enclosed. If I can be of further assistance, please feel free to contact me at . Sincerely, Melecio Gregg, 10/24/2022 9:20:02 AM This report has been signed electronically.
== END 2022-10-24 10:00 | disposition home or self-care (01) ==
LOC: EN 07:36 → AC 07:38
PROVIDERS: PCP Internal Medicine; Referring Provider Internal Medicine; Visit Provider Internal Medicine Gastroenterology
PROC: 0DJ08ZZ Inspection of Upper Intestinal Tract, Via Natural or Artificial Opening Endoscopic (ICD-10-PCS; CPT 43235; principal; 2022-10-24 08:40)
DX: R10.32 Left lower quadrant pain (principal); K31.7 Polyp of stomach and duodenum; Z87.891 Personal history of nicotine dependence; K44.9 Diaphragmatic hernia without obstruction or gangrene; K22.719 Barrett's esophagus with dysplasia, unspecified
CPT/HCPCS: 43270; J7120

== ENCOUNTER → 2023-01-22 | Outpatient (CLI) | payer MEDICARE, BC, SELFPAY ==
[2021-07-02 10:22] VITALS: BMI 34.7
[2023-01-22 12:56] LABS: Anion Gap 5 (5-15); BUN 24 mg/dL (7-18); BUN/Creat Ratio 26.8 RATIO (10-20); Calcium,Total 9.2 mg/dL (8.5-10.1); Chloride 106 mmol/L (98-107); EST Glomerular Filtration Rate 65 mL/min (>60); Est Glom Filt Rate - Afr Amer 78 mL/min (>60); Glucose 102 mg/dL (74-106); Potassium 3.9 mmol/L (3.5-5.1); Sodium Level 141 mmol/L (136-145)
[2023-01-22 12:59] LABS: BNP,B-Type NATRIURETIC PEPTIDE 195.3 pg/mL (0-100)
== END | disposition home or self-care (01) ==
LOC: LAB 11:56
PROVIDERS: PCP Internal Medicine; Referring Provider Nurse Practitioner Gerontology; Visit Provider Nurse Practitioner Gerontology
DX: R06.09 Other forms of dyspnea (principal)
CPT/HCPCS: 36415; 80048; 83880

== ENCOUNTER → 2023-01-27 | Outpatient (CLI) | payer MEDICARE, BC, SELFPAY ==
[2021-07-02 10:22] VITALS: BMI 34.7
[2023-01-27 12:08] LABS: Anion Gap 8 (5-15); BUN 29 mg/dL (7-18); BUN/Creat Ratio 25.2 RATIO (10-20); Calcium,Total 9.2 mg/dL (8.5-10.1); Chloride 100 mmol/L (98-107); Creatinine, Serum 1.15 mg/dL (0.55-1.02); EST Glomerular Filtration Rate 49 mL/min (>60); Est Glom Filt Rate - Afr Amer 59 mL/min (>60); Glucose 101 mg/dL (74-106); Potassium 3.4 mmol/L (3.5-5.1); Sodium Level 140 mmol/L (136-145)
== END | disposition home or self-care (01) ==
LOC: LAB 11:22
PROVIDERS: PCP Internal Medicine; Referring Provider Nurse Practitioner Gerontology; Visit Provider Nurse Practitioner Gerontology
DX: R06.09 Other forms of dyspnea (principal)
CPT/HCPCS: 36415; 80048

== ENCOUNTER 2023-02-18 12:29 | Day surgery (SDC) | payer MEDICARE, BC, SELFPAY ==
[2021-07-02 10:22] VITALS: BMI 34.7
[2023-02-18] VITALS (7 sets, daily range): BP systolic 95–114; BP diastolic 52–77; PULSE 77–87; RESP 16–17; TEMP 36.1–36.7; O2SAT 97–100; BMI 28.9
[2023-02-18] MEDS: Lactated Ringers 1,000 ML 15 ML IV (13:03)
--- NOTE | 2023-02-18 13:04 | PCM.HP.BLA ---
History and Physical Date of Admission: 02/18/23 7 F who presents to the office today for f/u EGD with ablation for Jacobs's esophagus with low-grade dysplasia. Dr Gregg did EGD on 10/24/22 with RFA of all visible Jacobs's esophagus. She tolerated the procedure well. She is to use pantoprazole 40 mg BID for remainder of life. Because of hx of recurrent SBOs we got CT enterography in 10/2022--hiatal hernia, colonic diverticulosis. She does well if she sticks to soft foods and a low fiber diet; can then avoid the abdominal pain that started after lung surgery. She did see three dimensional art instructor for help with low fiber diet.? Bowels are moving well, uses miralax prn, not having difficulty with BMs, no diarrhea, no melena or hematochezia. Her abdominal issues began in February 2020 immediately after surgery for lung cancer (left lung lobectomy). She had severe LLQ abd pain following surgery, it was thought to be nerve pain. She developed early satiety and chronic constipation. She was hospitalized for small bowel obstruction in 06/2021, had exploratory laparoscopy with repair of small bowel enterotomy, small bowel was reduced from an internal hernia (created by the omentum adhering to another loop of bowel) and adhesions were lysed. She had a post op wound infection. She was hospitalized in February 2022 and March 2022 at [facility] for small bowel obstructions.?Hospitalized 09/02/22-09/05/22 for small bowel obstruction treated with NG tube, IVF, and NPO. She has had recurrent episodes of LLQ pain that radiates up to the left side of the chest since then, but less so with soft, low-fiber diet; she lies down, takes tylenol, it resolves. 10/24/22 EGD Impression: ? - Esophageal mucosal changes secondary to ? established short-segment Jacobs's disease. ? Treated with radiofrequency ablation. ? - Medium-sized hiatal hernia. ? - A few gastric polyps. ? - No gross lesions in the second portion of the ? duodenum. ? - No specimens collected. ROS Const Constitutional: No fatigue ENT ENT: No difficulty swallowing Gastro GI: Positive for abdominal pain and diarrhea; No belching, bloating, change in bowel habits, change in stool character, coffee ground emesis, constipation, cramping, heartburn, difficulty swallowing, feeling full early, excessive flatus, incontinent of stools, Vomiting blood/hematemesis, Blood in stool, loose stools, Black,tarry stools, nausea/dyspepsia, pain with swallowing, vomiting or other Musc Musculoskeletal: No joint pain Skin Skin: No yellowing of the eye or itchy eyes Psych Psychiatric: No anxiety and No depression Endo Endocrine: No fatigue Aller/Imm Allergy/Immunologic: No itchy eyes Clint/Lymp Hematologic/Lymphatic: No easy bleeding or easy bruising Exam Const General: cooperative, healthy appearing and comfortable Orientation: alert, awake and oriented x3 Quality Reporting Tobacco Screening ([facility] 138) Smoking Status: Former smoker Assessment and Plan Assessment and Plan (1) Jacobs's esophagus: ?Status:?Chronic ?Plan: Treated with RFA, will plan on f/u EGD in 4 mos Continue pantoprazole 40 mg BID for remainder of life (2) Hx of small bowel obstruction: ?Status:?Acute ?Plan: Doing well on low fiber diety I have examined the patient and the H&P has been reviewed. There are no clinical changes since date of exam.
--- NOTE | 2023-02-18 13:30 | IMM_PTH ---
PATIENT: ROSELINE SHERIFF LOC: EN U#:[id number] AGE/SX: 77/F ROOM: RE02/18/[address]: Dr. Melecio Gregg DO : 1945 BED: DIS: 02/18/2023 SPEC #: [id number] RECD: 02/19/23 12:48 STATUS: YRN REQ #: [id number] DUYEN: 02/18/23 13:[address]: Melecio Gregg DEPT: IMMUNOHISTOCHEMISTRY RECD BY: Uyen Oneil ENTERED: 02/19/23 12:50 SP TYPE: IMMUNO OTHR DR: Dr. Kisha Morton DO Tissues: A - Stomach, NOS C - Esophagus, NOS Procedures: H Pylori (initial) P53 (initial) KI-67 (add) PHYSICIAN & INSTITUTION [place] [id number] SPECIMEN INFORMATION: Tissue Source: A ? Gastric body, C ? Distal esophagus Clinical Info: Jacobs?s esophagus, history small bowel obstruction Specimen Number: [id number] A & C CPT code: 32149 x2, 33368 METHODOLOGY: Deparaffinized sections of prefer/formalin-fixed tissue or PAP/DQ stained slides are incubated with monoclonal/polyclonal antibodies/oligonucleotide probes. Localization is made via biotin free immunoperoxidase method. Appropriate controls are performed and reacted as expected. Results on target cell population are indicated in the following table: RESULTS: ANTIBODY / CLONE RESULT Block A H Pylori (polyclonal) negative Block C P53 (DO-7) negative Ki-67 (30-9) positive, low These tests were developed and their performance characteristics determined by [facility]. They may not have been cleared or approved by the U.S. Food and Drug Administration. The FDA has determined that such clearance or approval is not necessary. The above immunohistochemical/dualISH markers are ordered and reviewed by the Pathologist. INTERPRETATION: A. Gastric body, biopsy: Negative for Helicobacter pylori organisms. C. Distal esophagus, biopsy: Negative for dysplasia. SJ:shivam 02/21/2023
--- NOTE | 2023-02-18 13:30 | EGD_PTH ---
PATIENT: ROSELINE SHERIFF LOC: EN U#:[id number] AGE/SX: 77/F ROOM: RE02/18/[address]: Dr. Melecio Gregg DO : 1945 BED: DIS: 02/18/2023 SPEC #: [id number] RECD: 02/18/23 14:46 STATUS: YRN REQ #: [id number] DUYEN: 02/18/23 13:[address]: Melecio Gregg DEPT: SURGICAL PATHOLOGY RECD BY: María Elena Leigh ENTERED: 02/19/23 11:32 SP TYPE: EGD BIOPSY OTHR DR: Dr. Kisha Morton DO Tissues: A - Gastric mucous membrane B - Pylorus C - Esophagus, NOS Procedures: Special Stain Group II Surgery Specimen Level IV Alcian Blue/PAS (control) HEADER OPERATION: EGD (MAC), biopsy, RFA PRE-OP DIAGNOSIS: Jacobs?s esophagus, history small bowel obstruction TISSUE SUBMITTED: A - Gastric body biopsy, B - Prepyloric region biopsy, C - Distal esophagus biopsy MICROSCOPIC DIAGNOSIS A. Gastric body, biopsy: Mild gastritis. See microscopic description and comment. B. Prepyloric region, biopsy: Mild gastritis. See microscopic description. C. Distal esophagus, biopsy: Fragments of gastroesophageal mucosa with intestinal metaplasia (goblet cell metaplasia), consistent with Jacobs's esophagus. Chronic inflammation. Negative for dysplasia. See comment. SJ:shivam 02/20/2023 COMMENT A. The results of immunohistochemistry for Helicobacter pylori will be reported separately ([id number]). C. Immunohistochemistry ([id number]) for P53 and Ki-67 will be performed and results will be reported separately. Alcian blue/PAS stain with matched control is used in the evaluation of the specimen. MICROSCOPIC DESCRIPTION Slides are reviewed. A. The specimen shows fragments of gastric mucosa with chronic inflammatory cell infiltrates in the lamina propria consisting of lymphocytes and plasma cells, consistent with mild chronic gastritis. B. The specimen shows fragments of gastric mucosa with chronic inflammatory cell infiltrates in the lamina propria consisting of lymphocytes and plasma cells, consistent with mild chronic gastritis. Focal mucosal congestion and hemorrhage are also noted. GROSS DESCRIPTION A - Received in fixative is one container labeled with the patient's name and designated biopsy gastric body. The specimen consists of multiple irregular fragments of light cristina soft tissue that in aggregate measure 1.2 x 0.4 x 0.1 cm. The specimen is totally submitted in one cassette. B - Received in fixative is one container labeled with the patient's name and designated biopsy prepyloric region. The specimen consists of two irregular fragments of light cristina soft tissue that in aggregate measure 0.8 x 0.3 x 0.1 cm. The specimen is totally submitted in one cassette. C - Received in fixative is one container labeled with the patient's name and designated biopsy distal esophagus. The specimen consists of multiple irregular fragments of light cristina soft tissue that in aggregate measure 1.2 x 0.5 x 0.1 cm. The specimen is totally submitted in one cassette. / SJ:rg 02/19/2023 TC:3 [facility]: [id number] x3, [id number]
--- NOTE | 2023-02-18 14:39 | OP.EGD_ITS ---
Patient Name: Kathryn Morataya Procedure Date: 02/18/2023 1:54 PM Date of : 1945 Age: 77 Procedure: Upper GI endoscopy Indications: For therapy of Jacobs's esophagus Providers: Melecio Gregg DO Medicines: Monitored Anesthesia Care Patient Profile: This is a 77 year old female. Refer to note in patient chart for documentation of history and physical. Patient has symptoms of chronic heartburn. Complications: No immediate complications. Procedure: Pre-Anesthesia Assessment: - Prior to the procedure, a History and Physical was performed, and patient medications and allergies were reviewed. The risks and benefits of the procedure and the sedation options and risks were discussed with the patient. All questions were answered and informed consent was obtained. Patient identification and proposed procedure were verified by the physician in the pre-procedure area. Mental Status Examination: alert and oriented. Airway Examination: normal oropharyngeal airway and neck mobility. Respiratory Examination: clear to auscultation. CV Examination: normal. Prophylactic Antibiotics: The patient does not require prophylactic antibiotics. Prior Anticoagulants: The patient has taken Eliquis (apixaban), last dose was 1 day prior to procedure. ASA Grade Assessment: II - A patient with mild systemic disease. After reviewing the risks and benefits, the patient was deemed in satisfactory condition to undergo the procedure. The anesthesia plan was to use monitored anesthesia care (MAC). This assessment was completed before the administration of sedation at 00:01 AM. After obtaining informed consent, the endoscope was passed under direct vision. Throughout the procedure, the patient's blood pressure, pulse, and oxygen saturations were monitored continuously. The Endoscope was introduced through the mouth, and advanced to the second part of duodenum. The upper GI endoscopy was accomplished without difficulty. The patient tolerated the procedure well. Scope In: 2:06:32 PM Scope Out: 2:25:37 PM Total Procedure Duration Time 0 hours 19 minutes 5 seconds Findings: The esophagus and gastroesophageal junction were examined with white light and narrow band imaging (NBI) from a forward view and retroflexed position. Sequelae of prior Jacobs's treatment were not seen. [place]-colored mucosa was present, suspicious for residual Jacobs's esophagus. Mucosal findings on today's exam: two tongues of salmon-colored mucosa were present at 35 cm. The maximum longitudinal extent of the Jacobs's segment on today's exam was 3 cm in length. Overall, approximately 25 percent of the pretreatment Jacobs's segment was replaced with wanda-squamous epithelium. The Jacobs's segment area was reduced by approximately 75 percent following the most recent treatment. Mucosa was biopsied with a cold forceps for histology in a targeted manner at intervals of 1 cm in the lower third of the esophagus. One specimen bottle was sent to pathology. Verification of patient identification for the specimen was done. Focal radiofrequency ablation of Jacobs's esophagus was performed. With the endoscope in place, the position and extent of the Jacobs's mucosa and the anatomic landmarks including top of gastric folds were noted. Endoscopic visualization identified an ablation site including the entire visible Jacobs's segment. The Jacobs's mucosa was irrigated with saline. Esophageal contents were suctioned. The endoscope was then removed from the patient. The Barrx-90 radiofrequency ablation catheter was attached to the tip of the endoscope. The endoscope with the attached radiofrequency ablation catheter was then passed transorally under direct vision into the esophagus and advanced to the areas of Jacobs's mucosa. The areas included islands of Jacobs's mucosa. The radiofrequency ablation catheter was placed in contact with the surface of the Jacobs's mucosa under direct visualization and energy was applied twice at 12 J/cm2. Ablation was repeated in a likewise fashion to the entire area of suspected Jacobs's mucosa. The ablation zone was cleaned of coagulative debris. The ablation catheter and endoscope were then removed and the catheter was cleaned. The catheter and endoscope were reinserted into the esophagus. A second round of ablation was then performed. Energy was applied twice at 12 J/cm2 to retreat the areas of Jacobs's epithelium that had been treated with the first series of ablation. The areas of the esophagus where Jacobs's mucosa had been ablated were examined. Areas of visible Jacobs's esophagus were completely ablated. Estimated blood loss was minimal. Localized moderate inflammation characterized by congestion (edema), erosions and erythema was found in the gastric body. Biopsies were taken with a cold forceps for histology. Verification of patient identification for the specimen was done. Estimated blood loss was minimal. A benign-appearing, intrinsic moderate stenosis was found at the pylorus. This was traversed. A TTS dilator was passed through the scope. Dilation with a 15 mm pyloric balloon dilator was performed. The dilation site was examined following endoscope reinsertion and showed complete resolution of luminal narrowing. Biopsies were taken with a cold forceps for histology. Verification of patient identification for the specimen was done. Estimated blood loss was minimal. A TTS dilator was passed through the scope. Dilation with a 15 mm pyloric balloon dilator was performed. The second portion of the duodenum was normal. Impression: - Examination of previous Jacobs's treatment: [place]-colored mucosa was present, suspicious for residual Jacobs's esophagus. Biopsied. Treated with radiofrequency ablation. - Chronic gastritis. Biopsied. - Gastric stenosis was found at the pylorus. Dilated. Biopsied. - Normal second portion of the duodenum. Recommendation: - Discharge patient to home. - Resume previous diet. - Continue present medications. -Hold Eliquis until tomorrow evening -Viscous lidocaine 3 times a day as needed for pain or burning in the esophagus Procedure Code(s): --- Professional --- 29084, Esophagogastroduodenoscopy, flexible, transoral; with ablation of tumor(s), polyp(s), or other lesion(s) (includes pre- and post-dilation and guide wire passage, when performed) 96459, 59, Esophagogastroduodenoscopy, flexible, transoral; with biopsy, single or multiple CPT copyright 2017 [employer]. All rights reserved. The codes documented in this report are preliminary and upon power house control room operator review may be revised to meet current compliance requirements. Melecio Gregg DO 02/18/2023 2:39:06 PM This report has been signed electronically. Number of Addenda: 0 Note Initiated On: 02/18/2023 1:54 PM
--- NOTE | 2023-02-18 14:39 | OP.CCLET_ITS ---
02/18/2023 Kisha Morton Re : Upper GI endoscopy procedure for Kathryn Morton This procedure was performed on Saturday, February 18, 2023. My impressions and recommendations are as follows: Impressions : - Examination of previous Jacobs's treatment: [place]-colored mucosa was present, suspicious for residual Jacobs's esophagus. Biopsied. Treated with radiofrequency ablation. - Chronic gastritis. Biopsied. - Gastric stenosis was found at the pylorus. Dilated. Biopsied. - Normal second portion of the duodenum. Recommendations : - Discharge patient to home. - Resume previous diet. - Continue present medications. -Hold Eliquis until tomorrow evening -Viscous lidocaine 3 times a day as needed for pain or burning in the esophagus My findings are described in the full procedure note, which is enclosed. If I can be of further assistance, please feel free to contact me at . Sincerely, Melecio Gregg, 02/18/2023 2:39:06 PM This report has been signed electronically.
== END 2023-02-18 15:37 | disposition home or self-care (01) ==
LOC: EN 12:30 → AC 12:32
PROVIDERS: PCP Internal Medicine; Referring Provider Internal Medicine; Visit Provider Internal Medicine Gastroenterology
PROC: 0DJ08ZZ Inspection of Upper Intestinal Tract, Via Natural or Artificial Opening Endoscopic (ICD-10-PCS; CPT 43235; principal; 2023-02-18 13:25)
DX: K22.70 Barrett's esophagus without dysplasia (principal); K29.50 Unspecified chronic gastritis without bleeding; Z87.891 Personal history of nicotine dependence; Z85.118 Personal history of other malignant neoplasm of bronchus and lung
CPT/HCPCS: 43239; 43270; 88305; 88313; 88341; 88342; J7120; J2405

== ENCOUNTER → 2023-04-29 | Outpatient (CLI) | payer MEDICARE, BC, SELFPAY ==
[2021-07-02 10:22] VITALS: BMI 34.7
--- NOTE | 2023-04-29 12:24 | BI_ITS ---
MAMMOGRAPHY - BILATERAL SCREENING REASON FOR EXAM: Female, 78 years old. Routine annual screening examination. PERTINENT HISTORY: Personal history of breast cancer at age 75 status post left lumpectomy TECHNIQUE: Digital bilateral breast reny (3D mammographic acquisition) in the CC and MLO projections. 2-D mediolateral oblique (MLO) and craniocaudad (CC) views of both breasts were obtained. CAD: Full Field Digital Mammography with Computer Added Detection was performed. COMPARISON: Screening mammogram from 03/13/2022, 09/13/2020. FINDINGS: Breast Composition: Portions of the breasts are extremely dense, which lowers the sensitivity of mammography. There are no dominant masses or suspicious calcifications. Stable left breast lumpectomy postoperative changes and biopsy markers. Stable biopsy marker in the right breast. Stable scattered benign-appearing bilateral breast calcifications. No other significant abnormalities are identified. There has been no significant change since the prior study. BI/SCRN MAMM (CAD)W/RENY BILAT IMPRESSION: Stable bilateral screening mammogram. Yearly follow-up mammogram recommended. (A) ASSESSMENT CATEGORY: BIRADS Category 2: Benign. A letter regarding these results will be sent to the patient by the facility within 30 days. Approximately 10% of breast cancers are not detected by mammography. A normal mammogram should not delay biopsy of a clinically suspicious abnormality. Electronically Signed: Tyler Michelle DO at 15:49 EDT ,
--- NOTE | 2023-04-29 12:31 | BD_ITS ---
STUDY: DUAL ENERGY X-RAY ABSORPTIOMETRY / DXA REASON FOR EXAM: Female, 78 years old. Z780 TECHNIQUE: Bone Mineral Density (BMD) measurements of lumbar spine and bilateral hips were obtained. COMPARISON: Comparison is made with prior study April 19, 2021. FINDINGS: Lumbar Spine (L1-L4): g/cm2 (1.041) / T-score (-0.1) / Z-score (2.5) Findings are suggestive of normal bone density with a low fracture risk. Left Femur Total: g/cm2 (0.690) / T-score (-2.1) / Z-score (-0.1) Left Femoral Neck: g/cm2 (0.606) / T-score (-2.2) / Z-score (0.0) Right Femur Total: g/cm2 (0.666) / T-score (-2.1) / Z-score (-0.1) Right Femoral Neck: g/cm2 (0.661) / T-score (-1.7) / Z-score (0.5) The T-Scores on the most recent prior examination were: Lumbar Spine (L1-L4): There has been worsening of bone density since the previous examination. Left Femur Total: which represents a worsening of 11.4%. Right Femur Total: which represents a worsening of 0.2%. BD/Dexa Bone Density Study IMPRESSION: The patient is considered osteopenic as outlined below according to World Reyes Organization (WHO) criteria with a high fracture risk. There has been worsening of bone density since the previous examination. Reference Information: The T-score is the number of standard deviations above or below the standard which is normal for young adults at their peak bone mineral density. The World Health Organization (WHO) interprets the T-scores as follows: Above -1 Normal bone density Between -1 and -2.5 Osteopenia Equal to / or below -2.5 Osteoporosis As a practical clinical guideline, osteopenia may be graded as follows: Mild -1 through -1.5 Moderate -1.6 through -2.0 Severe -2.1 through -2.4 The Z-score is the number of standard deviations above or below age-matched controls. A Z-score of less than -1.5 would be considered abnormal. References: 1. NIH Osteoporosis and Related Bone Diseases www osteo.org 2. International Society for Clinical Densitometry www iscd.org 3. National Osteoporosis Foundation www nof.org Electronically Signed: Allan Joshua MD at 15:25 EDT ,
== END | disposition home or self-care (01) ==
LOC: OPBD 12:22
PROVIDERS: PCP Internal Medicine; Referring Provider Internal Medicine; Visit Provider Internal Medicine
DX: Z12.31 Encounter for screening mammogram for malignant neoplasm of breast (principal); Z85.3 Personal history of malignant neoplasm of breast; Z78.0 Asymptomatic menopausal state
CPT/HCPCS: 77063; 77067; 77080

== ENCOUNTER 2023-06-02 10:35 | Day surgery (SDC) | payer MEDICARE, BC, SELFPAY ==
[2021-07-02 10:22] VITALS: BMI 34.7
--- NOTE | 2023-05-16 12:33 | HP.PCM_ITS ---
History and Physical Date of Admission: 06/02/23 This is a 78-year-old lady who presents to the cardiac laboratory machinist today for a cardioversion. She has a history of recent onset atrial fibrillation. It appears that she had presented to the hospital with small bowel obstruction in March of 2022 and was noted to be in atrial fibrillation. She was treated with metoprolol and Eliquis and an echocardiogram ordered. It demonstrated preserved ejection fraction of 65 to 70% with no wall motion abnormalities the left atrial enlargement was mild. She had previously had a dobutamine stress echocardiogram in December 2020 demonstrating preserved ejection fraction. She has had no dizziness or diaphoresis near syncope or syncope. Post discharge she had a 24- hour Holter monitor performed in May of 2022 which demonstrated 87,706 QRS complexes with an average heart rate of 61 bpm in sinus rhythm and a maximum of 98 bpm and no atrial fibrillation noted. The longest pause was 1.8 seconds. She had presented to our office earlier this year in atrial fibrillation. A Holter monitor was obtained at that time, and demonstrated an average heart rate of 87bpm in atrial flutter, and atrial fibrillation 99.8%. She was scheduled for a cardioversion, and presented in sinus rhythm. From a cardiac standpoint, the patient is doing well. She denies any palpitations, chest pain, pressure or heaviness. She does have SOB with exertion. She denies Orthopnea, and PND. She does not have bleeding issues; no blood in urine, stool or nosebleeds. She denies any decrease in energy level, myalgias, or claudication. She does not have edema, or sudden weight gain. She denies dizziness, lightheadedness, syncopal or near syncopal episodes, and headaches. Intake Vital Signs See EMR Allergies See EMR Medications See EMR [facility] Medical History Acute myofascial strain of lumbosacral region Anemia Anxiety Arthritis Back pain Breast cancer, left Breast lump Cancer Cardiology follow-up encounter Carotid stenosis Chronic low back pain with sciatica Chronic pain Clavicle fracture Climacteric Constipation Contusion of knee Depression CRISTOBAL (dyspnea on exertion) Dyspnea Early satiety Edema Former smoker GERD (gastroesophageal reflux disease) Hiatal hernia History of echocardiogram History of Holter monitoring History of renal disease Hx of small bowel obstruction Hypothyroidism Iatrogenic pneumothorax Kidney disease Lung cancer New onset atrial fibrillation (03/26/22) Normal Holter exam Osteopenia Pancreatitis Paroxysmal atrial fibrillation Postoperative wound infection Seborrheic keratoses Stomach ache Thyroid disease Thyroiditis Vitamin D deficiency Wears dentures Surgical History History of cholecystectomy History of kidney surgery History of laparoscopy History of left breast biopsy (09/18/20) History of lobectomy of lung (02/14/21) History of lumpectomy of left breast (10/10/20) History of open reduction and internal fixation (ORIF) procedure History of tonsillectomy History of total left knee replacement History of total right knee replacement (03/06/20) Hx of colonoscopy Family History Father , 44 Heart disease Myocardial infarction Social History housing: house current occupation: Retired- [employer] history of recent travel: No sexually active: No Smoking Status: Former smoker second hand exposure: No alcohol intake: never substance use type: does not use ROS Const Const: Negative for fatigue, weakness, fever(s), headache(s), chills, frequent falls, weight gain or weight loss Eyes Eyes: Negative for blind spots, loss of peripheral vision, transient loss of vision, blurry vision, change in vision, double vision, floaters or tunnel vision ENT ENT: Negative for headache(s), dizziness, Nosebleed/epistaxis, balance problems or neck pain Cardio Chest Pain: No Palpitations: No Edema: None Muscle aches with walking: None Resp Respiratory: Positive for SOB with activity; Negative for SOB at rest or SOB orthopnea\SOB lying down GI GI: Negative nausea, vomiting, heartburn, bloating, vomiting blood/hematemesis, bright, red blood in stools or black,tarry stools Musc Musc: Negative for muscle aches/ myalgia, muscle weakness, joint pain or balance problems Neuro Neuro: Negative for dizziness, lightheadedness, near syncope, syncope, orthostatic symptoms, frequent falls, headache(s), weakness, blurry vision or double vision Clint Hematologic/Lymphatic: Negative for easy bleeding or easy bruising Endo Endo: Negative for fatigue Cardiology Exam Const Appearance: cooperative, healthy appearing, comfortable and no acute distress Nutritional Appearance: well nourished and overweight Orientation: alert, awake and oriented x3 Head Head: normal to inspection Ears: hearing grossly normal bilaterally Nose: external nose normal Face and Sinus: face symmetric Eyes General: appearance normal, both eyes and all related structures Eyelids: eyelids normal EOM: EOM intact bilaterally Neck Neck: normal visual inspection and no JVD Carotids: normal carotid upstroke Chest Chest inspection: normal inspection of the chest, symmetric chest movement and normal respiratory effort; Negative cough Auscultation: Bilateral: Clear to Auscultation Cardio Rate: regular rate Rhythm: irregularly irregular Heart sounds: S1 normal and S2 normal; Negative rub, gallop or murmur GI GI: normal to inspection Neuro General: patient alert, patient awake, patient oriented x3 and CN's II-XI intact bilaterally Skin Skin: no rashes or lesions noted Extremities Pulses: Normal: Right Posterior Tibial Pulse, Left Posterior Tibial Pulse, Right Radial Pulse and Left Radial Pulse Lower Extremity Edema: None: Bilateral Psych Psychological: normal affect Supplemental Info Supplemental Information ECHOCARDIOGRAM 04/01/2022 Summary: 1. Left ventricle: The cavity size is normal. Wall thickness is at the upper limits of normal. Systolic function is normal. The estimated ejection fraction is 65-70%. Wall motion is normal; there are no regional wall motion abnormalities. Diastolic dysfunction present but unable to assess severity. 2. Mitral valve: The annulus is calcified. 3. Left atrium: The atrium is dilated. 4. Right ventricle: The RV systolic pressure by Doppler is 29 mm Hg. DOBUTAMINE STRESS ECHOCARDIOGRAM 12/26/2020 Interpretation Summary * Overall: pharmacologic echocardiogram stress test is negative for ischemia or infarction. * Graded infusion of Dobutamine to 20 mcg / kg / min, stopping due to reaching target heart rate. * Resting ECG: normal sinus rhythm with non-specific interventricular conduction delay * Resting Echo: normal left ventricular function. Estimated EF 60-65% with no wall motion * With graded infusion of dobutamine, the patient experienced no chest pain or dyspnea. No diagnostic ST segment changes. Frequent PAC's with intermittent atrial triplets. * At peak infusion, the EF augments to >70% without regional wall motion abnormality. Assessment and Plan Assessment and Plan (1) Paroxysmal atrial fibrillation: Status: Chronic Plan: Patient has a history of paroxysmal atrial fibrillation. This seems to be more persistent. Her most recent echocardiogram from 04/01/2022 demonstrated an ejection fraction of 65 to 70%, and left atrial enlargement. Her Holter monitor from October 04, 2022 demonstrated atrial fibrillation 99.8% of the time. Her EKG from 04/2023 demonstrated atrial flutter/fibrillation at a heart rate of 86 bpm. Her heart rate is well controlled at this time. Patient will proceed with cardioversion. She was instructed to not miss any doses of Eliquis. She will continue Amiodarone 100mg daily, Eliquis 5mg twice daily, and metoprolol succinate 25mg twice daily.
--- NOTE | 2023-05-19 12:47 | RAD_ITS ---
STUDY: X-RAY CHEST REASON FOR EXAM: Female, 78 years old. Cardioversion TECHNIQUE: PA and lateral views of the chest. COMPARISON: 06/25/2022. FINDINGS: The lungs are slightly underexpanded with coarse markings bilaterally and suggestion of bullous/cystic changes on the left. Interstitial prominence bilaterally along the subpleural region, left more than right may indicate pulmonary fibrosis. There is volume loss on the left, stable. Otherwise lung felder are clear. There is no demonstrated pleural abnormality. Normal size heart. Normal mediastinum and maurice. Normal visualized pulmonary arteries. There is atherosclerotic calcification of the aortic arch with tortuosity. There are diffuse degenerative changes of the visualized thoracic spine. There is degenerative osteoarthritis of the bilateral shoulders. Right upper quadrant surgical clips. RAD/Chest PA and Lateral IMPRESSION: Chronic changes as described with volume loss on the left and possible underlying fibrosis. Otherwise no acute cardiopulmonary disease. Electronically Signed: Sherrell Arreguin MD at 20:33 EDT ,
[2023-05-19 13:54] LABS: Anion Gap 5 (5-15); BUN 29 mg/dL (7-18); BUN/Creat Ratio 26.9 RATIO (10-20); Chloride 104 mmol/L (98-107); Creatinine, Serum 1.08 mg/dL (0.55-1.02); EST Glomerular Filtration Rate 52 mL/min (>60); Est Glom Filt Rate - Afr Amer 63 mL/min (>60); Glucose 86 mg/dL (74-106); Potassium 4.1 mmol/L (3.5-5.1); Sodium Level 141 mmol/L (136-145)
[2023-05-30 08:47] VITALS: BMI 27.4
--- NOTE | 2023-06-02 12:23 | PRO.PCM_ITS ---
Procedure Report Date of Procedure: 06/02/23 DC cardioversion. 78-year-old lady with a history of persistent atrial fibrillation on antico agulation who presents for DC cardioversion. The patient has been on uninterrupted anticoagulation. Risk benefits alternatives were explained to the patient after informed consent was obtained. The patient was seen by Dr. Haynes of the critical care division. Informed consent was obtained. Anterior- posterior pads were applied. The patient was administered 40 mg of intravenous propofol. 200 J of synchronized DC cardioversion energy were applied with prompt reversal to sinus rhythm. Patient tolerated the procedure well. Conclusion: Continue anticoagulation as per office protocol. Continue current medical therapy.
--- NOTE | 2023-06-02 13:17 | PRO.PCM_ITS ---
Procedure Report Date of Procedure: 06/02/23 CONSCIOUS SEDATION REPORT BRIEF HISTORY OF PRESENT ILLNESS: The patient is a 78-year-old female who presented to [facility] for an elective outpatient cardioversion due to underlying atrial flutter. The patient reports no PO intake since midnight, but is currently therapeutic on anticoagulation. The patient does not have a history of LUCY, asthma or COPD. The patient reports no previous cardioversions. The patient denies any recent constitutional symptoms such as fevers, chills, nausea or vomiting. The patient denies previous applicable anesthetic complications. Patient's last known ejection fraction was 65%. Patient was verified to be in a flutter prior to the procedure. PHYSICAL EXAMINATION: VITAL SIGNS: Reviewed and were acceptable. GENERAL: The patient is a female, in no apparent distress, speaking in full sentences. HEENT: Normocephalic, atraumatic. Mucous membranes are moist and pink. Good mouth opening noted. Trachea is midline. Good neck mobility. MP II CHEST: S1, S2 irregularly irregular. No murmurs, rubs or gallops were noted. LUNGS: Clear to auscultation bilaterally without appreciable wheezes, rales or rhonchi. ABDOMEN: Soft, nontender, nondistended. Positive bowel sounds. EXTREMITIES: There is no clubbing, cyanosis or edema. ASA Class: II DESCRIPTION OF PROCEDURE: After confirmation of informed consent, the patient's anesthesia plan was reviewed in detail. Propofol was chosen. Risks and benefits were reviewed and the patient agreed to proceed. At 12:10 PM, the patient was given 40 mg of propofol. The patient achieved an appropriate level of sedation and received 1 attempt synchronized cardioversion, at [address] Ellis at the bedside. This was successful in achieving normal sinus rhythm. The patient was monitored until 12:24 PM, at which time the patient reached their baseline mental status and function. The patient tolerated the procedure well. COMPLICATIONS: None ESTIMATED BLOOD LOSS: None RECOMMENDATIONS: Okay to recover in usual fashion. Procedures Pulmonary 9xxxx: [id number] Con Sedation
== END 2023-06-02 13:25 | disposition home or self-care (01) ==
LOC: CLSP 10:37
PROVIDERS: Nurse Practitioner Gerontology; PCP Internal Medicine; Referring Provider Internal Medicine Cardiovascular Disease; Visit Provider Internal Medicine Cardiovascular Disease
DX: I48.0 Paroxysmal atrial fibrillation (principal); Z87.891 Personal history of nicotine dependence; I34.81 Nonrheumatic mitral (valve) annulus calcification; Z79.01 Long term (current) use of anticoagulants
CPT/HCPCS: 36415; 71046; 80048; 92960; 93005; J7040

== ENCOUNTER → 2023-06-09 | Outpatient (CLI) | payer MEDICARE, BC, SELFPAY ==
[2021-07-02 10:22] VITALS: BMI 34.7
[2023-06-09 15:53] LABS: BNP,B-Type NATRIURETIC PEPTIDE 266.1 pg/mL (0-100)
[2023-06-09 15:59] LABS: Anion Gap 3 (5-15); BUN 22 mg/dL (7-18); BUN/Creat Ratio 19.8 RATIO (10-20); Calcium,Total 9.1 mg/dL (8.5-10.1); Chloride 103 mmol/L (98-107); Creatinine, Serum 1.11 mg/dL (0.55-1.02); EST Glomerular Filtration Rate 51 mL/min (>60); Est Glom Filt Rate - Afr Amer 61 mL/min (>60); Glucose 91 mg/dL (74-106); Potassium 4.2 mmol/L (3.5-5.1); Sodium Level 139 mmol/L (136-145)
== END | disposition home or self-care (01) ==
PROVIDERS: PCP Internal Medicine; Referring Provider Nurse Practitioner Gerontology; Visit Provider Nurse Practitioner Gerontology
DX: I48.92 Unspecified atrial flutter (principal)
CPT/HCPCS: 36415; 80048; 83880

== ENCOUNTER → 2023-07-11 | Outpatient (CLI) | payer MEDICARE, BC, SELFPAY ==
[2021-07-02 10:22] VITALS: BMI 34.7
--- NOTE | 2023-07-11 13:46 | CT_ITS ---
STUDY: CT CHEST WITHOUT CONTRAST REASON FOR EXAM: Female, 78 years old. PULMONARY NODULE RADIATION DOSAGE (If Supplied By Facility): CTDIvol = ( 9.39 ) mGy, DLP = ( 316.59 ) mGycm TECHNIQUE: Transaxial imaging was performed without the administration of intravenous contrast material. Multiplanar coronal and sagittal images were reformatted. Individualized dose optimization techniques were used for this CT. COMPARISON: Comparison is made with prior examination dated July 22, 2022. FINDINGS: CHEST The patient is status post left upper lobectomy with volume loss in the left upper lobe. Mild degree of postoperative scarring is seen in the left upper lobe. It is also evidence of increase interstitial markings at the lung bases worse in the left lower lobe with areas of subpleural blebs and honeycombing. Mild scarring in the anterior aspect of the right middle lobe. There is no demonstrated pleural abnormality. There are calcifications of the coronary arteries. There are multiple small lymph nodes within the mediastinum, which are normal in size and morphology most compatible with reactive lymph hyperplasia. Normal hilar regions. Normal unenhanced pulmonary arteries. There is atherosclerotic calcification of the aortic arch. Normal osseous structures. Small hiatal hernia. Status post cholecystectomy. CT/Chest without Contrast IMPRESSION: Findings in comparison with the scarring. Status post left upper lobectomy. Electronically Signed: Allan Joshua MD at 15:05 EDT ,
== END | disposition home or self-care (01) ==
LOC: CT 13:45
PROVIDERS: PCP Internal Medicine; Referring Provider Internal Medicine Pulmonary Disease; Visit Provider Internal Medicine Pulmonary Disease
DX: R91.1 Solitary pulmonary nodule (principal)
CPT/HCPCS: 71250

== ENCOUNTER 2023-07-21 08:37 | Day surgery (SDC) | payer MEDICARE, BC, SELFPAY ==
[2021-07-02 10:22] VITALS: BMI 34.7
--- NOTE | 2023-07-21 | IMM_PTH ---
PATIENT: ROSELINE SHERIFF LOC: EN U#:[id number] AGE/SX: 78/F ROOM: RE07/21/[address]: Dr. Melecio Gregg DO : 1945 BED: DIS: 07/21/2023 SPEC #: [id number] RECD: 07/23/23 13:41 STATUS: YRN REQ #: [id number] DUYEN: 07/21/23 00:[address]: Melecio Gregg DEPT: IMMUNOHISTOCHEMISTRY RECD BY: Uyen Oneil ENTERED: 07/23/23 13:41 SP TYPE: IMMUNO OTHR DR: Dr. Kisha Morton DO Tissues: Esophagus, NOS Procedures: P53 (initial) KI-67 (add) MOC-31 (add) PHYSICIAN & INSTITUTION [place] [id number] SPECIMEN INFORMATION: Tissue Source: Distal esophagus Clinical Info: Jacobs's esophagus with low-grade dysplasia, GERD, constipation Specimen Number: [id number] CPT code: 78841, 67925 x2 METHODOLOGY: Deparaffinized sections of prefer/formalin-fixed tissue or PAP/DQ stained slides are incubated with monoclonal/polyclonal antibodies/oligonucleotide probes. Localization is made via biotin free immunoperoxidase method. Appropriate controls are performed and reacted as expected. Results on target cell population are indicated in the following table: RESULTS: ANTIBODY / CLONE RESULT P53 (DO-7) positive, wild type Ki-67 (30-9) positive, low MOC-31 (4561) positive These tests were developed and their performance characteristics determined by [facility]. They may not have been cleared or approved by the U.S. Food and Drug Administration. The FDA has determined that such clearance or approval is not necessary. The above immunohistochemical/dualISH markers are ordered and reviewed by the Pathologist. INTERPRETATION: Distal esophagus, biopsy: No evidence of malignancy. AM:shivam 07/24/2023
--- NOTE | 2023-07-21 08:49 | PCM.HP.BLA ---
History and Physical Date of Admission: 07/21/23 ROSELINE MORATAYA, is a 77 F who presents to the office today for Roseline Morataya [birth year]? *[facility] established 04.10.22 for management of recurrent small bowel obstruction starting following left lung lobectomy to treat cancer. SBO hospitalization with small bowel repair.?Biochemical?CBC, ESR, CMP, CRP, LDH, bilirubin, GHASSAN comp, ANCA without pertinent abnormality.?KUB, patency capsule 04.12.22/04.16.22?without visualization of patency capsule.?Gastric emptying study 04.23.22?69.22 minutes (12-56).?Capsule Endoscopy 05.01.22?gastric inflammation, erythema and mild bleeding, GAVE.?MCRP 05.20.22?moderate colonic stool burden; chronically prominent intrahepatic and extrahepatic bile ducts without filling defect.? Biochemical 05.21.22?CBC, ESR, haptoglobin, coag, CMP, LFT, A1c, ferritin, ammonia, LDH, CRP, ceruloplasmin, BRENDAN, AFP, copper, ANCA, GHASSAN comp, AMA, ASM, hepatitis, HIV without pertinent abnormality.?t.bili H1.1?EGD and colonoscopy 05.28.22?EGD LA Grade A esophagitis; pyloric erythema, gastritis, and stenosis, Savary dilator 36F; medium hiatal hernia.?Colonoscopy diverticulosis; sigmoid stenosis, traversed; redundant; TI congestion; Rectal prolapse 1-2.?US and elastography 05.31.22?hepatic measurement 13.7cm with normal echogenicity, stiffness 8.2kPa.? OV 06.10.22 recommend RFA of Jacobs?s; constipation, start Linzess 72mcg samples. Will discuss need to treat gastroparesis after constipation resolves.? OV 08.09.22 recommend EGD for RFA of Jacobs?s. Continue MiraLAX and magnesium for constipation. NAFLD, continue Vit E and repeat elastography.?Small bowel series 09.04.22?mild small bowel dilation up to 3.2cm but contrast does proceed to large bowel? OV 09.19.22 refer to nutrition services for ongoing management of low fiber diet. ?CTEnterography 10.14.22?s/p cholecystectomy; pelvocaliectasis with extrarenal pelvis; hiatal hernia; colonic diverticulosis.?EGD 10.24.22?Short-segment Jacobs?s, RFA; medium hiatal hernia; gastric polyps.? OV 11.18.22 doing well with soft foods and low fiber diet.?EGD 02.18.23?Jacobs?s evaluation concerning for residual Jacobs?s, RFA; chronic gastritis; pyloric stenosis, TTS 15mm? OV 03.19.23 ?on low fiber diet- so not eating veggies because of SBO hx. but wants to know whether fresh fiber is ok vs powdered?? reports that her BMs are normal in am, then diarrhea an hour later, will take the Imodium to stop the diarrhea. Reports daily bm after drinking her boost drink supplement. If she hasnt had a bm, she will wait a day before taking anything like ducolax to help her go. Reports that she only took Linzess for a week. But that she is still on vit e for her NAFLD and will use miralax and magnesium to regulate bowels. Also reported new medication from heart doctor--amiodarone ROS Const Constitutional: No fatigue ENT ENT: No difficulty swallowing Gastro GI: Positive for abdominal pain and diarrhea; No difficulty swallowing Musc Musculoskeletal: Positive for Arthritis Skin Skin: No yellowing of the eye or itchy eyes Psych Psychiatric: No anxiety and No depression Endo Endocrine: No fatigue Aller/Imm Allergy/Immunologic: No itchy eyes Clint/Lymp Hematologic/Lymphatic: No easy bleeding or easy bruising Exam Const General: cooperative, healthy appearing and comfortable Orientation: alert, awake and oriented x3 Quality Reporting Tobacco Screening ([facility]) Smoking Status: Former smoker Assessment and Plan Assessment and Plan (1) Jacobs's esophagus with low grade dysplasia: Plan: We reviewed her EGD and colonoscopy results Continue ablation of Jacobs's with low-grade dysplasia Gastritis is already being treated with sucralfate x1 month and pantoprazole 40 mg twice daily (2) GERD (gastroesophageal reflux disease): Status: Chronic Plan: As above (3) Constipation: Status: Acute Plan: Chronic constipation since lung surgery, redundant colon contributes. Samples of Linzess 72 mcg 1 every morning before breakfast, she can send me a portal message with an update. (4) Delayed gastric emptying: Plan: Delayed gastric emptying which also began after lung surgery, confirmed with gastric emptying study. We can see if early satiety improves once constipation is better. If not we can treat gastroparesis with metoclopramide.. (5) NAFLD (nonalcoholic fatty liver disease): Plan: Discussed liver elastography result, mild to moderate fibrosis. Can consider treating with vitamin E and/or ursodiol. We can revisit this at a later date. Follow-up 2 months I have examined the patient and the H&P has been reviewed. There are no clinical changes since date of exam.
[2023-07-21 08:58] VITALS: BP 99/62; PULSE 77; RESP 20; TEMP 36.3; O2SAT 98; BMI 30.1
[2023-07-21] MEDS: Lactated Ringers 1,000 ML 15 ML IV (09:08)
--- NOTE | 2023-07-21 09:45 | EGD_PTH ---
PATIENT: ROSELINE SHERIFF LOC: EN U#:[id number] AGE/SX: 78/F ROOM: RE07/21/[address]: Dr. Melecio Gregg DO : 1945 BED: DIS: 07/21/2023 SPEC #: [id number] RECD: 07/21/23 13:48 STATUS: YRN REHaley #: [id number] DUYEN: 07/21/23 09:[address]: Melecio Gregg DEPT: SURGICAL PATHOLOGY RECD BY: Eva Barrera ENTERED: 07/22/23 10:49 SP TYPE: EGD BIOPSY OT DR: Dr. Kisha Morton DO Tissues: Esophagus, NOS Procedures: Special Stain Group II Surgery Specimen Level IV Alcian Blue/PAS (control) HEADER OPERATION: EGD with RFA and biopsies PRE-OP DIAGNOSIS: Jacobs's esophagus with low-grade dysplasia, GERD, constipation, delayed gastric emptying TISSUE SUBMITTED: Distal esophagus biopsies MICROSCOPIC DIAGNOSIS Distal esophagus, biopsy: Gastroesophageal junctional mucosa with chronic inflammation. Goblet cell metaplasia consistent with Jacobs's esophagus. No evidence of dysplasia. See comment. AM:shivam 07/23/2023 COMMENT Alcian blue/PAS stain with matched control supports the above diagnosis. Immunohistochemistry ([id number]) for P53 and Ki-67 will be performed and results will be reported separately. MICROSCOPIC DESCRIPTION Slides are reviewed. GROSS DESCRIPTION Received in fixative is one container labeled with the patient's name and designated distal esophagus. The specimen consists of multiple irregular fragments of light cristina soft tissue that in aggregate measure 1.0 x 0.5 x 0.1 cm. The specimen is totally submitted in one cassette. / AM:shivam 07/22/2023 TC:3 CPT: 54604, 72744
[2023-07-21 10:25] VITALS: BP 98/47; BP 99/62; PULSE 55; RESP 16; TEMP 36.2; O2SAT 97
--- NOTE | 2023-07-21 10:27 | OP.CCLET_ITS ---
07/21/2023 Kisha Morton Re : Upper GI endoscopy procedure for Kathryn Minerr Praveen This procedure was performed on Friday, July 21, 2023. 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 Biopsied. Treated with radiofrequency ablation. - Medium-sized hiatal hernia. - Normal duodenal bulb. Recommendations : - Discharge patient to home. - Resume previous diet. - Continue present medications. - Await pathology results. - Repeat upper endoscopy for surveillance of Jacobs's esophagus. My findings are described in the full procedure note, which is enclosed. If I can be of further assistance, please feel free to contact me at . Sincerely, Melecio Gregg, 07/21/2023 10:26:53 AM This report has been signed electronically.
--- NOTE | 2023-07-21 10:27 | OP.EGD_ITS ---
Patient Name: Kathryn Morataya Procedure Date: 07/21/2023 9:59 AM Date of : 1945 Age: 78 Procedure: Upper GI endoscopy Indications: Jacobs's esophagus with low grade dysplasia Providers: Melecio Gregg DO Referring MD: Kisha Morton Medicines: Monitored Anesthesia Care Patient Profile: This is a 78 year old female. Refer to note in patient chart for documentation of history and physical. Patient has symptoms of chronic heartburn. Her most recent EGD for Jacobs's ablation was within the past three months. Complications: No immediate complications. Procedure: Pre-Anesthesia Assessment: - Prior to the procedure, a History and Physical was performed, and patient medications and allergies were reviewed. The patient is competent. The risks and benefits of the procedure and the sedation options and risks were discussed with the patient. All questions were answered and informed consent was obtained. Patient identification and proposed procedure were verified by the physician in the pre-procedure area. Mental Status Examination: alert and oriented. Airway Examination: normal oropharyngeal airway and neck mobility. Respiratory Examination: clear to auscultation. CV Examination: normal. Prophylactic Antibiotics: The patient does not require prophylactic antibiotics. Prior Anticoagulants: The patient has taken no anticoagulant or antiplatelet agents. ASA Grade Assessment: II - A patient with mild systemic disease. After reviewing the risks and benefits, the patient was deemed in satisfactory condition to undergo the procedure. The anesthesia plan was to use monitored anesthesia care (MAC). Immediately prior to administration of medications, the patient was re-assessed for adequacy to receive sedatives. The heart rate, respiratory rate, oxygen saturations, blood pressure, adequacy of pulmonary ventilation, and response to care were monitored throughout the procedure. The physical status of the patient was re-assessed after the procedure. After obtaining informed consent, the endoscope was passed under direct vision. Throughout the procedure, the patient's blood pressure, pulse, and oxygen saturations were monitored continuously. The Endoscope was introduced through the mouth, and advanced to the second part of duodenum. The upper GI endoscopy was accomplished without difficulty. The patient tolerated the procedure well. Scope In: 10:07:24 AM Scope Out: 10:20:47 AM Total Procedure Duration Time 0 hours 13 minutes 23 seconds Findings: The esophagus and gastroesophageal junction were examined with white light and narrow band imaging (NBI) from a forward view and retroflexed position. There were esophageal mucosal changes secondary to established short-segment Jacobs's disease. These changes involved the mucosa along an irregular Z-line (38 cm from the incisors). Two tongues of salmon-colored mucosa were present at 40 cm. The maximum longitudinal extent of these esophageal mucosal changes was 3 cm in length. Mucosa was biopsied with a cold forceps for histology in a targeted manner at intervals of 1 cm in the lower third of the esophagus. One specimen bottle was sent to pathology. Verification of patient identification for the specimen was done. Focal radiofrequency ablation of Jacobs's esophagus was performed. With the endoscope in place, the position and extent of the Jacobs's mucosa and the anatomic landmarks including proximal and distal extent of Jacobs's mucosa, top of gastric folds and crural pinch were noted. Endoscopic visualization identified an ablation site including the entire visible Jacobs's segment. The Jacobs's mucosa was irrigated with water. Gastric contents were suctioned. The endoscope was then removed from the patient. The SmartFocusx-90 Ultra radiofrequency ablation catheter was attached to the tip of the endoscope. The endoscope with the attached radiofrequency ablation catheter was then passed transorally under direct vision into the esophagus and advanced to the areas of Jacobs's mucosa. The areas included islands of Jacobs's mucosa. The radiofrequency ablation catheter was placed in contact with the surface of the Jacobs's mucosa under direct visualization and energy was applied twice at 12 J/cm2. The ablation zone was cleaned of coagulative debris. The ablation catheter and endoscope were then removed and the catheter was cleaned. The catheter and endoscope were reinserted into the esophagus. A second round of ablation was then performed. Energy was applied twice at 12 J/cm2 to retreat the areas of Jacobs's epithelium that had been treated with the first series of ablation. The areas of the esophagus where Jacobs's mucosa had been ablated were examined. Areas of visible Jacobs's esophagus were completely ablated. Estimated blood loss was minimal. A medium-sized hiatal hernia was present. The duodenal bulb was normal. 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 Biopsied. Treated with radiofrequency ablation. - Medium-sized hiatal hernia. - Normal duodenal bulb. Recommendation: - Discharge patient to home. - Resume previous diet. - Continue present medications. - Await pathology results. - Repeat upper endoscopy for surveillance of Jacobs's esophagus. Procedure Code(s): --- Professional --- 57378, Esophagogastroduodenoscopy, flexible, transoral; with ablation of tumor(s), polyp(s), or other lesion(s) (includes pre- and post-dilation and guide wire passage, when performed) 90276, 59,51, Esophagogastroduodenoscopy, flexible, transoral; with biopsy, single or multiple CPT copyright 2021 [employer]. All rights reserved. The codes documented in this report are preliminary and upon accounting recruiter review may be revised to meet current compliance requirements. Melecio Gregg DO 07/21/2023 10:26:53 AM This report has been signed electronically. Number of Addenda: 0 Note Initiated On: 07/21/2023 9:59 AM
[2023-07-21 10:30] VITALS: BP 94/59; BP 99/62; PULSE 59; RESP 16; O2SAT 95
[2023-07-21 10:35] VITALS: BP 99/54; BP 99/62; PULSE 60; RESP 16; O2SAT 98
[2023-07-21 10:40] VITALS: BP 104/52; BP 99/62; PULSE 57; RESP 16; TEMP 36.6; O2SAT 96
[2023-07-21 11:14] VITALS: BP 99/62
== END 2023-07-21 11:27 | disposition home or self-care (01) ==
LOC: EN 08:38 → AC 08:40
PROVIDERS: PCP Internal Medicine; Referring Provider Internal Medicine; Visit Provider Internal Medicine Gastroenterology
PROC: 0DJ08ZZ Inspection of Upper Intestinal Tract, Via Natural or Artificial Opening Endoscopic (ICD-10-PCS; CPT 43235; principal; 2023-07-21 09:40)
DX: K22.710 Barrett's esophagus with low grade dysplasia (principal); K44.9 Diaphragmatic hernia without obstruction or gangrene; Z87.891 Personal history of nicotine dependence; K59.00 Constipation, unspecified; K30 Functional dyspepsia; K76.0 Fatty (change of) liver, not elsewhere classified
CPT/HCPCS: 43239; 43270; 81002; 88305; 88313; 88341; 88342; J7120; J2405

== ENCOUNTER 2023-08-18 09:38 | Day surgery (SDC) | payer MEDICARE, BC, SELFPAY ==
[2021-07-02 10:22] VITALS: BMI 34.7
--- NOTE | 2023-08-18 | GASB_PTH ---
PATIENT: ROSELINE SHERIFF LOC: EN U#:[id number] AGE/SX: 78/F ROOM: RE08/18/[address]: Dr. Melecio Gregg DO : 1945 BED: DIS: 08/18/2023 SPEC #: [id number] RECD: 08/18/23 15:25 STATUS: YRN EVELYN #: [id number] DUYEN: 08/18/23 00:[address]: Melecio Gregg DEPT: SURGICAL PATHOLOGY RECD BY: Tj Reyes ENTERED: 08/19/23 09:08 SP TYPE: Gastric Bx OTHR DR: Dr. Kihsa Morton DO Tissues: A - Gastric mucous membrane B - Esophageal mucous membrane Procedures: Special Stain Group II Surgery Specimen Level IV Alcian Blue/PAS (control) HEADER OPERATION: EGD with biopsies and RFA PRE-OP DIAGNOSIS: Jacobs's esophagus with low grade dysplasia, GERD TISSUE SUBMITTED: A - Gastric antrum biopsy, B - Distal esophagus biopsy MICROSCOPIC DIAGNOSIS A. Gastric antrum, biopsy: Mild gastritis. See microscopic description and comment. B. Distal esophagus, biopsy: Fragments of gastroesophageal mucosa with chronic inflammation. Intestinal metaplasia (goblet cell metaplasia) not identified. See comment. SJ:shivam 08/20/2023 COMMENT A. The results of immunohistochemistry for Helicobacter pylori will be reported separately ([id number]). B. Alcian blue/PAS stain with matched control is used in the evaluation of the specimen. MICROSCOPIC DESCRIPTION Slides are reviewed. A. The specimen shows fragments of gastric mucosa with chronic inflammatory cell infiltrates in the lamina propria consisting of lymphocytes and plasma cells, consistent with mild chronic gastritis. GROSS DESCRIPTION A - Received in fixative is one container labeled with the patient's name and designated gastric antrum biopsy. The specimen consists of two irregular fragments of light cristina soft tissue that in aggregate measure 0.6 x 0.4 x 0.1 cm. The specimen is totally submitted in one cassette. B - Received in fixative is one container labeled with the patient's name and designated distal esophagus biopsy. The specimen consists of multiple irregular fragments of light cristina soft tissue that in aggregate measure 1.0 x 0.6 x 0.1 cm. The specimen is totally submitted in one cassette. / GOKUL:shivam 08/19/2023 TC:3 CPT: 25620 x2, 22310
--- NOTE | 2023-08-18 | IMM_PTH ---
PATIENT: ROSELINE SHERIFF LOC: EN U#:[id number] AGE/SX: 78/F ROOM: RE08/18/[address]: Dr. Melecio Gregg DO : 1945 BED: DIS: 08/18/2023 SPEC #: [id number] RECD: 08/19/23 09:46 STATUS: YRN REHaley #: [id number] DUYEN: 08/18/23 00:[address]: Melecio Gregg DEPT: IMMUNOHISTOCHEMISTRY RECD BY: Whitney Naik ENTERED: 08/19/23 09:47 SP TYPE: IMMUNO OTHR DR: Dr. Kisha Morton DO Tissues: Gastric mucous membrane Procedures: H Pylori (initial) PHYSICIAN & INSTITUTION [place] [id number] SPECIMEN INFORMATION: Tissue Source: A - Gastric antrum biopsy Clinical Info: GERD, Jacobs's esophagus with low grade dysplasia Specimen Number: [id number] CPT code: 38921 METHODOLOGY: Deparaffinized sections of prefer/formalin-fixed tissue or PAP/DQ stained slides are incubated with monoclonal/polyclonal antibodies/oligonucleotide probes. Localization is made via biotin free immunoperoxidase method. Appropriate controls are performed and reacted as expected. Results on target cell population are indicated in the following table: RESULTS: ANTIBODY / CLONE RESULT Block A H Pylori (polyclonal) negative These tests were developed and their performance characteristics determined by [facility]. They may not have been cleared or approved by the U.S. Food and Drug Administration. The FDA has determined that such clearance or approval is not necessary. The above immunohistochemical/dualISH markers are ordered and reviewed by the Pathologist. INTERPRETATION: A. Gastric antrum, biopsy: Negative for Helicobacter pylori organisms. SJ:shivam 08/20/2023
--- NOTE | 2023-08-18 09:55 | PCM.HP.BLA ---
History and Physical Date of Admission: 08/18/23 77 F who presents to the office today for Kathryn Bone 7? 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 SBO hospitalization with small bowel repair.?Biochemical?CBC, ESR, CMP, CRP, LDH, bilirubin, GHASSAN comp, ANCA without pertinent abnormality.?KUB, patency capsule 04.12.22/04.16.22?without visualization of patency capsule.?Gastric emptying study 04.23.22?69.22 minutes (12-56).?Capsule Endoscopy 05.01.22?gastric inflammation, erythema and mild bleeding, GAVE.?MCRP 05.20.22?moderate colonic stool burden; chronically prominent intrahepatic and extrahepatic bile ducts without filling defect.? Biochemical 05.21.22?CBC, ESR, haptoglobin, coag, CMP, LFT, A1c, ferritin, ammonia, LDH, CRP, ceruloplasmin, BRENDAN, AFP, copper, ANCA, GHASSAN comp, AMA, ASM, hepatitis, HIV without pertinent abnormality.?t.bili H1.1?EGD and colonoscopy 05.28.22?EGD LA Grade A esophagitis; pyloric erythema, gastritis, and stenosis, Savary dilator 36F; medium hiatal hernia.?Colonoscopy diverticulosis; sigmoid stenosis, traversed; redundant; TI congestion; Rectal prolapse 1-2.?US and elastography 05.31.22?hepatic measurement 13.7cm with normal echogenicity, stiffness 8.2kPa.? OV 06.10.22 recommend RFA of Jacobs?s; constipation, start Linzess 72mcg samples. Will discuss need to treat gastroparesis after constipation resolves.? OV 08.09.22 recommend EGD for RFA of Jacobs?s. Continue MiraLAX and magnesium for constipation. NAFLD, continue Vit E and repeat elastography.?Small bowel series 09.04.22?mild small bowel dilation up to 3.2cm but contrast does proceed to large bowel? OV 09.19.22 refer to nutrition services for ongoing management of low fiber diet. ?CTEnterography 10.14.22?s/p cholecystectomy; pelvocaliectasis with extrarenal pelvis; hiatal hernia; colonic diverticulosis.?EGD 10.24.22?Short-segment Jacobs?s, RFA; medium hiatal hernia; gastric polyps.? OV 11.18.22 doing well with soft foods and low fiber diet.?EGD 02.18.23?Jacobs?s evaluation concerning for residual Jacobs?s, RFA; chronic gastritis; pyloric stenosis, TTS 15mm? OV 03.19.23 ?on low fiber diet- so not eating veggies because of SBO hx. but wants to know whether fresh fiber is ok vs powdered?? reports that her BMs are normal in am, then diarrhea an hour later, will take the Imodium to stop the diarrhea. Reports daily bm after drinking her boost drink supplement. If she hasnt had a bm, she will wait a day before taking anything like ducolax to help her go. Reports that she only took Linzess for a week. But that she is still on vit e for her NAFLD and will use miralax and magnesium to regulate bowels. Also reported new medication from heart doctor--amiodarone ROS Const Constitutional: No fatigue ENT ENT: No difficulty swallowing Gastro GI: Positive for abdominal pain and diarrhea; No difficulty swallowing Musc Musculoskeletal: Positive for Arthritis Skin Skin: No yellowing of the eye or itchy eyes Psych Psychiatric: No anxiety and No depression Endo Endocrine: No fatigue Aller/Imm Allergy/Immunologic: No itchy eyes Clint/Lymp Hematologic/Lymphatic: No easy bleeding or easy bruising Exam Const General: cooperative, healthy appearing and comfortable Orientation: alert, awake and oriented x3 Quality Reporting Tobacco Screening ([facility] 138) Smoking Status: Former smoker Assessment and Plan Assessment and Plan (1) Jacobs's esophagus with low grade dysplasia: Plan: We reviewed her EGD and colonoscopy results Continue ablation of Jacobs's with low-grade dysplasia Gastritis is already being treated with sucralfate x1 month and pantoprazole 40 mg twice daily (2) GERD (gastroesophageal reflux disease): Status: Chronic Plan: As above (3) Constipation: Status: Acute Plan: Chronic constipation since lung surgery, redundant colon contributes. Samples of Linzess 72 mcg 1 every morning before breakfast, she can send me a portal message with an update. (4) Delayed gastric emptying: Plan: Delayed gastric emptying which also began after lung surgery, confirmed with gastric emptying study. We can see if early satiety improves once constipation is better. If not we can treat gastroparesis with metoclopramide.. (5) NAFLD (nonalcoholic fatty liver disease): Plan: Discussed liver elastography result, mild to moderate fibrosis. Can consider treating with vitamin E and/or ursodiol. We can revisit this at a later date. Follow-up 2 months I have examined the patient and the H&P has been reviewed. There are no clinical changes since date of exam.
[2023-08-18 10:21] VITALS: BP 98/52; PULSE 59; RESP 18; TEMP 36.3; O2SAT 98; BMI 29.6
[2023-08-18] MEDS: Lactated Ringers 1,000 ML 15 ML IV (10:24)
[2023-08-18 10:58] VITALS: BP 107/85; BP 98/52; PULSE 65; RESP 16; TEMP 36.6; O2SAT 94
--- NOTE | 2023-08-18 11:03 | OP.EGD_ITS ---
Patient Name: Kathryn Morataya Procedure Date: 08/18/2023 10:20 AM Date of : 1945 Age: 78 Procedure: Upper GI endoscopy Indications: Jacobs's esophagus with low grade dysplasia Providers: Melecio Gregg DO Medicines: Monitored Anesthesia Care Patient Profile: This is a 78 year old female. Refer to note in patient chart for documentation of history and physical. Patient has symptoms of chronic heartburn. Complications: No immediate complications. Procedure: Pre-Anesthesia Assessment: - Prior to the procedure, a History and Physical was performed, and patient medications and allergies were reviewed. The patient is competent. The risks and benefits of the procedure and the sedation options and risks were discussed with the patient. All questions were answered and informed consent was obtained. Patient identification and proposed procedure were verified by the physician. Mental Status Examination: normal. Airway Examination: normal oropharyngeal airway and neck mobility. Prophylactic Antibiotics: The patient does not require prophylactic antibiotics. Prior Anticoagulants: The patient has taken no anticoagulant or antiplatelet agents. ASA Grade Assessment: III - A patient with severe systemic disease. After reviewing the risks and benefits, the patient was deemed in satisfactory condition to undergo the procedure. The anesthesia plan was to use monitored anesthesia care (MAC). Immediately prior to administration of medications, the patient was re-assessed for adequacy to receive sedatives. The heart rate, respiratory rate, oxygen saturations, blood pressure, adequacy of pulmonary ventilation, and response to care were monitored throughout the procedure. The physical status of the patient was re-assessed after the procedure. After obtaining informed consent, the endoscope was passed under direct vision. Throughout the procedure, the patient's blood pressure, pulse, and oxygen saturations were monitored continuously. The gastroscope was introduced through the mouth, and advanced to the second part of duodenum. The upper GI endoscopy was accomplished without difficulty. The patient tolerated the procedure well. Scope In: 10:35:46 AM Scope Out: 10:53:58 AM Total Procedure Duration Time 0 hours 18 minutes 12 seconds Findings: The esophagus and gastroesophageal junction were examined with white light and narrow band imaging (NBI) from a forward view and retroflexed position. There were esophageal mucosal changes secondary to established long-segment Jacobs's disease. These changes involved the mucosa at the upper extent of the gastric folds (40 cm from the incisors) extending to the Z-line. [place]-colored mucosa was present. The maximum longitudinal extent of these esophageal mucosal changes was 5 cm in length. Mucosa was biopsied with a cold forceps for histology in 4 quadrants at intervals of 1 cm in the lower third of the esophagus. One specimen bottle was sent to pathology. Verification of patient identification for the specimen was done. Estimated blood loss was minimal. Focal radiofrequency ablation of Jacobs's esophagus was performed. With the endoscope in place, the position and extent of the Jacobs's mucosa and the anatomic landmarks including proximal and distal extent of Jacobs's mucosa, top of gastric folds and crural pinch were noted. Endoscopic visualization identified an ablation site including the entire visible Jacobs's segment. The Jacobs's mucosa was irrigated with saline. Gastric contents were suctioned. The endoscope was then removed from the patient. The Barrx-90 radiofrequency ablation catheter was attached to the tip of the endoscope. The endoscope with the attached radiofrequency ablation catheter was then passed transorally under direct vision into the esophagus and advanced to the areas of Jacobs's mucosa. The areas included circumferential areas of Jacobs's mucosa. The radiofrequency ablation catheter was placed in contact with the surface of the Jacobs's mucosa under direct visualization and energy was applied twice at 12 J/cm2. Ablation was repeated in a likewise fashion to treat the entire area of suspected Jacobs's mucosa. The ablation zone was cleaned of coagulative debris. The ablation catheter and endoscope were then removed and the catheter was cleaned. The catheter and endoscope were reinserted into the esophagus. A second round of ablation was then performed. Energy was applied twice at 12 J/cm2 to retreat the areas of Jacobs's epithelium that had been treated with the first series of ablation. The areas of the esophagus where Jacobs's mucosa had been ablated were examined. Areas of visible Jacobs's esophagus were completely ablated. Estimated blood loss was minimal. A large hiatal hernia was present. No other significant abnormalities were identified in a careful examination of the stomach. Localized moderate inflammation characterized by erosions and erythema was found in the gastric antrum. Biopsies were taken with a cold forceps for histology. Verification of patient identification for the specimen was done. Biopsies were taken with a cold forceps for Helicobacter pylori testing. The first portion of the duodenum was normal. Impression: - Esophageal mucosal changes secondary to established long-segment Jacobs's disease. Biopsied. Treated with radiofrequency ablation. - Large hiatal hernia. - Gastritis. Biopsied. - Normal first portion of the duodenum. Recommendation: - Discharge patient to home. - Full liquid diet. - Continue present medications. - Await pathology results. Procedure Code(s): --- Professional --- 13566, Esophagogastroduodenoscopy, flexible, transoral; with ablation of tumor(s), polyp(s), or other lesion(s) (includes pre- and post-dilation and guide wire passage, when performed) 60728, 59,51, Esophagogastroduodenoscopy, flexible, transoral; with biopsy, single or multiple CPT copyright 2021 [employer]. All rights reserved. The codes documented in this report are preliminary and upon parks and recreation manager review may be revised to meet current compliance requirements. Melecio Gregg DO 08/18/2023 11:02:42 AM This report has been signed electronically. Number of Addenda: 0 Note Initiated On: 08/18/2023 10:20 AM
--- NOTE | 2023-08-18 11:03 | OP.CCLET_ITS ---
08/18/2023 Kisha Morton Re : Upper GI endoscopy procedure for Kathryn Minerr Praveen This procedure was performed on Friday, August 18, 2023. My impressions and recommendations are as follows: Impressions : - Esophageal mucosal changes secondary to established long-segment Jacobs's disease. Biopsied. Treated with radiofrequency ablation. - Large hiatal hernia. - Gastritis. Biopsied. - Normal first portion of the duodenum. Recommendations : - Discharge patient to home. - Full liquid diet. - Continue present medications. - Await pathology results. My findings are described in the full procedure note, which is enclosed. If I can be of further assistance, please feel free to contact me at . Sincerely, Melecio Gregg DO 08/18/2023 11:02:42 AM This report has been signed electronically.
[2023-08-18 11:05] VITALS: BP 117/48; BP 98/52; PULSE 63; RESP 16; O2SAT 94
[2023-08-18 11:10] VITALS: BP 101/52; BP 98/52; PULSE 62; RESP 16; O2SAT 94
[2023-08-18 11:12] VITALS: BP 108/57; BP 98/52; PULSE 61; RESP 16; TEMP 36.4; O2SAT 94
[2023-08-18 11:30] VITALS: BP 98/52
== END 2023-08-18 11:39 | disposition home or self-care (01) ==
LOC: EN 09:39 → AC 09:41
PROVIDERS: PCP Internal Medicine; Referring Provider Internal Medicine; Visit Provider Internal Medicine Gastroenterology
PROC: 0DJ08ZZ Inspection of Upper Intestinal Tract, Via Natural or Artificial Opening Endoscopic (ICD-10-PCS; CPT 43235; principal; 2023-08-18 10:55)
DX: K22.710 Barrett's esophagus with low grade dysplasia (principal); K44.9 Diaphragmatic hernia without obstruction or gangrene; K29.70 Gastritis, unspecified, without bleeding; Z87.891 Personal history of nicotine dependence; K21.9 Gastro-esophageal reflux disease without esophagitis; K59.00 Constipation, unspecified; K30 Functional dyspepsia; K76.0 Fatty (change of) liver, not elsewhere classified
CPT/HCPCS: 43270; 43239; 88305; 88313; 88342; J7120; J2405

== ENCOUNTER → 2023-08-21 | Outpatient (CLI) | payer MEDICARE, BC, SELFPAY ==
[2021-07-02 10:22] VITALS: BMI 34.7
--- NOTE | 2023-08-21 13:27 | CDU_ITS ---
Reason For Study: Carotid Stenosis Rt. Velocities/BP Lt. Velocities/BP Prox CCA 53.2/20.3 cm/sec. Prox CCA 74.3/19.3 cm/sec. Mid CCA 64.8/23.2 cm/sec. Mid CCA 76.5/20.4 cm/sec. Dist CCA 61.0/21.4 cm/sec. Dist CCA 83.1/25.9 cm/sec. Prox ICA 52.5/21.4 cm/sec. Prox ICA 58.9/19.3 cm/sec. Mid ICA 58.0/28.8 cm/sec. Mid ICA 80.9/32.5 cm/sec. Dist ICA 60.1/28.9 cm/sec. Dist ICA 64.2/24.6 cm/sec. Rt. ICA/CCA = 0.9. Lt. ICA/CCA = 1.1. Prox ECA 68.0/8.7 cm/sec. Prox ECA 60.0/7.3 cm/sec. Rt. Vert. 27.0/5.3 cm/sec. Lt. Vert. 67.7/16.0 cm/sec. Right Extracranial There is homogeneous, smooth atherosclerotic plaque noted in the right common carotid artery. There is heterogeneous, irregular atherosclerotic plaque noted in the right internal carotid artery. There is intimal thickening but no significant atherosclerotic plaque noted in the right external carotid artery. Antegrade flow is noted in the right vertebral artery. Left Extracranial There is homogeneous, smooth atherosclerotic plaque noted in the left common carotid artery. There is homogeneous, smooth atherosclerotic plaque noted in the left internal carotid artery. There is intimal thickening but no significant atherosclerotic plaque noted in the left external carotid artery. Antegrade flow is noted in the left vertebral artery. Procedure Carotid Duplex 20139. This is a Carotid Duplex examination using B-mode, color flow and specral Doppler. The exam was diagnostic. Exam performed in department. VL/Carotid Duplex Ultrasound Interpretation Summary Mild (<50%) stenosis right extracranial internal carotid. Mild (<50%) stenosis left extracranial internal carotid. Patent and antegrade vertebrals bilaterally. Ordering Physician: Kisha Morton Referring Physician: Kisha Morton Performed By: Carl Gresham RVT
== END | disposition home or self-care (01) ==
LOC: CVS 13:21
PROVIDERS: PCP Internal Medicine; Referring Provider Internal Medicine; Visit Provider Internal Medicine
DX: I65.29 Occlusion and stenosis of unspecified carotid artery (principal); I65.23 Occlusion and stenosis of bilateral carotid arteries
CPT/HCPCS: 93880

== ENCOUNTER → 2023-10-15 | Outpatient (CLI) | payer MEDICARE, BC, SELFPAY ==
[2021-07-02 10:22] VITALS: BMI 34.7
[2023-10-18 21:07] LABS: Gastrin, Serum 220 pg/mL (0-115)
== END | disposition home or self-care (01) ==
LOC: MTLAB 16:13
PROVIDERS: PCP Internal Medicine; Referring Provider Internal Medicine Gastroenterology; Visit Provider Internal Medicine Gastroenterology
DX: K22.710 Barrett's esophagus with low grade dysplasia (principal)
CPT/HCPCS: 36415; 82941

== ENCOUNTER → 2024-01-23 | Outpatient (CLI) | payer MEDICARE, BC, SELFPAY ==
[2021-07-02 10:22] VITALS: BMI 34.7
== END | disposition home or self-care (01) ==
LOC: PSN 11:25
PROVIDERS: PCP Internal Medicine; Referring Provider Nurse Practitioner Gerontology; Visit Provider Nurse Practitioner Gerontology
DX: I48.0 Paroxysmal atrial fibrillation (principal); R06.02 Shortness of breath
CPT/HCPCS: 93225; 93226

== ENCOUNTER → 2024-01-26 | Outpatient (CLI) | payer MEDICARE, BC, SELFPAY ==
[2021-07-02 10:22] VITALS: BMI 34.7
[2024-01-26 16:08] LABS: AST(SGOT) 24 U/L (15-37); Alanine Aminotransfer ALT/SGPT 21 U/L (13-56); Albumin, Serum 3.1 g/dL (3.2-5.0); Alkaline Phosphatase 68 U/L (45-117); Bilirubin, Direct 0.43 mg/dL (0.00-0.30); CRP < 2.90 mg/L (0.0-3.0); Globulin 3.6 g/dL (2.2-4.2); Protein, Total 6.7 g/dL (6.4-8.2)
[2024-01-26 16:36] LABS: Erythrocyte Sedimentation Rate 14 mm/hr (0-30)
== END | disposition home or self-care (01) ==
PROVIDERS: PCP Internal Medicine; Referring Provider Internal Medicine Pulmonary Disease; Visit Provider Internal Medicine Pulmonary Disease
DX: R07.1 Chest pain on breathing (principal); R91.8 Other nonspecific abnormal finding of lung field
CPT/HCPCS: 36415; 80076; 85652; 86140

== ENCOUNTER → 2024-02-09 | Outpatient (CLI) | payer MEDICARE, BC, SELFPAY ==
[2021-07-02 10:22] VITALS: BMI 34.7
--- NOTE | 2024-02-09 13:11 | CT_ITS ---
STUDY: CT CHEST WITHOUT CONTRAST REASON FOR EXAM: Female, 78 years old. SOB RADIATION DOSAGE (If Supplied By Facility): CTDIvol = ( 11.23 ) mGy, DLP = ( 300.67 ) mGycm TECHNIQUE: Transaxial imaging was performed without the administration of intravenous contrast material. Multiplanar coronal and sagittal images were reformatted. Individualized dose optimization techniques were used for this CT. COMPARISON: Comparison is made with prior study dated July 11, 2023. FINDINGS: CHEST Stable volume loss in the left hemithorax with shift of the heart and mediastinal structures to the left side. The patient is status post left upper lobectomy. There is evidence of increased interstitial markings at the lung bases worse at the left lung base suggestive of chronic scarring with honeycombing. There is also evidence of mild scarring in the anterior aspect of the right middle lobe. There is no demonstrated pleural abnormality. There are calcifications of the coronary arteries. Normal mediastinum. Normal hilar regions. Normal unenhanced pulmonary arteries. There is atherosclerotic calcification of the aortic arch and the origin of the major cervical vessels. There are degenerative changes of the thoracic spine. Small hiatal hernia. CT/Chest without Contrast IMPRESSION: Stable examination with evidence of scarring in both lungs worse in the left lower lobe. The patient is status post left upper lobectomy. Electronically Signed: Allan Joshua MD at 14:00 EDT ,
== END | disposition home or self-care (01) ==
LOC: CT 13:03
PROVIDERS: PCP Internal Medicine; Referring Provider Internal Medicine Pulmonary Disease; Visit Provider Internal Medicine Pulmonary Disease
DX: R06.02 Shortness of breath (principal); J84.10 Pulmonary fibrosis, unspecified
CPT/HCPCS: 71250

== ENCOUNTER 2024-03-14 11:44 | Inpatient (IN) | payer MEDICARE, BC, SELFPAY ==
[2021-07-02 10:22] VITALS: BMI 34.7
[2024-03-14] VITALS (8 sets, daily range): BP systolic 74–188; BP diastolic 53–155; PULSE 66–82; RESP 16–21; TEMP 36.1–36.7; O2SAT 93–99; BMI 30.9
--- NOTE | 2024-03-14 11:58 | CT_ITS ---
STUDY: CT ABDOMEN AND PELVIS WITH CONTRAST REASON FOR EXAM: Female, 78 years old. Abdominal pain RADIATION DOSAGE (If Supplied By Facility): CTDIvol = ( 15.51 ) mGy, DLP = ( 814.45 ) mGycm TECHNIQUE: IV 100mL Isovue-370 was administered. Transaxial images were obtained from the dome of the diaphragm to the symphysis pubis. Multiplanar coronal and sagittal images were reformatted. The protocol utilizes one or more of the following dose reduction techniques: automated exposure control, adjustment of mA and/or kV according to patient size,and/or use of iterative reconstruction technique. COMPARISON: MRCP of 05/20/2022. FINDINGS: The visualized lung bases demonstrate cystic changes in the left lower lobe likely chronic. Atelectatic changes or scarring in the lower lungs. The visualized portions of the heart are within normal limits. Normal liver. There are surgical clips in the gallbladder fossa consistent with a prior cholecystectomy. Dilated intrahepatic ducts and common bile duct essentially unchanged. Normal spleen. Normal pancreas. Normal bilateral adrenal glands. There is a small hiatal hernia. Nonspecific fluid-filled small bowel loops. Thickening of bowel loop on the left side of the abdomen. Sigmoid diverticulosis without evidence of acute diverticulitis. The descending colon is not well distended. The appendix is visualized and appears normal. There is diffuse atherosclerotic calcification of the abdominal aorta, without a demonstrated aneurysm. No retroperitoneal adenopathy. Dilated right renal pelvis likely due to extrarenal pelvis unchanged since prior examination. Malrotated right kidney. Normal left kidney. Normal urinary bladder. Normal abdominal wall. Degenerative changes of the spine. CT/Abdomen/Pelvis W IV Cont ONLY IMPRESSION: 1. Nonspecific fluid-filled and mildly thickened small bowel loops without evidence of bowel obstruction concerning for enteritis. 2. Diverticulosis without evidence of acute diverticulitis. 3. Dilated common bile duct and intrahepatic biliary ducts unchanged probably not significant for a postcholecystectomy patient. Electronically Signed: Gualberto Mayfield MD at 13:33 EDT ,
--- NOTE | 2024-03-14 12:01 | EX.ED.DYSGE1 ---
HPI <LUTHER Shi - Last Filed: 03/14/24 17:21> History of Present Illness Chief Complaint: Abd Pain Narrative Narrative: 78-year-old female with past medical history of A-fib, pulmonary fibrosis, hypothyroidism, bowel obstructions states she drank a boost shake at 8 AM and then afterwards developed vomiting and generalized abdominal pain that feels like a prior bowel obstruction. She states she has had 2-3 SBO's. One was treated surgically by Dr. Jimenez and the others were managed medically with nasogastric tubes. She takes a medication for pulmonary fibrosis called OFEV which causes diarrhea and states every morning she has a formed bowel movement and then diarrhea which she last had yesterday. She is passing gas today. She has also had her gallbladder removed. [facility] <LUTHER Shi - Last Filed: 03/14/24 17:21> [facility] Medical History Acute myofascial strain of lumbosacral region Anemia Anxiety Arthritis Back pain Breast cancer, left Breast lump Cancer Cardiology follow-up encounter Carotid stenosis Chronic low back pain with sciatica Chronic pain Clavicle fracture Climacteric Constipation Contusion of knee Depression CRISTOBAL (dyspnea on exertion) Dyspnea Early satiety Edema Former smoker GERD (gastroesophageal reflux disease) Hiatal hernia History of cardioversion History of echocardiogram History of Holter monitoring History of renal disease Hx of small bowel obstruction Hypothyroidism Iatrogenic pneumothorax Kidney disease Lung cancer New onset atrial fibrillation (03/26/22) Normal Holter exam Osteopenia Pancreatitis Paroxysmal atrial fibrillation Postoperative wound infection Pulmonary fibrosis Seborrheic keratoses Stomach ache Thyroid disease Thyroiditis Vitamin D deficiency Wears dentures Home Medications ?Medication ?Instructions ?Recorded ?Last Taken ?Type cholecalciferol (vitamin D3) 25 1,000 unit PO QODAY supplement 01/27/15 02/06/22 History mcg (1,000 unit) tablet montelukast 10 mg tablet 10 mg PO DAILY allergies 01/27/15 03/13/24 History cyanocobalamin (vitamin B-12) 5,000 mcg PO DAILY supplement 06/07/22 03/13/24 History 5,000 mcg disintegrating tablet vitamin E (dl, acetate) 45 mg (100 45 mg PO DAILY 09/13/22 03/13/24 History unit) capsule cetirizine 10 mg capsule (Zyrtec) 10 mg PO DAILY PRN Allergy Symptoms 01/22/23 03/13/24 History potassium chloride 10 mEq 10 meq PO BID 02/14/23 03/14/24 History capsule,extended release furosemide 40 mg tablet (Lasix) 40 mg PO DAILY 07/16/23 03/14/24 History ipratropium bromide 42 mcg (0.06 2 spray intranasal BID 08/14/23 03/13/24 History %) nasal spray apixaban 5 mg tablet (Eliquis) 5 mg PO BID Check with primary 09/25/23 03/13/24 Rx doctor #60 tabs rosuvastatin 5 mg tablet 5 mg PO QHS 10/07/23 03/13/24 History pantoprazole 40 mg tablet,delayed 40 mg PO BID #60 tabs 12/26/23 03/14/24 Rx release (Protonix) metoprolol succinate 25 mg 12.5 mg (1/2 x 25 mg) PO BID #60 02/09/24 03/13/24 Rx tablet,extended release 24 hr tabs acetaminophen 650 mg 650 mg PO Q6H PRN pain 03/14/24 03/13/24 History tablet,extended release (8 Hour Pain Reliever) escitalopram oxalate 10 mg tablet 15 mg PO DAILY 03/14/24 03/13/24 History gabapentin 400 mg capsule 400 mg PO QHS 03/14/24 03/13/24 History ketoconazole 2 % shampoo 1 applic topical DAILY PRN DRY 03/14/24 Unknown History SCALP levothyroxine 50 mcg tablet 50 mcg PO DAILY 03/14/24 03/13/24 History nintedanib 100 mg capsule (Ofev) 100 mg PO BID 03/14/24 03/14/24 History Allergy/AdvReac Type Severity Reaction Status Date / Time Sulfa (Sulfonamide Allergy Hives Verified 03/14/24 11:46 Antibiotics) amiodarone AdvReac Intermediate Tremors, Verified 03/14/24 11:46 excess phleghm in throat promethazine (From Phenergan) AdvReac Other Verified 03/14/24 11:46 Family History Father , 44 Heart disease Myocardial infarction Surgical History History of cholecystectomy History of esophagogastroduodenoscopy (EGD) History of kidney surgery History of laparoscopy History of left breast biopsy (09/18/20) History of lobectomy of lung (02/14/21) History of lumpectomy of left breast (10/10/20) History of open reduction and internal fixation (ORIF) procedure History of tonsillectomy History of total left knee replacement History of total right knee replacement (03/06/20) Hx of colonoscopy Hx of surgical procedure Social History housing: house current occupation: Retired- [employer] history of recent travel: No sexually active: No Smoking Status: Former smoker second hand exposure: No alcohol intake: never substance use type: does not use ROS <LUTHER Shi - Last Filed: 03/14/24 17:21> ROS ED ROS Narrative Constitutional: Negative for fever, chills, malaise. CVS: Negative for chest pain. Respiratory: Negative for shortness of breath. GI: Positive for abdominal pain, nausea, vomiting, diarrhea. Negative for constipation, melena, hematochezia. : Negative for dysuria, hematuria or frequency. EXAM <LUTHER Shi - Last Filed: 03/14/24 17:21> Physical Exam Narrative Exam Narrative: CONST: Patient sitting in no acute distress. EYES: Normal inspection. NECK: Normal inspection. RESP: No respiratory distress, CTAB. CVS: Regular rate and rhythm, no murmur, no gallop. ABD: Soft with generalized tenderness, no guarding or rebound, nondistended. SKIN: Color normal, no rash, warm, dry, intact. EXTREMITIES: Normal appearance, no pedal edema. NEURO: Alert and answering questions appropriately. PSYCH: Normal affect. Const Vital Signs: 03/14/24 11:46 03/14/24 13:35 03/14/24 13:59 Temperature 96.9 F L Temperature Source Temporal Pulse Rate 66 67 Respiratory Rate 18 21 H Blood Pressure 188/155 H 74/53 L 92/60 Blood Pressure Mean 166 60 70 Pulse Ox 99 95 Oxygen Delivery Method Room Air Room Air 03/14/24 14:24 03/14/24 15:12 Temperature Temperature Source Pulse Rate 66 75 Respiratory Rate 18 16 Blood Pressure 99/64 103/55 L Blood Pressure Mean 75 71 Pulse Ox 96 93 Oxygen Delivery Method Room Air Room Air <Dr. German Maharaj MD - Last Filed: 03/14/24 12:16> Physical Exam Const Vital Signs: 03/14/24 11:46 03/14/24 13:35 03/14/24 13:59 Temperature 96.9 F L Temperature Source Temporal Pulse Rate 66 67 Respiratory Rate 18 21 H Blood Pressure 188/155 H 74/53 L 92/60 Blood Pressure Mean 166 60 70 Pulse Ox 99 95 Oxygen Delivery Method Room Air Room Air 03/14/24 14:24 03/14/24 15:12 Temperature Temperature Source Pulse Rate 66 75 Respiratory Rate 18 16 Blood Pressure 99/64 103/55 L Blood Pressure Mean 75 71 Pulse Ox 96 93 Oxygen Delivery Method Room Air Room Air MDM <LUTHER Sih - Last Filed: 03/14/24 17:21> [facility] Narrative Medical decision making narrative: Differential: Ileus, obstruction, GERD/PUD, diverticulitis Consults: Hospitalist Patient has acute abdominal pain and nausea and vomiting that started this morning. Last BM was yesterday morning. She is passing gas. She has history of several bowel obstructions. She appears well and nontoxic and is afebrile with stable vital signs. Her abdomen is soft, nondistended, with mild generalized tenderness. She has normal bowel sounds. CBC and BMP overall unremarkable. Hemoglobin 11.5 is higher than previous. CT scan shows nonspecific fluid-filled and mildly thickened small bowel loops without signs of obstruction which may be enteritis. Initially after IV morphine, fluids and Zofran she became transiently hypotensive which resolved after an additional fluid bolus. She complained of persistent abdominal pain and was given fentanyl and Bentyl. Serial abdominal exams are benign and clinically have low concern for obstruction but patient states her abdominal pain is not better and she cannot go home in this state. Case will be discussed with the hospitalist for observation. Patient seen and evaluated with RYANN. I personally interviewed and examined the patient. I was involved in all aspects of patient's orders, interpretation of results, and treatment. 78-year-old female complaining abdominal pain with nausea and vomiting today. No diarrhea. No fever. No dysuria. She has a history of several bowel obstructions. She is also had a prior cholecystectomy. Well-appearing 78-year-old female. Vital signs are stable afebrile. H EENT exam unremarkable. Neck nontender. Lungs clear. Heart rate about 66 no murmur. Chest wall nontender. Abdomen soft nondistended normal bowel sounds no peritoneal signs. She has some mild tenderness. There is no hernia or mass. No pulsatile mass. Moving all 4 extremities. Nontender. Neurologically she is awake and alert. No focal motor deficits. Patient will undergo a screening labs and a CAT scan she will be treated with IV fluids, Zofran for nausea morphine for pain. Lab Data Labs: Laboratory Results - last 24 hr 03/14/24 12:15 WBC 9.1 RBC 3.56 L Hgb 11.5 L Hct 36.1 L MCV 101.4 H MCH 32.3 H MCHC 31.9 L RDW Std Deviation 61.8 H RDW Coeff of Diaz 16.4 H Plt Count 231 MPV 11.1 Immature Gran % (Auto) 0.800 Neut % (Auto) 65.7 Lymph % (Auto) 22.6 Sanders % (Auto) 9.1 Eos % (Auto) 0.9 Baso % (Auto) 0.9 Absolute Neuts (auto) 6.0 Absolute Lymphs (auto) 2.06 Nucleated RBC % 0.3 Sodium 140 Potassium 3.8 Chloride 105 Carbon Dioxide 30.0 Anion Gap 5 BUN 20 H Creatinine 0.85 Estim Creat Clear Calc 52.27 Est GFR (MDRD) Af Amer 83 Est GFR (MDRD) Non-Af 69 BUN/Creatinine Ratio 23.6 H Glucose 112 H Calcium 9.4 Total Bilirubin 1.70 H AST 24 ALT 19 Alkaline Phosphatase 62 Total Protein 6.9 Albumin 3.4 Globulin 3.5 Albumin/Globulin Ratio 1.0 Radiography Diagnostic Testing: Clinical Impression(s) from Imaging Studies Abdomen/Pelvis CT 03/14/24 11:58 IMPRESSION: 1. Nonspecific fluid-filled and mildly thickened small bowel loops without evidence of bowel obstruction concerning for enteritis. 2. Diverticulosis without evidence of acute diverticulitis. 3. Dilated common bile duct and intrahepatic biliary ducts unchanged probably not significant for a postcholecystectomy patient. Electronically Signed: Gualberto Mayfield MD at 13:33 EDT , <Dr. German Maharaj MD - Last Filed: 03/14/24 12:16> [facility] Narrative Medical decision making narrative: Patient seen and evaluated with RYANN. I personally interviewed and examined the patient. I was involved in all aspects of patient's orders, interpretation of results, and treatment. 78-year-old female complaining abdominal pain with nausea and vomiting today. No diarrhea. No fever. No dysuria. She has a history of several bowel obstructions. She is also had a prior cholecystectomy. Well-appearing 78-year-old female. Vital signs are stable afebrile. H EENT exam unremarkable. Neck nontender. Lungs clear. Heart rate about 66 no murmur. Chest wall nontender. Abdomen soft nondistended normal bowel sounds no peritoneal signs. She has some mild tenderness. There is no hernia or mass. No pulsatile mass. Moving all 4 extremities. Nontender. Neurologically she is awake and alert. No focal motor deficits. Patient will undergo a screening labs and a CAT scan she will be treated with IV fluids, Zofran for nausea morphine for pain. Lab Data Labs: Laboratory Results - last 24 hr 03/14/24 12:15 WBC 9.1 RBC 3.56 L Hgb 11.5 L Hct 36.1 L MCV 101.4 H MCH 32.3 H MCHC 31.9 L RDW Std Deviation 61.8 H RDW Coeff of Diaz 16.4 H Plt Count 231 MPV 11.1 Immature Gran % (Auto) 0.800 Neut % (Auto) 65.7 Lymph % (Auto) 22.6 Sanders % (Auto) 9.1 Eos % (Auto) 0.9 Baso % (Auto) 0.9 Absolute Neuts (auto) 6.0 Absolute Lymphs (auto) 2.06 Nucleated RBC % 0.3 Sodium 140 Potassium 3.8 Chloride 105 Carbon Dioxide 30.0 Anion Gap 5 BUN 20 H Creatinine 0.85 Estim Creat Clear Calc 52.27 Est GFR (MDRD) Af Amer 83 Est GFR (MDRD) Non-Af 69 BUN/Creatinine Ratio 23.6 H Glucose 112 H Calcium 9.4 Total Bilirubin 1.70 H AST 24 ALT 19 Alkaline Phosphatase 62 Total Protein 6.9 Albumin 3.4 Globulin 3.5 Albumin/Globulin Ratio 1.0 Radiography Diagnostic Testing: Clinical Impression(s) from Imaging Studies Abdomen/Pelvis CT 03/14/24 11:58 IMPRESSION: 1. Nonspecific fluid-filled and mildly thickened small bowel loops without evidence of bowel obstruction concerning for enteritis. 2. Diverticulosis without evidence of acute diverticulitis. 3. Dilated common bile duct and intrahepatic biliary ducts unchanged probably not significant for a postcholecystectomy patient. Electronically Signed: Gualberto Mayfield MD at 13:33 EDT , Discharge Plan Triage Chief Complaint: Abd Pain ED Midlevel Provider: Robyn Lane ED Provider: German Maharaj Dx/Rx/DC Orders Clinical Impression: Abdominal pain, Nausea and vomiting Prescriptions: No Action vitamin E (dl, acetate) 45 mg (100 unit) capsule 45 mg PO DAILY Zyrtec 10 mg capsule 10 mg PO DAILY PRN (Reason: Allergy Symptoms) montelukast 10 MG tablet 10 mg PO DAILY cholecalciferol (vitamin D3) 1,000 UNIT tablet 1,000 unit PO QODAY Patient Comments: 2 TABS ON FRIDAY cyanocobalamin (vitamin B-12) 5,000 mcg tablet,disintegrating 5,000 mcg PO DAILY potassium chloride 10 mEq capsule, extended release 10 meq PO BID furosemide [Lasix] 40 mg tablet 40 mg PO DAILY Rx Instructions: 40 MG DAILY UNLESS SWELLING NOTED ipratropium bromide 42 mcg (0.06 %) spray,non-aerosol 2 spray INTRANASAL BID Patient Comments: SPRAY 2 SPRAYS INTO EACH NOSTRIL TWICE A DAY acetaminophen [8 Hour Pain Reliever] 650 mg tablet extended release 650 mg PO Q6H PRN (Reason: pain) escitalopram oxalate 10 mg tablet 15 mg PO DAILY gabapentin 400 mg capsule 400 mg PO QHS levothyroxine 50 mcg tablet 50 mcg PO DAILY ketoconazole 2 % shampoo 1 applic topical DAILY PRN (Reason: DRY SCALP) Ofev 100 mg capsule 100 mg PO BID Eliquis 5 mg tablet 5 mg PO BID Qty: 60 1RF rosuvastatin 5 mg tablet 5 mg PO QHS pantoprazole [Protonix] 40 mg tablet,delayed release (DR/EC) 40 mg PO BID Qty: 60 3RF metoprolol succinate 25 mg tablet extended release 24 hr 12.5 mg PO BID Qty: 60 11RF Primary Care Provider: Kisha Morton Referrals: Kisha Morton DO [Primary Care Provider] - Print Language: Rwandan
[2024-03-14] MEDS: Morphine 4 MG/ML Syringe IV (12:15)
[2024-03-14] MEDS: 0.9% Normal Saline (1000mL) 1,000 ML 999 ML IV ×2 (12:15→13:36)
[2024-03-14] MEDS: Ondansetron 4 MG/2 ML Vial IV (12:15)
[2024-03-14 12:28] LABS: Absolute Lymphocyte Count 2.06 X10^3/uL (0.83-4.51); Basophil# 0.08 X10^3/uL; Basophil% 0.9 % (0-1); Eosinophil# 0.08 X10^3/uL; Eosinophils% 0.9 % (0-5); Hematocrit 36.1 % (37-47); Hemoglobin 11.5 g/dL (12.0-15.0); Lymphocyte # 2.06 X10^3/ul (0.83-4.51); Lymphocyte % 22.6 % (19-41); Mean Corp Hgb Conc 31.9 g/dL (32-36); Mean Corpuscular Hgb 32.3 pg (27.0-32.0); Mean Corpuscular Volume 101.4 fL (81-99); Mean Platelet Vol. 11.1 fl (6.2-12.0); Monocyte# 0.83 X10^3/uL; Monocyte% 9.1 % (0-10); NRBC Flagged by Analyzer 0.3 % (0-5); Neutrophil # 6.01 X10^3/uL (2.7-7.7); Neutrophil % 65.7 % (47-70); Platelet Count 231 K/mm3 (150-450); RBC Distribution Width CV 16.4 % (11.6-14.6); RBC Distribution Width SD 61.8 fl (35.1-43.9); Red Blood Count 3.56 M/mm3 (4.2-5.4); White Blood Count 9.1 K/mm3 (4.4-11.0)
[2024-03-14 12:39] LABS: AST(SGOT) 24 U/L (15-37); Alanine Aminotransfer ALT/SGPT 19 U/L (13-56); Albumin, Serum 3.4 g/dL (3.2-5.0); Alkaline Phosphatase 62 U/L (45-117); Anion Gap 5 (5-15); BUN 20 mg/dL (7-18); BUN/Creat Ratio 23.6 RATIO (10-20); Calcium,Total 9.4 mg/dL (8.5-10.1); Chloride 105 mmol/L (98-107); Creatinine, Serum 0.85 mg/dL (0.55-1.02); EST Glomerular Filtration Rate 69 mL/min (>60); Est Glom Filt Rate - Afr Amer 83 mL/min (>60); Estimated Creatinine Clearance 52.27 ml/min; Globulin 3.5 g/dL (2.2-4.2); Glucose 112 mg/dL (74-106); Potassium 3.8 mmol/L (3.5-5.1); Protein, Total 6.9 g/dL (6.4-8.2); Sodium Level 140 mmol/L (136-145)
[2024-03-14] MEDS: fentaNYL 100 MCG/2 ML Ampul 50 MCG IV (14:23)
[2024-03-14] MEDS: Dicyclomine 20 MG/2 ML Vial IM (15:10)
--- NOTE | 2024-03-14 17:07 | PCM.HP.STD ---
HPI - General General Date of Admission: 03/14/24 Date of Service: 03/14/24 Chief Complaint: Abdominal pain HPI Narrative ROSELINE SHERIFF, is a 78 F with past medical history of small bowel obstruction, NAFLD, Jacobs's esophagus, atrial flutter on chronic anticoagulation with Eliquis, breast cancer, lung cancer, GERD, pulmonary fibrosis who presents to the ED with concerns regarding ongoing abdominal pain since this morning with associated 1 episode of vomiting. The patient states that she had her normal breakfast [boost protein drink] this morning after which she had severe abdominal pain which was diffuse and associated with nausea and vomited out unchanged protein drink. She has a history of bowel obstruction in the past and she is concerned that this is similar to her prior episode. In the ED for her pain she has received dicyclomine fentanyl morphine but there has been no improvement in her pain. She has had 1 bowel movement since the morning. She was recently started on nintedanib and has been having diarrhea since the initiation of medications. Evaluation in the ED showed, pressure 103/55, pulse 75, respiratory 16, O2 93, on room air. WBC 9.1, hemoglobin 11.5, platelet 231, sodium 140, potassium 3.8, BUN 20, creatinine 0.8, total bilirubin 1.7. Protein of 6.9, albumin 3.4. CT abdomen showed nonspecific fluid-filled mildly thickened small bowel loops without evidence of bowel obstruction concerning for enteritis. Dilated CBD and intrahepatic ducts unchanged probably not significant due to postcholecystectomy patient. [facility] Medical History Acute myofascial strain of lumbosacral region Anemia Anxiety Arthritis Back pain Breast cancer, left Breast lump Cancer Cardiology follow-up encounter Carotid stenosis Chronic low back pain with sciatica Chronic pain Clavicle fracture Climacteric Constipation Contusion of knee Depression CRISTOBAL (dyspnea on exertion) Dyspnea Early satiety Edema Former smoker GERD (gastroesophageal reflux disease) Hiatal hernia History of cardioversion History of echocardiogram History of Holter monitoring History of renal disease Hx of small bowel obstruction Hypothyroidism Iatrogenic pneumothorax Kidney disease Lung cancer New onset atrial fibrillation (03/26/22) Normal Holter exam Osteopenia Pancreatitis Paroxysmal atrial fibrillation Postoperative wound infection Pulmonary fibrosis Seborrheic keratoses Stomach ache Thyroid disease Thyroiditis Vitamin D deficiency Wears dentures Home Medications ?Medication ?Instructions ?Recorded ?Last Taken ?Type cholecalciferol (vitamin D3) 25 1,000 unit PO QODAY supplement 01/27/15 02/06/22 History mcg (1,000 unit) tablet montelukast 10 mg tablet 10 mg PO DAILY allergies 01/27/15 03/13/24 History cyanocobalamin (vitamin B-12) 5,000 mcg PO DAILY supplement 06/07/22 03/13/24 History 5,000 mcg disintegrating tablet vitamin E (dl, acetate) 45 mg (100 45 mg PO DAILY 09/13/22 03/13/24 History unit) capsule cetirizine 10 mg capsule (Zyrtec) 10 mg PO DAILY PRN Allergy Symptoms 01/22/23 03/13/24 History potassium chloride 10 mEq 10 meq PO BID 02/14/23 03/14/24 History capsule,extended release furosemide 40 mg tablet (Lasix) 40 mg PO DAILY 07/16/23 03/14/24 History ipratropium bromide 42 mcg (0.06 2 spray intranasal BID 08/14/23 03/13/24 History %) nasal spray apixaban 5 mg tablet (Eliquis) 5 mg PO BID Check with primary 09/25/23 03/13/24 Rx doctor #60 tabs rosuvastatin 5 mg tablet 5 mg PO QHS 10/07/23 03/13/24 History pantoprazole 40 mg tablet,delayed 40 mg PO BID #60 tabs 12/26/23 03/14/24 Rx release (Protonix) metoprolol succinate 25 mg 12.5 mg (1/2 x 25 mg) PO BID #60 02/09/24 03/13/24 Rx tablet,extended release 24 hr tabs acetaminophen 650 mg 650 mg PO Q6H PRN pain 03/14/24 03/13/24 History tablet,extended release (8 Hour Pain Reliever) escitalopram oxalate 10 mg tablet 15 mg PO DAILY 03/14/24 03/13/24 History gabapentin 400 mg capsule 400 mg PO QHS 03/14/24 03/13/24 History ketoconazole 2 % shampoo 1 applic topical DAILY PRN DRY 03/14/24 Unknown History SCALP levothyroxine 50 mcg tablet 50 mcg PO DAILY 03/14/24 03/13/24 History nintedanib 100 mg capsule (Ofev) 100 mg PO BID 03/14/24 03/14/24 History Allergy/AdvReac Type Severity Reaction Status Date / Time Sulfa (Sulfonamide Allergy Hives Verified 03/14/24 11:46 Antibiotics) amiodarone AdvReac Intermediate Tremors, Verified 03/14/24 11:46 excess phleghm in throat promethazine (From Phenergan) AdvReac Other Verified 03/14/24 11:46 Family History Father , 44 Heart disease Myocardial infarction Surgical History History of cholecystectomy History of esophagogastroduodenoscopy (EGD) History of kidney surgery History of laparoscopy History of left breast biopsy (09/18/20) History of lobectomy of lung (02/14/21) History of lumpectomy of left breast (10/10/20) History of open reduction and internal fixation (ORIF) procedure History of tonsillectomy History of total left knee replacement History of total right knee replacement (03/06/20) Hx of colonoscopy Hx of surgical procedure Social History housing: house current occupation: Retired- [employer] history of recent travel: No sexually active: No Smoking Status: Former smoker second hand exposure: No alcohol intake: never substance use type: does not use ROS Review of Systems ROS Unobtainable: Denies due to encephalopathy, due to endotracheal tube, due to mental condition, due to mental status or other Constitutional Constitutional: Reports anorexia and malaise; Denies change in weight, chills, fatigue, fever(s), night sweats or weakness Eyes Eyes: Denies blurry vision, change in eye color, change in vision, discharge from eye(s), double vision, erythema, eye pain, loss of vision or other ENT HEENT: Denies abnormal hearing, dysphagia, ear pain, epistaxis, headache(s), hearing loss, nasal congestion, nasal discharge, post nasal drip, sinus pressure, sore throat or other Cardiovascular Cardiovascular: Denies chest pain, claudication, dyspnea on exertion, edema, lightheadedness, orthopnea, palpitations, paroxysmal nocturnal dyspnea, rapid heart rate, syncope or other Respiratory/Chest Respiratory/Chest: Denies cough, dyspnea, excessive phlegm production, hemoptysis, productive cough, shortness of breath at rest, shortness of breath with exertion, wheezing or other Gastrointestinal Gastrointestinal: Denies abdominal pain, coffee ground emesis, constipation, diarrhea, dyspepsia, hematemesis, hematochezia, loose stools, melena, nausea, vomiting or other Genitourinary Genitourinary: Denies burning urination, difficulty urinating, dysuria, hematuria, nocturia, urinary frequency, urinary hesitancy, urinary incontinence, urinary urgency or other Musculoskeletal Musculoskeletal: Denies arthralgias, back pain, joint pain, joint stiffness, joint swelling, myalgias, neck pain or other Neurologic Neurologic: Denies abnormal gait, abnormal speech, confusion, disequilibrium, dizziness, focal weakness, headache(s), numbness, paresthesias, seizure-like activity, seizures, syncope, tingling, tremor(s) or other Psychiatric Psychiatric: Denies anxiety, depression, homicidal ideation, suicidal ideation or other Endocrine Endocrinology: Denies change in body appearance, cold intolerance, excessive sweating, heat intolerance, polydipsia, polyuria or other Hematologic/Lymphatic Hematologic/Lymphatic: Denies anemia, easy bleeding, easy bruising, lymphadenopathy or other Allergic/Immunologic Allergic/Immunologic: Denies rhinitis, hives, eczemia, asthma or other Vital Signs Vital Signs Vital Signs: 03/14/24 11:46 03/14/24 13:35 03/14/24 13:59 Temperature 96.9 F L Temperature Source Temporal Pulse Rate 66 67 Respiratory Rate 18 21 H Blood Pressure 188/155 H 74/53 L 92/60 Blood Pressure Mean 166 60 70 Pulse Ox 99 95 Oxygen Delivery Method Room Air Room Air 03/14/24 14:24 03/14/24 15:12 Temperature Temperature Source Pulse Rate 66 75 Respiratory Rate 18 16 Blood Pressure 99/64 103/55 L Blood Pressure Mean 75 71 Pulse Ox 96 93 Oxygen Delivery Method Room Air Room Air Weight Weight: 168 lb 13.985 oz Body Mass Index (BMI) 30.9 Physical Exam Const alert, oriented x3, no apparent distress and average body habitus HEENT normocephalic Eyes PERRL Neck no lymphadenopathy Resp normal respiratory effort Cardio regular rate and regular rhythm GI normal to inspection, nondistended, normoactive bowel sounds and soft to palpation GI Narrative: No bowel sounds heard, tenderness on deep palpation Extremity normal to inspection Neuro oriented x3 and moves all extremities Psych affect normal Results Medical Records Data Attestation: I reviewed the patient's medical records Lab / Micro Data 03/14/24 12:15 03/14/24 12:15 Labs: Laboratory Results - last 24 hr 03/14/24 12:15: WBC 9.1, RBC 3.56 L, Hgb 11.5 L, Hct 36.1 L, MCV 101.4 H, MCH 32.3 H, MCHC 31.9 L, RDW Std Deviation 61.8 H, RDW Coeff of Diaz 16.4 H, Plt Count 231, MPV 11.1, Immature Gran % (Auto) 0.800, Neut % (Auto) 65.7, Lymph % (Auto) 22.6, [place] % (Auto) 9.1, Eos % (Auto) 0.9, Baso % (Auto) 0.9, Absolute Neuts (auto) 6.0, Absolute Lymphs (auto) 2.06, Nucleated RBC % 0.3, Sodium 140, Potassium 3.8, Chloride 105, Carbon Dioxide 30.0, Anion Gap 5, BUN 20 H, Creatinine 0.85, Estim Creat Clear Calc 52.27, Est GFR (MDRD) Af Amer 83, Est GFR (MDRD) Non-Af 69, BUN/Creatinine Ratio 23.6 H, Glucose 112 H, Calcium 9.4, Total Bilirubin 1.70 H, AST 24, ALT 19, Alkaline Phosphatase 62, Total Protein 6.9, Albumin 3.4, Globulin 3.5, Albumin/Globulin Ratio 1.0 Imaging Radiology Impression Abdomen/Pelvis CT 03/14/24 11:58 IMPRESSION: 1. Nonspecific fluid-filled and mildly thickened small bowel loops without evidence of bowel obstruction concerning for enteritis. 2. Diverticulosis without evidence of acute diverticulitis. 3. Dilated common bile duct and intrahepatic biliary ducts unchanged probably not significant for a postcholecystectomy patient. Electronically Signed: Gualberto Mayfield MD at 13:33 EDT , ECHOCARDIOGRAM 04/01/2022 Summary: 1. Left ventricle: The cavity size is normal. Wall thickness is at the upper limits of normal. Systolic function is normal. The estimated ejection fraction is 65-70%. Wall motion is normal; there are no regional wall motion abnormalities. Diastolic dysfunction present but unable to assess severity. 2. Mitral valve: The annulus is calcified. 3. Left atrium: The atrium is dilated. 4. Right ventricle: The RV systolic pressure by Doppler is 29 mm Hg. DOBUTAMINE STRESS ECHOCARDIOGRAM 12/26/2020 Interpretation Summary Overall: pharmacologic echocardiogram stress test is negative for ischemia or infarction. Graded infusion of Dobutamine to 20 mcg / kg / min, stopping due to reaching target heart rate. Resting ECG: normal sinus rhythm with non-specific interventricular conduction delay Resting Echo: normal left ventricular function. Estimated EF 60-65% with no wall motion With graded infusion of dobutamine, the patient experienced no chest pain or dyspnea. No diagnostic ST segment changes. Frequent PAC's with intermittent atrial triplets. At peak infusion, the EF augments to >70% without regional wall motion abnormality. Carotid Duplex 08/21/23 Interpretation Summary Mild (<50%) stenosis right extracranial internal carotid. Mild (<50%) stenosis left extracranial internal carotid. Patent and antegrade vertebrals bilaterally. Labs: No Data to Display Diagnostics: Electrocardiogram Chest X-Ray Carotid Duplex Pulmonary: No Data to Display Past Visits: Cardiology Visit 10/30/23 Assessment & Plan Assessment/Plan (1) Abdominal pain: PLAN: Plan 70-year-old female with a past medical history of recurrent small bowel obstructions following left lung lobectomy and prior adhesiolysis in 2020, A-fib, longstanding constipation, long segment Jacobs's, ICA stenosis, depression is being admitted for concerns regarding small bowel obstruction. CT scan showed thickened small bowel loops, she had 1 bowel movement today, no nausea or vomiting at this time. #Recurrent small bowel obstruction -First episode following left lung lobectomy -Underwent small bowel repair in 06/2021 for the same. At the time she was found to have internal hernia created by omentum during to another bowel loop. Adhesiolysis was done. -CT with IV contrast did not show any small bowel obstruction at this time -Will monitor and MS3 overnight for any changes -If no bowel movements/flatus passed by tomorrow we will consider getting small bowel follow through -Avoid all opioids for now -Encourage mobilization -Tylenol use for pain control -IV Zofran 4 mg as needed #A-fib -Diagnosed in 2021 -On metoprolol and Eliquis for the same -Continue outpatient medications #History of longstanding constipation -No stool burden was noted on the recent CT scan -Will continue n.p.o. status for now # Long segment Jacobs's esophagus: -Underwent RFA -Continue to monitor -continue PPI for now #Mild stenosis of ICA: Noted #Nonalcoholic fatty liver disease: Noted #Pulmonary fibrosis: On nintedanib, hold during this admission #Prior lung cancer: Underwent left lung lobectomy -Continue to monitor #DVT risk: On therapeutic anticoagulation Charges/Coding Visit Charges Inpatient E&M: 23276 Init Hosp L2
[2024-03-14] MEDS: Acetaminophen 500 MG Tablet PO ×2 (19:41→23:42)
[2024-03-14] MEDS: Gabapentin 400 MG Capsule PO (20:12)
[2024-03-14] MEDS: APIXABAN 5 MG TABLET PO (20:12)
[2024-03-14] MEDS: Pantoprazole Sodium 40 MG Tablet PO (20:13)
[2024-03-14] MEDS: Metoprolol(XL)Succ 25 MG Tablet 12.5 MG PO (20:13)
[2024-03-14] MEDS: Atorvastatin Calcium 10 MG Tablet PO (20:14)
[2024-03-14] MEDS: Ketorolac 15 MG/ML Vial IV (21:31)
[2024-03-14] MEDS: 0.9% Saline Lock 10 ML Syringe IV ×2 (21:31→23:42)
[2024-03-14] MEDS: Morphine 2 MG/ML Syringe IV (23:42)
[2024-03-15] VITALS (8 sets, daily range): BP systolic 97–117; BP diastolic 43–83; PULSE 62–70; RESP 16–18; TEMP 36.7–37.1; O2SAT 94–98
[2024-03-15] MEDS: Acetaminophen 500 MG Tablet PO ×3 (05:20→21:09)
[2024-03-15] MEDS: Levothyroxine 50 MCG Tablet PO (05:21)
[2024-03-15 06:09] LABS: Absolute Lymphocyte Count 1.96 X10^3/uL (0.83-4.51); Absolute Neutrophil Count 3.6 X10^3/uL (2.0-7.7); Basophil# 0.03 X10^3/uL; Basophil% 0.5 % (0-1); Eosinophil# 0.09 X10^3/uL; Eosinophils% 1.4 % (0-5); Hematocrit 33.1 % (37-47); Hemoglobin 10.5 g/dL (12.0-15.0); Lymphocyte # 1.96 X10^3/ul (0.83-4.51); Lymphocyte % 30.5 % (19-41); Mean Corp Hgb Conc 31.7 g/dL (32-36); Mean Corpuscular Hgb 32.8 pg (27.0-32.0); Mean Corpuscular Volume 103.4 fL (81-99); Mean Platelet Vol. 11.3 fl (6.2-12.0); Monocyte% 10.9 % (0-10); NRBC Flagged by Analyzer 0.3 % (0-5); Neutrophil # 3.58 X10^3/uL (2.7-7.7); Neutrophil % 55.8 % (47-70); Platelet Count 238 K/mm3 (150-450); RBC Distribution Width CV 16.5 % (11.6-14.6); RBC Distribution Width SD 62.9 fl (35.1-43.9); White Blood Count 6.4 K/mm3 (4.4-11.0)
[2024-03-15 06:49] LABS: International Normalized Ratio 1.4; Prothrombin Time (Protime)PT. 16.8 SECONDS (11.7-14.9)
[2024-03-15 06:50] LABS: ALB/GLOB Ratio 0.9 RATIO (0.9-2.4); AST(SGOT) 23 U/L (15-37); Alanine Aminotransfer ALT/SGPT 17 U/L (13-56); Alkaline Phosphatase 54 U/L (45-117); Anion Gap 7 (5-15); BUN 16 mg/dL (7-18); BUN/Creat Ratio 20.8 RATIO (10-20); Bilirubin, Direct 0.39 mg/dL (0.00-0.30); Calcium,Total 8.8 mg/dL (8.5-10.1); Chloride 105 mmol/L (98-107); Creatinine, Serum 0.77 mg/dL (0.55-1.02); EST Glomerular Filtration Rate 77 mL/min (>60); Est Glom Filt Rate - Afr Amer 93 mL/min (>60); Estimated Creatinine Clearance 55.54 ml/min; Globulin 3.2 g/dL (2.2-4.2); Glucose 95 mg/dL (74-106); Magnesium 1.8 mg/dL (1.6-2.6); Phosphorus 3.7 mg/dL (2.5-4.9); Potassium 3.8 mmol/L (3.5-5.1); Protein, Total 6.2 g/dL (6.4-8.2); Sodium Level 141 mmol/L (136-145); Thyroid Stim Hormone (TSH) 4.05 uIU/mL (0.358-3.74)
[2024-03-15] MEDS: Ketorolac 15 MG/ML Vial IV (06:53)
--- NOTE | 2024-03-15 08:09 | PN.HOSP_ITS ---
Reason for Visit Reason for Visit: Diagnoses Unspecified abdominal pain (03/14/24) Subjective Subjective Having increased abdominal pain. No flatus. Objective Data Objective Data Vital Signs: Vital Signs Temp Pulse Resp BP Pulse Ox O2 Del Method 36.8 C 63 16 97/50 L 97 Room Air 03/15/24 05:33 03/15/24 05:33 03/15/24 05:33 03/15/24 05:33 03/15/24 05:33 03/15/24 05:33 Oxygen Delivery Method Room Air Weight: 76.6 kg Body Mass Index (BMI) 30.9 Intake & Output: Intake and Output for Last 24 Hours 03/13/24 03/14/24 03/15/24 23:59 23:59 23:59 Intake Total 1999 Balance 1999 Lab / Micro Data 03/15/24 05:36 03/15/24 05:36 Labs: Laboratory Results - last 24 hr 03/14/24 12:15: WBC 9.1, RBC 3.56 L, Hgb 11.5 L, Hct 36.1 L, MCV 101.4 H, MCH 32.3 H, MCHC 31.9 L, RDW Std Deviation 61.8 H, RDW Coeff of Diaz 16.4 H, Plt Count 231, MPV 11.1, Immature Gran % (Auto) 0.800, Neut % (Auto) 65.7, Lymph % (Auto) 22.6, [place] % (Auto) 9.1, Eos % (Auto) 0.9, Baso % (Auto) 0.9, Absolute Neuts (auto) 6.0, Absolute Lymphs (auto) 2.06, Nucleated RBC % 0.3, Sodium 140, Potassium 3.8, Chloride 105, Carbon Dioxide 30.0, Anion Gap 5, BUN 20 H, Creatinine 0.85, Estim Creat Clear Calc 52.27, Est GFR (MDRD) Af Amer 83, Est GFR (MDRD) Non-Af 69, BUN/Creatinine Ratio 23.6 H, Glucose 112 H, Calcium 9.4, T otal Bilirubin 1.70 H, AST 24, ALT 19, Alkaline Phosphatase 62, Total Protein 6.9, Albumin 3.4, Globulin 3.5, Albumin/Globulin Ratio 1.0 03/15/24 05:36: WBC 6.4, RBC 3.20 L, Hgb 10.5 L, Hct 33.1 L, MCV 103.4 H, MCH 32.8 H, MCHC 31.7 L, RDW Std Deviation 62.9 H, RDW Coeff of Diaz 16.5 H, Plt Count 238, MPV 11.3, Immature Gran % (Auto) 0.900, Neut % (Auto) 55.8, Lymph % (Auto) 30.5, [place] % (Auto) 10.9 H, Eos % (Auto) 1.4, Baso % (Auto) 0.5, Absolute Neuts (auto) 3.6, Absolute Lymphs (auto) 1.96, Nucleated RBC % 0.3, PT 16.8 H, INR 1.4, Sodium 141, Potassium 3.8, Chloride 105, Carbon Dioxide 29.0, Anion Gap 7, BUN 16, Creatinine 0.77, Estim Creat Clear Calc 55.54, Est GFR (MDRD) Af Amer 93, Est GFR (MDRD) Non-Af 77, BUN/Creatinine Ratio 20.8 H, Glucose 95, Calcium 8.8, Phosphorus 3.7, Magnesium 1.8, Total Bilirubin 1.60 H, Direct Bilirubin 0.39 H, AST 23, ALT 17, Alkaline Phosphatase 54, Total Protein 6.2 L, Albumin 3.0 L, Globulin 3.2, Albumin/Globulin Ratio 0.9, TSH 4.05 H Radiography Diagnostic Testing: Radiology Impression Abdomen/Pelvis CT 03/14/24 11:58 IMPRESSION: 1. Nonspecific fluid-filled and mildly thickened small bowel loops without evidence of bowel obstruction concerning for enteritis. 2. Diverticulosis without evidence of acute diverticulitis. 3. Dilated common bile duct and intrahepatic biliary ducts unchanged probably not significant for a postcholecystectomy patient. Electronically Signed: Gualberto Mayfield MD at 13:33 EDT , Physical Exam Const alert and no apparent distress Resp normal respiratory effort, no retractions, no use of accessory muscles and clear to auscultation bilaterally Cardio regular rate, regular rhythm, S1 normal heart sound and S2 normal heart sound GI GI Narrative: slight distention. hypoactive BS. TTP. Assessment & Plan Assessment/Plan (1) Abdominal pain: PLAN: Plan abdominal pain * Concern for developing SBO. * CT with IV contrast did not show any small bowel obstruction at this time * check SBFT. * Add morphine. She said ketorolac helped. * IV Zofran 4 mg as needed Chronic conditions: * A-fib: continue metoprolol and Eliquis * Long segment Jacobs's esophagus: Underwent RFA-Continue to monitor-continue PPI for now * Mild stenosis of ICA: follow up with vascular surgery * Nonalcoholic fatty liver disease * Pulmonary fibrosis: On nintedanib, hold during this admission * Prior lung cancer: Underwent left lung lobectomy. Routine outpt follow up VTE prophylaxis: not indicated as already anticoagulated. Charges/Coding Visit Charges Inpatient E&M: 33623 Subs Hosp L2
--- NOTE | 2024-03-15 10:49 | CASEMGMT ---
JULIA CM to pt room at this time to discuss DC planning. Pt states that she is independent and that she lives alone in a condo and that she drives. 6-Click is 24. Pt denies the need for HHC or OP therapy at this time. Pt states that she feels safe returning home at time of DC. Pt denies any further questions or concerns. CM to follow.
--- NOTE | 2024-03-15 11:27 | CASEMGMT ---
Social Work- SW met with pt to discuss advance directives.? Pt confirms she has completed a living will and health care POA naming GisselleCris Bruno, niece , as primary agent and Destinee Jeremy, niece, as alternate agent.? Pt notified that documents are not on file at [facility] and SW requested they be brought in for scanning into the EMR.? DENI Harden
--- NOTE | 2024-03-15 12:45 | RAD_ITS ---
STUDY: SMALL BOWEL FOLLOW-THROUGH EXAMINATION. REASON FOR EXAM: Female, 78 years old. SBO TECHNIQUE: The patient ingested Gastrografin. Small bowel follow-through examination was obtained. The last image was obtained at 16 hours and 45 minutes following the initial ingestion of Gastrografin. COMPARISON: None. FINDINGS: On the sandblaster supervisor image, there is evidence of some mild bowel dilatation. Following ingestion of Gastrografin, there is distention of the stomach with gastroesophageal reflux. On the last image of 16 hours, the stomach is distended with contrast. There is evidence of a small bowel obstruction. No contrast is seen within the large bowel. Findings suggestive of a small bowel obstruction in the distal portion of the ileum. RAD/Small Bowel Series Only IMPRESSION: High-grade small bowel obstruction. Marked degree of the contrast retention within the distended stomach and gastroesophageal reflux. Electronically Signed: Allan Joshua MD at 8:49 EDT ,
--- NOTE | 2024-03-15 15:18 | CASEMGMT ---
Met with patient to complete LAWS form. LAWS form explained to patient who voiced understanding and signed form. Original form placed in pt?s chart and copy provided to patient. Linette Cazares, Discharge Planning Asst
[2024-03-15] MEDS: 0.9% Normal Saline (1000mL) 1,000 ML 125 ML IV ×2 (15:23→21:58)
[2024-03-15] MEDS: Ipratropium Bromide 0.06% NASAL SPRAY 2 SPRAY NASAL (15:24)
[2024-03-15] MEDS: Pantoprazole Sodium 40 MG Tablet PO ×2 (15:25→21:08)
[2024-03-15] MEDS: Metoprolol(XL)Succ 25 MG Tablet 12.5 MG PO ×2 (15:25→21:08)
[2024-03-15] MEDS: Montelukast 10 MG Tablet PO (15:26)
[2024-03-15] MEDS: Escitalopram Oxalate 10 MG Tablet 15 MG PO (15:27)
[2024-03-15] MEDS: Furosemide 40 MG Tablet PO (15:28)
[2024-03-15] MEDS: Cyanocobalamin 500 MCG Tablet PO (15:28)
[2024-03-15] MEDS: Cholecalciferol (VIT D3) 25 MCG TABLET (1,000 UNITS) PO (15:29)
--- NOTE | 2024-03-15 15:33 | CHAPLAIN ---
Type of Pastoral Visit ___ Initial Visit ___ Follow-up Visit ___ On-call Visit ___ General Patient Visit ___ Spiritual Assessment ___ Family Conference ___ Bereavement ___ Rapid Response ___ Code Blue ___ Other (describe below) Pastoral Care Referral From ___ Patient ___ Family ___ Nurse ___ Physician ___ Planning Intern ___ 3D Modeler ___ Other (describe below) Sacrament/Intervention ___ Active listening ___ Anointing ___ Jain ___ Bereavement ___ Communion ___ Meghana exploration ___ ___ Life review ___ Prayer ___ Reconciliation ___ Sacrament of Sick ___ Supportive presence ___ Wedding ___ Other (describe below) Pastoral Comments patient and bed were not in the room; left a calling card
--- NOTE | 2024-03-15 17:10 | PCM.HOSP.N ---
Hospitalist Note Follow-up on patient. Abdominal pain is getting worse and is more distended. Reviewed the small bowel follow-through x-rays, report pending, and I do not see any contrast within the colon after 4 hours concern for worsening bowel obstruction. Patient refuses to see Dr. Jimenez due to complication that she feels that she received from him and would be willing to see Dr. Concepcion. I did speak with Dr. Concepcion who is going out of town and not available starting tomorrow. So with her worsening of bowel obstruction, I ordered an NG tube. That was unable to be placed by nursing as well as myself. It would only get a few centimeters) not even past the nasopharynx. Patient was yelling the whole times and that she could not do it. So NG attempts tube was discontinued. I strongly recommended the patient see Dr. Jimenez but she still insists on not doing so. I told her that I could reach out to other hospitals to see if they would accept her but there may not be beds available for days. I first reached out to [facility] which was her first choice because she had been there for similar. And they said they were not accepting any outside transfers unless previously established with a surgeon. Patient said that when she was at [facility] she did not see a surgeon during that admission even though she was therefore a small bowel obstruction. Apparently had resolved on its own. I reached out to [facility] and they said they are not accepting any outside transfers at this time. I reached out to [facility] who took the information and told me that they probably would not have any beds tonight but possibly tomorrow. Greater than 75 minutes of which greater than 50% of time was coordinating her care, make phone calls to transfer centers in speaking with the various transfer centers. Visit Charges Inpatient E&M: 48689 Subs Hosp L3
[2024-03-15] MEDS: Morphine 2 MG/ML Syringe IV ×3 (17:25→21:57)
[2024-03-15] MEDS: 0.9% Saline Lock 10 ML Syringe IV (19:54)
[2024-03-15] MEDS: Gabapentin 400 MG Capsule PO (21:09)
[2024-03-15] MEDS: Ondansetron 4 MG/2 ML Vial IV (21:57)
[2024-03-16] MEDS: Morphine 2 MG/ML Syringe IV ×3 (00:01→05:41)
[2024-03-16 02:05] VITALS: BP 128/61; PULSE 60; RESP 16; TEMP 36.7; O2SAT 93
[2024-03-16] MEDS: Acetaminophen 500 MG Tablet PO ×3 (03:15→21:24)
[2024-03-16] MEDS: 0.9% Normal Saline (1000mL) 1,000 ML 125 ML IV ×3 (05:41→21:19)
--- NOTE | 2024-03-16 07:22 | PN.HOSP_ITS ---
Reason for Visit Reason for Visit: Diagnoses Unspecified abdominal pain (03/15/24) Subjective Subjective NGT placed by Dr. Jimenez and is feeling much better as roughly 3 cannisters of gastric aspirate removed. Objective Data Objective Data Vital Signs: Vital Signs Temp Pulse Resp BP Pulse Ox O2 Del Method 36.7 C 60 16 128/61 H 93 Room Air 03/16/24 02:05 03/16/24 02:05 03/16/24 02:05 03/16/24 02:05 03/16/24 02:05 03/16/24 02:05 Oxygen Delivery Method Room Air Weight: 76.6 kg Body Mass Index (BMI) 30.9 Intake & Output: Intake and Output for Last 24 Hours 03/14/24 03/15/24 03/16/24 23:59 23:59 23:59 Intake Total 1999 822.92 / 822.92 964.58 / 964.58 Output Total 100 / 100 Balance 1999 822.92 / 722.92 864.58 / 864.58 Lab / Micro Data 03/15/24 05:36 03/15/24 05:36 Physical Exam Const alert and no apparent distress HEENT head/scalp atraumatic and moist oral mucous membranes Resp normal respiratory effort, no retractions, no use of accessory muscles and clear to auscultation bilaterally Cardio regular rate, regular rhythm, S1 normal heart sound and S2 normal heart sound GI GI Narrative: less distended. hypoactive BS. Neuro Sensorium / Orientation: awake and alert Assessment & Plan Assessment/Plan (1) Abdominal pain: PLAN: Plan SBO * CT with IV contrast did not show any small bowel obstruction at this time * NGT placed on 03/16. IVF. * Add morphine. She said ketorolac helped. * IV Zofran 4 mg as needed * Patient had initially refused to see Dr. Jimenez. I discussed with Dr. Concepcion on 03/15 who would be out of town on 03/16. Pt still refused to see Dr. Jimenez, so I told her I would have to transfer her. Her first 2 requests for transfer ([place] then [facility]) were not accepting any outside transfers. I spoke with [facility] who took the patient information, but informed me they would not have any beds until 03/16. Afterwards, pt relented and said she would allow Dr. Jimenez to see her. * Explained that plan is for conservative mgmt for now (NGT, IVF, pain control, antiemetics) and await on transfer to [facility]. Chronic conditions: * A-fib: continue metoprolol and Eliquis * Long segment Jacobs's esophagus: Underwent RFA-Continue to monitor-continue PPI for now * Mild stenosis of ICA: follow up with vascular surgery * Nonalcoholic fatty liver disease * Pulmonary fibrosis: On nintedanib, hold during this admission * Prior lung cancer: Underwent left lung lobectomy. Routine outpt follow up VTE prophylaxis: not indicated as already anticoagulated. Charges/Coding Visit Charges Inpatient E&M: 81424 Subs Hosp L2
--- NOTE | 2024-03-16 07:50 | EX.PCM.CON.S ---
Assessment & Plan Assessment/Plan (1) Small bowel obstruction: PLAN: The patient has a recurrent small bowel obstruction. The patient has small bowel follow-through yesterday and after 16 hours the contrast has not reached the colon. She was vomiting this morning when I came to see her on rounds. I was able to place an NG in the right nare and we received 1700 cc of fluid through the NG. The patient does not want me to operate on her as I operated on her several years ago and she had a small enterotomy which was repaired and then she had subsequent subcutaneous wound infection. The patient requested transfer and transfer was ordered. I will also discuss with my partner to see if he would be available but she is requesting another facility and the transfer has been ordered and she has been accepted just awaiting a bed. She is not an extremis at the current time. Her vitals are all stable. Labs are pending. They were normal for the last 2 days. Vikash Jimenez MD Pager: [facility] [address] [place] [address], [address] [place] [address] Office: HPI Consult Data Date of Consult: 03/16/24 HPI Narrative HPI Narrative: ROSELINE SHERIFF, is a 78 F who presents with abdominal pain and nausea and vomiting. The patient has had multiple small bowel obstructions in the past. I performed exploratory laparoscopy in 2019 for a bowel obstruction. She had a complication and wound infection and does not want to see me. She still having ongoing nausea and vomiting abdominal pain this morning. She has had 3 bowel obstruction since surgery that have all resolved spontaneously. She had a small bowel follow-through yesterday. REPLACED BY [facility] Medical History Acute myofascial strain of lumbosacral region Anemia Anxiety Arthritis Back pain Breast cancer, left Breast lump Cancer Cardiology follow-up encounter Carotid stenosis Chronic low back pain with sciatica Chronic pain Clavicle fracture Climacteric Constipation Contusion of knee Depression CRISTOBAL (dyspnea on exertion) Dyspnea Early satiety Edema Former smoker GERD (gastroesophageal reflux disease) Hiatal hernia History of cardioversion History of echocardiogram History of Holter monitoring History of renal disease Hx of small bowel obstruction Hypothyroidism Iatrogenic pneumothorax Kidney disease Lung cancer New onset atrial fibrillation (03/26/22) Normal Holter exam Osteopenia Pancreatitis Paroxysmal atrial fibrillation Postoperative wound infection Pulmonary fibrosis Seborrheic keratoses Stomach ache Thyroid disease Thyroiditis Vitamin D deficiency Wears dentures Home Medications ?Medication ?Instructions ?Recorded ?Last Taken ?Type cholecalciferol (vitamin D3) 25 1,000 unit PO QODAY supplement 01/27/15 02/06/22 History mcg (1,000 unit) tablet montelukast 10 mg tablet 10 mg PO DAILY allergies 01/27/15 03/13/24 History cyanocobalamin (vitamin B-12) 5,000 mcg PO DAILY supplement 06/07/22 03/13/24 History 5,000 mcg disintegrating tablet vitamin E (dl, acetate) 45 mg (100 45 mg PO DAILY 09/13/22 03/13/24 History unit) capsule cetirizine 10 mg capsule (Zyrtec) 10 mg PO DAILY PRN Allergy Symptoms 01/22/23 03/13/24 History potassium chloride 10 mEq 10 meq PO BID 02/14/23 03/14/24 History capsule,extended release furosemide 40 mg tablet (Lasix) 40 mg PO DAILY 07/16/23 03/14/24 History ipratropium bromide 42 mcg (0.06 2 spray intranasal BID 08/14/23 03/13/24 History %) nasal spray apixaban 5 mg tablet (Eliquis) 5 mg PO BID Check with primary 09/25/23 03/13/24 Rx doctor #60 tabs rosuvastatin 5 mg tablet 5 mg PO QHS 10/07/23 03/13/24 History pantoprazole 40 mg tablet,delayed 40 mg PO BID #60 tabs 12/26/23 03/14/24 Rx release (Protonix) metoprolol succinate 25 mg 12.5 mg (1/2 x 25 mg) PO BID #60 02/09/24 03/13/24 Rx tablet,extended release 24 hr tabs acetaminophen 650 mg 650 mg PO Q6H PRN pain 03/14/24 03/13/24 History tablet,extended release (8 Hour Pain Reliever) escitalopram oxalate 10 mg tablet 15 mg PO DAILY 03/14/24 03/13/24 History gabapentin 400 mg capsule 400 mg PO QHS 03/14/24 03/13/24 History ketoconazole 2 % shampoo 1 applic topical DAILY PRN DRY 03/14/24 Unknown History SCALP levothyroxine 50 mcg tablet 50 mcg PO DAILY 03/14/24 03/13/24 History nintedanib 100 mg capsule (Ofev) 100 mg PO BID 03/14/24 03/14/24 History Allergy/AdvReac Type Severity Reaction Status Date / Time Sulfa (Sulfonamide Allergy Hives Verified 03/14/24 11:46 Antibiotics) amiodarone AdvReac Intermediate Tremors, Verified 03/14/24 11:46 excess phleghm in throat promethazine (From Phenergan) AdvReac Other Verified 03/14/24 11:46 Family History Father , 44 Heart disease Myocardial infarction Surgical History History of cholecystectomy History of esophagogastroduodenoscopy (EGD) History of kidney surgery History of laparoscopy History of left breast biopsy (09/18/20) History of lobectomy of lung (02/14/21) History of lumpectomy of left breast (10/10/20) History of open reduction and internal fixation (ORIF) procedure History of tonsillectomy History of total left knee replacement History of total right knee replacement (03/06/20) Hx of colonoscopy Hx of surgical procedure Social History housing: house current occupation: Retired- [employer] history of recent travel: No sexually active: No Smoking Status: Former smoker second hand exposure: No alcohol intake: never substance use type: does not use ROS Review of Systems ROS Unobtainable: Denies due to encephalopathy, due to endotracheal tube, due to mental condition, due to mental status or other Constitutional Constitutional: Reports anorexia and malaise; Denies change in weight, chills, fatigue, fever(s), night sweats or weakness Eyes Eyes: Denies blurry vision, change in eye color, change in vision, discharge from eye(s), double vision, erythema, eye pain, loss of vision or other ENT HEENT: Denies abnormal hearing, dysphagia, ear pain, epistaxis, headache(s), hearing loss, nasal congestion, nasal discharge, post nasal drip, sinus pressure, sore throat or other Cardiovascular Cardiovascular: Denies chest pain, claudication, dyspnea on exertion, edema, lightheadedness, orthopnea, palpitations, paroxysmal nocturnal dyspnea, rapid heart rate, syncope or other Respiratory/Chest Respiratory/Chest: Denies cough, dyspnea, excessive phlegm production, hemoptysis, productive cough, shortness of breath at rest, shortness of breath with exertion, wheezing or other Gastrointestinal Gastrointestinal: Denies abdominal pain, coffee ground emesis, constipation, diarrhea, dyspepsia, hematemesis, hematochezia, loose stools, melena, nausea, vomiting or other Genitourinary Genitourinary: Denies burning urination, difficulty urinating, dysuria, hematuria, nocturia, urinary frequency, urinary hesitancy, urinary incontinence, urinary urgency or other Musculoskeletal Musculoskeletal: Denies arthralgias, back pain, joint pain, joint stiffness, joint swelling, myalgias, neck pain or other Neurologic Neurologic: Denies abnormal gait, abnormal speech, confusion, disequilibrium, dizziness, focal weakness, headache(s), numbness, paresthesias, seizure-like activity, seizures, syncope, tingling, tremor(s) or other Psychiatric Psychiatric: Denies anxiety, depression, homicidal ideation, suicidal ideation or other Endocrine Endocrinology: Denies change in body appearance, cold intolerance, excessive sweating, heat intolerance, polydipsia, polyuria or other Hematologic/Lymphatic Hematologic/Lymphatic: Denies anemia, easy bleeding, easy bruising, lymphadenopathy or other Allergic/Immunologic Allergic/Immunologic: Denies rhinitis, hives, eczemia, asthma or other Physical Exam Const alert and oriented x3 HEENT normocephalic Head and Scalp: normal to inspection Eyes PERRL Chest inspection of chest normal Resp normal respiratory effort GI soft to palpation Inspection: abdominal distention Palpation: tender Extremity normal to inspection Lab / Micro Data 03/15/24 05:36 03/15/24 05:36
--- NOTE | 2024-03-16 08:40 | RAD_ITS ---
STUDY: X-RAY - ABDOMEN/PELVIS REASON FOR EXAM: Female, 78 years old. ng placement TECHNIQUE: Single AP view of the abdomen / pelvis. COMPARISON: None. FINDINGS: Mild increased markings at the left lung base suggestive of atelectasis. The tip of the nasogastric tube is in the body of the stomach. The stomach is now decompressed. RAD/Abdomen Single View (Portable) IMPRESSION: The tip of the nasogastric tube is in the body of the stomach. The stomach is now decompressed. Electronically Signed: Allan Joshua MD at 10:06 EDT ,
--- NOTE | 2024-03-16 09:36 | CASEMGMT ---
Insurance review for hospitals In-network with [facility] insurance if transfer is recommended is as follows: [facility], [place], [facility], [facility], [facility], [facility], [facility] ([facility]), [facility], [facility], and .
[2024-03-16 09:48] VITALS: BP 98/44; PULSE 70; RESP 16; TEMP 36.5; O2SAT 92
[2024-03-16] MEDS: Pantoprazole Sodium 40 MG Tablet PO ×2 (09:52→21:18)
[2024-03-16] MEDS: Escitalopram Oxalate 10 MG Tablet 15 MG PO (09:53)
[2024-03-16] MEDS: Furosemide 40 MG Tablet PO (09:53)
[2024-03-16] MEDS: Montelukast 10 MG Tablet PO (09:53)
[2024-03-16] MEDS: Cyanocobalamin 500 MCG Tablet PO (09:54)
[2024-03-16 10:02] VITALS: BP 98/44; PULSE 70
[2024-03-16] MEDS: Metoprolol(XL)Succ 25 MG Tablet 12.5 MG PO ×2 (10:02→21:19)
--- NOTE | 2024-03-16 13:05 | CHAPLAIN ---
Type of Pastoral Visit _x__ Initial Visit ___ Follow-up Visit ___ On-call Visit ___ General Patient Visit ___ Spiritual Assessment ___ Family Conference ___ Bereavement ___ Rapid Response ___ Code Blue ___ Other (describe below) Pastoral Care Referral From _x__ Patient ___ Family ___ Nurse ___ Physician ___ Technical Specialist Cytology ___ Toolroom Machinist ___ Other (describe below) Sacrament/Intervention _x__ Active listening ___ Anointing ___ Samaritan ___ Bereavement ___ Communion ___ Meghana exploration ___ _x__ Life review _x__ Prayer ___ Reconciliation ___ Sacrament of Sick ___ Supportive presence ___ Wedding ___ Other (describe below) Pastoral Comments patient expresses relief at recent medical intervention and hopes for a good recovery; pt speaks of other concerns and requests prayer for self and a loved one in need
[2024-03-16 14:06] VITALS: BP 92/64; PULSE 63; RESP 16; TEMP 36.7; O2SAT 94
[2024-03-16 20:15] VITALS: BP 107/50; PULSE 67; RESP 16; TEMP 37.1; O2SAT 97
[2024-03-16] MEDS: Atorvastatin Calcium 10 MG Tablet PO (21:18)
[2024-03-16 21:19] VITALS: PULSE 67
[2024-03-16] MEDS: Gabapentin 400 MG Capsule PO (21:22)
[2024-03-17] VITALS (8 sets, daily range): BP systolic 100–106; BP diastolic 38–68; PULSE 65–73; RESP 18–20; TEMP 36.6–37.2; O2SAT 94–98
[2024-03-17] MEDS: 0.9% Normal Saline (1000mL) 1,000 ML 125 ML IV (05:32)
[2024-03-17] MEDS: Levothyroxine 50 MCG Tablet PO (05:34)
--- NOTE | 2024-03-17 05:54 | RAD_ITS ---
EXAM: XR ABDOMEN, 1 VIEW CLINICAL INDICATION: sbo TECHNIQUE: Frontal supine view of the abdomen/pelvis. COMPARISON: KUB from 03/16/2024 and small bowel follow-through 03/15/2024. FINDINGS: LOWER THORAX: No acute pathology. GASTROINTESTINAL TRACT: Mildly dilated small bowel in the left abdomen measuring 3.2 cm. This may indicate an ileus or partial obstruction. Contrast from previous small bowel follow through is now within the colon. ORGANS: Unremarkable as visualized. No organomegaly. No abnormal calcifications. BONES/JOINTS: No acute pathology. SOFT TISSUES: No acute pathology. TUBES, LINES AND DEVICES: Enteric tube with tip in the body of the stomach. RAD/Abdomen Single View (Portable) IMPRESSION: 1. Mildly dilated small bowel in the left abdomen measuring 3.2 cm. This may indicate an ileus or partial obstruction. 2. Contrast from previous small bowel follow through is now within the colon. Electronically Signed: Roberto Colby MD at 7:57 EDT ,
[2024-03-17 07:33] LABS: Absolute Lymphocyte Count 1.75 X10^3/uL (0.83-4.51); Absolute Neutrophil Count 4.1 X10^3/uL (2.0-7.7); Basophil# 0.05 X10^3/uL; Basophil% 0.7 % (0-1); Eosinophil# 0.13 X10^3/uL; Eosinophils% 1.9 % (0-5); Hematocrit 30.5 % (37-47); Hemoglobin 9.6 g/dL (12.0-15.0); Lymphocyte # 1.75 X10^3/ul (0.83-4.51); Lymphocyte % 25.3 % (19-41); Mean Corp Hgb Conc 31.5 g/dL (32-36); Mean Corpuscular Hgb 32.8 pg (27.0-32.0); Mean Corpuscular Volume 104.1 fL (81-99); Mean Platelet Vol. 11.4 fl (6.2-12.0); Monocyte# 0.82 X10^3/uL; Monocyte% 11.8 % (0-10); NRBC Flagged by Analyzer 0.3 % (0-5); Neutrophil # 4.13 X10^3/uL (2.7-7.7); Neutrophil % 59.7 % (47-70); POSITIVE MORPHOLOGY YES; Platelet Count 205 K/mm3 (150-450); RBC Distribution Width CV 16.8 % (11.6-14.6); RBC Distribution Width SD 65.1 fl (35.1-43.9); Red Blood Count 2.93 M/mm3 (4.2-5.4); White Blood Count 6.9 K/mm3 (4.4-11.0)
[2024-03-17 07:41] LABS: Differential Indicated SCAN CRITERIA MET
--- NOTE | 2024-03-17 07:43 | PN.HOSP_ITS ---
Reason for Visit Reason for Visit: Diagnoses Unspecified intestinal obstruction, unspecified as to partial versus complete obstruction (03/15/24) Unspecified abdominal pain (03/15/24) Subjective Subjective No abdominal pain. No flatus. Objective Data Objective Data Vital Signs: Vital Signs Temp Pulse Resp BP Pulse Ox O2 Del Method 36.7 C 65 18 100/68 94 Room Air 03/17/24 02:15 03/17/24 02:15 03/17/24 02:15 03/17/24 02:15 03/17/24 02:15 03/17/24 02:15 Oxygen Delivery Method Room Air Weight: 76.6 kg Body Mass Index (BMI) 30.9 Intake & Output: Intake and Output for Last 24 Hours 03/15/24 03/16/24 03/17/24 23:59 23:59 23:59 Intake Total 822.92 / 822.92 3203.33 / 3303.33 1100 / 1100 Output Total 1650 / 2150 700 / 700 Balance 822.92 / 722.92 1553.33 / 1153.33 400 / 400 Lab / Micro Data 03/17/24 06:30 03/17/24 06:30 Labs: Laboratory Results - last 24 hr 03/17/24 06:30: WBC 6.9, RBC 2.93 L, Hgb 9.6 L, Hct 30.5 L, MCV 104.1 H, MCH 32.8 H, MCHC 31.5 L, RDW Std Deviation 65.1 H, RDW Coeff of Diaz 16.8 H, Plt Count 205, MPV 11.4, Immature Gran % (Auto) 0.600, Neut % (Auto) 59.7, Lymph % (Auto) 25.3, [place] % (Auto) 11.8 H, Eos % (Auto) 1.9, Baso % (Auto) 0.7, Absolute Neuts (auto) 4.1, Absolute Lymphs (auto) 1.75, Nucleated RBC % 0.3 Radiography Diagnostic Testing: Radiology Impression Small Bowel X-Ray 03/15/24 12:45 IMPRESSION: High-grade small bowel obstruction. Marked degree of the contrast retention within the distended stomach and gastroesophageal reflux. Electronically Signed: Allan Joshua MD at 8:49 EDT , KUB X-Ray 03/16/24 08:40 IMPRESSION: The tip of the nasogastric tube is in the body of the stomach. The stomach is now decompressed. Electronically Signed: Allan Joshua MD at 10:06 EDT , Physical Exam Const alert and no apparent distress HEENT head/scalp atraumatic and moist oral mucous membranes HEENT Narrative: NGT in place. Resp normal respiratory effort, no retractions, no use of accessory muscles and clear to auscultation bilaterally Cardio regular rate, regular rhythm, S1 normal heart sound and S2 normal heart sound GI non-tender and non-distended Auscultation: hypoactive bowel sounds Extremity normal to inspection, full ROM and no clubbing, cyanosis or edema Neuro Sensorium / Orientation: awake and alert Assessment & Plan Assessment/Plan (1) Abdominal pain: PLAN: Plan SBO * CT with IV contrast did not show any small bowel obstruction at this time * NGT placed on 03/16. IVF. * Add morphine. She said ketorolac helped. * IV Zofran 4 mg as needed * Patient had initially refused to see Dr. Jimenez. I discussed with Dr. Concepcion on 03/15 who would be out of town on 03/16. Pt still refused to see Dr. Jimenez, so I told her I would have to transfer her. Her first 2 requests for transfer ([place] then [facility]) were not accepting any outside transfers. I spoke with [facility] who took the patient information, but informed me they would not have any beds until 03/16. Afterwards, pt relented and said she would allow Dr. Jimenez to see her. * Explained that plan is for conservative mgmt for now (NGT, IVF, pain control, antiemetics) and await on transfer to [facility]. Chronic conditions: * A-fib: continue metoprolol and Eliquis * Long segment Jacobs's esophagus: Underwent RFA-Continue to monitor-continue PPI for now * Mild stenosis of ICA: follow up with vascular surgery * Nonalcoholic fatty liver disease * Pulmonary fibrosis: On nintedanib, hold during this admission * Prior lung cancer: Underwent left lung lobectomy. Routine outpt follow up VTE prophylaxis: not indicated as already anticoagulated. Charges/Coding Visit Charges Inpatient E&M: 83722 Subs Hosp L2
[2024-03-17 08:22] LABS: Anion Gap 8 (5-15); BUN 14 mg/dL (7-18); BUN/Creat Ratio 21.7 RATIO (10-20); Calcium,Total 8.7 mg/dL (8.5-10.1); Chloride 113 mmol/L (98-107); Creatinine, Serum 0.64 mg/dL (0.55-1.02); EST Glomerular Filtration Rate 94 mL/min (>60); Est Glom Filt Rate - Afr Amer 114 mL/min (>60); Estimated Creatinine Clearance 55.54 ml/min; Glucose 73 mg/dL (74-106); Potassium 3.4 mmol/L (3.5-5.1); Sodium Level 145 mmol/L (136-145)
[2024-03-17] MEDS: Pantoprazole Sodium 40 MG Tablet PO ×2 (09:06→20:53)
[2024-03-17] MEDS: Cyanocobalamin 500 MCG Tablet PO (09:06)
[2024-03-17] MEDS: Montelukast 10 MG Tablet PO (09:06)
[2024-03-17] MEDS: Cholecalciferol (VIT D3) 25 MCG TABLET (1,000 UNITS) PO (09:06)
[2024-03-17] MEDS: Escitalopram Oxalate 10 MG Tablet 15 MG PO (09:07)
[2024-03-17] MEDS: Metoprolol(XL)Succ 25 MG Tablet 12.5 MG PO ×2 (09:07→20:52)
--- NOTE | 2024-03-17 10:58 | PCM.PN.SRG ---
Subjective Subjective Patient is a 78 y/o F I am following for small bowel obstruction. Patient notes feeling much improved. She denies any nausea, vomiting, fever. She notes abdominal pain has resolved. She is sipping on ice chips. She denies passing flatus, BM. Objective Data Objective Data Vital Signs: Vital Signs Temp Pulse Resp BP Pulse Ox O2 Del Method 98.9 F 73 18 106/38 L 97 Room Air 03/17/24 09:00 03/17/24 09:07 03/17/24 09:00 03/17/24 09:00 03/17/24 09:00 03/17/24 09:00 Oxygen Delivery Method Room Air Weight: 168 lb 13.985 oz Body Mass Index (BMI) 30.9 Intake & Output: Intake and Output for Last 24 Hours 03/15/24 03/16/24 03/17/24 23:59 23:59 23:59 Intake Total 822.92 / 822.92 3203.33 / 3303.33 1100 / 1100 Output Total 1650 / 2150 700 / 700 Balance 822.92 / 722.92 1553.33 / 1153.33 400 / 400 Lab / Micro Data 03/17/24 06:30 03/17/24 06:30 Labs: Laboratory Results - last 24 hr 03/17/24 06:30: WBC 6.9, RBC 2.93 L, Hgb 9.6 L, Hct 30.5 L, MCV 104.1 H, MCH 32.8 H, MCHC 31.5 L, RDW Std Deviation 65.1 H, RDW Coeff of Diaz 16.8 H, Plt Count 205, MPV 11.4, Immature Gran % (Auto) 0.600, Neut % (Auto) 59.7, Lymph % (Auto) 25.3, [place] % (Auto) 11.8 H, Eos % (Auto) 1.9, Baso % (Auto) 0.7, Absolute Neuts (auto) 4.1, Absolute Lymphs (auto) 1.75, Nucleated RBC % 0.3, Differential Comment , Sodium 145, Potassium 3.4 L, Chloride 113 H, Carbon Dioxide 24.0, Anion Gap 8, BUN 14, Creatinine 0.64, Estim Creat Clear Calc 55.54, Est GFR (MDRD) Af Amer 114, Est GFR (MDRD) Non-Af 94, BUN/Creatinine Ratio 21.7 H, Glucose 73 L, Calcium 8.7 Radiography Diagnostic Testing: Radiology Impression KUB X-Ray 03/17/24 05:54 IMPRESSION: 1. Mildly dilated small bowel in the left abdomen measuring 3.2 cm. This may indicate an ileus or partial obstruction. 2. Contrast from previous small bowel follow through is now within the colon. Electronically Signed: Roberto Colby MD at 7:57 EDT , Physical Exam HEENT HEENT Narrative: NG tube intact in right nares GI GI Narrative: Abdomen- soft, non-distended, non-tender. Positive bowel sounds. Assessment & Plan Assessment/Plan (1) Abdominal pain: QUALIFIERS: Abdominal location: generalized Qualified Code(s): R10.84 - Generalized abdominal pain (2) Hx of small bowel obstruction: PLAN: Plan I am following this patient in conjunction with Dr. Jimenez. KUShen reviewed and demonstrated improvement since yesterday. There is mildly dilated bowel in the left abdomen; ileus vs. small bowel obstruction. Contrast seen within the colon Plan to clamp NG tube for 4 hours today and then reconnect to determine output. If <50, then NG tube will be removed and will start clear liquids. No beds available at [facility] at this time We will continue to monitor this patient Charges/Coding Visit Charges Inpatient E&M: 54994 [facility] Hosp L1
--- NOTE | 2024-03-17 20:28 | NURSING ---
report called to claus horan @ [facility]
[2024-03-17] MEDS: Atorvastatin Calcium 10 MG Tablet PO (20:53)
[2024-03-17] MEDS: Gabapentin 400 MG Capsule PO (20:53)
--- NOTE | 2024-03-17 21:00 | PCM.DC.SUM ---
Providers Date of Admission: 03/15/24 Primary Care Physician: Dr. Kisha Morton, DO Consultations 03/15/24 17:43 Consult: General Surgery Routine Consulting Provider: Vikash Jimenez Reason for Consult: SBO EMERGENT Consult: No MD Notified: Yes Date Notified: 03/15/24 Time Notified: 17:43 Method of Notification: Verbal Reason For Visit: ABDOMINAL PAIN Diagnosis Discharge Diagnosis (1) Abdominal pain: Status: Acute Code(s): R10.9 - Unspecified abdominal pain Qualifiers: Abdominal location: generalized Qualified Code(s): R10.84 - Generalized abdominal pain Plan SBO CT with IV contrast did not show any small bowel obstruction at this time NGT placed on 03/16. IVF. Add morphine. She said ketorolac helped. IV Zofran 4 mg as needed Patient had initially refused to see Dr. Jimenez. I discussed with Dr. Concepcion on 03/15 who would be out of town on 03/16. Pt still refused to see Dr. Jimenez, so I told her I would have to transfer her. Her first 2 requests for transfer ([place] then [facility]) were not accepting any outside transfers. I spoke with [facility] who took the patient information, but informed me they would not have any beds until 03/16. Afterwards, pt relented and said she would allow Dr. Jimenez to see her. Explained that plan is for conservative mgmt for now (NGT, IVF, pain control, antiemetics) and await on transfer to [facility]. Chronic conditions: A-fib: continue metoprolol and Eliquis Long segment Jacobs's esophagus: Underwent RFA-Continue to monitor-continue PPI for now Mild stenosis of ICA: follow up with vascular surgery Nonalcoholic fatty liver disease Pulmonary fibrosis: On nintedanib, hold during this admission Prior lung cancer: Underwent left lung lobectomy. Routine outpt follow up VTE prophylaxis: not indicated as already anticoagulated. Medications at Discharge Home Medications cholecalciferol (vitamin D3) 25 mcg (1,000 unit) tablet 1,000 unit PO QODAY supplement 01/27/15 montelukast 10 mg tablet 10 mg PO DAILY allergies 01/27/15 cyanocobalamin (vitamin B-12) 5,000 mcg disintegrating tablet 5,000 mcg PO DAILY supplement 06/07/22 vitamin E (dl, acetate) 45 mg (100 unit) capsule 45 mg PO DAILY 09/13/22 cetirizine 10 mg capsule (Zyrtec) 10 mg PO DAILY PRN Allergy Symptoms 01/22/23 potassium chloride 10 mEq capsule,extended release 10 meq PO BID 02/14/23 furosemide 40 mg tablet (Lasix) 40 mg PO DAILY 07/16/23 ipratropium bromide 42 mcg (0.06 %) nasal spray 2 spray intranasal BID 08/14/23 apixaban 5 mg tablet (Eliquis) 5 mg PO BID Check with primary doctor #60 tabs 09/25/23 rosuvastatin 5 mg tablet 5 mg PO QHS 10/07/23 pantoprazole 40 mg tablet,delayed release (Protonix) 40 mg PO BID #60 tabs 12/26/23 metoprolol succinate 25 mg tablet,extended release 24 hr 12.5 mg (1/2 x 25 mg) PO BID #60 tabs 02/09/24 acetaminophen 650 mg tablet,extended release (8 Hour Pain Reliever) 650 mg PO Q6H PRN pain 03/14/24 escitalopram oxalate 10 mg tablet 15 mg PO DAILY 03/14/24 gabapentin 400 mg capsule 400 mg PO QHS 03/14/24 ketoconazole 2 % shampoo 1 applic topical DAILY PRN DRY SCALP 03/14/24 levothyroxine 50 mcg tablet 50 mcg PO DAILY 03/14/24 nintedanib 100 mg capsule (Ofev) 100 mg PO BID 03/14/24 Hospital Course Operations None Procedures None Summary of Care Provided Minutes Spent on Discharge: 45 Hospital Course: Patient presents with abdominal pain. CAT scan does show some air-fluid levels but her condition worsened. Small bowel follow-through was performed but not showing contrast extending into the colon. Patient expressed no desire to see Dr. Jimenez (this was due to prior history where she had bowel surgery which led to unintentional bowel leak which apparently was fixed during that same surgery and then followed up with postoperative wound infection). NG tube was placed and patient had copious amounts of emesis removed. When patient initially refused to see Dr. Jimenez and that there be another surgeon to build to see the patient, I recommended transfer. Get the patient accepted at [facility] but they did not have any beds available until the . In the meantime, patient did allow Dr. Jimenez see her. I did discuss the case with the [facility] surgeon, Dr. Meza, who stated there would be any imminent plans for surgery as she does have some contrast extending past the bowel obstruction as is a partial bowel obstruction. I did inform the patient of his recommendations of ongoing continued conservative measures and that there would be no plans for surgery. She still preferred to go to [facility] so I spoke with the hospitalist there, Dr. Gudino, who agreed to accept the patient and patient was transferred on the . Weight / BMI Weight Weight: 76.6 kg Body Mass Index (BMI) 30.9 ABG / Lab / Microbiology Data 03/17/24 06:30 03/17/24 06:30 Meaningful Use Info Meaningful Use Meaningful Use Diagnoses (Choose all that apply): None applicable Ischemic Stroke Statin Dosing Therapy Reference: STATIN DOSE THERAPY REFERENCE: * Patients > 75 years receive moderate or high dose statin therapy. * Patients 75 years or YOUNGER should receive HIGH intensity statin dose unless contraindicated. You will be required to document reason for non-treatment if statin daily dose does not meet guidelines. HIGH DOSE STATIN THERAPY DAILY Atorvastatin > than or = to 40 mg Rosuvastatin > than or = to 20 mg Amlodipine + Atorvastatin > than or = to 2.5/40 mg Ezetimibe + Simvastatin 10/80 mg Simvastatin 80mg Discharge Plan Admission Admit Date/Time: 03/15/24 17:47 Primary Reason for Your Visit: Small bowel obstruction Attending Provider: Bob Allan Primary Care Provider: Kisha Morton Consulting Providers: Femi Keith; Vikash Jimenez Discharge Orders/Prescriptions Prescriptions: No Action vitamin E (dl, acetate) 45 mg (100 unit) capsule 45 mg PO DAILY Zyrtec 10 mg capsule 10 mg PO DAILY PRN (Reason: Allergy Symptoms) montelukast 10 MG tablet 10 mg PO DAILY cholecalciferol (vitamin D3) 1,000 UNIT tablet 1,000 unit PO QODAY Patient Comments: 2 TABS ON FRIDAY cyanocobalamin (vitamin B-12) 5,000 mcg tablet,disintegrating 5,000 mcg PO DAILY potassium chloride 10 mEq capsule, extended release 10 meq PO BID furosemide [Lasix] 40 mg tablet 40 mg PO DAILY Rx Instructions: 40 MG DAILY UNLESS SWELLING NOTED ipratropium bromide 42 mcg (0.06 %) spray,non-aerosol 2 spray INTRANASAL BID Patient Comments: SPRAY 2 SPRAYS INTO EACH NOSTRIL TWICE A DAY acetaminophen [8 Hour Pain Reliever] 650 mg tablet extended release 650 mg PO Q6H PRN (Reason: pain) escitalopram oxalate 10 mg tablet 15 mg PO DAILY gabapentin 400 mg capsule 400 mg PO QHS levothyroxine 50 mcg tablet 50 mcg PO DAILY ketoconazole 2 % shampoo 1 applic topical DAILY PRN (Reason: DRY SCALP) Ofev 100 mg capsule 100 mg PO BID Eliquis 5 mg tablet 5 mg PO BID Qty: 60 1RF rosuvastatin 5 mg tablet 5 mg PO QHS pantoprazole [Protonix] 40 mg tablet,delayed release (DR/EC) 40 mg PO BID Qty: 60 3RF metoprolol succinate 25 mg tablet extended release 24 hr 12.5 mg PO BID Qty: 60 11RF Referrals / Follow Up: Praveen,DO Kisha [Primary Care Provider] - Disposition Disposition (needs filled in before D/C Order can be placed): Acute Care Hospital Charges/Coding Visit Charges Inpatient E&M: 78486 Disch Hosp >30min
--- NOTE | 2024-03-17 21:24 | NURSING ---
Pt will go to [facility] room 6[address]. Dr Gudino is accepting drBob ivan has been called.
== END 2024-03-17 22:50 | disposition short-term general hospital (02) | DRG 390 ==
LOC: ED 12:57 → MS3 18:59
PROVIDERS: Physician Assistant; Admitting Provider Internal Medicine; Emergency Provider Emergency Medicine; PCP Internal Medicine
DX: K56.600 Partial intestinal obstruction, unspecified as to cause (principal); E03.9 Hypothyroidism, unspecified; J84.10 Pulmonary fibrosis, unspecified; K76.0 Fatty (change of) liver, not elsewhere classified; I95.9 Hypotension, unspecified; I48.0 Paroxysmal atrial fibrillation; K22.70 Barrett's esophagus without dysplasia; Z79.01 Long term (current) use of anticoagulants; Z79.890 Hormone replacement therapy; Z87.891 Personal history of nicotine dependence; Z90.49 Acquired absence of other specified parts of digestive tract
CPT/HCPCS: 36415; 74018; 74177; 74250; 80048; 80053; 82248; 83735; 84100; 84443; 85025; 85610; 97802; 99284; J7030; Q9967; A4216; J2354; J2405

== ENCOUNTER → 2024-04-30 | Outpatient (CLI) | payer MEDICARE, BC, SELFPAY ==
[2021-07-02 10:22] VITALS: BMI 34.7
--- NOTE | 2024-04-30 12:40 | BI_ITS ---
MAMMOGRAPHY - BILATERAL SCREENING REASON FOR EXAM: Female, 79 years old. Routine annual screening examination. PERTINENT HISTORY: Personal history of breast cancer. Prior left lumpectomy. TECHNIQUE: Digital bilateral breast reny (3D mammographic acquisition) in the CC and MLO projections. 2-D mediolateral oblique (MLO) and craniocaudad (CC) views of both breasts were obtained. CAD: Full Field Digital Mammography with Computer Added Detection was performed. COMPARISON: Comparison is made with prior study dated April 29, 2023 and March 13, 2022. FINDINGS: Breast Composition: The breasts are extremely dense, which lowers the sensitivity of mammography. There are no dominant masses or suspicious calcifications. Once again, the patient is status post lumpectomy in the central anterior medial aspect of the left breast. Postoperative scarring is seen. No other significant abnormalities are identified. There has been no significant change since the prior study. BI/SCRN MAMM (CAD)W/RENY BILAT IMPRESSION: Stable bilateral screening mammogram. Yearly follow-up mammogram recommended. (A) ASSESSMENT CATEGORY: BIRADS Category 2: Benign. A letter regarding these results will be sent to the patient by the facility within 30 days. Approximately 10% of breast cancers are not detected by mammography. A normal mammogram should not delay biopsy of a clinically suspicious abnormality. [id number] Electronically Signed: Allan Joshua MD at 13:51 EDT ,
== END | disposition home or self-care (01) ==
LOC: OPBI 12:40
PROVIDERS: PCP Internal Medicine; Referring Provider Internal Medicine; Visit Provider Internal Medicine
DX: Z12.31 Encounter for screening mammogram for malignant neoplasm of breast (principal); Z85.3 Personal history of malignant neoplasm of breast
CPT/HCPCS: 77063; 77067

== ENCOUNTER → 2024-05-13 | Outpatient (CLI) | payer MEDICARE, BC, SELFPAY ==
[2021-07-02 10:22] VITALS: BMI 34.7
--- NOTE | 2024-05-13 09:44 | US_ITS ---
STUDY: ABDOMINAL ULTRASOUND - RIGHT UPPER QUADRANT; ELASTOGRAPHY REASON FOR VISIT: Female, 79 years old. NAFLD. TECHNIQUE: Ultrasound evaluation of the right upper quadrant was performed with real-time and static moreau-scale imaging. Point quantification shear wave elastography was performed (Plixi). TECHNICAL QUALITY: Adequate. COMPARISON: Comparison is made with prior study dated May 31, 2022. FINDINGS: Liver: The liver measures 15.5 cm. There is a heterogeneous echogenicity of the liver. The bile ducts are within normal limits. There is hepatic color flow. The direction of portal flow is hepatopetal. There is no demonstrated mass lesion. Median liver stiffness measured 28.6 kPa. Gallbladder: The patient is status post cholecystectomy. Common Bile Duct (C.B.D.): The common bile duct measures 4 mm. Pancreas: There is normal echogenicity of the visualized pancreas. There is no demonstrated pancreatic mass or cyst. Right Kidney: There is atrophy of the right kidney. The right kidney measures 7.1 cm x 4.3 cm x 3.6 cm. Normal renal cortex. The right cortex measures 1.1 cm. There is no demonstrated renal mass or cyst. There is no right hydronephrosis. US/ABD Limited w/ Elastography IMPRESSION: 1. Liver stiffness measures 28.6 kPa compatible with F3-F4 (Moderate to severe liver fibrosis) Metavir score. Electronically Signed: Allan Joshua MD at 10:54 EDT ,
== END | disposition home or self-care (01) ==
PROVIDERS: PCP Internal Medicine; Referring Provider Internal Medicine Gastroenterology; Visit Provider Internal Medicine Gastroenterology
DX: K76.0 Fatty (change of) liver, not elsewhere classified (principal)
CPT/HCPCS: 76705; 76981

== ENCOUNTER → 2024-05-17 | Outpatient (CLI) | payer MEDICARE, BC, SELFPAY ==
[2021-07-02 10:22] VITALS: BMI 34.7
--- NOTE | 2024-05-17 16:40 | CT_ITS ---
EXAM: CT HEAD WITHOUT AND WITH INTRAVENOUS CONTRAST CLINICAL INDICATION: headache, new daily persistent TECHNIQUE: Multiple axial images were obtained of the head without and with intravenous contrast. This CT exam was performed using one or more of the following dose reduction techniques: automated exposure control, adjustment of the mA and/or kV according to patient size, and/or use of iterative reconstruction technique. CONTRAST: IV 50mL Isovue-370 RADIATION DOSE: CTDIvol = 44.99 mGy, DLP = 1479.73 mGy-cm. COMPARISON: November 27, 2020. FINDINGS: BRAIN AND EXTRA-AXIAL SPACES: Unremarkable. No intra- or extra-axial hemorrhage. No evidence of acute infarct. No intracranial mass or mass effect. There is preservation of the moreau/white matter interface. Posterior fossa structures are unremarkable. Ventricles are appropriate for age. No hydrocephalus. Basal cisterns are patent. No leptomeningeal enhancement. BONES/JOINTS: There is left nasal septal deviation and spur. Well-aerated paranasal sinuses. Mild intracranial arterial calcifications. There is low attenuation in the anterior-inferior right frontal white matter in the zone of white matter change seen on MRI November 27, 2020. Degenerative changes of the TMJs including narrowing and flattened femoral condyle heads. VASCULATURE: Moderate calcification of the intracranial carotids. No visible aneurysm or large vessel occlusion. The major intracranial vessels appear patent. There is enhancement of most of the dural venous sinuses. SINUSES: Unremarkable as visualized. Clear. MASTOID AIR CELLS: Unremarkable. Clear. ORBITS: Visualized globes, extraocular muscles, optic nerves and retrobulbar fat appear unremarkable. CT/Brain/Head W/WO Contrast IMPRESSION: 1. No acute intracranial abnormality. 2. Mild chronic right frontal white matter changes. 3. Degenerative changes of the TMJs. Electronically Signed: Annamaria Courtney MD at 3:11 EDT ,
[2024-05-17 17:18] LABS: CREATININE FINGERSTICK < 1.0 mg/dL (0.55-1.02); EGFR FINGERSTICK > 60.0000 mL/min (>60)
== END | disposition home or self-care (01) ==
LOC: CT 16:39
PROVIDERS: PCP Internal Medicine; Referring Provider Internal Medicine; Visit Provider Internal Medicine
DX: Z01.812 Encounter for preprocedural laboratory examination (principal); G44.52 New daily persistent headache (NDPH)
CPT/HCPCS: 70470; Q9967

== ENCOUNTER → 2024-06-02 | Outpatient (CLI) | payer MEDICARE, BC, SELFPAY ==
[2021-07-02 10:22] VITALS: BMI 34.7
--- NOTE | 2024-06-02 09:39 | US_ITS ---
STUDY: ABDOMINAL ULTRASOUND - ELASTOGRAPHY REASON FOR VISIT: Female, 79 years old. FARIA. TECHNIQUE: Liver stiffness measurements were obtained on a NERI RS 85 ultrasound machine using a CA 1-7 probe following the U guidelines. 3 measurements were obtained using a 2-D-SWE method. TheIQR/M was 12% suggesting a quality data set. TECHNICAL QUALITY: Adequate. COMPARISON: Comparison is made with prior study dated May 31, 2022. FINDINGS: Liver: There is no demonstrated mass lesion. Median liver stiffness measured 12.1 kPa. Abdomen: There is no demonstrated mass lesion. US/Elastography Parenchyma/Organ IMPRESSION: Liver stiffness measures 12.1 kPa compatible with F2-F3 (Mild to moderate liver fibrosis) Metavir score. Electronically Signed: Allan Joshua MD at 14:55 EDT ,
== END | disposition home or self-care (01) ==
PROVIDERS: PCP Internal Medicine; Referring Provider Student in an Organized Health Care Education/Training Program; Visit Provider Student in an Organized Health Care Education/Training Program
DX: K76.0 Fatty (change of) liver, not elsewhere classified (principal)
CPT/HCPCS: 76981

== ENCOUNTER 2024-06-17 13:30 | Outpatient (RCR) | payer MEDICARE, BC, SELFPAY ==
[2021-07-02 10:22] VITALS: BMI 34.7
--- NOTE | 2024-06-17 15:01 | HP.PTDCSUM ---
Discharge Summary D/C summary: It has been my pleasure to treat ROSELINE SHERIFF referred by Dr. Glenroy Maldonado MD, with the diagnosis of R shoulder arthritis for a total of 2 visit(s). Discharge Date: Please see the following information for a summary of their discharge status. Subjective Subjective: I am sore today Pain R shoulder: Pain Intensity (Out of 10): 5 Overall Improvement % Improvement: 0 Objective Objective/Function: Pt is now I with HEP Goals Goal 1:: Pt will be I with HEP. Plan Plan: Discharge to HEP D/C Information d/c sentence: If there are questions or concerns regarding this patient's physical therapy, please feel free to call me at [phone]. Thank you for the referral of this patient. Sincerely, Roberto Us, PT, ATC Balance/Gait/Functional tests Balance/Special Test Scores Quick DASH Score: 72.7250 Improvement % Improvement: 0
== END 2024-06-17 19:00 | disposition home or self-care (01) ==
LOC: PT 13:30
PROVIDERS: PCP Internal Medicine
DX: M19.011 Primary osteoarthritis, right shoulder (principal)
CPT/HCPCS: 97110; 97161

== ENCOUNTER 2024-07-09 07:35 | Outpatient (CLI) | payer MEDICARE, BC, SELFPAY ==
[2021-07-02 10:22] VITALS: BMI 34.7
[2024-07-09 07:59] VITALS: BP 100/57; PULSE 86; RESP 16; TEMP 35.8; BMI 28.2
[2024-07-09] MEDS: Cosyntropin 0.25 MG Vial IM (08:07)
[2024-07-09 09:09] VITALS: BP 95/49; PULSE 62; RESP 16; TEMP 35.8
== END 2024-07-09 23:59 | disposition home or self-care (01) ==
PROVIDERS: PCP Internal Medicine; Referring Provider Internal Medicine; Visit Provider Internal Medicine
DX: I95.9 Hypotension, unspecified (principal)
CPT/HCPCS: 96372; 82533; J0834

== ENCOUNTER → 2024-07-12 | Outpatient (CLI) | payer MEDICARE, BC, SELFPAY ==
[2021-07-02 10:22] VITALS: BMI 34.7
--- NOTE | 2024-07-12 06:16 | ECHOD_ITS ---
Reason For Study: PRE OPERATIVE Procedure This was a 2D Doppler, Color Flow transthoracic echocardiogram. Exam performed in department. Left Ventricle Normal LV size. The left ventricular ejection fraction is 60 %. No regional wall motion abnormalities noted. Right Ventricle Normal RV size. Normal systolic function. Atria Normal left atrium. Normal right atrium. Mitral Valve Normal mitral valve. Tricuspid Valve Normal tricuspid valve. Mild to moderate (1-2+) tricuspid valve insufficiency. Pulmonary artery systolic pressure is 45 mmHg. Aortic Valve Normal aortic valve. Pulmonic Valve Normal pulmonic valve. Great Vessels Normal aortic root. The pulmonary artery is normal size. Inferior vena cava collapse with respiration. Pericardium/Pleural No pericardial effusion. MMode/2D Measurements & Calculations LVIDd: 5.4 cm IVSd: 0.99 cm LVOT diam: 1.7 cm LVIDs: 2.8 cm LVPWd: 0.88 cm LVOT area: 2.4 cm2 RVDd: 3.0 cm FS: 47.4 % Ao root diam: 3.2 cm LAV(MOD-bp): 64.7 ml LVAd ap4: 22.0 cm2 LAV(MOD-bp) Indexed: 37.8 ml/m2 LVLd ap4: 6.6 cm LAV(MOD-sp2): 70.4 ml EDV(MOD-sp4): 61.2 ml LAV(MOD-sp4): 54.8 ml EDV(sp4-el): 62.3 ml LVAs ap4: 12.4 cm2 LVLs ap4: 5.6 cm ESV(MOD-sp4): 24.1 ml ESV(sp4-el): 23.3 ml EF(MOD-sp4): 60.7 % EF(sp4-el): 62.7 % SV(MOD-sp4): 37.2 ml SV(sp4-el): 39.1 ml LA A4 area: 20.1 cm2 SI(MOD-sp4): 21.7 ml/m2 LA dimension(2D): 4.2 cm RA A4 area: 12.9 cm2 Doppler Measurements & Calculations MV E max shady: 105.8 cm/sec Ao V2 max: 133.2 cm/sec LV V1 max: 116.5 cm/sec Ao max P.1 mmHg LV V1 max P.4 mmHg Ao V2 mean: 92.2 cm/sec LV V1 mean P.8 mmHg Ao mean P.8 mmHg LV V1 mean: 77.4 cm/sec Ao V2 VTI: 33.0 cm LV V1 VTI: 28.3 cm AV (velocity ratio): 0.86 OPAL(I,D): 2.0 cm2 OPAL(V,D): 2.1 cm2 SV(LVOT): 66.9 ml PA V2 max: 111.0 cm/sec TR max shady: 324.9 cm/sec PA V2 mean: 75.3 cm/sec TR max P.2 mmHg ECHO/Echo Complete Interpretation Summary Normal LV size. The left ventricular ejection fraction is 60 %. Pulmonary artery systolic pressure is 45 mmHg. Structurally normal valves. Ordering Physician: Jorge Ledezma Referring Physician: Jorge Ledezma Performed By: Ina Donald RCS
--- NOTE | 2024-07-12 09:26 | STRESSREP ---
Stress Test Report Pharmacologic myocardial perfusion stress test. 79-year-old lady with a history of dyspnea on exertion preoperative evaluation Resting EKG demonstrates sinus rhythm with premature atrial complexes with a rate of 86 bpm. Resting blood pressure is 102/64 mmHg. 0.4 mg of regadenoson was infused per usual protocol followed by rapid intravenous saline flush injection. Continuous EKG monitoring was performed. The maximum heart rate was 87 bpm which was 61% of max impacted heart rate the maximum workload was 1 metabolic equivalent. At rest there were no ST or T wave changes noted to suggest ischemia and at peak infusion nonspecific ST changes were noted which did not meet the criteria for ischemia. No clinical angina is noted. The final blood pressure was 100/60 mmHg. Myocardial perfusion protocol. 10.4 mCi of technetium 99m sestamibi was injected at rest. 0.4 mg of regadenoson was infused per usual protocol. At peak infusion 33.6 mCi of technetium 99m sestamibi was injected stress images were obtained stress and rest images were reconstructed and compared in the short axis vertical long and horizontal long axis. Gated images were also obtained. Perfusion SPECT analysis: Review of the stress images demonstrate normal uptake of tracer noted in all areas of the myocardium. The resting images similar demonstrated normal uptake of tracer noted in all areas of the myocardium. No areas of reversibility are noted to suggest ischemia and no previous infarct is noted. Gated SPECT analysis: The gated ejection fraction is over 65%. Conclusion: Normal pharmacologic myocardial perfusion stress test. Preserved ejection fraction.
== END | disposition home or self-care (01) ==
LOC: CVS 06:15
PROVIDERS: PCP Internal Medicine; Referring Provider Nurse Practitioner Family; Visit Provider Nurse Practitioner Family
DX: R06.02 Shortness of breath (principal); I48.0 Paroxysmal atrial fibrillation; I95.9 Hypotension, unspecified
CPT/HCPCS: 78452; 93017; 93306; A9500; A4216; J2785

== ENCOUNTER → 2024-09-24 | Outpatient (CLI) | payer MEDICARE, BC, SELFPAY ==
[2021-07-02 10:22] VITALS: BMI 34.7
--- NOTE | 2024-09-24 13:30 | CDU_ITS ---
Reason For Study: Carotid Bilateral Rt. Velocities/BP Lt. Velocities/BP Prox CCA 31.7/11.6 cm/sec. Prox CCA 119.9/7.9 cm/sec. Mid CCA 42.1/19.5 cm/sec. Mid CCA 122.1/16.7 cm/sec. Dist CCA 36.5/15.9 cm/sec. Dist CCA 100.1/16.7 cm/sec. Prox ICA 32.5/12.4 cm/sec. Prox ICA 86.9/21.2 cm/sec. Mid ICA 43.1/23.2 cm/sec. Mid ICA 97.9/24.8 cm/sec. Dist ICA 44.6/27.5 cm/sec. Dist ICA 119.8/28.5 cm/sec. Rt. ICA/CCA = 1.1. Lt. ICA/CCA = 1.0. Prox ECA 31.5/1.3 cm/sec. Prox ECA 97.9/4.7 cm/sec. Lt. Vert. 183.0/24.9 cm/sec. Right Extracranial There is intimal thickening but no significant atherosclerotic plaque noted in the right common carotid artery. There is heterogeneous, irregular atherosclerotic plaque noted in the right internal carotid artery. Abnormal waveform morphology noted throughout. There is intimal thickening but no significant atherosclerotic plaque noted in the right external carotid artery. Retrograde flow noted in the Rt Veterbral A. Left Extracranial There is intimal thickening but no significant atherosclerotic plaque noted in the left common carotid artery. There is heterogeneous, irregular atherosclerotic plaque noted in the left internal carotid artery. There is intimal thickening but no significant atherosclerotic plaque noted in the left external carotid artery. Antegrade flow is noted in the left vertebral artery. Procedure Carotid Duplex 60115. This is a Carotid Duplex examination using B-mode, color flow and specral Doppler. HX of Rt shoulder surgery. Exam performed in department. VL/Carotid Duplex Ultrasound Interpretation Summary Mild (<50%) stenosis right extracranial internal carotid. Mild (<50%) stenosis left extracranial internal carotid. The Right vertebral flow is retrograde. The Left vertebral is patent and antegrade. Ordering Physician: Kisha Morton Referring Physician: Kisha Morton Performed By: Carl Gresham RVT and Student
== END | disposition home or self-care (01) ==
LOC: CVS 13:29
PROVIDERS: PCP Internal Medicine; Referring Provider Internal Medicine; Visit Provider Internal Medicine
DX: I65.23 Occlusion and stenosis of bilateral carotid arteries (principal)
CPT/HCPCS: 93880

== ENCOUNTER 2024-10-05 14:40 | Emergency (ER) | payer MEDICARE, BC, SELFPAY ==
[2021-07-02 10:22] VITALS: BMI 34.7
[2024-10-05] VITALS (15 sets, daily range): BP systolic 96–141; BP diastolic 45–78; PULSE 87–140; RESP 16–34; TEMP 36.7–37.2; O2SAT 92–100; BMI 27.7
--- NOTE | 2024-10-05 14:46 | EKG12_ITS ---
Test Reason : ABNORMAL EKG Blood Pressure : */* mmHG Vent. Rate : 136 BPM Atrial Rate : 272 BPM P-R Int : * ms QRS Dur : 90 ms QT Int : 274 ms P-R-T Axes : 261 29 123 degrees QTcB Int : 412 ms Atrial flutter with 2:1 A-V conduction Low voltage QRS ST & T wave abnormality, consider lateral ischemia Abnormal ECG Confirmed by GILBERT DURAN, WENDY ([id number]), non linear editor YONI SALMON ([id number]) on 10/07/2024 6:37:12 AM Referred By: Confirmed By: WENDY HUNT MD
[2024-10-05 15:18] LABS: Absolute Lymphocyte Count 2.61 X10^3/uL (0.83-4.51); Absolute Neutrophil Count 5.5 X10^3/uL (2.0-7.7); Basophil# 0.07 X10^3/uL; Basophil% 0.7 % (0-1); Eosinophil# 0.12 X10^3/uL; Eosinophils% 1.3 % (0-5); Hematocrit 41.4 % (37-47); Hemoglobin 13.8 g/dL (12.0-15.0); Lymphocyte # 2.61 X10^3/ul (0.83-4.51); Lymphocyte % 27.6 % (19-41); Mean Corp Hgb Conc 33.3 g/dL (32-36); Mean Corpuscular Hgb 32.2 pg (27.0-32.0); Mean Corpuscular Volume 96.7 fL (81-99); Mean Platelet Vol. 11.2 fl (6.2-12.0); Monocyte# 1.04 X10^3/uL; NRBC Flagged by Analyzer 0 % (0-5); Neutrophil # 5.54 X10^3/uL (2.7-7.7); Neutrophil % 58.8 % (47-70); Platelet Count 281 K/mm3 (150-450); RBC Distribution Width CV 16.5 % (11.6-14.6); RBC Distribution Width SD 58.8 fl (35.1-43.9); Red Blood Count 4.28 M/mm3 (4.2-5.4); White Blood Count 9.4 K/mm3 (4.4-11.0)
[2024-10-05 15:29] LABS: International Normalized Ratio 1.2; Prothrombin Time (Protime)PT. 15.7 SECONDS (11.7-14.9)
[2024-10-05 15:37] LABS: Anion Gap 6 (5-15); BUN 20 mg/dL (7-18); BUN/Creat Ratio 23.3 RATIO (10-20); Chloride 106 mmol/L (98-107); Creatinine, Serum 0.86 mg/dL (0.55-1.02); EST Glomerular Filtration Rate 68 mL/min (>60); Est Glom Filt Rate - Afr Amer 82 mL/min (>60); Estimated Creatinine Clearance 48.22 ml/min; Glucose 99 mg/dL (74-106); Potassium 4.1 mmol/L (3.5-5.1); Sodium Level 138 mmol/L (136-145); Troponin-I HS (w/2H Reflex) 22 pg/mL (3.0-54.0)
--- NOTE | 2024-10-05 15:45 | RAD_ITS ---
PROCEDURE: CHEST 1 VIEW (PORTABLE) REASON FOR EXAM: Palpitations. TECHNIQUE: Single frontal view of the chest is obtained. COMPARISON: Chest x-ray from 09/16/2023. FINDINGS: Cardiac size and pulmonary vasculature are within normal limits. Chronic interstitial lung markings are stable. There is volume loss involving the left hemithorax from prior left upper lobectomy. Right shoulder arthroplasty is p resent. No acute consolidation, pleural effusion, or pneumothorax is present. Degenerative changes are identified. RAD/Chest 1 View (Portable) IMPRESSION: No acute cardiopulmonary process. [facility]
--- NOTE | 2024-10-05 16:10 | EX.ED.DYSGE1 ---
HPI History of Present Illness Chief Complaint: Palpitations Informant: patient Narrative Narrative: 79-year-old presenting to the emergency room with a chief complaint of abnormal EKG. Patient sees [facility] for cardiac care. In March 2022 patient was admitted into the hospital small bowel obstruction was found to be in atrial fibrillation. In May the same year she underwent cardioversion with return to sinus rhythm. She has subsequently been taken off of amiodarone and has continued her apixaban not missing any doses in the last month. She states that she has never felt herself in atrial fibrillation. She does note that over the past couple days in the morning she is felt more sluggish and slightly short of breath. She went to oncology today for follow-up appointment and her vital signs showed her heart rate to be fast EKG shows atrial flutter. Patient states that she saw primary care in August and had normal vital signs. She denies any leg swelling. She drink a boost for breakfast this morning has not had anything since. [facility] Medical History Pulmonary fibrosis History of cardioversion History of Holter monitoring History of echocardiogram Normal Holter exam Cardiology follow-up encounter CRISTOBAL (dyspnea on exertion) Paroxysmal atrial fibrillation New onset atrial fibrillation (03/26/22) Edema Vitamin D deficiency Carotid stenosis Wears dentures Depression Thyroid disease Arthritis History of renal disease Back pain Stomach ache Constipation Early satiety Hx of small bowel obstruction Anxiety Seborrheic keratoses Postoperative wound infection Thyroiditis Hiatal hernia Dyspnea Anemia Cancer Hypothyroidism Chronic pain Kidney disease Pancreatitis Former smoker Contusion of knee Clavicle fracture Acute myofascial strain of lumbosacral region Lung cancer Iatrogenic pneumothorax Climacteric Osteopenia Breast cancer, left Breast lump Chronic low back pain with sciatica GERD (gastroesophageal reflux disease) Home Medications ?Medication ?Instructions ?Recorded ?Last Taken ?Type cyanocobalamin (vitamin B-12) 5,000 mcg PO DAILY supplement 06/07/22 03/13/24 History 5,000 mcg disintegrating tablet vitamin E (dl, acetate) 45 mg (100 45 mg PO DAILY 09/13/22 03/13/24 History unit) capsule cetirizine 10 mg capsule (Zyrtec) 10 mg PO DAILY PRN Allergy Symptoms 01/22/23 03/13/24 History gabapentin 400 mg capsule 400 mg PO QHS 03/14/24 03/13/24 History cholecalciferol (vitamin D3) 25 2,000 unit PO QODAY supplement 04/29/24 Unknown History mcg (1,000 unit) tablet escitalopram oxalate 10 mg tablet 15 mg PO DAILY 04/29/24 Unknown History ketoconazole 2 % shampoo 1 applic topical QWEEK DRY SCALP 04/29/24 Unknown History levothyroxine 50 mcg tablet 50 mcg PO DAILY 04/29/24 Unknown History pantoprazole 40 mg tablet,delayed 80 mg PO QAM 04/29/24 Unknown History release (Protonix) apixaban 5 mg tablet (Eliquis) 5 mg PO BID #180 tabs 07/30/24 Unknown Rx acetaminophen 650 mg 1,300 mg PO Q12H PRN pain 08/24/24 Unknown History tablet,extended release (8 Hour Pain Reliever) Allergy/AdvReac Type Severity Reaction Status Date / Time Sulfa (Sulfonamide Allergy Hives Verified 10/05/24 14:41 Antibiotics) amiodarone AdvReac Intermediate Tremors, Verified 10/05/24 14:41 excess phleghm in throat promethazine (From Phenergan) AdvReac Other Verified 10/05/24 14:41 rosuvastatin (From Crestor) AdvReac headache Verified 10/05/24 14:41 Family History Father , 44 Heart disease Myocardial infarction Surgical History History of esophagogastroduodenoscopy (EGD) Hx of surgical procedure Hx of colonoscopy History of lobectomy of lung (02/14/21) History of open reduction and internal fixation (ORIF) procedure History of laparoscopy History of lumpectomy of left breast (10/10/20) History of total right knee replacement (03/06/20) History of total left knee replacement History of kidney surgery History of left breast biopsy (09/18/20) History of cholecystectomy History of tonsillectomy Social History housing: house current occupation: Retired- [employer] history of recent travel: No sexually active: No Smoking Status: Former smoker second hand exposure: No alcohol intake: never substance use type: does not use ROS ROS ED Constitutional Constitutional ED: Denies chills, fever(s) or weight loss Eyes Eyes: Denies change in vision or diplopia ENT ENT ED: Denies ear pain, rhinorrhea or sore throat Cardiovascular Cardiovascular: Denies chest pain, orthopnea, palpitations or racing heartbeat Respiratory/Chest Respiratory/Chest: Reports dyspnea on exertion; Denies cough, dyspnea or orthopnea Gastrointestinal Gastrointestinal: Denies abdominal pain, diarrhea, nausea or vomiting Genitourinary Genitourinary ED: Denies dysuria, hematuria or urinary frequency Musculoskeletal Musculoskeletal: Denies arthralgias or myalgias Integumentary Denies abscess or rash Neurologic Neurologic: Denies headache(s) or weakness Psychiatric Psychiatric: Denies anxiety, depression, suicidal ideation or suicidal thoughts Endocrine Endocrinology: Denies polydipsia, polyphagia or polyuria Allergic/Immunologic Allergic/Immunologic ED: Denies mouth swelling, tongue swelling or urticaria EXAM Physical Exam Const Vital Signs: 10/05/24 14:41 10/05/24 15:40 10/05/24 16:00 Temperature 98.9 F Temperature Source Oral Pulse Rate 140 H 136 H 138 H Pulse Rate [1 (Initial Baseline)] Pulse Rate [4] Respiratory Rate 18 18 18 Respiratory Rate [1 (Initial Baseline)] Respiratory Rate [4] Blood Pressure 108/63 114/78 141/78 H Blood Pressure [1 (Initial Baseline)] Blood Pressure [4] Blood Pressure Mean 78 90 99 Pulse Ox 99 99 95 Oxygen Delivery Method Room Air Room Air Room Air Oxygen Delivery Method [1 (Initial Baseline)] Oxygen Delivery Method [2] Oxygen Delivery Method [4] Oxygen Flow Rate (L/min) Oxygen Flow Rate (L/min) [1 (Initial Baseline)] Fraction of Inspired Oxygen (FIO2) [4] EtCo2 (Normal 35-45 , high quality CPR 10-20 & ROSC>/=40mmHg EtCo2 (Normal 35-45 , high quality CPR 10-20 & ROSC>/=40mmHg [1 (Initial Baseline)] EtCo2 (Normal 35-45 , high quality CPR 10-20 & ROSC>/=40mmHg [4] 10/05/24 16:05 10/05/24 16:56 10/05/24 17:16 Temperature Temperature Source Pulse Rate 107 H Pulse Rate [1 (Initial Baseline)] Pulse Rate [4] Respiratory Rate 20 H Respiratory Rate [1 (Initial Baseline)] Respiratory Rate [4] Blood Pressure 96/76 Blood Pressure [1 (Initial Baseline)] Blood Pressure [4] Blood Pressure Mean 82 Pulse Ox 97 97 Oxygen Delivery Method Room Air Room Air Oxygen Delivery Method [1 (Initial Baseline)] Oxygen Delivery Method [2] Oxygen Delivery Method [4] Oxygen Flow Rate (L/min) Oxygen Flow Rate (L/min) [1 (Initial Baseline)] Fraction of Inspired Oxygen (FIO2) [4] EtCo2 (Normal 35-45 , high quality CPR 10-20 & ROSC>/=40mmHg 29 EtCo2 (Normal 35-45 , high quality CPR 10-20 & ROSC>/=40mmHg [1 (Initial Baseline)] EtCo2 (Normal 35-45 , high quality CPR 10-20 & ROSC>/=40mmHg [4] 10/05/24 17:37 10/05/24 17:40 10/05/24 17:49 Temperature 98.1 F Temperature Source Pulse Rate 129 H Pulse Rate [1 (Initial Baseline)] 119 H Pulse Rate [4] 98 Respiratory Rate 34 H Respiratory Rate [1 (Initial Baseline)] 22 H Respiratory Rate [4] 19 H Blood Pressure 101/64 Blood Pressure [1 (Initial Baseline)] 121/59 H Blood Pressure [4] 121/59 H Blood Pressure Mean Pulse Ox 99 Oxygen Delivery Method Room Air Nasal Cannula Oxygen Delivery Method [1 (Initial Baseline)] Nasal Cannula Oxygen Delivery Method [2] Nasal Cannula Oxygen Delivery Method [4] Nasal Cannula Oxygen Flow Rate (L/min) 2 Oxygen Flow Rate (L/min) [1 (Initial Baseline)] 2 Fraction of Inspired Oxygen (FIO2) [4] 2 EtCo2 (Normal 35-45 , high quality CPR 10-20 & ROSC>/=40mmHg 28 EtCo2 (Normal 35-45 , high quality CPR 10-20 & ROSC>/=40mmHg [1 (Initial Baseline)] 33 EtCo2 (Normal 35-45 , high quality CPR 10-20 & ROSC>/=40mmHg [4] 32 10/05/24 17:54 10/05/24 17:59 10/05/24 18:39 Temperature Temperature Source Pulse Rate 87 Pulse Rate [1 (Initial Baseline)] Pulse Rate [4] Respiratory Rate 28 H Respiratory Rate [1 (Initial Baseline)] Respiratory Rate [4] Blood Pressure 109/45 L Blood Pressure [1 (Initial Baseline)] Blood Pressure [4] Blood Pressure Mean 66 Pulse Ox 100 Oxygen Delivery Method Nasal Cannula Room Air Nasal Cannula Oxygen Delivery Method [1 (Initial Baseline)] Oxygen Delivery Method [2] Oxygen Delivery Method [4] Oxygen Flow Rate (L/min) 100 2 Oxygen Flow Rate (L/min) [1 (Initial Baseline)] Fraction of Inspired Oxygen (FIO2) [4] EtCo2 (Normal 35-45 , high quality CPR 10-20 & ROSC>/=40mmHg 26 EtCo2 (Normal 35-45 , high quality CPR 10-20 & ROSC>/=40mmHg [1 (Initial Baseline)] EtCo2 (Normal 35-45 , high quality CPR 10-20 & ROSC>/=40mmHg [4] 10/05/24 19:00 10/05/24 19:04 Temperature Temperature Source Pulse Rate 93 Pulse Rate [1 (Initial Baseline)] Pulse Rate [4] Respiratory Rate 16 Respiratory Rate [1 (Initial Baseline)] Respiratory Rate [4] Blood Pressure 99/57 L Blood Pressure [1 (Initial Baseline)] Blood Pressure [4] Blood Pressure Mean 71 Pulse Ox 92 95 Oxygen Delivery Method Nasal Cannula Room Air Oxygen Delivery Method [1 (Initial Baseline)] Oxygen Delivery Method [2] Oxygen Delivery Method [4] Oxygen Flow Rate (L/min) 2 Oxygen Flow Rate (L/min) [1 (Initial Baseline)] Fraction of Inspired Oxygen (FIO2) [4] EtCo2 (Normal 35-45 , high quality CPR 10-20 & ROSC>/=40mmHg EtCo2 (Normal 35-45 , high quality CPR 10-20 & ROSC>/=40mmHg [1 (Initial Baseline)] EtCo2 (Normal 35-45 , high quality CPR 10-20 & ROSC>/=40mmHg [4] Positive well nourished and well developed General Appearance ED: well developed HEENT Reports normocephalic, head/scalp atraumatic and moist mucous membranes Eyes PERRL and EOMs intact bilaterally Neck no lymphadenopathy, supple and no JVD Resp normal respiratory effort and clear to auscultation bilaterally Cardio regular rhythm and no murmurs Rate: tachycardic Rhythm: abnormal rhythm irregularly irregular GI normal to inspection, nondistended, normoactive bowel sounds and non-tender Palpation: soft Back/Spine no CVA tenderness and normal ROM Extremity normal to inspection General Extremety ED: Negative for edema General Extremity: Negative for edema Neuro oriented x3 and CN's II-XII intact bilaterally Sensorium / Orientation: alert Motor Exam: strength 5/5 throughout Psych mental status grossly normal Mood & Affect: Negative for depressed or tearful Skin no rashes or lesions noted and no wounds MDM MDM MDM Narrative Medical decision making narrative: Differential diagnosis includes but not limited to cardiac dysrhythmia acute coronary syndrome electrolyte abnormality anemia pleural effusion congestive heart failure ANUPAM Prehospital EKG shows atrial flutter with variable block a rate of 118 bpm. EKG done in triage here demonstrates atrial flutter with 221 conduction at a rate of 136 bpm. White count returns 9.4 hemoglobin 13.8. Normal sodium potassium glucose is 99 creatinine 0.86 BUN is 20 troponin of 22. My independent interpretation of the chest x-ray is no acute process. I spoke with on-call cardiology Dr. Olson. We concluded that procedural sedation for synchronized electrical cardioversion was a viable option. Patient provided informed written consent. She was pretreated using 50 mcg of fentanyl. She was then given a 10 mg dose of etomidate. Once adequate sedation was achieved the patient received a single synchronized 200 J shock with return to sinus rhythm with ectopy. Patient woke from the anesthesia and was quite nauseated. She received Zofran. Patient continued to have nausea and received a second dose of oral she was having some hypoventilation particularly when she was sleeping after the procedure. This is resolved. She does not feel any shortness of breath or chest pain. She was ambulated. Repeat EKG demonstrates a normal sinus rhythm at a ventricular rate of 91 bpm. This point patient will be discharged home. She has family with her. Would recommend following up with cardiology. Continue home medications. Patient update: We continue to observe the patient as her sats were around 90%. Sometimes in the 80s sometimes into the low 91-92 range. Patient is asymptomatic she has no chest pain she has remained in a sinus rhythm. She has not shortness of breath. We ambulated her she stayed in the 90s except for a brief moment when she was 89. I talked to the patient. She would like to go home. She is going to return if she experiences chest pain shortness of breath cough or has any concerning new findings. History & Record Review Discussion w/independent historian: Patient Additional record(s) reviewed:: Prior outpatient record and Prior labs Lab Data Attestation: I reviewed the patient's lab results. Labs: Laboratory Results - last 24 hr 10/05/24 10/05/24 15:00 17:15 WBC 9.4 RBC 4.28 Hgb 13.8 Hct 41.4 MCV 96.7 MCH 32.2 H MCHC 33.3 RDW Std Deviation 58.8 H RDW Coeff of Diaz 16.5 H Plt Count 281 MPV 11.2 Immature Gran % (Auto) 0.600 Neut % (Auto) 58.8 Lymph % (Auto) 27.6 Wagoner % (Auto) 11.0 H Eos % (Auto) 1.3 Baso % (Auto) 0.7 Absolute Neuts (auto) 5.5 Absolute Lymphs (auto) 2.61 Nucleated RBC % 0 PT 15.7 H INR 1.2 Sodium 138 Potassium 4.1 Chloride 106 Carbon Dioxide 27.0 Anion Gap 6 BUN 20 H Creatinine 0.86 Estim Creat Clear Calc 48.22 Est GFR (MDRD) Af Amer 82 Est GFR (MDRD) Non-Af 68 BUN/Creatinine Ratio 23.3 H Glucose 99 Calcium 10.0 Troponin I High Sens 22 25 Radiography Diagnostic Testing: Clinical Impression(s) from Imaging Studies Chest X-Ray 10/05/24 15:45 IMPRESSION: No acute cardiopulmonary process. Reading Location: [facility] EKG Initial EKG: Attestation: I personally reviewed and interpreted this EKG as follows: Comments: Atrial flutter with 2 1 conduction ventricular rate of 136 bpm Follow-up EKG: Attestation: I personally reviewed and interpreted this EKG as follows: Comments: Normal sinus rhythm ventricular rate of 91 bpm Management Discussion w/another healthcare provider: [facility] (Dr. Olson) Procedures Procedural Sedation 1 (Initial Baseline): Consent Signed: Yes Any Problems With Anesthesia: No You/Your family experience fever (hyperthermia) w/anesthesia: No Sedation medication: Etomidate Dose: 10 Route: IV Total Moderate Sedation Units: 5 Maliampati Score: Class II ASA Classification: I Discharge Plan Triage Chief Complaint: Palpitations ED Provider: Matt Marquis Dx/Rx/DC Orders Clinical Impression: Paroxysmal atrial fibrillation, Anticoagulated Instructions: AFib Dc Prescriptions: No Action vitamin E (dl, acetate) 45 mg (100 unit) capsule 45 mg PO DAILY Zyrtec 10 mg capsule 10 mg PO DAILY PRN (Reason: Allergy Symptoms) pantoprazole [Protonix] 40 mg tablet,delayed release (DR/EC) 80 mg PO QAM cholecalciferol (vitamin D3) 25 mcg (1,000 unit) tablet 2,000 unit PO QODAY Patient Comments: 2 TABS ON FRIDAY cyanocobalamin (vitamin B-12) 5,000 mcg tablet,disintegrating 5,000 mcg PO DAILY gabapentin 400 mg capsule 400 mg PO QHS escitalopram oxalate 10 mg tablet 15 mg PO DAILY levothyroxine 50 mcg tablet 50 mcg PO DAILY Rx Instructions: 50 mcg daily except 100 mg on Sat and Sun ketoconazole 2 % shampoo 1 applic topical QWEEK acetaminophen [8 Hour Pain Reliever] 650 mg tablet extended release 1,300 mg PO Q12H PRN (Reason: pain) Eliquis 5 mg tablet 5 mg PO BID Qty: 180 4RF Primary Care Provider: Kisha Morton Referrals: Kisha Morton DO [Primary Care Provider] - Activity Restrictions/Additional Instructions: Please continue your home medications. Please follow-up with cardiology. The fentanyl that you were given most likely caused you to have nausea. If you require surgical procedures or sedation in the future please mention this to them. Print Language: Indonesian Disposition Disposition: Home, Self Care
[2024-10-05 17:11] LABS: Reflex Troponin-HS? (from REC) Y
[2024-10-05 17:39] LABS: Troponin-I HS 25 pg/mL (3.0-54.0)
--- NOTE | 2024-10-05 17:53 | EKG12_ITS ---
Test Reason : POST CARDIOVERSION Blood Pressure : */* mmHG Vent. Rate : 91 BPM Atrial Rate : 91 BPM P-R Int : 202 ms QRS Dur : 94 ms QT Int : 356 ms P-R-T Axes : 92 54 69 degrees QTcB Int : 437 ms Normal sinus rhythm Normal ECG Confirmed by GILBERT DURAN, WENDY ([id number]), health editor YONI SALMON ([id number]) on 10/07/2024 6:38:13 AM Referred By: Confirmed By: WENDY HUNT MD
[2024-10-05] MEDS: fentaNYL 100 MCG/2 ML Ampul 50 MCG IV (17:57)
[2024-10-05] MEDS: Etomidate 20 MG/10 ML Vial 10 MG IV (17:57)
[2024-10-05] MEDS: Ondansetron 4 MG/2 ML Vial IV ×2 (17:57→18:52)
== END 2024-10-05 20:05 | disposition home or self-care (01) ==
PROVIDERS: Emergency Provider Emergency Medicine; PCP Internal Medicine; Visit Provider Emergency Medicine
DX: I48.0 Paroxysmal atrial fibrillation (principal); I48.92 Unspecified atrial flutter; Z79.01 Long term (current) use of anticoagulants; Z87.891 Personal history of nicotine dependence; Z90.49 Acquired absence of other specified parts of digestive tract
CPT/HCPCS: 71045; 80048; 84484; 85025; 85610; 93005; 96374; 96375; 96376; 99285; A4216; J2405

== ENCOUNTER 2024-10-13 11:28 | Emergency (ER) | payer MEDICARE, BC, SELFPAY ==
[2021-07-02 10:22] VITALS: BMI 34.7
[2024-10-13] VITALS (12 sets, daily range): BP systolic 104–126; BP diastolic 16–81; PULSE 64–137; RESP 12–24; TEMP 36.1–36.6; O2SAT 93–100; BMI 27.9
--- NOTE | 2024-10-13 11:57 | EKG12_ITS ---
Test Reason : PALP Blood Pressure : */* mmHG Vent. Rate : 131 BPM Atrial Rate : * BPM P-R Int : * ms QRS Dur : 94 ms QT Int : 270 ms P-R-T Axes : * 28 120 degrees QTcB Int : 398 ms Atrial fibrillation with rapid ventricular response Nonspecific ST and T wave abnormality Abnormal ECG Confirmed by FLOR DURAN, TAWANA ([id number]), design editor YONI SALMON ([id number]) on 10/16/2024 7:10:52 AM Referred By: Confirmed By: TAWANA RAY MD
[2024-10-13 12:17] LABS: Absolute Lymphocyte Count 2.11 X10^3/uL (0.83-4.51); Absolute Neutrophil Count 6.2 X10^3/uL (2.0-7.7); Basophil# 0.07 X10^3/uL; Basophil% 0.7 % (0-1); Eosinophils% 1.1 % (0-5); Hematocrit 40.6 % (37-47); Hemoglobin 12.9 g/dL (12.0-15.0); Lymphocyte # 2.11 X10^3/ul (0.83-4.51); Lymphocyte % 22.2 % (19-41); Mean Corp Hgb Conc 31.8 g/dL (32-36); Mean Corpuscular Hgb 31.3 pg (27.0-32.0); Mean Corpuscular Volume 98.5 fL (81-99); Mean Platelet Vol. 11.2 fl (6.2-12.0); Monocyte# 0.95 X10^3/uL; NRBC Flagged by Analyzer 0 % (0-5); Neutrophil # 6.19 X10^3/uL (2.7-7.7); Neutrophil % 64.9 % (47-70); Platelet Count 301 K/mm3 (150-450); RBC Distribution Width CV 16.7 % (11.6-14.6); RBC Distribution Width SD 60.1 fl (35.1-43.9); Red Blood Count 4.12 M/mm3 (4.2-5.4); White Blood Count 9.5 K/mm3 (4.4-11.0)
--- NOTE | 2024-10-13 12:32 | RAD_ITS ---
PROCEDURE: CHEST PA AND LATERAL REASON FOR EXAM: Shortness of breath; palpitations. TECHNIQUE: Frontal and lateral views of the chest. COMPARISON: 02/09/2024 CT. 10/05/2024 radiograph. FINDINGS: The heart size is normal. The mediastinal contour is unremarkable. Chronic interstitial markings. Intervally increased left basilar opacity which may represent worsening chronic interstitial changes, atelectasis, or infiltrate. Right shoulder arthroplasty. Right upper quadrant surgical clips. RAD/Chest PA and Lateral IMPRESSION: Pulmonary findings as above. Reading Location: [id number]
[2024-10-13 12:36] LABS: Anion Gap 5 (5-15); BUN 15 mg/dL (7-18); BUN/Creat Ratio 17.1 RATIO (10-20); Calcium,Total 9.4 mg/dL (8.5-10.1); Chloride 106 mmol/L (98-107); Creatinine, Serum 0.88 mg/dL (0.55-1.02); EST Glomerular Filtration Rate 66 mL/min (>60); Est Glom Filt Rate - Afr Amer 80 mL/min (>60); Estimated Creatinine Clearance 47.29 ml/min; Glucose 97 mg/dL (74-106); Sodium Level 139 mmol/L (136-145); Troponin-I HS 21 pg/mL (3.0-54.0)
--- NOTE | 2024-10-13 12:50 | EX.ED.DYSGE1 ---
HPI History of Present Illness Chief Complaint: Palpitations Informant: patient Narrative Narrative: Patient is a 79-year-old female with history of proximal atrial flutter as well as breast cancer (on Eliquis) presenting for palpitations. IP states that she actually just cardioverted last week in the ER on 10/05. Prior to that she had been cardioverted by cardiology in 2021. She has been on amiodarone as well as metoprolol in the past but been taken off of them because of side effects including low blood pressure. She notes her blood pressure is normally around 100 systolic. She states that she has been feeling well since her cardioversion last week but this morning in the shower she felt short of breath and felt like she is back in A-fib. As she checked her vital signs and noticed that her heart rate was going fast and she came back to the emergency room. She followed up with cardiology last week as well but no medication changes at this time. Denies any swelling of her legs. Denies any other acute complaints and feels that she is been in her regular state of health. [facility] Medical History (Updated 10/13/24 @ 16:[address] Sania Hernandez, DO) Pulmonary fibrosis History of cardioversion History of Holter monitoring History of echocardiogram Normal Holter exam Cardiology follow-up encounter CRISTOBAL (dyspnea on exertion) Paroxysmal atrial fibrillation New onset atrial fibrillation (03/26/22) Edema Vitamin D deficiency Carotid stenosis Wears dentures Depression Thyroid disease Arthritis History of renal disease Back pain Stomach ache Constipation Early satiety Hx of small bowel obstruction Anxiety Seborrheic keratoses Postoperative wound infection Thyroiditis Hiatal hernia Dyspnea Anemia Cancer Hypothyroidism Chronic pain Kidney disease Pancreatitis Former smoker Contusion of knee Clavicle fracture Acute myofascial strain of lumbosacral region Lung cancer Iatrogenic pneumothorax Climacteric Osteopenia Breast cancer, left Breast lump Chronic low back pain with sciatica GERD (gastroesophageal reflux disease) Home Medications ?Medication ?Instructions ?Recorded ?Last Taken ?Type cyanocobalamin (vitamin B-12) 5,000 mcg PO DAILY supplement 06/07/22 03/13/24 History 5,000 mcg disintegrating tablet vitamin E (dl, acetate) 45 mg (100 45 mg PO DAILY 09/13/22 03/13/24 History unit) capsule cetirizine 10 mg capsule (Zyrtec) 10 mg PO DAILY PRN Allergy Symptoms 01/22/23 03/13/24 History gabapentin 400 mg capsule 400 mg PO QHS 03/14/24 03/13/24 History cholecalciferol (vitamin D3) 25 2,000 unit PO QODAY supplement 04/29/24 Unknown History mcg (1,000 unit) tablet escitalopram oxalate 10 mg tablet 15 mg PO DAILY 04/29/24 Unknown History ketoconazole 2 % shampoo 1 applic topical QWEEK DRY SCALP 04/29/24 Unknown History levothyroxine 50 mcg tablet 50 mcg PO DAILY 04/29/24 Unknown History pantoprazole 40 mg tablet,delayed 80 mg PO QAM 04/29/24 Unknown History release (Protonix) apixaban 5 mg tablet (Eliquis) 5 mg PO BID #180 tabs 07/30/24 Unknown Rx acetaminophen 650 mg 1,300 mg PO Q12H PRN pain 08/24/24 Unknown History tablet,extended release (8 Hour Pain Reliever) digoxin 125 mcg (0.125 mg) tablet 125 mcg PO DAILY #30 tabs 10/13/24 Unknown Rx Allergy/AdvReac Type Severity Reaction Status Date / Time Sulfa (Sulfonamide Allergy Hives Verified 10/13/24 11:31 Antibiotics) amiodarone AdvReac Intermediate Tremors, Verified 10/13/24 11:31 excess phleghm in throat fentanyl AdvReac Nausea Verified 10/13/24 11:31 promethazine (From Phenergan) AdvReac Other Verified 10/13/24 11:31 rosuvastatin (From Crestor) AdvReac headache Verified 10/13/24 11:31 Family History Father , 44 Heart disease Myocardial infarction Surgical History (Updated 10/13/24 @ 16:41 by Jorge Ledezma [employer]SEM[employer] MACHINE OPERATOR, [employer]ALL[employer]SEM[employer] MACHINE OPERATOR-C) History of right shoulder replacement History of esophagogastroduodenoscopy (EGD) Hx of surgical procedure Hx of colonoscopy History of lobectomy of lung (02/14/21) History of open reduction and internal fixation (ORIF) procedure History of laparoscopy History of lumpectomy of left breast (10/10/20) History of total right knee replacement (03/06/20) History of total left knee replacement History of kidney surgery History of left breast biopsy (09/18/20) History of cholecystectomy History of tonsillectomy Social History housing: house current occupation: Retired- [employer] history of recent travel: No sexually active: No Smoking Status: Former smoker second hand exposure: No alcohol intake: never substance use type: does not use ROS ROS ED Constitutional Constitutional ED: Denies chills or fever(s) Cardiovascular Cardiovascular: Reports palpitations Respiratory/Chest Respiratory/Chest: Reports dyspnea; Denies cough Gastrointestinal Gastrointestinal: Denies nausea or vomiting Musculoskeletal Musculoskeletal: Denies arthralgias or myalgias Neurologic Neurologic: Denies weakness Hematologic/Lymphatic Hematologic/Lymphatic: Reports easy bleeding, easy bruising and other Details: On Eliquis EXAM Physical Exam Const Vital Signs: 10/13/24 11:29 10/13/24 11:44 10/13/24 12:29 Temperature 97.5 F L Temperature Source Temporal Pulse Rate 137 H 121 H Pulse Rate [1 (Initial Baseline)] Pulse Rate [2] Pulse Rate [3] Pulse Rate [4] Respiratory Rate 20 H 17 Respiratory Rate [1 (Initial Baseline)] Respiratory Rate [2] Respiratory Rate [3] Respiratory Rate [4] Respiratory Effort Short of Breath Blood Pressure 115/81 H 126/68 H Blood Pressure [1 (Initial Baseline)] Blood Pressure [2] Blood Pressure [3] Blood Pressure [4] Blood Pressure Mean 92 87 Baseline BP Pulse Ox 97 96 Oxygen Delivery Method Room Air Room Air Oxygen Delivery Method [1 (Initial Baseline)] Oxygen Delivery Method [2] Oxygen Delivery Method [3] Oxygen Delivery Method [4] Oxygen Flow Rate (L/min) Oxygen Flow Rate (L/min) [1 (Initial Baseline)] Oxygen Flow Rate (L/min) [2] Oxygen Flow Rate (L/min) [3] Oxygen Flow Rate (L/min) [4] Fraction of Inspired Oxygen (FIO2) [3] EtCo2 (Normal 35-45 , high quality CPR 10-20 & ROSC>/=40mmHg EtCo2 (Normal 35-45 , high quality CPR 10-20 & ROSC>/=40mmHg [1 (Initial Baseline)] EtCo2 (Normal 35-45 , high quality CPR 10-20 & ROSC>/=40mmHg [2] EtCo2 (Normal 35-45 , high quality CPR 10-20 & ROSC>/=40mmHg [3] EtCo2 (Normal 35-45 , high quality CPR 10-20 & ROSC>/=40mmHg [4] 10/13/24 13:00 10/13/24 13:55 10/13/24 14:00 Temperature Temperature Source Pulse Rate 125 H 128 H Pulse Rate [1 (Initial Baseline)] Pulse Rate [2] Pulse Rate [3] Pulse Rate [4] Respiratory Rate 17 16 Respiratory Rate [1 (Initial Baseline)] Respiratory Rate [2] Respiratory Rate [3] Respiratory Rate [4] Respiratory Effort Blood Pressure 109/71 116/66 Blood Pressure [1 (Initial Baseline)] Blood Pressure [2] Blood Pressure [3] Blood Pressure [4] Blood Pressure Mean 83 82 Baseline BP Pulse Ox 96 96 Oxygen Delivery Method Room Air Room Air Oxygen Delivery Method [1 (Initial Baseline)] Oxygen Delivery Method [2] Oxygen Delivery Method [3] Oxygen Delivery Method [4] Oxygen Flow Rate (L/min) Oxygen Flow Rate (L/min) [1 (Initial Baseline)] Oxygen Flow Rate (L/min) [2] Oxygen Flow Rate (L/min) [3] Oxygen Flow Rate (L/min) [4] Fraction of Inspired Oxygen (FIO2) [3] EtCo2 (Normal 35-45 , high quality CPR 10-20 & ROSC>/=40mmHg 29 EtCo2 (Normal 35-45 , high quality CPR 10-20 & ROSC>/=40mmHg [1 (Initial Baseline)] EtCo2 (Normal 35-45 , high quality CPR 10-20 & ROSC>/=40mmHg [2] EtCo2 (Normal 35-45 , high quality CPR 10-20 & ROSC>/=40mmHg [3] EtCo2 (Normal 35-45 , high quality CPR 10-20 & ROSC>/=40mmHg [4] 10/13/24 14:15 10/13/24 14:17 10/13/24 14:32 Temperature 97.9 F Temperature Source Pulse Rate 124 H 93 Pulse Rate [1 (Initial Baseline)] 122 H Pulse Rate [2] 64 Pulse Rate [3] 95 Pulse Rate [4] 95 Respiratory Rate 24 H 12 Respiratory Rate [1 (Initial Baseline)] 21 H Respiratory Rate [2] 13 Respiratory Rate [3] 17 Respiratory Rate [4] 17 Respiratory Effort Blood Pressure 123/75 H 111/61 Blood Pressure [1 (Initial Baseline)] 115/70 Blood Pressure [2] 105/71 Blood Pressure [3] 105/71 Blood Pressure [4] 111/16 L Blood Pressure Mean Baseline BP 123/75 Pulse Ox 100 98 Oxygen Delivery Method Nasal Cannula Room Air Oxygen Delivery Method [1 (Initial Baseline)] Nasal Cannula Oxygen Delivery Method [2] Nasal Cannula Oxygen Delivery Method [3] Nasal Cannula Oxygen Delivery Method [4] Nasal Cannula Oxygen Flow Rate (L/min) 2 Oxygen Flow Rate (L/min) [1 (Initial Baseline)] 4 Oxygen Flow Rate (L/min) [2] 2 Oxygen Flow Rate (L/min) [3] 2 Oxygen Flow Rate (L/min) [4] 2 Fraction of Inspired Oxygen (FIO2) [3] 2 EtCo2 (Normal 35-45 , high quality CPR 10-20 & ROSC>/=40mmHg 33 22 EtCo2 (Normal 35-45 , high quality CPR 10-20 & ROSC>/=40mmHg [1 (Initial Baseline)] 24 EtCo2 (Normal 35-45 , high quality CPR 10-20 & ROSC>/=40mmHg [2] 29 EtCo2 (Normal 35-45 , high quality CPR 10-20 & ROSC>/=40mmHg [3] 22 EtCo2 (Normal 35-45 , high quality CPR 10-20 & ROSC>/=40mmHg [4] 28 10/13/24 14:37 10/13/24 14:41 10/13/24 15:33 Temperature Temperature Source Pulse Rate 85 89 98 Pulse Rate [1 (Initial Baseline)] Pulse Rate [2] Pulse Rate [3] Pulse Rate [4] Respiratory Rate 13 17 16 Respiratory Rate [1 (Initial Baseline)] Respiratory Rate [2] Respiratory Rate [3] Respiratory Rate [4] Respiratory Effort Blood Pressure 107/64 107/64 113/59 L Blood Pressure [1 (Initial Baseline)] Blood Pressure [2] Blood Pressure [3] Blood Pressure [4] Blood Pressure Mean 77 Baseline BP Pulse Ox 98 94 96 Oxygen Delivery Method Room Air Room Air Oxygen Delivery Method [1 (Initial Baseline)] Oxygen Delivery Method [2] Oxygen Delivery Method [3] Oxygen Delivery Method [4] Oxygen Flow Rate (L/min) Oxygen Flow Rate (L/min) [1 (Initial Baseline)] Oxygen Flow Rate (L/min) [2] Oxygen Flow Rate (L/min) [3] Oxygen Flow Rate (L/min) [4] Fraction of Inspired Oxygen (FIO2) [3] EtCo2 (Normal 35-45 , high quality CPR 10-20 & ROSC>/=40mmHg 24 25 EtCo2 (Normal 35-45 , high quality CPR 10-20 & ROSC>/=40mmHg [1 (Initial Baseline)] EtCo2 (Normal 35-45 , high quality CPR 10-20 & ROSC>/=40mmHg [2] EtCo2 (Normal 35-45 , high quality CPR 10-20 & ROSC>/=40mmHg [3] EtCo2 (Normal 35-45 , high quality CPR 10-20 & ROSC>/=40mmHg [4] 10/13/24 16:05 Temperature 97 F L Temperature Source Pulse Rate 109 H Pulse Rate [1 (Initial Baseline)] Pulse Rate [2] Pulse Rate [3] Pulse Rate [4] Respiratory Rate 18 Respiratory Rate [1 (Initial Baseline)] Respiratory Rate [2] Respiratory Rate [3] Respiratory Rate [4] Respiratory Effort Blood Pressure 104/54 L Blood Pressure [1 (Initial Baseline)] Blood Pressure [2] Blood Pressure [3] Blood Pressure [4] Blood Pressure Mean 70 Baseline BP Pulse Ox 93 Oxygen Delivery Method Oxygen Delivery Method [1 (Initial Baseline)] Oxygen Delivery Method [2] Oxygen Delivery Method [3] Oxygen Delivery Method [4] Oxygen Flow Rate (L/min) Oxygen Flow Rate (L/min) [1 (Initial Baseline)] Oxygen Flow Rate (L/min) [2] Oxygen Flow Rate (L/min) [3] Oxygen Flow Rate (L/min) [4] Fraction of Inspired Oxygen (FIO2) [3] EtCo2 (Normal 35-45 , high quality CPR 10-20 & ROSC>/=40mmHg EtCo2 (Normal 35-45 , high quality CPR 10-20 & ROSC>/=40mmHg [1 (Initial Baseline)] EtCo2 (Normal 35-45 , high quality CPR 10-20 & ROSC>/=40mmHg [2] EtCo2 (Normal 35-45 , high quality CPR 10-20 & ROSC>/=40mmHg [3] EtCo2 (Normal 35-45 , high quality CPR 10-20 & ROSC>/=40mmHg [4] Positive well nourished and well developed General Appearance ED: well developed and NAD HEENT Reports moist mucous membranes Neck supple and no JVD Chest Wall inspection of chest normal and palpation of chest normal Resp normal respiratory effort and clear to auscultation bilaterally Auscultation: Negative for wheezes Cardio regular rhythm and no murmurs Rate: tachycardic GI normal to inspection, nondistended, normoactive bowel sounds and non-tender Neuro Sensorium / Orientation: alert Motor Exam: Negative for general weakness Psych mental status grossly normal Skin no rashes or lesions noted and no wounds MDM MDM MDM Narrative Medical decision making narrative: Patient evaluated for generalized weakness and mild shortness of breath with arrhythmia at home. She states this feels like when she is in atrial flutter. She was cardioverted 1 week ago. She states she is on Eliquis and has been compliant with her Eliquis has not missed any doses. She is not on any rate control or antiarrhythmic medications because of prior side effects. She has baseline low blood pressure. Cardiac workup obtained including CBC, EKG, high since he troponin and BMP which is largely normal. EKG does show atrial fibrillation with rapid ventricular response at a rate of 131 beats per minutes with no significant ST segment changes. Patient will be cardioverted see procedure note below. Patient tolerated this well. Is ambulated in the emergency room and does well. Discussed with Dr. Ellis and given that this is her second cardioversion in 1 week I will start her on a cardiac medication to hopefully prevent her from going into A-fib further. Given that she has a history of hypotension as well as side effect amiodarone we will start her on digoxin. Patient is started on 1.25 mcg of digoxin in the emergency room. Instructed to follow-up outpatient with cardiology. Patient agreeable this plan of care. Patient discharged home in stable and improved condition. Patient's chest x-ray was read as increased infiltrate versus interstitial disease on the left side. This is reviewed with myself and it does look slightly worse. Patient however has no acute infectious complaints and no increased O2 demand. She is informed of her chest x-ray finding but will continue to monitor and follow-up outpatient. Cardioversion Informed consent performed. Patient placed on continuous telemetry and end-tidal CO2 monitoring. Patient. Who placed on 6 L nasal cannula. Pads were placed. Synchronized cardioversion performed once using 100 J. Patient premedicated with 10 mg IV etomidate for sedation. Patient successful cardioversion. No acute events. Tolerated procedure well with no complications. Was premedicated with Zofran. Lab Data Attestation: I reviewed the patient's lab results. Labs: Laboratory Results - last 24 hr 10/13/24 11:45 WBC 9.5 RBC 4.12 L Hgb 12.9 Hct 40.6 MCV 98.5 MCH 31.3 MCHC 31.8 L RDW Std Deviation 60.1 H RDW Coeff of Diaz 16.7 H Plt Count 301 MPV 11.2 Immature Gran % (Auto) 1.100 H Neut % (Auto) 64.9 Lymph % (Auto) 22.2 Saunders % (Auto) 10.0 Eos % (Auto) 1.1 Baso % (Auto) 0.7 Absolute Neuts (auto) 6.2 Absolute Lymphs (auto) 2.11 Nucleated RBC % 0 Sodium 139 Potassium 4.0 Chloride 106 Carbon Dioxide 28.0 Anion Gap 5 BUN 15 Creatinine 0.88 Estim Creat Clear Calc 47.29 Est GFR (MDRD) Af Amer 80 Est GFR (MDRD) Non-Af 66 BUN/Creatinine Ratio 17.1 Glucose 97 Calcium 9.4 Troponin I High Sens 21 Radiography Chest X-Ray - ED: 2 View, Read by ED Physician and Chronic Changes Diagnostic Testing: Clinical Impression(s) from Imaging Studies Chest X-Ray 10/13/24 12:32 IMPRESSION: Pulmonary findings as above. Reading Location: [facility] Rhythm Strip Rhythm Strip: A-fib Rate: 131 Ectopy: None EKG Initial EKG: Attestation: I personally reviewed and interpreted this EKG as follows: Interpretation: Atrial Fibrillation Comments: Atrial fibrillation with rapid ventricular response at a rate of 131 bpm Left axis deviation Nonspecific T wave changes, likely rate related Prior EKG tracings: available for review Prior: Unchanged Follow-up EKG: Attestation: I personally reviewed and interpreted this EKG as follows: Interpretation: Sinus Rhythm Comments: Normal sinus rhythm rate of 96 bpm with PACs Normal axis Normal intervals No ST segment Prior EKG tracings: available for review Prior: Changed (Patient no longer in atrial fibrillation) Management Discussion w/another healthcare provider: Other Sports Official (Cardiology) Discharge Plan Triage Chief Complaint: Palpitations ED Provider: Sania Hernandez Dx/Rx/DC Orders Clinical Impression: Paroxysmal atrial fibrillation Instructions: ED AFIB Prescriptions: New digoxin 125 mcg (0.125 mg) tablet 125 mcg PO DAILY Qty: 30 0RF No Action vitamin E (dl, acetate) 45 mg (100 unit) capsule 45 mg PO DAILY Zyrtec 10 mg capsule 10 mg PO DAILY PRN (Reason: Allergy Symptoms) pantoprazole [Protonix] 40 mg tablet,delayed release (DR/EC) 80 mg PO QAM cholecalciferol (vitamin D3) 25 mcg (1,000 unit) tablet 2,000 unit PO QODAY Patient Comments: 2 TABS ON FRIDAY cyanocobalamin (vitamin B-12) 5,000 mcg tablet,disintegrating 5,000 mcg PO DAILY gabapentin 400 mg capsule 400 mg PO QHS escitalopram oxalate 10 mg tablet 15 mg PO DAILY levothyroxine 50 mcg tablet 50 mcg PO DAILY Rx Instructions: 50 mcg daily except 100 mg on Sat and Sun ketoconazole 2 % shampoo 1 applic topical QWEEK acetaminophen [8 Hour Pain Reliever] 650 mg tablet extended release 1,300 mg PO Q12H PRN (Reason: pain) Eliquis 5 mg tablet 5 mg PO BID Qty: 180 4RF Primary Care Provider: Kisha Morton Referrals: Thom Ellis MD [Med Staff - Active Staff] - Kisha Morton DO [Primary Care Provider] - Activity Restrictions/Additional Instructions: Please follow up with cardiology this week. . Print Language: Czech Disposition Disposition: Home, Self Care Discharge Date/Time: 10/13/24 16:16
[2024-10-13] MEDS: 0.9% Normal Saline (500mL Bag) 500 ML 15 ML IV (13:51)
[2024-10-13] MEDS: Etomidate 20 MG/10 ML Vial 10 MG IV (13:52)
[2024-10-13] MEDS: Ondansetron 4 MG/2 ML Vial IV (13:52)
--- NOTE | 2024-10-13 14:46 | EKG12_ITS ---
Test Reason : POST CARDIOVER Blood Pressure : */* mmHG Vent. Rate : 96 BPM Atrial Rate : 96 BPM P-R Int : 208 ms QRS Dur : 100 ms QT Int : 358 ms P-R-T Axes : 85 41 59 degrees QTcB Int : 452 ms Sinus rhythm with Premature atrial complexes Nonspecific ST abnormality Abnormal ECG Confirmed by FLOR DURAN, TAWANA ([id number]), production editor YONI SALMON ([id number]) on 10/16/2024 7:13:23 AM Referred By: Confirmed By: TAWANA RAY MD
[2024-10-13] MEDS: Digoxin 125 MCG Tablet PO (15:32)
== END 2024-10-13 16:16 | disposition home or self-care (01) ==
PROVIDERS: Emergency Provider Emergency Medicine; PCP Internal Medicine; Visit Provider Emergency Medicine
DX: I48.0 Paroxysmal atrial fibrillation (principal); Z79.01 Long term (current) use of anticoagulants; Z87.891 Personal history of nicotine dependence
CPT/HCPCS: 71046; 80048; 84484; 85025; 93005; 96374; 96375; 99283; A4216; J2405

== ENCOUNTER → 2024-12-28 | Outpatient (CLI) | payer MEDICARE, BC, SELFPAY ==
[2021-07-02 10:22] VITALS: BMI 34.7
--- NOTE | 2024-12-28 15:12 | MRI_ITS ---
PROCEDURE: BRAIN W/WO CONTRAST 12/28/2024 REASON FOR EXAM: MRI OF BRAIN WITH AND W/O - DOUBLE VISION TECHNIQUE: Routine brain MRI without and with intravenous contrast. Multiplanar and multisequence images were obtained. CONTRAST: Sunshine scan VOLUME: 13 mL Gauge IV FINDINGS: Brain: Mild cerebral atrophy and chronic periventricular white matter disease. Diffusion: No area of restricted diffusion to suggest acute or subacute infarction. Ventricles: Consistent with the overall degree of cerebral atrophy. Major Intracranial Vessels: Normal flow voids Sinuses: Clear. Mastoids: Clear. 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 OTHERWISE UNREMAR KABLE BRAIN MRI. Reading Location: [facility]
--- NOTE | 2024-12-28 15:12 | MRI_ITS ---
PROCEDURE: MRA HEAD ONLY WITHOUT CONTRAST 12/28/2024 REASON FOR EXAM: MRA OF BRAIN WITHOUT CONTRAST - DOUBLE VISION. THERE IS ALSO ORDE TECHNIQUE: 3D Time of Flight MRA of the head. Multiplanar multisequential imaging was performed without IV contrast administration. FINDINGS: Anatomy: [place] anatomy is within normal limits. Anterior Circulation: Unremarkable. Posterior Circulation: Unremarkable. MRI/MRA Head ONLY without Contrast IMPRESSION: NORMAL MRA OF THE [place] AND BASILAR ARTERY. Reading Location: [id number]
== END | disposition home or self-care (01) ==
LOC: MRI 15:00
PROVIDERS: PCP Internal Medicine; Referring Provider Internal Medicine; Visit Provider Internal Medicine
DX: H53.2 Diplopia (principal)
CPT/HCPCS: 70544; 70553; A9575

== ENCOUNTER → 2025-01-21 | Outpatient (CLI) | payer MEDICARE, BC, SELFPAY ==
[2021-07-02 10:22] VITALS: BMI 34.7
--- NOTE | 2025-01-21 09:45 | US_ITS ---
PROCEDURE: ABD LIMITED W/ ELASTOGRAPHY REASON FOR EXAM: FATTY LIVER COMPARISON: Prior study dated May 13, 2024. TECHNIQUE: Right upper quadrant abdominal ultrasound. [employer] ElastQ Imaging shear wave elastography for non-invasive assessment of liver tissue stiffness. [employer] EPIQ Elite. FINDINGS: LIVER: Size: Unremarkable Length: 12.3 cm Echotexture: Coarsened Contour: Normal Lesions: None identified Elastography: EQI Med: 9.0 kPa EQI Med Talon: 1.71 m/s IQR/Med: 21 %* GALLBLADDER: Surgically absent. COMMON BILE DUCT: Normal . PANCREAS: Normal The right kidney measures 8.9 cm 4.7 cm 4.6 cm. Renal cortex measures 1.3 cm. There is evidence of a 5 cm x 2.9 cm x 3.2 cm cyst in the kidney. US/ABD Limited w/ Elastography IMPRESSION: MODERATE HEPATIC FIBROSIS Reference Values: SRU <1.37 m/s (5.7kPa): No to mild fibrosis 1.37 m/s - 2.2 m/s: Moderate to severe fibrosis >2.2 m/s (15kPa): Significant fibrosis / cirrhosis METAVIR Score F2 or higher: 1.34 m/s (5.7kPa) F3 or higher: 1.55 m/s (7.3kPa) F4: 1.80 m/s (10kPa) * If the IQR/Med is >30%, the variance in the measurements is a large and the a ccuracy of the measurement may be in question. Reading Location: [facility]
== END | disposition home or self-care (01) ==
LOC: US 09:43
PROVIDERS: PCP Internal Medicine; Referring Provider Student in an Organized Health Care Education/Training Program; Visit Provider Student in an Organized Health Care Education/Training Program
DX: K76.0 Fatty (change of) liver, not elsewhere classified (principal)
CPT/HCPCS: 76705; 76981

== ENCOUNTER 2025-02-01 11:37 | Day surgery (SDC) | payer MEDICARE, BC, SELFPAY ==
[2021-07-02 10:22] VITALS: BMI 34.7
--- NOTE | 2025-01-27 14:23 | PAT.ANE_ITS ---
Pre-Assessment Diagnosis/Proposed Procedure Planned Operative Procedure(s): EGD Anesthesia History Anesthesia History - vein access technician: Anesthesia History - vein access technician Hx Hospitalization No 01/27/25 14:10 Any Problems With Anesthesia [ No 10/05/24 18:18 1 (Initial Baseline)] Any Problems With Anesthesia No 01/27/25 14:10 Cholinesterase deficiency No 01/27/25 14:10 You/Your Family Experience No 01/27/25 14:10 fever (hyperthermia) with Relationship Recent Exposure to Contagious No 08/18/23 10:21 Disease Does patient have nerve No 01/27/25 14:10 stimulator Patient instructed to have device shut off --Does patient have Pacemaker or ICD? When Was Last Pacemaker Check QUESTION #4 FULL TEXT: You/Your Family Experience fever (hyperthermia) with Anesthesia Last Oral Intake Last Oral intake: Last Oral Intake NPO since Meds taken in AM with sips of water? Meds patient instructed to take am of surgery PONV PONV - vein access technician: PONV - vein access technician Female Yes 01/27/25 14:10 HX of Motion Sickness No 01/27/25 14:10 HX of N/V After Surgery No 01/27/25 14:10 Non-Smoker Yes 01/27/25 14:10 Duration of Surgery greater No 01/27/25 14:10 than 60 minutes Number of Risk Factors 2 01/27/25 14:10 PONV Score Moderate Risk 01/27/25 14:10 Height & Weight Height & Weight: Anesthesia: Height & Weight Height 5 ft 2 in 01/14/25 06:06 Respiratory Assessment Respiratory Assessment - vein access technician: Respiratory Tract Infection Hx - vein access technician Hx Respiratory Tract Infection No 01/27/25 14:10 STOP Sleep Apnea STOP Sleep Apnea - vein access technician: STOP Sleep Apnea - vein access technician Hx Hypertension No 01/27/25 14:10 Hx Sleep Apnea No 01/27/25 14:10 CPAP No 07/16/23 14:58 BIPAP No 07/16/23 14:58 Do you snore loudly (louder No 01/27/25 14:10 than talking or can be heard Do you often feel tired/ No 01/27/25 14:10 fatigued/ sleepy during daytime? Has anyone observed you stop No 01/27/25 14:10 breathing during sleep? STOP Results Negative 01/27/25 14:10 QUESTION #5 FULL TEXT : Do you snore loudly (louder than talking or can be heard through closed doors)? 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 Specify any problems Hx of Preganancy in last 3 N/A 01/27/25 14:10 Months Nurse Filling Out Transfusion NBUCHER 01/27/25 14:10 & Questions: Date: 01/27/25 01/27/25 14:10 Time: 14:11 01/27/25 14:10 Patient unable to answer at this time (ie. confused, unrespo /Reproduction History /Reproductive History - vein access technician: /Reproductive Hx- vein access technician Hx Now No 01/27/25 14:10 Gestational Age (in weeks): EDC: Hx Hx Para Hx Section SAB No 01/27/25 14:10 [facility] Medical History (Updated 01/27/25 @ 14:14 by Rocio Gaines) Wears glasses Pulmonary fibrosis History of cardioversion History of Holter monitoring History of echocardiogram Normal Holter exam Cardiology follow-up encounter CRISTOBAL (dyspnea on exertion) Paroxysmal atrial fibrillation New onset atrial fibrillation (03/26/22) Edema Vitamin D deficiency Carotid stenosis Wears dentures Depression Thyroid disease Arthritis History of renal disease Back pain Stomach ache Constipation Early satiety Hx of small bowel obstruction Anxiety Seborrheic keratoses Postoperative wound infection Thyroiditis Hiatal hernia Dyspnea Anemia Cancer Hypothyroidism Chronic pain Kidney disease Pancreatitis Former smoker Contusion of knee Clavicle fracture Acute myofascial strain of lumbosacral region Lung cancer Iatrogenic pneumothorax Climacteric Osteopenia Breast cancer, left Breast lump Chronic low back pain with sciatica GERD (gastroesophageal reflux disease) Home Medications ?Medication ?Instructions ?Recorded ?Last Taken ?Type cyanocobalamin (vitamin B-12) 5,000 mcg PO DAILY suppl ement 06/07/22 03/13/24 History 5,000 mcg disintegrating tablet vitamin E (dl, acetate) 45 mg (100 45 mg PO DAILY 02/2803/13/24 History unit) capsule cetirizine 10 mg capsule (Zyrtec) 10 mg PO DAILY PRN A llergy Symptoms 01/22/23 03/13/24 History cholecalciferol (vitamin D3) 25 2,000 unit PO QODAY robles pplement 04/29/24 Unknown History mcg (1,000 unit) tablet escitalopram oxalate 10 mg tablet 15 mg PO DAILY 04/29 Unknown History ketoconazole 2 % shampoo 1 applic topical QWEEK DRY S CALP 04/29/24 Unknown History levothyroxine 50 mcg tablet 50 mcg PO MOTUWETHFR 04/29 Unknown History pantoprazole 40 mg tablet,delayed 80 mg PO QAM 4 Unknown History release (Protonix) acetaminophen 650 mg 1,300 mg PO Q12H PRN pain Unknown History tablet,extended release (8 Hour Pain Reliever) digoxin 125 mcg (0.125 mg) tablet 125 mcg PO DAILY #90 tabs 11/01/24 Unknown Rx apixaban 5 mg tablet (Eliquis) 5 mg PO BID [facility]ed [facility] 01/14/25 Unknown Rx [facility] tabs gabapentin 400 mg capsule 200 mg PO QHS 01/14/25 Unkno wn History levothyroxine 50 mcg capsule 100 mcg PO SUSA 01/27/25 Unknown History Allergy/AdvReac Type Severity Reaction Status Date / Time Sulfa (Sulfonamide Allergy Hives Verified 01/27/25 14:06 Antibiotics) amiodarone AdvReac Intermediate Tremors, Verified 01/27/25 14:06 excess phleghm in throat fentanyl AdvReac Nausea Verified 01/27/25 14:06 promethazine (From Phenergan) AdvReac Other Verified 01/27/25 14:06 rosuvastatin (From Crestor) AdvReac headache Verified 01/27/25 14:06 Family History Father , 44 Heart disease Myocardial infarction Surgical History History of right shoulder replacement History of esophagogastroduodenoscopy (EGD) Hx of surgical procedure Hx of colonoscopy History of lobectomy of lung (02/14/21) History of open reduction and internal fixation (ORIF) procedure History of laparoscopy History of lumpectomy of left breast (10/10/20) History of total right knee replacement (03/06/20) History of total left knee replacement History of kidney surgery History of left breast biopsy (09/18/20) History of cholecystectomy History of tonsillectomy Social History housing: house current occupation: Retired- [employer] history of recent travel: No sexually active: No Smoking Status: Former smoker second hand exposure: No alcohol intake: never substance use type: does not use Audit: Pertinent Findings Pertinent Findings EKG Perinent findings: 01/14/2025. Atrial flutter?fibrillation. Occasional PVCs. Nonspecific ST depression. Nonspecific T wave abnormality. Nondiagnostic. Stress test pertinent findings: 07/12/2024. Perfusion stress test. EF 65%. Echo (EF%) pertinent findings: 07/12/2024. Normal size function EF 60% PA pressure 45. Consult pertinent findings: Cardiology 01/14/2025. Low blood pressure. Chronic. Denies dizziness and lightheadedness. Will continue to monitor. Paroxysmal atrial fibrillation. Chronic. Continue digoxin daily. And Eliquis twice daily. Recommendation Anesthesia Recommendation Anesthesia recommendation: OPTIMIZED for anesthesia
[2025-02-01] VITALS (7 sets, daily range): BP systolic 82–91; BP diastolic 45–62; PULSE 76–105; RESP 16–18; TEMP 36.2–36.3; O2SAT 94–97; BMI 27.1
[2025-02-01] MEDS: Lactated Ringers 1,000 ML 15 ML IV (12:36)
--- NOTE | 2025-02-01 12:51 | PRE.ANES_ITS ---
ASA Classification* ASA Classification ASA Classification: 3 Assessment & Plan Anesthesia* Anesthesia Assessment Anesthesia Assessment: Discussed sedation and/or anesthesia options, risks, benefits, and alternatives with patient/parents/legal guardian/POA. Questions invited. The patient/parents/legal guardian/POA seems to understand and agrees to proceed with anesthesia plan. Reviewed the physical assessment, medical history, allergy history and patient home medications list prior to surgery/procedure/anesthetic and documented any changes. Performed airway and anesthesia risk assessments. Anesthesia Type Anesthesia Type: MAC History Source History Obtained from:: Patient and Chart Anesthesia Focused Assessment* Temperature: 97.3 F Pulse Rate: 76 Blood Pressure: 91/50 Respiratory Rate: 18 Pulse Ox: 97 Oxygen Delivery Method: Room Air Airway Assessment Mouth opens: >3 cm Mallampati Score: I Teeth Condition: Dentures (Patient has a full upper denture.) and Missing (Patient is missing several back molars on the lower jaw.) Neck Range of motion (ROM): Full ROM Focused Labs Anesthesia Preop lab: CBC WBC 9.5 K/mm3 (4.4-11.0) 10/13/24 11:45 10/13/24 RBC 4.12 M/mm3 (4.2-5.4) L 10/13/24 11:45 10/13/24 Hgb 12.9 g/dL (12.0-15.0) 10/13/24 11:45 10/13/24 Hct 40.6 % (37-47) 10/13/24 11:45 10/13/24 Plt Count 301 K/mm3 (150-450) 10/13/24 11:45 10/13/24 CHEMISTRY Potassium 4.0 mmol/L (3.5-5.1) 10/13/24 11:45 10/13/24 Sodium 139 mmol/L (136-145) 10/13/24 11:45 10/13/24 Magnesium 1.8 mg/dL (1.6-2.6) 03/15/24 05:36 03/15/24 Phosphorus 3.7 mg/dL (2.5-4.9) 03/15/24 05:36 03/15/24 BUN 15 mg/dL (7-18) 10/13/24 11:45 10/13/24 Creatinine 0.88 mg/dL (0.55-1.02) 10/13/24 11:45 10/13/24 Glucose 97 mg/dL (74-106) 10/13/24 11:45 10/13/24 TSH 4.05 uIU/mL (0.358-3.74) H 03/15/24 05:36 07/0 05/01 COAG PT 15.7 SECONDS (11.7-14.9) H 10/05/24 15:00 /05/02 Pre-Assessment Diagnosis/Proposed Procedure Planned Operative Procedure(s): EGD Anesthesia History Anesthesia History - carton forming machine adjuster: Anesthesia History - carton forming machine adjuster Hx Hospitalization No 01/27/25 14:10 Any Problems With Anesthesia [ No 10/05/24 18:18 1 (Initial Baseline)] Any Problems With Anesthesia No 01/27/25 14:10 Cholinesterase deficiency No 01/27/25 14:10 You/Your Family Experience No 01/27/25 14:10 fever (hyperthermia) with Relationship Recent Exposure to Contagious No 02/01/25 12:32 Disease Does patient have nerve No 01/27/25 14:10 stimulator Patient instructed to have device shut off --Does patient have Pacemaker No 02/01/25 12:32 or ICD? When Was Last Pacemaker Check QUESTION #4 FULL TEXT: You/Your Family Experience fever (hyperthermia) with Anesthesia Last Oral Intake Last Oral intake: Last Oral Intake NPO since 08:30 02/01/25 12:32 Meds taken in AM with sips of Yes 02/01/25 12:32 water? Meds patient instructed to see medlist 02/01/25 12:32 take am of surgery Any additional information?: Yes NPO since: 08:30 (Patient took her last a.m. meds at 8:30 AM.) Meds taken in AM with sips of water?: Yes PONV PONV - carton forming machine adjuster: PONV - carton forming machine adjuster Female Yes 01/27/25 14:10 HX of Motion Sickness No 01/27/25 14:10 HX of N/V After Surgery No 01/27/25 14:10 Non-Smoker Yes 01/27/25 14:10 Duration of Surgery greater No 01/27/25 14:10 than 60 minutes Number of Risk Factors 2 01/27/25 14:10 PONV Score Moderate Risk 01/27/25 14:10 Height & Weight Height & Weight: Anesthesia: Height & Weight Height 5 ft 2 in 02/01/25 12:32 Weight: 67.2 kg 02/01/25 12:32 Body Mass Index (BMI) 27.1 02/01/25 12:32 Respiratory Assessment Respiratory Assessment - carton forming machine adjuster: Respiratory Tract Infection Hx - carton forming machine adjuster Hx Respiratory Tract Infection No 01/27/25 14:10 Any additional information?: Yes Hx Respiratory Tract Infection: No History of Anesthesia Respiratory Infection details: Patient has sinus drainage resulting in chronic cough. STOP Sleep Apnea STOP Sleep Apnea - carton forming machine adjuster: STOP Sleep Apnea - carton forming machine adjuster Hx Hypertension No 01/27/25 14:10 Hx Sleep Apnea No 01/27/25 14:10 CPAP No 07/16/23 14:58 BIPAP No 07/16/23 14:58 Do you snore loudly (louder No 01/27/25 14:10 than talking or can be heard Do you often feel tired/ No 01/27/25 14:10 fatigued/ sleepy during daytime? Has anyone observed you stop No 01/27/25 14:10 breathing during sleep? STOP Results Negative 01/27/25 14:10 QUESTION #5 FULL TEXT : Do you snore loudly (louder than talking or can be heard through closed doors)? 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 Specify any problems Hx of Preganancy in last 3 N/A 01/27/25 14:10 Months Nurse Filling Out Transfusion NBUCHER 01/27/25 14:10 & Questions: Date: 01/27/25 01/27/25 14:10 Time: 14:11 01/27/25 14:10 Patient unable to answer at this time (ie. confused, unrespo /Reproduction History /Reproductive History - carton forming machine adjuster: /Reproductive Hx- carton forming machine adjuster Hx Now No 01/27/25 14:10 Gestational Age (in weeks): EDC: Hx Hx Para Hx Section SAB No 01/27/25 14:10 Active Medications Active Medications: Current Medications Generic Name Dose Route Start Last Admin Trade Name Freq PRN Reason Stop Dose Admin Lactated Ringer's 1,000 mls @ 15 mls/hr 02/01/25 12:00 02/01/25 12:36 IV 15 mls/hr .Q48H DIANA Administration PFSH Medical History Wears glasses Pulmonary fibrosis History of cardioversion History of Holter monitoring History of echocardiogram Normal Holter exam Cardiology follow-up encounter CRISTOBAL (dyspnea on exertion) Paroxysmal atrial fibrillation New onset atrial fibrillation (03/26/22) Edema Vitamin D deficiency Carotid stenosis Wears dentures Depression Thyroid disease Arthritis History of renal disease Back pain Stomach ache Constipation Early satiety Hx of small bowel obstruction Anxiety Seborrheic keratoses Postoperative wound infection Thyroiditis Hiatal hernia Dyspnea Anemia Cancer Hypothyroidism Chronic pain Kidney disease Pancreatitis Former smoker Contusion of knee Clavicle fracture Acute myofascial strain of lumbosacral region Lung cancer Iatrogenic pneumothorax Climacteric Osteopenia Breast cancer, left Breast lump Chronic low back pain with sciatica GERD (gastroesophageal reflux disease) Home Medications ?Medication ?Instructions ?Recorded ?Last Taken ?Type cyanocobalamin (vitamin B-12) 5,000 mcg PO DAILY suppl ement 06/07/22 03/13/24 History 5,000 mcg disintegrating tablet vitamin E (dl, acetate) 45 mg (100 45 mg PO DAILY 02/2803/13/24 History unit) capsule cetirizine 10 mg capsule (Zyrtec) 10 mg PO DAILY PRN A llergy Symptoms 01/22/23 03/13/24 History cholecalciferol (vitamin D3) 25 2,000 unit PO QODAY robles pplement 04/29/24 Unknown History mcg (1,000 unit) tablet escitalopram oxalate 10 mg tablet 15 mg PO DAILY 04/2902/01/25 History ketoconazole 2 % shampoo 1 applic topical QWEEK DRY S CALP 04/29/24 Unknown History levothyroxine 50 mcg tablet 50 mcg PO MOTUWETHFR 04/2902/01/25 History pantoprazole 40 mg tablet,delayed 80 mg PO QAM 4 02/01/25 History release (Protonix) acetaminophen 650 mg 1,300 mg PO Q12H PRN pain Unknown History tablet,extended release (8 Hour Pain Reliever) digoxin 125 mcg (0.125 mg) tablet 125 mcg PO DAILY #90 tabs 11/01/24 02/01/25 Rx apixaban 5 mg tablet (Eliquis) 5 mg PO BID [facility]ed [facility] 01/14/25 01/28/25 Rx [facility] tabs gabapentin 400 mg capsule 200 mg PO QHS 01/14/25 Unkno wn History levothyroxine 50 mcg capsule 100 mcg PO SUSA 01/27/25 Unknown History Allergy/AdvReac Type Severity Reaction Status Date / Time Sulfa (Sulfonamide Allergy Hives Verified 02/01/25 12:30 Antibiotics) metoprolol AdvReac Severe hypotensive Verified 02/01/25 12:31 amiodarone AdvReac Intermediate Tremors, Verified 02/01/25 12:30 excess phleghm in throat fentanyl AdvReac Nausea Verified 02/01/25 12:30 promethazine (From Phenergan) AdvReac Other Verified 02/01/25 12:30 rosuvastatin (From Crestor) AdvReac headache Verified 02/01/25 12:30 Family History Father , 44 Heart disease Myocardial infarction Surgical History History of right shoulder replacement History of esophagogastroduodenoscopy (EGD) Hx of surgical procedure Hx of colonoscopy History of lobectomy of lung (02/14/21) History of open reduction and internal fixation (ORIF) procedure History of laparoscopy History of lumpectomy of left breast (10/10/20) History of total right knee replacement (03/06/20) History of total left knee replacement History of kidney surgery History of left breast biopsy (09/18/20) History of cholecystectomy History of tonsillectomy Social History housing: house current occupation: Retired- [employer] history of recent travel: No sexually active: No Smoking Status: Former smoker second hand exposure: No alcohol intake: never substance use type: does not use Review of Systems (Anesthesia) ROS Narrative System reviewed and no additional complaints, except as documented.
--- NOTE | 2025-02-01 13:00 | EGD_PTH ---
PATIENT: ROSELINE SHERIFF LOC: EN U#:[id number] AGE/SX: 79/F ROOM: RE02/01/[address]: Dr. Melecio Gregg DO : 1945 BED: DIS: 02/01/2025 SPEC #: [id number] RECD: 02/01/25 16:47 STATUS: YRN REHaley #: [id number] DUYEN: 02/01/25 13:[address]: Meelcio Gregg DEPT: SURGICAL PATHOLOGY RECD BY: Shad Mayer ENTERED: 02/02/25 08:57 SP TYPE: EGD BIOPSY OT DR: Dr. Kisha Morton DO Tissues: A - Esophagus, NOS Procedures: Surgery Specimen Level IV HEADER OPERATION: EGD with biopsies and cautery of AVM PRE-OP DIAGNOSIS: Jacobs's esophagus, AVM TISSUE SUBMITTED: A- Distal esophagus biopsy MICROSCOPIC DIAGNOSIS A. Esophagus, distal, biopsy: Columnar mucosa, negative for goblet cell metaplasia. Benign squamous mucosa. MICROSCOPIC DESCRIPTION Slides are reviewed. GROSS DESCRIPTION A. Received in formalin in a container labeled with the patient's name, date of , and distal esophagus biopsy are multiple cristina-pink fragments of mucosal tissue measuring 1.2 x 0.5 x 0.3 cm in aggregate. Submitted in toto in A1. SMB 02-02-2025 CPT:78629
--- NOTE | 2025-02-01 13:10 | HP.PCM_ITS ---
HPI - General General Date of Admission: 02/01/25 Date of Service: 02/01/25 Chief Complaint: angela's esophagus HPI Narrative ROSELINE SHERIFF, is a 79 F who presents for surveillance of Barretts esophagus I established in 2021 for management of recurrent sbo iochemical CBC, ESR, CMP, CRP, LDH, bilirubin, GHASSAN comp, ANCA without pertinent abnormality. KUB, patency capsule 8../8. without visualization of patency capsule. Gastric emptying study 04.23.22 69.22 minutes (12-56). Capsule Endoscopy 05.01.22 gastric inflammation, erythema and mild bleeding, GAVE. MCRP 9 moderate colonic stool burden; chronically prominent intrahepatic and extrahepatic bile ducts without filling defect. Biochemical 05.21.22 CBC, ESR, haptoglobin, coag, CMP, LFT, A1c, ferritin, amm onia, LDH, CRP, ceruloplasmin, BRENDAN, AFP, copper, ANCA, GHASSAN comp, AMA, ASM, hepatitis, HIV without pertinent abnormality. EGD and colonoscopy 05.28.22 EGD LA Grade A esophagitis; pyloric erythema, ga stritis, and stenosis, Savary dilator 36F; medium hiatal hernia. Colonoscopy diverticulosis; sigmoid stenosis, traversed; redundant; TI congestion; Rectal prolapse 1-2. US and elastography 05.31.22 hepatic measurement 13.7cm with normal echogenicity, stiffness 8.2kPa EGD 12 long-segment Angela?s, RFA; large hiatal hernia; gastritis. Metaplasia, H.Pylori negative Last OV 12.17.24 Pt doing well with no more diarrhea or cough. OV 3.18,25; Pt is having issues with swallowing her medications. She feels them sitting in her esophagus and then will get heartburn from it. She is not having issues with swallowing foods. She is still having some loose stools but controlled with Imodium daily. [facility] Medical History Wears glasses Pulmonary fibrosis History of cardioversion History of Holter monitoring History of echocardiogram Normal Holter exam Cardiology follow-up encounter CRISTOBAL (dyspnea on exertion) Paroxysmal atrial fibrillation New onset atrial fibrillation (03/26/22) Edema Vitamin D deficiency Carotid stenosis Wears dentures Depression Thyroid disease Arthritis History of renal disease Back pain Stomach ache Constipation Early satiety Hx of small bowel obstruction Anxiety Seborrheic keratoses Postoperative wound infection Thyroiditis Hiatal hernia Dyspnea Anemia Cancer Hypothyroidism Chronic pain Kidney disease Pancreatitis Former smoker Contusion of knee Clavicle fracture Acute myofascial strain of lumbosacral region Lung cancer Iatrogenic pneumothorax Climacteric Osteopenia Breast cancer, left Breast lump Chronic low back pain with sciatica GERD (gastroesophageal reflux disease) Home Medications ?Medication ?Instructions ?Recorded ?Last Taken ?Type cyanocobalamin (vitamin B-12) 5,000 mcg PO DAILY suppl ement 06/07/22 03/13/24 History 5,000 mcg disintegrating tablet vitamin E (dl, acetate) 45 mg (100 45 mg PO DAILY 02/2803/13/24 History unit) capsule cetirizine 10 mg capsule (Zyrtec) 10 mg PO DAILY PRN A llergy Symptoms 01/22/23 03/13/24 History cholecalciferol (vitamin D3) 25 2,000 unit PO QODAY robles pplement 04/29/24 Unknown History mcg (1,000 unit) tablet escitalopram oxalate 10 mg tablet 15 mg PO DAILY 04/2902/01/25 History ketoconazole 2 % shampoo 1 applic topical QWEEK DRY S CALP 04/29/24 Unknown History levothyroxine 50 mcg tablet 50 mcg PO MOTUWETHFR 04/2902/01/25 History pantoprazole 40 mg tablet,delayed 80 mg PO QAM 4 02/01/25 History release (Protonix) acetaminophen 650 mg 1,300 mg PO Q12H PRN pain Unknown History tablet,extended release (8 Hour Pain Reliever) digoxin 125 mcg (0.125 mg) tablet 125 mcg PO DAILY #90 tabs 11/01/24 02/01/25 Rx apixaban 5 mg tablet (Eliquis) 5 mg PO BID Faxed to [facility] 01/14/25 01/28/25 Rx [facility] tabs gabapentin 400 mg capsule 200 mg PO QHS 01/14/25 Unkno wn History levothyroxine 50 mcg capsule 100 mcg PO SUSA 01/27/25 Unknown History Allergy/AdvReac Type Severity Reaction Status Date / Time Sulfa (Sulfonamide Allergy Hives Verified 02/01/25 12:30 Antibiotics) metoprolol AdvReac Severe hypotensive Verified 02/01/25 12:31 amiodarone AdvReac Intermediate Tremors, Verified 02/01/25 12:30 excess phleghm in throat fentanyl AdvReac Nausea Verified 02/01/25 12:30 promethazine (From Phenergan) AdvReac Other Verified 02/01/25 12:30 rosuvastatin (From Crestor) AdvReac headache Verified 02/01/25 12:30 Family History Father , 44 Heart disease Myocardial infarction Surgical History History of right shoulder replacement History of esophagogastroduodenoscopy (EGD) Hx of surgical procedure Hx of colonoscopy History of lobectomy of lung (02/14/21) History of open reduction and internal fixation (ORIF) procedure History of laparoscopy History of lumpectomy of left breast (10/10/20) History of total right knee replacement (03/06/20) History of total left knee replacement History of kidney surgery History of left breast biopsy (09/18/20) History of cholecystectomy History of tonsillectomy Social History housing: house current occupation: Retired- [employer] history of recent travel: No sexually active: No Smoking Status: Former smoker second hand exposure: No alcohol intake: never substance use type: does not use ROS Constitutional Constitutional: Denies fatigue, fever(s), poor appetite, weight gain or weight loss Gastrointestinal Gastrointestinal: Denies belching, bloating, change in bowel habits, change in stool character, chewing difficulty, coffee ground emesis, constipation, cramping, diarrhea, dyspepsia, dysphagia, early satiety, excessive flatus, fecal incontinence, heartburn, hematemesis, hematochezia, hemorrhoids, loose stools, melena, nausea, odynophagia, rectal bleeding, tenesmus, vomiting or weight changes Vital Signs Vital Signs Vital Signs: 02/01/25 12:32 02/01/25 12:32 02/01/25 13:00 Temperature 97.3 F L 97.3 F L Temperature Source Temporal Pulse Rate 76 76 Respiratory Rate 18 18 Respiratory Pattern Normal Blood Pressure 91/50 L 91/50 L Blood Pressure Mean 63 Blood Pressure Source Monitor Blood Pressure Position Semi-Fowlers Blood Pressure Location Left Arm Pulse Ox 97 97 Oxygen Delivery Method Room Air Room Air Weight Weight: 148 lb 2.41 oz Body Mass Index (BMI) 27.1 Physical Exam Const alert, oriented x3, no apparent distress and healthy appearing General Appearance: cooperative GI normal to inspection, nondistended, normoactive bowel sounds, soft to palpation, non-tender and non-distended Percussion: normal to percussion Rectal Exam: deferred Assessment & Plan Assessment/Plan (1) Dysphagia: (2) Gastro-esophageal reflux disease without esophagitis: (3) Angela's esophagus with low grade dysplasia: PLAN: Assessment and Plan Assessment and Plan (1) Angela's esophagus with low grade dysplasia: Status: Acute Plan: This is a 79 yo female pt here today for f/u regarding her fatty liver and Barretts esophagus. Pt has complaints of issues swallowing her pills with heartburn after taking them. She continues with PPI. Last EGD in 2022 with long segment Barretts treated with RFA and gastritis. She will undergo repeat EGD. Pt also with a hx of fatty liver on vitamin E. Last liver elastography in may 2024. She will repeat this in 6 months for monitoring. She did not tolerate Ursodiol in the past. -EGD -Continue PPI -Continue vitamin E -Elastography in 6 months -f/u in 6 months (2) Nonalcoholic fatty liver disease: Status: Acute (3) Dysphagia: Status: Acute
--- NOTE | 2025-02-01 13:47 | PCM.POST.ANE ---
Anesthesia: Postop Eval I Current Vital Signs Temperature: 97.2 F Pulse Rate: 104 Blood Pressure: 83/45 Respiratory Rate: 16 Pulse Ox: 97 Oxygen Delivery Method: Room Air Assessment Airway patent: Yes Spontaneous unlabored respirations: Yes Mental status: Asleep nausea: No Vomiting: No Anesthesia Complication: No Fluid Hydration Crystalloid volume administer (ml): 600 Total IV fluid infused: 600 Progress Note Anesthesia document: Postop Eval 1 completed: Yes
--- NOTE | 2025-02-01 13:49 | OP.EGD_ITS ---
Patient Name: Kathryn Morataya Procedure Date: 02/01/2025 1:16 PM Date of : 1945 Age: 79 Procedure: Upper GI endoscopy Indications: Iron deficiency anemia, Heartburn, Melena Providers: Melecio Gregg DO Referring MD: Kisha Morton Medicines: Monitored Anesthesia Care Patient Profile: This is a 79 year old female. Refer to note in patient chart for documentation of history and physical. Patient has symptoms of chronic heartburn. Complications: No immediate complications. Procedure: Pre-Anesthesia Assessment: - Prior to the procedure, a History and Physical was performed, and patient medications and allergies were reviewed. The patient is competent. The risks and benefits of the procedure and the sedation options and risks were discussed with the patient. All questions were answered and informed consent was obtained. Patient identification and proposed procedure were verified by the physician in the pre-procedure area. Mental Status Examination: alert and oriented. Airway Examination: normal oropharyngeal airway and neck mobility. Respiratory Examination: clear to auscultation. CV Examination: normal. Prophylactic Antibiotics: The patient does not require prophylactic antibiotics. Prior Anticoagulants: The patient has taken no anticoagulant or antiplatelet agents except for NSAID medication. ASA Grade Assessment: II - A patient with mild systemic disease. After reviewing the risks and benefits, the patient was deemed in satisfactory condition to undergo the procedure. The anesthesia plan was to use monitored anesthesia care (MAC). Immediately prior to administration of medications, the patient was re-assessed for adequacy to receive sedatives. The heart rate, respiratory rate, oxygen saturations, blood pressure, adequacy of pulmonary ventilation, and response to care were monitored throughout the procedure. The physical status of the patient was re-assessed after the procedure. After obtaining informed consent, the endoscope was passed under direct vision. Throughout the procedure, the patient's blood pressure, pulse, and oxygen saturations were monitored continuously. The gastroscope was introduced through the mouth, and advanced to the third part of the duodenum. Small bowel enteroscopy was deemed necessary. The upper GI endoscopy was accomplished without difficulty. The patient tolerated the procedure well. Scope In: 1:28:09 PM Scope Out: 1:34:48 PM Total Procedure Duration Time 0 hours 6 minutes 39 seconds Findings: There were esophageal mucosal changes secondary to established long-segment Jacobs's disease present in the lower third of the esophagus. The maximum longitudinal extent of these mucosal changes was 5 cm in length. Mucosa was biopsied with a cold forceps for histology in a targeted manner at intervals of 1 cm in the lower third of the esophagus. One specimen bottle was sent to pathology. Verification of patient identification for the specimen was done. Estimated blood loss was minimal. A small hiatal hernia was present. Red blood was found in the prepyloric region of the stomach and at the pylorus. A single 5 mm angiodysplastic lesion with bleeding was found at the pylorus. Coagulation for hemostasis using heater probe was successful. Estimated blood loss was minimal. No gross lesions were noted in the entire examined duodenum. Impression: - Esophageal mucosal changes secondary to established long-segment Jacobs's disease. Biopsied. - Small hiatal hernia. - Red blood in the prepyloric region of the stomach and in the pylorus. - A single bleeding angiodysplastic lesion in the stomach. Treated with a heater probe. - No gross lesions in the entire examined duodenum. Recommendation: - Discharge patient to home. - Resume previous diet. - Continue present medications. - Await pathology results. - Repeat upper endoscopy in 1 year for surveillance. Procedure Code(s): --- Professional --- 51551, 59, Small intestinal endoscopy, enteroscopy beyond second portion of duodenum, not including ileum; with control of bleeding (eg, injection, bipolar cautery, unipolar cautery, laser, heater probe, stapler, plasma brim ironer hand) 34916, 51, Small intestinal endoscopy, enteroscopy beyond second portion of duodenum, not including ileum; with biopsy, single or multiple CPT copyright 2021 [employer]. All rights reserved. The codes documented in this report are preliminary and upon handwriting expert review may be revised to meet current compliance requirements. Melecio Gregg DO 02/01/2025 1:48:56 PM This report has been signed electronically. Number of Addenda: 0 Note Initiated On: 02/01/2025 1:16 PM
--- NOTE | 2025-02-01 13:49 | OP.CCLET_ITS ---
02/01/2025 Kisha Morton Re : Upper GI endoscopy procedure for Kathryn Morton This procedure was performed on Saturday, February 01, 2025. My impressions and recommendations are as follows: Impressions : - Esophageal mucosal changes secondary to established long-segment Jacobs's disease. Biopsied. - Small hiatal hernia. - Red blood in the prepyloric region of the stomach and in the pylorus. - A single bleeding angiodysplastic lesion in the stomach. Treated with a heater probe. - No gross lesions in the entire examined duodenum. Recommendations : - Discharge patient to home. - Resume previous diet. - Continue present medications. - Await pathology results. - Repeat upper endoscopy in 1 year for surveillance. My findings are described in the full procedure note, which is enclosed. If I can be of further assistance, please feel free to contact me at . Sincerely, Melecio Gregg, 02/01/2025 1:48:56 PM This report has been signed electronically.
--- NOTE | 2025-02-01 14:03 | PCM.POSTANE2 ---
Anesthesia Postop Eval I Sum Postop Eval Completion status Anesthesia document: Postop Eval 1 completed: Yes Anesthesia Postop Eval I Summary Anesthesia Postop Eval I Summary: Anesthesia Postop Eval I: Assessment Summary Airway patent Yes 02/01/25 13:48 [email or web address] Spontaneous unlabored Yes 02/01/25 13:48 [email or web address] respirations Mental status Asleep 02/01/25 13:48 [email or web address] nausea No 02/01/25 13:48 [email or web address] Vomiting No 02/01/25 13:48 [email or web address] Anesthesia Postop Eval I: Fluid Summary Crystalloid volume administer 600 02/01/25 13:48 [email or web address] (ml) Colloids volume administered ( ml) Blood Product volume administered (ml) Total IV fluid infused 600 02/01/25 13:48 [email or web address] Anesthesia Postop Eval I: Summary Notes Anesthesia Complication No 02/01/25 13:48 [email or web address] Anesthesia Complication Comment: Post-operative progress note Anesthesia: Postop Eval II Evaluation Mental status: Awake and Calm Pain Level: 0 nausea: No Vomiting: No Complications Anesthesia Complication: No
== END 2025-02-01 14:20 | disposition home or self-care (01) ==
LOC: EN 11:37 → AC 11:44
PROVIDERS: PCP Internal Medicine; Referring Provider Internal Medicine; Visit Provider Internal Medicine Gastroenterology
PROC: 0DJ08ZZ Inspection of Upper Intestinal Tract, Via Natural or Artificial Opening Endoscopic (ICD-10-PCS; CPT 43235; principal; 2025-02-01 12:55)
DX: K44.9 Diaphragmatic hernia without obstruction or gangrene (principal); R19.7 Diarrhea, unspecified; K22.710 Barrett's esophagus with low grade dysplasia; R13.10 Dysphagia, unspecified; Z87.891 Personal history of nicotine dependence; Z90.49 Acquired absence of other specified parts of digestive tract; K21.9 Gastro-esophageal reflux disease without esophagitis; K76.0 Fatty (change of) liver, not elsewhere classified; D50.9 Iron deficiency anemia, unspecified; K31.811 Angiodysplasia of stomach and duodenum with bleeding
CPT/HCPCS: 43255; 88305; C1889; J2405

== ENCOUNTER → 2025-06-13 | Outpatient (CLI) | payer MEDICARE, BC, SELFPAY ==
[2025-06-07 13:29] VITALS: BMI 34.7
--- NOTE | 2025-06-13 13:11 | CT_ITS ---
PROCEDURE: ABDOMEN WITH IV CONTRAST 06/13/2025 REASON FOR EXAM: CT OF ABDOMEN WITH CONTRAST TECHNIQUE: Procedure Code: CTABDW Modality: CT Procedure: ABDOMEN WITH IV CONTRAST Multiplanar Sagittal and Coronal images were obtained. One or more dose reduction techniques were used (e.g., Automated exposure control, adjustment of the mA and/or kV according to patient size, use of iterative reconstruction technique. CONTRAST: Isovue 370 VOLUME: 100 mL RADIATION DOSE SUMMARY: CTDlvol: 16.31 mGy DLP: 545.76 mGycm COMPARISON: None FINDINGS: Lung bases: Chronic interstitial changes/fibrotic scarring in the lower lung felder with peripheral honeycombing and some bronchiectatic changes in the left lung base. There is a small retrocardiac hiatal hernia with thickening of the distal esophagus suggesting reflux esophagitis. Liver: Normal size. No mass. Gallbladder: Surgically absent. Spleen: Normal size. Pancreas: Normal size without evidence of mass surrounding inflammation or ductal dilation. Adrenals: Unremarkable Kidneys: Left kidney is free of obstructive uropathy or suspicious solid renal lesion. 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 The right ureter is of normal course and caliber without evidence of obstructing stone. Bowel: Retained stool noted throughout the colon. Lymph nodes: No suspicious mesenteric or retroperitoneal adenopathy Vasculature: Peripheral calcifications in the abdominal aorta without aneurysm. Peritoneum / Retroperitoneum: No free fluid or air Bones: Degenerative bony changes with a levoscoliosis in the lumbar spine. 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 There is dilatation of the right renal pelvis in the right calices but no obstructing st one is noted. The right ureter is of normal course and caliber No free intraperitoneal fluid, air, or suspicious adenopathy Retained stool throughout the colon Chronic interstitial scarring/fibrosis in the lower lung felder with bronchiect atic changes in the left lower lung felder Hiatal hernia with evidence of GE reflux Degenerative bony changes Reading Location: [place] [id number]
== END | disposition home or self-care (01) ==
LOC: CT 13:10
PROVIDERS: PCP Internal Medicine; Referring Provider Internal Medicine; Visit Provider Internal Medicine
DX: R10.10 Upper abdominal pain, unspecified (principal)
CPT/HCPCS: 74160; Q9967

== ENCOUNTER → 2025-07-20 | Outpatient (CLI) | payer MEDICARE, BC, SELFPAY ==
[2025-06-07 13:29] VITALS: BMI 34.7
--- NOTE | 2025-07-20 15:22 | BD_ITS ---
PROCEDURE: DEXA BONE DENSITY STUDY 07/20/2025 REASON FOR EXAM: F, age 80 y/o . Postmenopausal. TECHNIQUE: Procedure Code: BDDBD Modality: DX Procedure: DEXA BONE DENSITY STUDY COMPARISON: April 29, 2023. FINDINGS: BMD and T-SCORES Lumbar spine: 1.052 g/cm2, T-score 0.0 Levels: L1 through L4 Change from prior: Improvement of 1.1%. Left femoral neck: 0.606 g/cm2, T-score -2.2 Femoral neck comparison data not recommended for monitoring change. Left total hip: 0.673 g/cm2, T-score -2.2 Change from prior: Loss of 2.5%. Right femoral neck: 0.615 g/cm2, T-score -2.1 Femoral neck comparison data not recommended for monitoring change. Right total hip: 0.645 g/cm2, T-score -2.4 Change from prior: Loss of 5.9%. The World Health Organization has defined the following categories based on bone density: Normal bone density: T-score equal to or greater than -1.0 Osteopenia: T-score between -1.0 and -2.5 Osteoporosis: T-score equal to or less than -2.5 FRAX (or Comparable) Fracture Risk Assessment: 10 Year Probability of Fracture: Major Osteoporotic Fracture: 23% Hip Fracture: 6.6% (Note: FRAX is not to be reported in setting of normal range bone density, osteoporosis on DEXA, known history of osteoporosis, prior osteoporotic hip or vertebral fracture, or for any patient undergoing pharmacological treatment for bone loss.) The National Osteoporosis Foundation (NOF) recommends pharmacological treatment for patients with a FRAX 10-year risk of 3% or higher for a hip fracture, or 20% or higher for a major osteoporotic fracture, to prevent osteoporosis and reduce fracture risk. The patient does meet the pharmacological treatment recommendations for prevention of osteoporosis. BD/Dexa Bone Density Study IMPRESSION: OSTEOPENIA. Recommend follow-up as clinically warranted. Reading Location: [place] [id number]
== END | disposition home or self-care (01) ==
PROVIDERS: PCP Internal Medicine; Referring Provider Internal Medicine; Visit Provider Internal Medicine
DX: Z78.0 Asymptomatic menopausal state (principal)
CPT/HCPCS: 77080

== ENCOUNTER → 2025-08-23 | Outpatient (CLI) | payer MEDICARE, BC, SELFPAY ==
[2025-06-07 13:29] VITALS: BMI 34.7
[2025-08-23 11:17] LABS: Mucous, Urine 0 SEEN /hpf (<or=2+); Red Blood Cells-Urine 0 SEEN /hpf (0-5)
[2025-08-23 12:11] LABS: Color, Urine Yellow (Yellow); Glucose, Dipstick Normal (Normal); Ketone-Dipstick Negative (Negative); Leukocyte Esterase-Dipstick Negative /ul (Negative); Nitrite-Dipstick Negative (Negative); Occult Blood-Urine 10 /ul (Negative); Protein-Dipstick 30 mg/dl (Negative); Specific Gravity, Urine 1.015 (1.002-1.030); Urine Bilirubin Dipstick Negative (Negative)
[2025-08-23 12:24] LABS: Squamous Epithelial Cells - UA 0-5 SEEN /hpf (5-10)
[2025-08-23 12:52] LABS: AST(SGOT) 20 U/L (<=31); Alanine Aminotransfer ALT/SGPT 10 U/L (<=34); Albumin, Serum 3.9 g/dL (3.4-4.8); Alkaline Phosphatase 62 U/L (35-104); Anion Gap 9 (5-15); BUN 13 mg/dL (4-19); BUN/Creat Ratio 15.8 RATIO (10-20); Calcium,Total 9.4 mg/dL (7.6-11.0); Carbon Dioxide 32.4 mmol/L (21.0-32.0); Chloride 102 mmol/L (98-108); FOLATES,SERUM (FOLIC ACID) 4.91 ng/mL (4.60-34.80); Globulin 2.4 g/dL (2.2-4.2); Glucose 92 mg/dL (70-99); Potassium 4.7 mmol/L (3.3-5.1); Vitamin B12 1437 pg/mL (180-914)
== END | disposition home or self-care (01) ==
LOC: LABSPEC 11:15
PROVIDERS: PCP Internal Medicine; Referring Provider Internal Medicine; Visit Provider Internal Medicine
DX: R10.10 Upper abdominal pain, unspecified (principal); D47.2 Monoclonal gammopathy; E53.8 Deficiency of other specified B group vitamins
CPT/HCPCS: 80053; 81001; 82607; 82746